=== PATIENT | female | born 2000 | race Caucasian/White ===

== ENCOUNTER 2021-05-11 19:51 | Observation (INO) | payer OTHER, SELFPAY ==
[2021-05-11] VITALS (8 sets, daily range): BP systolic 119–143; BP diastolic 74–84; PULSE 65–86; BMI 25.4
--- NOTE | 2021-05-11 23:29 | LDADM ---
This patient, Shikha Padilla, was admitted to Labor/Delivery/Recovery 104 on 05/11/21 at 19:51. Plans for labor, pain management and were discussed with patient. Patient/family oriented to hospital policies and general routines including ID bracelet, bed and alarms, visiting hours, pain management, procedures, bathroom and other care routines, personal items, smoking policy, room service/diet and guest tray routines, security routines, and visiting hours. Patient/Family are encouraged to report perceived risks to care and to ask questions if they do not understand what they are told or what they should do. See OBIX for further documentation.
--- NOTE | 2021-05-13 20:59 | PM.OBTRLD ---
OB - Triage/Final Diagnosis Visit Information Date of evaluation: 05/11/21 Reason for evaluation: threatened labor Comments/Additional reasons for admission: I have assessed the risk for this patient, Shikha Padilla, and determined that she would benefit from observation care.
== END 2021-05-11 23:53 | disposition home or self-care (01) ==
PROVIDERS: Admitting Provider Obstetrics & Gynecology; PCP Pediatrics; Visit Provider Obstetrics & Gynecology
DX: O47.1 False labor at or after 37 completed weeks of gestation (principal); Z3A.38 38 weeks gestation of pregnancy
CPT/HCPCS: G0378; G0379

== ENCOUNTER 2021-05-26 05:40 | Inpatient (IN) | payer MEDICAID, SELFPAY ==
[2021-05-26] VITALS (100 sets, daily range): BP systolic 83–147; BP diastolic 31–112; PULSE 53–165; RESP 16–18; TEMP 36.2–36.9; O2SAT 97–100; BMI 24.9
--- OUTSIDE RECORDS SUMMARY | 2021-05-26 06:17 | XMS_ITS | Encounter Summary ---
:2000 Author Care Team Providers Name Role Phone Lisa Huang MD Primary Care Provider [phone] Reason for Visit OB visit Assessment and Plan Assessment Note Patient is ___weeks . Discu ssed plan. 1. Routine care Discussion Note: None recorded.Patient educational handouts: No information available. Plan of Care Reminders Provider Appointments Ob Routine Lionel Bradford 05/27/2021 MD Nasreen 1:00PM Lab None ? ? recorded. Referral None ? ? recorded. Procedures None ? ? recorded. Surgeries None ? ? recorded. Imaging None ? ? recorded. Medications Name Start Date ? ? ? triamcinolone acetonide 0.5 % topical cream ? APPLY A THIN LAYER TO THE AFFECTED AREA(S) BY TOPICAL ROUTE 2 TIMES PER DAY Medications Administered None recorded. Vitals Height Weight BMI Blood Pressure 5 ft 5 in 153 lbs 25.5 kg/m2 120/81 mm[Hg] Results Lab Results None recorded. Allergies Code Code System Name Reaction Severity Onset NKDA ? ? ? Problems Name Status Onset Date Source ?
--- OUTSIDE RECORDS SUMMARY | 2021-05-26 06:17 | XMS_ITS | Encounter Summary ---
:2001 Author Care Team Providers Name Role Phone Lisa Huang MD Primary Care Provider [phone] Reason for Visit OB visit Assessment and [...] PER DAY Medications Administered None recorded. Vitals None recorded. Results Lab Results None recorded. Allergies Code Code System Name Reaction Severity Onset NKDA ? ? ? Problems Name Status Onset Date Source ? Active 11/14/2020 ? Procedures None recorded.
--- OUTSIDE RECORDS SUMMARY | 2021-05-26 06:17 | XMS_ITS | Encounter Summary ---
:2001 Author Care Team Providers Name Role Phone Lisa Huang MD Primary Care Provider [phone] Reason for Visit OB visit Assessment and [...] ft 5 in 153 lbs 25.5 kg/m2 (1) 129/88 mm[H g] (2) 120/78 mm[Hg ] Results Lab Results None recorded. Allergies Code Code System Name Reaction Severity Onset NKDA ? ? ? Problems
--- OUTSIDE RECORDS SUMMARY | 2021-05-26 06:17 | XMS_ITS | Encounter Summary ---
:2001 Author Care Team Providers Name Role Phone Lisa Huang MD Primary Care Provider [phone] Reason for Visit OB visit Assessment and [...] BMI Blood Pressure 5 ft 5 in 152 lbs 25.3 kg/m2 121/77 mm[Hg] Results Lab Results None recorded. Allergies Code Code System Name Reaction Severity Onset NKDA ? ? ? Problems Name Status Onset Date Source ?
--- OUTSIDE RECORDS SUMMARY | 2021-05-26 06:17 | XMS_ITS | Encounter Summary ---
:2001 Author Care Team Providers Name Role Phone Lisa Huang MD Primary Care Provider [phone] Reason for Visit OB visit Assessment and Plan Assessment Note Patient is ___weeks . Discu ssed plan. 1. Pruritic urticarial papules a nd plaques of ? triamcinolone acetonide 0. 5 % topical cream Discussion Note: None recorded.Patient educational handouts: No [...] BMI Blood Pressure 5 ft 5 in 154 lbs 25.6 kg/m2 118/76 mm[Hg] Results Lab Results None recorded. Allergies Code Code System Name Reaction Severity Onset NKDA ? ?
--- OUTSIDE RECORDS SUMMARY | 2021-05-26 06:17 | XMS_ITS ---
:2001 Author Care Team Providers Name Role Phone MICHAEL YOU MD Primary Care Provider [phone] Allergies Code Code System Name Reaction Severity Status Onset NKDA ? Medications Name Status Start Date Stop Date ? ? Active ? Not available triamcinolone acetonide 0.5 % topical Active ? Not available cream Problems Name Status Onset Date Source ? Active 11/14/2020 ? Procedures Date Name Performed by ? 11/14/2020 US, Obstetric, Nuchal Translucency Haresh verdu[address] [place] [address] ([address]) 01/06/2021 US, Obstetric, 2Nd or 3Rd Trimester Janette adame [address] [place] [address] ([address]) 04/10/2021 , Obstetric, Follow-up [place] [address] [place] [address] ([address]) Results Lab Results Date Name Specimen Result Interpretation Description Value Range Status Address ? 04/25/2021 Streptococcus ? Result see results ? Final [facility]: Group B, Report below [address], [place] Unspecified
--- OUTSIDE RECORDS SUMMARY | 2021-05-26 06:18 | XMS_ITS | Encounter Summary ---
:2001 Author Care Team Providers Name Role Phone Lisa Huang MD Primary Care Provider [phone] Reason for Visit OB visit Assessment and [...] BMI Blood Pressure 5 ft 5 in 145 lbs 24.1 kg/m2 116/70 mm[Hg] Results Lab Results None recorded. Allergies Code Code System Name Reaction Severity Onset NKDA ? ? ? Problems Name Status Onset Date Source ?
--- OUTSIDE RECORDS SUMMARY | 2021-05-26 06:18 | XMS_ITS | Encounter Summary ---
:2001 Author Care Team Providers Name Role Phone Lisa Huang MD Primary Care Provider [phone] Reason for Visit OB visit OB [id number] edc 05/20/2021 lmp 08/13/2020 Assessment and Plan Assessment Note Patient is _30__weeks . Dis cussed plan. 1. Routine care Discussion Note: None [...] BMI Blood Pressure 5 ft 5 in 139 lbs 23.1 kg/m2 112/70 mm[Hg] Results Lab Results None recorded. Allergies Code Code System Name Reaction Severity Onset NKDA ? ? ? Problems
--- OUTSIDE RECORDS SUMMARY | 2021-05-26 06:18 | XMS_ITS | Encounter Summary ---
:2001 Author Care Team Providers Name Role Phone Lisa Huang MD Primary Care Provider [phone] Reason for Visit None recorded. Assessment and Plan 1. Uterine size for dates discre pancy ? US, obstetric, follow-up Discussion Note: None recorded.Patient educational handouts: No information available. Plan of Care Reminders Provider Appointments Ob Routine Lionel Bradford 05/27/2021 MD Nasreen 1:00PM Lab None ? ? recorded. Referral None ? ? recorded. Procedures None ? ? recorded. Surgeries None ? ? recorded. Imaging [facility] Obstetric, Follow-up 04/10/2021 Medications Name Start Date ? ? ? [...]
--- OUTSIDE RECORDS SUMMARY | 2021-05-26 06:18 | XMS_ITS | Encounter Summary ---
:2001 Author Care Team Providers Name Role Phone Lisa Huang MD Primary Care Provider [phone] Reason for Visit OB visit Assessment and [...] BMI Blood Pressure 5 ft 5 in 148 lbs 24.6 kg/m2 114/70 mm[Hg] Results Lab Results None recorded. Allergies Code Code System Name Reaction Severity Onset NKDA ? ? ? Problems Name Status Onset Date Source ?
--- OUTSIDE RECORDS SUMMARY | 2021-05-26 06:18 | XMS_ITS | Encounter Summary ---
:2001 Author Care Team Providers Name Role Phone Lisa Huang MD Primary Care Provider [phone] Reason for Visit OB visit [id number] Assessment and Plan Assessment Note Patient is [...] BMI Blood Pressure 5 ft 5 in 137 lbs 22.8 kg/m2 115/72 mm[Hg] Results Lab Results None recorded. Allergies Code Code System Name Reaction Severity Onset NKDA ? ? ? Problems Name Status Onset Da
--- NOTE | 2021-05-26 06:38 | LDADM ---
This patient, Shikha Padilla, was admitted to Labor/Delivery/Recovery 107 on 05/26/21 at 05:40. Plans for labor, pain management and were discussed with patient. Patient/family oriented to hospital policies and general routines including ID bracelet, bed and alarms, visiting hours, pain management, procedures, bathroom and other care routines, personal items, smoking policy, room service/diet and guest tray routines, security routines, and visiting hours. Patient/Family are encouraged to report perceived risks to care and to ask questions if they do not understand what they are told or what they should do. See OBIX for further documentation.
[2021-05-26] MEDS: LACTATED RINGERS 1,000 ML 125 ML IV CONT ×2 (06:42→07:20)
[2021-05-26 06:54] LABS: Basophils Percent Auto 0.3 % (0.2-1.2); Eosinophils Percent Auto 0.3 % (0-4.4); Hematocrit 40.6 % (37.0-47.0); Hemoglobin 13.9 g/dL (12.0-15.0); Immature Granulocyte Percent A 1.4 % (0-0.5); Lymphocytes Absolute Auto 3.09 K/mm3 (0.9-3.2); Lymphocytes Percent Auto 21.2 % (18.3-44.2); Mean Corpuscular HGB Conc 34.2 g/dl (32-36); Mean Corpuscular Hemoglobin 31.4 pg (26-34); Mean Corpuscular Volume 91.9 fl (80-100); Mean Platelet Volume 9.6 fl (7.4-10.4); Monocytes Absolute Auto 0.9 K/mm3 (0.1-0.6); Monocytes Percent Auto 6.1 % (2.6-8.5); Neutrophils Absolute Auto 10.3 K/mm3 (1.3-6.7); Neutrophils Percent Auto 70.7 % (45.5-73.1); Platelet Count Result 254 k/mm3 (150-375); Red Blood Count 4.42 M/mm3 (4.2-5.4); Red Cell Distribution Width 12.2 % (11.5-14.5); White Blood Count 14.6 K/mm3 (4.5-10.0)
[2021-05-26] MEDS: ONDANSETRON INJ 4 MG/2 ML VIAL IV PUSH (07:44)
--- NOTE | 2021-05-26 07:51 | P.HPUP_ITS ---
History and Physical Update Update Date/Time: 05/26/21 07:51 20 y/o female G1 who presents in labor. AROM was p erformed. /+1 Reassuring status. Expectant management. History and Physical has been reviewed, including an updated exam of the patient. There are NO changes in the patient's condition. Risks, benefits, and alternatives have been discussed and questions answered. Patient agrees to proceed with procedure.
[2021-05-26] MEDS: FAMOTIDINE 20 MG/2 ML VIAL IV PUSH (08:42)
[2021-05-26 10:11] LABS: Rapid Plasma Reagin Non-Reactive (NonReactive)
[2021-05-26] MEDS: OXYTOCIN 30 UNITS/NS 500 ML 30 UNITS/500 ML BAG IV CONT (11:16)
--- NOTE | 2021-05-26 12:40 | PM.OBPRVD ---
OB - Delivery Note Procedure Delivery date: 05/26/21 Procedure: Intrapartal events: None Delivery augmentation: rupture of membranes and pitocin Episiotomy description: Right Mediolateral Laceration Description: None Delivery repair: vicryl Specimen: No Quantitative Blood Loss (ml): 300 Anesthesia type: Epidural Disposition: ICU Baby Date of : 05/26/21 Time of : 12:19 Weeks of gestation at delivery: 40 Infant gender: Male Weight (pounds): 6 Weight (ounces): 5 score one minute: 8 score five minutes: 9
[2021-05-26] MEDS: OXYTOCIN 30 UNITS/NS 500 ML 30 UNITS/500 ML BAG 125 UNITS IV CONT (13:04)
[2021-05-26] MEDS: WITCH HAZEL 40 PADS 1 PAD TOPICAL (14:45)
[2021-05-26] MEDS: BENZOCAINE 20% AER SPR (*SP) 56 GM CAN 1 SPRAY TOPICAL (14:45)
--- NOTE | 2021-05-26 15:50 | PC.NURSE ---
Mother called out for assist with feeding, reporting was sleepy for first feeding. is able to freely thrust tongue past gum ridge and flange both lips. Skin is intact on both nipples, no redness and bruising noted. Reviewed infant feeding cues, frequencies, duration of feedings, feeding elimination flow sheet, and signs of adequate intake. Demonstrated stimulation techniques to wake infant for feeding. Assisted with to breast. Reviewed positioning/alignment in cross cradle, holding breast in ?U? hold and guided asymmetrical latch on. Reviewed rational for each. able to latch correctly within a few attempts. nursed eagerly with steady draws and occasional swallowing noted, with long pausing pausing noted. Reviewed signs of a correct latch, effective nursing and suck swallow ratio. Suggested mother stimulate while feeding to increase stimulation for milk supply, for increased intake and to assist with maintaining deep latch. Parents work to stimulate infant, infant responds with bursts of nursing followed with long pausing. would slip to shallow latch causing tenderness. Demonstrated how to adjust latch more deeply while feeding as needed. Mother reports she can feel the difference in latch with no tenderness. Nipple care reviewed of lanolin after feedings, warm compresses as needed. Instructed mother to call out for RN assistance if she is unable to latch for feeding or she has discomfort with nursing. Instructed feeding should be initiated three hours from start of last feeding or if feeding cues are noted before. Mother voiced understanding of information shared.
--- NOTE | 2021-05-26 16:00 | OBPPTRN ---
1515-Patient transferred to post room #290 via wheelchair. Support person present. Oriented to unit, room, information board, rooming in, admission packet and security measures. Patient verbalizes understanding.
[2021-05-26] MEDS: IBUPROFEN 600 MG TABLET PO ×2 (16:21→22:25)
[2021-05-26] MEDS: HYDROcodone/acetaminophen (*CRX) 5-325 MG TABLET 1 TAB PO ×2 (18:51→22:26)
[2021-05-27 03:10] VITALS: BP 116/55; PULSE 80; RESP 16; TEMP 36.4; O2SAT 98
[2021-05-27] MEDS: HYDROcodone/acetaminophen (*CRX) 5-325 MG TABLET 1 TAB PO ×5 (03:14→17:23)
[2021-05-27 04:51] LABS: Hematocrit 25.3 % (37.0-47.0)
--- NOTE | 2021-05-27 07:55 | PM.OBPNVD ---
OB - PN: Subj Subjective Date/time seen: 05/27/21 07:55 Patient comments: no complaints baby status: doing well OB - PN: Obj Data Labs CBC & Chem 7: 05/27/21 04:08 Labs: Laboratory Results - last 24 hr 05/26/21 05/27/21 06:32 04:08 Hgb 9.0 L D Hct 25.3 L RPR Non-reactive OB - PN A/P Plan day: 1 Plan: routine care Time Spent With Patient Time: Total time spent is greater than 50% in coordination of care (as documented) at patient's floor/unit and/or counseling patient: Time with patient: less than 15 minutes Review of Systems Review of Systems: All systems reviewed & are unremarkable except as noted in HPI and below Exam Narrative: Fundus firm and vaginal flow controlled. No lower ext redness, warmth, or edema. Negative homans. Const: General: comfortable Chest: Breast/axilla inspection: normal inspection of the breasts Resp: Effort & Inspection: normal respiratory effort Cardio: Rate: regular rate GI: GI Palp: Yes Soft to palpation Psych: Appearance: grossly normal Affect: normal affect Attitude: cooperative Thought content: Yes Normal thought content present Judgement: Good judgement present (Psych)
[2021-05-27] MEDS: DOCUSATE SODIUM 100 MG CAPSULE PO (08:25)
[2021-05-27] MEDS: IBUPROFEN 600 MG TABLET PO ×3 (08:25→19:35)
[2021-05-27] MEDS: MULTIVIT/MIN/PREN/FOL AC/IRON TABLET 1 TAB PO (08:25)
[2021-05-27] MEDS: POLYSACCHARIDE IRON COMPLEX 150 MG CAPSULE PO ×2 (08:25→17:23)
[2021-05-27 08:40] VITALS: BP 109/60; PULSE 76; RESP 16; TEMP 36.9; O2SAT 100
--- NOTE | 2021-05-27 08:56 | WPDANLDPN2 ---
Anes-Prog Note L&D Date/Time: 05/27/21 08:56 Comfortable throughout: labor and delivery Neuraxial method: epidural Epidural/Spinal procedure site: clean & non-tender Neuro status: Neuro function grossly intact. Cardiovascular status: normal Respiratory status: normal Airway patency: baseline Mental status: baseline Post-Op hydration status: normal Vital Signs: Last Vital Signs Temp 97.6 F 05/27/21 03:10 Pulse 80 05/27/21 03:10 Resp 16 05/27/21 03:10 BP 116/55 L 05/27/21 03:10 Pulse Ox 98 05/27/21 03:10 Pain score (VAS): 2 Post-procedural complaints: none Patient feedback: Patient satisfied with anesthetic care.
--- NOTE | 2021-05-27 12:25 | PC.NURSE ---
Mother called out for assist with feeding, reporting it has been 4 hours since fed. Mother has attempted to wake after circumcision and he will not wake to feed. . Demonstrated stimulation techniques to wake for feeding. Assisted with infant to breast. Reviewed positioning/alignment in cross cradle, holding breast in ?U? hold and guided asymmetrical latch on. Reviewed rational for each. able to latch correctly within a few attempts. Infant nursed sleepily with bursts of steady draws and occasional swallowing noted, and long pausing. Reviewed signs of a correct latch, effective nursing and suck swallow ratio. Suggested mother stimulate while feeding to increase stimulation for milk supply, for increased intake and to assist with maintaining deep latch. Infant need constant stimulation to keep awake and nursing. Infant would slip to shallow latch causing tenderness. Demonstrated how to adjust latch more deeply while feeding as needed. Mother reports she can feel the difference in latch with no tenderness. Nipple care reviewed of lanolin after feedings, warm compresses as needed. Instructed mother to call out for RN assistance if she is unable to latch for feeding or she has discomfort with nursing. Instructed feeding should be initiated three hours from start of last feeding or if feeding cues are noted before. Mother voiced understanding of information shared.
[2021-05-27 12:36] VITALS: BP 113/56; PULSE 76; RESP 18; TEMP 36.7; O2SAT 99
--- NOTE | 2021-05-27 15:00 | PCCCNOTE ---
Care Coordination met with pt. and FORain Keith. Pt.'s D/C plan is to return home with FOB and baby. Pt. states that FOB is supportive and they have everything needed to safely bring baby home. Pt. will breast feed at time of D/C and states she is current with WIC. 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 Pt. has no prior DCFS history. Pt. denies any D/C needs or concerns. She has been provided with a list of resources. Will follow.
[2021-05-27 19:30] VITALS: BP 131/72; PULSE 82; RESP 16; TEMP 37.1
[2021-05-28] MEDS: HYDROcodone/acetaminophen (*CRX) 5-325 MG TABLET 1 TAB PO ×3 (00:40→08:18)
[2021-05-28] MEDS: IBUPROFEN 600 MG TABLET PO ×2 (02:30→08:18)
[2021-05-28 07:35] VITALS: BP 118/62; PULSE 72; RESP 16; TEMP 36.8; O2SAT 97
--- NOTE | 2021-05-28 07:38 | PM.OBPNVD ---
OB - PN: Subj Subjective Date/time seen: 05/28/21 07:38 Patient comments: no complaints, pain well controlled and tolerating diet OB - PN: Obj Data Labs CBC & Chem 7: 05/27/21 04:08 OB - PN A/P Plan day: 2 Plan: routine care and discharge home Time Spent With Patient Time: Total time spent is greater than 50% in coordination of care (as documented) at patient's floor/unit and/or counseling patient: Exam Const: General: comfortable and no acute distress Resp: Effort & Inspection: normal respiratory effort Auscultation: no rales, no rhonchi and no wheezes Cardio: Rate: regular rate Heart sounds: no click, no murmurs and no rubs GI: GI Palp: Yes Soft to palpation and No Tenderness to palpation present (GI) Auscultation: normal bowel sounds Extrem: General: normal to inspection, no pedal edema and no calf tenderness
--- NOTE | 2021-05-28 07:38 | PM.OBDSVD ---
DS: Admitting Diagnosis Discharge Date 05/28/2021 Admitting Diagnosis term DS: Discharge Diagnosis Discharge Diagnosis (1) Term delivered: Code(s): O80 - Encounter for full-term uncomplicated delivery Status: Acute OB - DS: Summary OB Procedures : NST and Ultrasound OB Procedures Intrapartum: Spontaneous Vag Delivery OB Procedures: : None Peripartum Data Delivery Method: Natural Vaginal Episiotomy description: Right Mediolateral Status at Discharge Functional status at discharge: independent ambulation Time Spent with Patient Time attestation: Total time spent providing and/or coordinating discharge services: Discharge Plan Discharge Attending physician on discharge: Shelia Downey Discharging Clinician: Shelia Downey Patient Disposition: Home, Self-Care Activity: pelvic rest Diet: regular Patient Instructions: Antibiotic Form Stand Alone Forms: General Discharge Information Follow-up/Referrals: Shelia Downey MD [Physician] - Date of admission: 05/26/21 05:40 Primary Care Provider: ÁngelLisa Admitting Provider: Shelia Downey Attending physician on admission: Shelia Downey Condition: Stable
[2021-05-28] MEDS: DOCUSATE SODIUM 100 MG CAPSULE PO (08:18)
[2021-05-28] MEDS: POLYSACCHARIDE IRON COMPLEX 150 MG CAPSULE PO (08:18)
[2021-05-28] MEDS: MULTIVIT/MIN/PREN/FOL AC/IRON TABLET 1 TAB PO (08:18)
--- NOTE | 2021-05-28 11:45 | PC.NURSE ---
Patient and father of baby viewed the discharge video Mother & Baby Care, The First Two Weeks . Patient was given the opportunity and encouraged to ask questions. Patient verbalized understanding of information shared and has been given the mother/baby guide for home reference.
== END 2021-05-28 14:20 | disposition home or self-care (01) | DRG 560 ==
LOC: ANHLDR 06:15 → ANHOB2 15:41
PROVIDERS: Admitting Provider Obstetrics & Gynecology; PCP Pediatrics; Visit Provider Obstetrics & Gynecology
DX: O80 Encounter for full-term uncomplicated delivery (principal); Z3A.40 40 weeks gestation of pregnancy; Z37.0 Single live birth
CPT/HCPCS: 36415; 85014; 85018; 85025; 86592; 86850; 86900; 86901; A9270; J2405; J2590; J2795; J7120

== ENCOUNTER 2022-09-08 18:57 | Emergency (ER) | payer BC, SELFPAY ==
--- NOTE | 2022-09-08 19:03 | ED.ABDPAIN ---
HPI - Abdominal Pain General Chief Complaint: Urogenital-Female Stated Complaint: Andominal Pain Source: patient and RN notes reviewed History of Present Illness HPI narrative: 22-year-old female presents to urgent care with complaints of dysuria, bilateral lower back pain, and lower pelvic pain x3 days. Patient states the symptoms do not get worse until today. Denies any vomiting, chest pain, or shortness of breath. Some parts of this dictation were generated by voice recognition software and may contain typographical and/or grammatical inaccuracies. Related Data Allergies Allergy/AdvReac Type Severity Reaction Status Date / Time No Known Allergies Allergy Verified 05/07/21 14:40 Review of Systems Review of Systems: CONSTITUTIONAL: Denies fever, chills, or sweats. EYES: Denies visual changes, redness, or discharge. ENT: Denies otalgia and sore throat CARDIOVASCULAR: Denies chest pain, palpitations, or edema. RESPIRATORY: Denies cough or dyspnea. GASTROINTESTINAL: Lower abdominal pain GENITOURINARY: Dysuria SKIN: Denies rash or itching. MUSCULOSKELETAL: Bilateral lower back pain NEUROLOGIC: Denies headache, numbness, or weakness. [facility] Family History Family History (Updated 05/07/21 @ 14:41 by Joshua Perez RN) Grandparent Diabetes mellitus Hypertension Social History Social History Smoking status: Never smoker Substance use: former Spiritual care concerns: No Comments At the time of my signature, I reviewed and agree with the nursing past medical, surgical, social, and family history. There is no relevant family history pertinent to the patient complaint. Exam Narrative: GENERAL: This is a well-nourished, well-developed patient, in no apparent distress. HEAD: normocephalic, atraumatic. EYES: PERRL. Sclera clear/white. Vision is grossly intact. EARS: External ears normal, auditory canals clear and without drainage, TMs normal without perforation. Hearing grossly intact. NOSE: External nose normal with no obvious nasal discharge, nares without redness, no rhinorrhea. THROAT: Mucous membranes moist, posterior pharynx clear. NECK: Neck supple, non-tender without lymphadenopathy, masses or thyromegaly. CARDIOVASCULAR: Regular rate and rhythm without murmurs, gallops, or rubs. RESPIRATORY: Clear to auscultation. Breath sounds equal bilaterally. No wheezes, rales, or rhonchi. GASTROINTESTINAL: Abdomen soft, non-tender, nondistended. Bowel sounds are active. No hepato-splenomegaly, or palpable masses. No guarding. SKIN: warm, intact with no suspicious lesions or rash, good texture and turgor. NEURO: awake, alert, and oriented to person, place and time. There were no obvious focal neurologic abnormalities. EXTREMITIES: No clubbing, cyanosis, or edema. No joint tenderness, effusion, or edema noted. BACK: Nontender without deformity or crepitance. No flank tenderness. Course Course Level of Care: Express Care Visit Vital Signs Vital signs: Vital Signs Temperature 97.5 F L 09/08/22 19:06 Pulse Rate 102 H 09/08/22 19:06 Respiratory Rate 16 09/08/22 19:06 Blood Pressure 125/87 09/08/22 19:06 Pulse Oximetry 100 09/08/22 19:06 Oxygen Delivery Room Air 09/08/22 19:06 Temperature 97.5 F L 09/08/22 19:06 Pulse Rate 102 H 09/08/22 19:06 Respiratory Rate 16 09/08/22 19:06 Blood Pressure 125/87 09/08/22 19:06 Pulse Oximetry 100 09/08/22 19:06 Oxygen Delivery Room Air 09/08/22 19:06 Reviewed MDM - Abdominal Pain MDM Narrative Medical decision making narrative: Take antibiotics as directed. Take emergency department any new or worsening symptoms. May take the Pyridium to help with symptoms. Pyridium will make her urine orange, so don't be alarmed, this is normal for Pyridium. Differential Diagnosis Differential diagnosis: Likely acute appendicitis and other (UTI, pyelonephritis) Lab Data Attestation: I reviewed the patient's lab results. Labs: Urine Glucose
[2022-09-08 19:06] VITALS: BP 125/87; PULSE 102; RESP 16; TEMP 36.4; O2SAT 100
== END 2022-09-08 19:34 | disposition home or self-care (01) ==
PROVIDERS: Emergency Provider Nurse Practitioner Family; PCP Pediatrics
DX: N39.0 Urinary tract infection, site not specified (principal)
CPT/HCPCS: 81003; 87077; 87086; 87186; 99213; G0463

== ENCOUNTER 2023-06-27 10:50 | Emergency (ER) | payer BC, SELFPAY ==
[2023-06-27 11:10] VITALS: BP 122/72; PULSE 94; RESP 18; TEMP 36.6; O2SAT 98
--- NOTE | 2023-06-27 11:41 | ED.URI ---
HPI - URI/Sore Throat General Chief Complaint: Upper Respiratory Infection Stated Complaint: throat hurts,face feels hot History of Present Illness HPI Narrative: Patient presents with nasal congestion cough no sore throat no fever no body aches. Patient states she is 23 weeks with no -related issues no abdominal pain no pelvic pain no urinary symptoms no vaginal bleeding or discharge. 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 Related Data Allergies Allergy/AdvReac Type Severity Reaction Status Date / Time No Known Allergies Allergy Verified 05/07/21 14:40 Review of Systems Review of Systems: CONSTITUTIONAL: Denies chills, or sweats. Reports fever and generalized body aches EYES: Denies visual changes, redness, or discharge. ENT: Denies otalgia. Reports nasal congestion runny nose and sore throat CARDIOVASCULAR: Denies chest pain, palpitations, or edema. RESPIRATORY: Denies dyspnea. Reports occasional cough GASTROINTESTINAL: Denies abdominal pain, nausea, vomiting, or diarrhea. GENITOURINARY: Denies dysuria or hematuria. SKIN: Denies rash or itching. MUSCULOSKELETAL: Denies back pain, joint pain, or myalgia. Reports generalized body aches NEUROLOGIC: Denies headache, numbness, or weakness. PSYCHIATRIC: Denies anxiety or depression. [facility] Family History Family History (Updated 05/07/21 @ 14:41 by Joshua Perez RN) Grandparent Diabetes mellitus Hypertension Social History Social History Smoking status: Never smoker Substance use: former Spiritual care concerns: No Comments At time of signature, agree with nursing past medical, surgical, social and family history. There is no relevant family history pertinent to the presenting complaint Exam Narrative: The patient is a well-developed, well-nourished in no acute distress. SKIN: Skin is warm and dry without erythema, swelling or exudate. There is good turgor. No tenting. HEAD: Atraumatic. Normocephalic. No temporal or scalp tenderness. EYES: Moist and bright. Sclera and conjunctivae normal. No discharge. PERRLA. Extraocular motions intact. Gross visual acuity intact. EARS: Pinna is normal shape and contour. Clear external auditory canals. TM pearly sterling with good cone of light, no erythema or suppuration. Bilateral cerumen noted no gross hearing deficit. NOSE: pink, moist mucosa with good air movement. Clear rhinorrhea without nasal flaring. Septum midline. Mouth: moist mucous membranes. THROAT; mild erythema noted to posterior oropharynx with moderate postnasal drainage. Without exudate or ulceration.. Uvula midline. Normal movement of soft palate. NECK: Supple and nontender with full range of motion without discomfort. No meningeal signs. LUNGS: Equal and bilateral breath sounds without wheezes, rales or rhonchi. CHEST: The chest wall is without retractions or use of accessory muscles. HEART: Has a regular rate and rhythm without murmur, gallops, click or rub. ABDOMEN: Soft, nontender with positive active bowel sounds. No rebound tenderness. EXTREMITIES: Without cyanosis, clubbing or edema. Equal 2+ distal pulses and 2 second capillary refill noted. NEUROLOGIC: alert, active, . The patient moves all extremities with normal muscle strength. Normal muscle tone is noted. Normal coordination is noted. NO focal neurological findings noted. Course Course Level of Care: Express Care Visit Vital Signs Vital signs: Vital Signs Temperature 36.6 C 06/27/23 11:10 Pulse Rate 94 06/27/23 11:10 Respiratory Rate 18 06/27/23 11:10 Blood Pressure 122/72 06/27/23 11:10 Pulse Oximetry 98 06/27/23 11:10 Oxygen Delivery Room Air 06/27/23 11:10 Temperature 36.6 C 06/27/23 11:10 Pulse Rate 94 06/27/23 11:10 Respiratory Rate 18 06/27/23 11:10 Blood Pressure 122/72 06/27/23 11:10 Pulse Oximetry 98 06/27/23 11:10 Oxygen Delivery Room Air 06/27/23
== END 2023-06-27 11:47 | disposition home or self-care (01) ==
PROVIDERS: Emergency Provider Nurse Practitioner Family; PCP Pediatrics
DX: J06.9 Acute upper respiratory infection, unspecified (principal)
CPT/HCPCS: 99211; G0463

== ENCOUNTER 2023-11-15 11:29 | Emergency (ER) | payer BC, SELFPAY ==
[2023-11-15 11:34] VITALS: BP 133/92; PULSE 127; RESP 20; TEMP 36.6; O2SAT 100
--- NOTE | 2023-11-15 11:41 | ED.FEMALEGU ---
HPI - Female Genitourinary General Chief complaint: Urogenital-Female Stated complaint: Poss UTI Source: patient and RN notes reviewed Mode of arrival: ambulatory Limitations: no limitations History of Present Illness HPI Narrative: 23 y/o female presented for c/o burning with urination, urgency and decreased output. Onset 2 days. Took AZO last night. 2 months post , not . denies hematuria, nausea, vomiting, abdominal pain, flank pain, constipation, diarrhea, fevers or chills. Related Data Home Medications Medication Instructions Recorded Confirmed nifedipine 30 mg tablet,extended mg PO 11/15/23 release 24 hr sertraline 50 mg tablet mg 11/15/23 Allergies Allergy/AdvReac Type Severity Reaction Status Date / Time No Known Allergies Allergy Verified 05/07/21 14:40 Review of Systems Review of Systems: CONSTITUTIONAL: Denies body aches, fever, chills, or sweats. CARDIOVASCULAR: Denies chest pain, palpitations, or edema. RESPIRATORY: Denies cough or dyspnea. GASTROINTESTINAL: Denies abdominal pain, nausea, vomiting, or diarrhea. GENITOURINARY: Reports dysuria, frequency, urgency, denies hematuria, flank pain SKIN: Denies rash, itching, or wounds. MUSCULOSKELETAL: Denies back pain or myalgia. [facility] Family History Family History Grandparent Diabetes mellitus Hypertension Social History Social History Smoking status: Never smoker Substance use: former Spiritual care concerns: No Comments At time of signature, I have reviewed and agree with nursing past medical, surgical, social and family history unless otherwise noted. Please see nursing chart for further information. There is no relevant family history pertinent to the presenting complaint Exam Narrative: GENERAL: Well-appearing ENT: Mucous membranes pink and moist. NECK: Normal AROM. Supple. CHEST: No respiratory distress. Clear to auscultation. HEART: Regular rate and rhythm. ABDOMEN: Soft, nontender, nondistended, normal active bowel sounds. No CVA tenderness SKIN: Warm, dry NEURO: No focal deficits. Alert and oriented x3. Gait steady. PSYCH: Normal affect. Course Course Emergency Course: Patient is aware of diagnosis, understands and agrees to treatment plan. Anticipatory guidance given. Patient agrees to follow-up as directed and is aware of reasons to seek care at the emergency department. Portions of this record may have been created with voice recognition software Level of Care: Express Care Visit Vital Signs Vital signs: Vital Signs Temperature 97.9 F 11/15/23 11:34 Pulse Rate 127 H 11/15/23 11:34 Respiratory Rate 20 11/15/23 11:34 Blood Pressure 133/92 H 11/15/23 11:34 Pulse Oximetry 100 11/15/23 11:34 Oxygen Delivery Room Air 11/15/23 11:34 Temperature 97.9 F 11/15/23 11:34 Pulse Rate 127 H 11/15/23 11:34 Respiratory Rate 20 11/15/23 11:34 Blood Pressure 133/92 H 11/15/23 11:34 Pulse Oximetry 100 11/15/23 11:34 Oxygen Delivery Room Air 11/15/23 11:34 Reviewed MDM - Female Genitourinary MDM Narrative Medical decision making narrative: Discussed physical exam findings and urine dip. Advised supportive measures and signs/symptoms to go to the ER. Pt is appropriate for outpt treatment and f/u. Differential Diagnosis Differential diagnosis: Likely urinary tract infection, bacterial vaginosis, vaginitis and cystitis Lab Data Labs: Urine Glucose Trace Reference Range: Negative Urine Bilirubin 3+ Reference Range: Negative Urine Ketone 2+ Reference Range: Negative Urine Specific [place] 1.030
== END 2023-11-15 12:02 | disposition home or self-care (01) ==
PROVIDERS: Emergency Provider Nurse Practitioner Family
DX: N39.0 Urinary tract infection, site not specified (principal)
CPT/HCPCS: 81003; 99213; G0463

== ENCOUNTER 2024-07-13 08:44 | Emergency (ER) | payer BC, SELFPAY ==
--- NOTE | 2024-07-13 08:50 | ED.FEMALEGU ---
HPI - Female Genitourinary General Chief complaint: Urogenital-Female Stated complaint: Poss UTI Time Seen by Provider: 07/13/24 09:01 Source: patient and RN notes reviewed Mode of arrival: ambulatory Limitations: no limitations History of Present Illness HPI Narrative: 23-year-old female presents with concern for 2 day history of urinary frequency, urgency and burning with urination. She reports she fell asleep this morning when she woke up she felt worse. She reports some chills. She denies fever, body aches, back pain, abdominal pain, nausea, vomiting. MD elicited complaint: UTI Related Data Home Medications ?Medication ?Instructions ?Recorded ?Confirmed ?Last Taken ?Type nifedipine 30 mg tablet,extended mg PO 11/15/23 Unknown History release 24 hr sertraline 50 mg tablet mg 11/15/23 Unknown History Allergies Allergy/AdvReac Type Severity Reaction Status Date / Time No Known Allergies Allergy Verified 05/07/21 14:40 Review of Systems Review of Systems: CONSTITUTIONAL: Denies malaise, chills, sweats, or fever. CARDIOVASCULAR: Denies chest pain, palpitations, or edema. RESPIRATORY: Denies cough or dyspnea. GASTROINTESTINAL: Denies abdominal pain, nausea, vomiting, diarrhea GENITOURINARY: Reports dysuria, frequency, urgency. Denies flank pain or hematuria. SKIN: Denies rash or itching. MUSCULOSKELETAL: Denies back pain or myalgia. All systems reviewed & are unremarkable except as noted in HPI and below PMFSH Family History Family History Grandparent Diabetes mellitus Hypertension Social History Social History Smoking status: Never smoker Substance use: former Spiritual care concerns: No Comments At time of signature, agree with nursing past medical, surgical, social and family history. There is no relevant family history pertinent to the presenting complaint Exam Narrative: GENERAL: Well-appearing, well-nourished, and in no acute distress. HEAD: Normocephalic. EYES: PERRLA, conjunctivae clear. NECK: Supple. No lymphadenopathy CHEST: Clear to auscultation. No respiratory distress. HEART: Regular rate and rhythm. ABDOMEN: Soft, nontender upon palpation, nondistended, normal active bowel sounds, no palpable or pulsatile masses, no guarding. No CVA tenderness SKIN: Warm, dry, no rash. NEURO: Alert and oriented x3. PSYCH: Normal mood and affect Course Course Emergency Course: Patient is aware of diagnosis, understands and agrees to treatment plan. Anticipatory guidance given. Patient agrees to follow-up as directed and is aware of reasons to seek care at the emergency department. Portions of this record may have been created with voice recognition software Level of Care: Express Care Visit Vital Signs Vital signs: Vital Signs Temperature 97.8 F 07/13/24 09:00 Pulse Rate 102 H 07/13/24 09:00 Respiratory Rate 16 07/13/24 09:00 Blood Pressure 119/81 07/13/24 09:00 Pulse Oximetry 100 07/13/24 09:00 Oxygen Delivery Room Air 07/13/24 09:00 Temperature 97.8 F 07/13/24 09:00 Pulse Rate 102 H 07/13/24 09:00 Respiratory Rate 16 07/13/24 09:00 Blood Pressure 119/81 07/13/24 09:00 Pulse Oximetry 100 07/13/24 09:00 Oxygen Delivery Room Air 07/13/24 09:00 Reviewed. MDM - Female Genitourinary MDM Narrative Medical decision making narrative: Exam findings and UA show no acute concerns or changes; patient is non-toxic appearing and is in no distress. Patient is appropriate for outpatient treatment and follow-up. Differential Diagnosis Differential diagnosis: Likely urinary tract infection and cystitis Critical Care Time Critical Care Time Critical Care Time: No Discharge Plan Discharge Clinical Impression: Urinary tract infection Patient Disposition: Home, Self-Care Condition: Stable Instructions: Antibiotic Form, Urinary Tract Infection in Women (ED) Additional Instructions: We will send a urine culture to the lab; if the culture identifies an organism that the prescribed antibiotic will not treat, you will receive a phone call from an urgent care staff member and an appropriate antibiotic will be prescribed. -Your symptoms should begin to improve within a day of starting antibiotics. But you should finish all the antibiotic pills you get. Otherwise your infection might come back. -Also recommend: increase water intake. Tylenol/ibuprofen as needed for pain or fever -Follow-up with your primary care provider for urine recheck or seek ER visit if condition worsens with high fever, nausea, vomiting and severe back pain. Patient Language: Luxembourgish Prescriptions: New sulfamethoxazole-trimethoprim 800-160 mg tablet 1 tablet PO Q12H 7 Days Qty: 14 0RF No Action nifedipine 30 mg tablet extended release 24hr PO sertraline 50 mg tablet Follow-up/Referrals: PHYSICIAN,VISUAL SUPERVISOR [Primary Care Provider] - Time of Disposition: 09:09
[2024-07-13 09:00] VITALS: BP 119/81; PULSE 102; RESP 16; TEMP 36.6; O2SAT 100
[2024-07-13 09:08] LABS: EDUAAPPEAR Cloudy; EDUABILI Negative (Negative); EDUABLOOD Trace (Negative); EDUACOLOR1 Yellow; EDUAGLUCOSE Negative (Negative); EDUAKETONE Negative (Negative); EDUALEUKO 2+ (Negative); EDUANITRATE Negative (Negative); EDUAPROTEIN Negative (Negative); EDUASPGRAVITY 1.025; EDUAUROBILI 0.2
--- OUTSIDE RECORDS SUMMARY | 2024-07-20 14:55 | XMS_ITS | Data Portability ---
Author Organization [facility] Marina Address [address] [place] [address] Assessment No assessment recorded. Plan of Treatment Reminders Order Date Submit Date Provider Last Modified By Organization Details Last Modified Time Details Appointments None recorded. Lab urinalysis, dipstick 2022 023 [facility] In-Office Order, Internal Use Only DO Not Attach Compendium DO Not Attach Compendium, Do Not Delete/merge, 813[address] 10:38:01 test, urine 2022 023 [email or web address] In-Office Order, Internal Use Only DO Not Attach Compendium DO Not Attach Compendium, Do Not Delete/merge, 45234 10:38:01 hemoglobin (Hb) electrophor esis, blood 2022 023 DEANGELO [facility], [address], [address], 16:14:45 HIV 1 + 2, meaningful use set 2022 023 [email or web address] [facility], 102 [facility] [address], [place], [address], 09:11:34 varicella zoster virus IgG Ab, QN, IA, serum 2022 023 [facility]O [facility], [address] [facility] [address], [place], [address], 16:14:51 urinalysis complete, reflex culture 2022 023 [facility]O [facility], [address], [place], [address], 16:14:48 drug screen, urine 2022 023 [facility], [address], [place], [address], 16:14:49 cf (cystic fibrosis) profile 2022 023 [facility], [address] [facility] [address], [place], [address], 16:14:49 Hepatitis C IgG Ab, qual, serum 2022 023 [email or web address] [facility], [address] [facility], [address], [place], [address], 09:11:34 panel 2022 023 [facility], [address] [facility], [address], [place], [address], 16:14:46 cytology report, thin prep, smear or scraping, cervical or vaginal 2022 023 [facility], [address] [facility], [address], [place], [address], 11:16:22 urinalysis, dipstick 2022 023 [email or web address] In-Office Order, Internal Use Only DO Not Attach Compendium DO Not Attach Compendium, Do Not Delete/merge, [id number] 12:21:14 aneuploidy risk and X & Y analysis, chromosome specific circulating cell free (CCF) DNA, maternal serum 2022 023 DEANGELO [facility], [address], [place], [address], 10/21/202 3 16:11:57 Referral maternal & medicine referral - Twin , dichorionic /diamniotic . Cholestasis of . Full transfer of care. [address] [facility], [address], [place], [address], 4 12:45:51 Procedures None recorded. Surgeries None recorded. Imaging None recorded. Medication Orders Zoloft 50 mg tablet 2023 024 [id number], [address] , [place], [place], [id number], 15:41:32 Patient TargetsNo targets recorded. Patient Instructions Encounter Date Encounter Id Patient Instructions Last Modified By Organization Details Last Modified Time 04/22/[id number] 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 Cholestasis of . Full transfer of care. Referring Physician: Sergo Messina, CODING MANAGER, Encounter Date: 04/27/2023 Results Created Date Observation Date Name Description Value Unit Range Abnormal Flag Note LastModifiedBy Organization Detail LastModifiedTime 04/22/20 23 04/25/2023 IGP,C TNGTV ,APT HPV,R FX16/ 18,45 HPV aptima Negati ve negati ve This nucle ic acid ampli ficat ion test detec ts fourt een high- risk HPV types (16,1 8,31, 33,35 ,39,4 5,51, 52,56 ,58,5 9,66, 68) witho ut diffe brenda ation . Not Available [facility] ([facility]) [address] [place], [address], 04/28/2023 11:16:22 04/22/20 23 04/25/2023 IGP,C TNGTV ,APT HPV,R FX16/ 18,45 chlamydia, nuc. acid amp Negati ve negati ve Not Available [facility] ([facility]) [address] [place], [address], 04/28/2023 11:16:22 04/22/2004/25/2023 IGP,C TNGTV ,APT HPV,R FX16/ 18,45 gonococcus, nuc. acid amp Negati ve negati ve Not Available [facility] ([facility]) [address] [place], [address], 04/28/2023 11:16:22 04/22/20 23 04/25/2023 IGP,C TNGTV ,APT HPV,R FX16/ 18,45 trich vag by WU Negati ve negati ve Not Available [facility] ([facility]) [address] [place], [address], 04/28/2023 11:16:22 04/22/20 23 04/28/2023 IGP,C TNGTV ,APT HPV,R FX16/ 18,45 diagnosis: Commen t NEGAT ANNA FOR INTRA EPITH ELIAL LESIO N OR MALMAYTE MORALEZ . FUNGA L ORGAN ISMS MORPH OLOGI RUBEN CONSI STENT WITH ANNELISE DA SPECI ES ARE PRESE NT. THIS SPECI MEN WAS RESCR EENED PART OF OUR QUALI TY CONTR OL PROGR AM. Not Available [facility] ([facility]) [address] [place], [address], 04/28/2023 11:16:22 04/22/20 23 04/28/2023 IGP,C TNGTV ,APT HPV,R FX16/ 18,45 specimen adequacy: Commen t Satis facto ry for evalu ation . Endoc ervic al and/o r squam ous metap lasti c cells (endo cervi divya compo nent) are prese nt. Not Available [facility] ([facility]) [address] [facility], [place], [address], 04/28/2023 11:16:22 04/22/20 23 04/28/2023 IGP,C TNGTV ,APT HPV,R FX16/ 18,45 clinician provided ICD10: Julio park Z34.9 2 Not Available [facility] ([facility]) [address] [place], [address], 04/28/2023 11:16:22 04/22/20 23 04/28/2023 IGP,C TNGTV ,APT HPV,R FX16/ 18,45 performed by: Julio ansari, Cytot echno logis t (ASCP ) Not Available [facility] ([facility]) [address] [place], [address], 04/28/2023 11:16:22 04/22/20 23 04/28/2023 IGP,C TNGTV ,APT HPV,R FX16/ 18,45 QC reviewed by: Julio Topete , Cytot echno logis t (ASCP ) Not Available [facility] ([facility]) [address] [place], [address], 04/28/2023 11:16:22 04/22/20 23 04/28/2023 IGP,C TNGTV ,APT HPV,R FX16/ 18,45 . . Not Available [facility] ([facility]) [address] [place], [address], 04/28/2023 11:16:22 04/22/20 23 04/28/2023 IGP,C TNGTV ,APT HPV,R FX16/ 18,45 note: Julio park The Pap smear is a scree druga test desig beau to aid in the detec tion of corrina ligna nt and malig nant condi tions of the uteri ne cervi x. It is not a diagn ostic proce dure and shoul d not be used as the sole means of detec ting cervi divya cance r. Both false -posi tive and false -nega tive repor ts do occur . Not Available [facility] ([facility]) [address] [place], [address], 04/28/2023 11:16:22 04/22/2004/28/2023 IGP,C TNGTV ,APT HPV,R FX16/ 18,45 test methodology: Commen t This liqui d based ThinP rep(R ) pap test was scree beau with the use of an image guide esau collier. Not Available [facility] ([facility]) [address] [place], [address], 04/28/2023 11:16:22 04/22/2004/28/2023 IGP,C TNGTV ,APT HPV,R FX16/ 18,45 HPV genotype reflex Commen t Crite khadar not met, HPV Genot ype not perfo rmed. Not Available [facility] ([facility]) [address] [place], [address], 04/28/2023 11:16:22 04/22/2004/23/2023 HGB FRACT IONAT ION CASCA DE HGB F 0.0 % 0.0-2. 0 Not Available [facility] ([facility]) [address] [place], [address], 04/30/2023 16:14:45 04/22/2004/23/2023 HGB FRACT IONAT ION CASCA DE HGB A 97.4 % 96.4-9 8.8 Not Available [facility] ([facility]) [address] [place], [address], 04/30/2023 16:14:45 04/22/2004/23/2023 HGB FRACT IONAT ION CASCA DE HGB A2 2.6 % 1.8-3. 2 Not Available [facility] ([facility]) [address] [facility], [place], [address], 04/30/2023 16:14:45 04/22/2004/23/2023 HGB FRACT IONAT ION CASCA DE HGB S 0.0 % 0.0 Not Available [facility] ([facility]) [address] [facility], [place], [address], 04/30/2023 16:14:45 04/22/2004/23/2023 HGB FRACT IONAT ION CASCA DE interpretati on: Commen t Santa l hemog lobin prese nt; no hemog lobin varia nt or beta thala ssemi a ident ified . Note: Alpha thala ssemi a may not be detec narayan by the Hgb Fract ionat ion [place] de panel . If alpha thala ssemi a is suspe cted, [facility] offer s Alpha -Thal assem ia DNA Marifer sis (#[phone]). Not Available [facility] ([facility]) [address] [facility], [place], [address], 04/30/2023 16:14:45 04/22/2004/23/2023 PREGN DUSTIN, INITI AL SCREE N HBsAg screen Negati ve negati ve Not Available [facility] ([facility]) [address] [facility], [place], [address], 04/30/2023 16:14:46 04/22/2004/23/2023 PREGN DUSTIN, INITI AL SCREE N HCV Ab Non Reacti ve nonrea ctive Not Available [facility] ([facility]) [address] [facility], [place], [address], 04/30/2023 16:14:46 04/22/2004/23/2023 PREGN DUSTIN, INITI AL SCREE N RPR Non Reacti ve nonrea ctive Not Available [facility] ([facility]) [address] [facility], [place], [address], 04/30/2023 16:14:46 04/22/2004/23/2023 PREGN DUSTIN, INITI AL SCREE N rubella antibodies, IgG 3.40 index immune >0.99 Non-i mmune <0.90 Equiv ocal 0.90 - 0.99 Immun e >0.99 Not Available [facility] ([facility]) [address] [facility], [place], [address], 04/30/2023 16:14:46 04/22/2004/23/2023 PREGN DUSTIN, INITI AL SCREE N ABO grouping O Not Available [facility] ([facility]) [address] [place], [address], 04/30/2023 16:14:46 04/22/2004/23/2023 PREGN DUSTIN, INITI AL SCREE N Rh factor Positi ve Pleas e note: Prior recor ds for this patie nt's ABO / Rh type are not avail able for addit ional verif icati on. Not Available [facility] ([facility]) [address] [facility], [place], [address], 04/30/2023 16:14:46 04/22/2004/23/2023 PREGN DUSTIN, INITI AL SCREE N antibody screen Negati ve negati ve Not Available [facility] ([facility]) [address] [place], [address], 04/30/2023 16:14:46 04/22/2004/23/2023 PREGN DUSTIN, INITI AL SCREE N HIV Ab/P24 Ag screen Non Reacti ve nonrea ctive HIV Negat anna HIV-1 /HIV- 2 antib odies and HIV-1 p24 antig en were NOT detec narayan. There is no labor atory evide nce of HIV infec tion. Not Available [facility] ([facility]) [address] [facility], [place], [address], 04/30/2023 16:14:46 04/22/2004/23/2023 PREGN DUSTIN, INITI AL SCREE N chlamydia trachomatis, WU Negati ve negati ve Not Available [facility] ([facility]) [address] [facility], [place], [address], 04/30/2023 16:14:46 04/22/2004/23/2023 PREGN DUSTIN, INITI AL SCREE N neisseria gonorrhoeae, WU Negati ve negati ve Not Available [facility] ([facility]) [address] [facility], [place], [address], 04/30/2023 16:14:46 04/22/2004/23/2023 PREGN DUSTIN, INITI AL SCREE N WBC 10.0 x10e3 /uL 3.4-10 .8 Not Available [facility] ([facility]) [address] [facility], [place], [address], 04/30/2023 16:14:46 04/22/2004/23/2023 PREGN DUSTIN, INITI AL SCREE N RBC 4.18 x10e6 /uL 3.77-5 .28 Not Available [facility] ([facility]) [address] [place], [address], 04/30/2023 16:14:46 04/22/2004/23/2023 PREGN DUSTIN, INITI AL SCREE N hemoglobin 13.2 g/dL 11.1-1 5.9 Not Available [facility] ([facility]) [address] [place], [address], 04/30/2023 16:14:46 04/22/2004/23/2023 PREGN DUSTIN, INITI AL SCREE N hematocrit 39.3 % 34.0-4 6.6 Not Available [facility] ([facility]) [address] [facility], [place], [address], 04/30/2023 16:14:46 04/22/2004/23/2023 PREGN DUSTIN, INITI AL SCREE N MCV 94 fL 79-97 Not Available [facility] ([facility]) [address] [facility], [place], [address], 04/30/2023 16:14:46 04/22/2004/23/2023 PREGN DUSTIN, INITI AL SCREE N MCH 31.6 pg 26.6-3 3.0 Not Available [facility] ([facility]) [address] [facility], [place], [address], 04/30/2023 16:14:46 04/22/2004/23/2023 PREGN DUSTIN, INITI AL SCREE N MCHC 33.6 g/dL 31.5-3 5.7 Not Available [facility] ([facility]) [address] [facility], [place], [address], 04/30/2023 16:14:46 04/22/2004/23/2023 PREGN DUSTIN, INITI AL SCREE N RDW 11.8 % 11.7-1 5.4 Not Available [facility] ([facility]) [address] [facility], [place], [address], 04/30/2023 16:14:46 04/22/2004/23/2023 PREGN DUSTIN, INITI AL SCREE N platelets 271 x10e3 /uL 150-45 0 Not Available [facility] ([facility]) [address] [facility], [place], [address], 04/30/2023 16:14:46 04/22/2004/23/2023 PREGN DUSTIN, INITI AL SCREE N neutrophils 82 % notest ab. Not Available [facility] ([facility]) [address] [facility], [place], [address], 04/30/2023 16:14:46 04/22/2004/23/2023 PREGN DUSTIN, INITI AL SCREE N lymphs 14 % notest ab. Not Available [facility] ([facility]) [address] [place], [address], 04/30/2023 16:14:46 04/22/20 23 04/23/2023 PREGN DUSTIN, INITI AL SCREE N monocytes 4 % notest ab. Not Available [facility] ([facility]) [address] [facility], [place], [address], 04/30/2023 16:14:46 04/22/2004/23/2023 PREGN DUSTIN, INITI AL SCREE N eos 0 % notest ab. Not Available [facility] ([facility]) [address] [facility], [place], [address], 04/30/2023 16:14:46 04/22/2004/23/2023 PREGN DUSTIN, INITI AL SCREE N basos 0 % notest ab. Not Available [facility] ([facility]) [address] [place], [address], 04/30/2023 16:14:46 04/22/2004/23/2023 PREGN DUSTIN, INITI AL SCREE N neutrophils (absolute) 8.1 x10e3 /uL 1.4-7. 0 above high normal Not Available [facility] ([facility]) [address] [place], [address], 04/30/2023 16:14:46 04/22/2004/23/2023 PREGN DUSTIN, INITI AL SCREE N lymphs (absolute) 1.4 x10e3 /uL 0.7-3. 1 Not Available [facility] ([facility]) [address] [place], [address], 04/30/2023 16:14:46 04/22/2004/23/2023 PREGN DUSTIN, INITI AL SCREE N monocytes(ab solute) 0.4 x10e3 /uL 0.1-0. 9 Not Available [facility] ([facility]) [address] [place], [address], 04/30/2023 16:14:46 04/22/2004/23/2023 PREGN DUSTIN, INITI AL SCREE N eos (absolute) 0.0 x10e3 /uL 0.0-0. 4 Not Available [facility] ([facility]) [address] [place], [address], 04/30/2023 16:14:46 04/22/2004/23/2023 PREGN DUSTIN, INITI AL SCREE N baso (absolute) 0.0 x10e3 /uL 0.0-0. 2 Not Available [facility] ([facility]) [address] [place], [address], 04/30/2023 16:14:46 04/22/2004/23/2023 PREGN DUSTIN, INITI AL SCREE N immature granulocytes 0 % notest ab. Not Available [facility] ([facility]) [address] [place], [address], 04/30/2023 16:14:46 04/22/20 23 04/23/2023 PREGN DUSTIN, INITI AL SCREE N immature grans (abs) 0.0 x10e3 /uL 0.0-0. 1 Not Available [facility] ([facility]) [address] [place], [address], 04/30/2023 16:14:46 04/22/2004/23/2023 PREGN DUSTIN, INITI AL SCREE N specific gravity 1.023 1.005- 1.030 Not Available [facility] ([facility]) [address] [place], [address], 04/30/2023 16:14:46 04/22/20 23 04/23/2023 PREGN DUSTIN, INITI AL SCREE N pH 7.0 5.0-7. 5 Not Available [facility] ([facility]) [address] [place], [address], 04/30/2023 16:14:46 04/22/2004/23/2023 PREGN DUSTIN, INITI AL SCREE N urine-color Yellow yellow Not Available [facility] ([facility]) [address] [facility], [place], [address], 04/30/2023 16:14:46 04/22/2004/23/2023 PREGN DUSTIN, INITI AL SCREE N appearance Turbid clear abnormal Not Available [facility] ([facility]) [address] [place], [address], 04/30/2023 16:14:46 04/22/2004/23/2023 PREGN DUSTIN, INITI AL SCREE N WBC esterase 2+ negati ve abnormal Not Available [facility] ([facility]) [address] [place], [address], 04/30/2023 16:14:46 04/22/2004/23/2023 PREGN DUSTIN, INITI AL SCREE N protein Negati ve negati ve/tra ce Not Available [facility] ([facility]) [address] [place], [address], 04/30/2023 16:14:46 04/22/2004/23/2023 PREGN DUSTIN, INITI AL SCREE N glucose Negati ve negati ve Not Available [facility] ([facility]) [address] [place], [address], 04/30/2023 16:14:46 04/22/2004/23/2023 PREGN DUSTIN, INITI AL SCREE N ketones Negati ve negati ve Not Available [facility] ([facility]) [address] [place], [address], 04/30/2023 16:14:46 04/22/2004/23/2023 PREGN DUSTIN, INITI AL SCREE N occult blood Negati ve negati ve Not Available [facility] ([facility]) [address] [facility], [place], [address], 04/30/2023 16:14:46 04/22/2004/23/2023 PREGN DUSTIN, INITI AL SCREE N bilirubin Negati ve negati ve Not Available [facility] ([facility]) [address] [facility], [place], [address], 04/30/2023 16:14:46 04/22/2004/23/2023 PREGN DUSTIN, INITI AL SCREE N urobilinogen ,semi-qn 0.2 mg/dL 0.2-1. 0 Not Available [facility] ([facility]) [address] [place], [address], 04/30/2023 16:14:46 04/22/2004/23/2023 PREGN DUSTIN, INITI AL SCREE N nitrite, urine Negati ve negati ve Not Available [facility] ([facility]) [address] [facility], [place], [address], 04/30/2023 16:14:46 04/22/2004/23/2023 PREGN DUSTIN, INITI AL SCREE N microscopic examination See below: Micro scopi c was indic ated and was perfo rmed. Not Available [facility] ([facility]) [address] [facility], [place], [address], 04/30/2023 16:14:46 04/22/2004/26/2023 PREGN DUSTIN, INITI AL SCREE N urine culture,pren atal, w/gbs Final report abnormal Not Available [facility] ([facility]) [address] [place], [address], 04/30/2023 16:14:46 04/22/2004/23/2023 UA/M W/RFL X CULTU RE, ROUTI NE urinalysis reflex Commen t This speci men has refle xed to a Urine Cultu re. Not Available [facility] ([facility]) [address] [facility], [place], [address], 04/30/2023 16:14:48 04/22/20 23 04/22/2023 CYSTI C FIBRO SIS PROFI LE comment: Commen t The assay provi gustavo infor matio n inten ded to be used for karolyn er scree durga in adult s of repro ducti ve age, as an aid in newbo rn scree durga, and as a confi rmato ry test for anoth er medic ally estab lishe d diagn osis in new rns and child alicia. The test is not indic ated for use in diagn ostic testi ng, pre-i mplan tatio n scree durga, or for any stand -dany e diagn ostic purpo ses witho ut confi rmati on by anoth er medic ally estab lishe d diagn ostic produ ct or proce dure. Not Available [facility] ([facility]) [address] [facility], [place], [address], 04/30/2023 16:14:49 04/22/20 23 04/30/2023 CYSTI C FIBRO SIS PROFI LE CF, screen DESHAWN R abnormal RESUL TS: POSIT ANNA for one copy of the delta F508 mutat ion INTER PRETA TION: Marifer sis of the sampl e provi ded revea led one CF mutat ion; there fore, this indiv idual is at least a CF karolyn er. This resul t shoul d be inter prete d in the alphonse xt of the clini divya indic ation . COMME NTS: Dusty ic couns moises is recom abraham d to discu ss the poten tial clini divya and/o r repro ducti ve impli catio ns of this resul t, as well as recom menda tions for testi ng other famil y membe rs and, when appli cable , this indiv idual 's partn er. The detec tion rate varie s with [place], and the prese nce of a secon d, undet ected mutat ion in the CF gene canno t be ruled out. Mutat ion Detec tion Detec tion rates are based on mutat ion Rates among Ethni c frequ encie s in patie nts affec narayan with Group s cysti c fibro sis. Among indiv idual s with an atypi divya or mild prese ntati on (e.g. conge nital absen ce of the vas defer ens, pancr eatit is) detec tion rates may vary from those provi ded here: Detec tion Ethni [facility] Rate Ashke nazi 97% Jewis h Cauca edna 90% (non- Hispa lucy) Afric an-Am virgie n 69% Hispa lucy 73% 55% This inter preta tion is based on the clini divya and famil y relat ionsh ip infor matio n provi ded and the curre nt under stand ing of the molec ular dusty ics of this condi tion. MUTAT IONS MARIFER ZED: G85E V520F W1282 X 2183A A to G R117H G542X N1303 K 2184d Jaron R334W S549N 394de lTT 2789+ 5G to A R347H S549R 621+1 G to T 3120+ 1G to A R347P G551D 711+1 G to T 3659d elC A455E R553X 1078d elT 3849+ 10kbC to T Delta I507 R560T 1717- 1G to A 3876d Jaron Delta F508 R1162 X 1898+ 1G to A 3905i nsT METHO DS/LI MITAT IONS: DNA is isola narayan from the sampl e and teste d for the 32 CF mutat ions on the [employer] or[employer] (Lorenza nex). Regio ns of the CFTR gene are ampli fied enzym atica lly and subje cted to a solut ion-p hase multi plex allel e-spe cific prime r exten kayli with subse quent hybri dizat ion to a bead array and fluor escen ce detec tion. Polym orphi sms F508C , I506V and I507V are inclu ded in this panel to rule out false posit anna delta F508 homoz ygote s. Refle x testi ng of 5T is inclu ded in the panel for R117H inter preta tion. False posit anna or negat anna resul ts may occur for reaso ns that inclu de dusty ic varia nts, blood trans fusio ns, bone marro w trans plant ation , cesar eous repre senta tion of famil y relat ionsh ips or conta minat ion of a sampl e with mater nal cells . REFER ENCES : 1. Updat es on Karolyn er Scree durga for Cysti c Fibro sis. (2011 ) Am J Ob Gynec ol 117(4 ):102 8-103 1 2. Mohini clemente et al. (2004 ) Dusty Med 6:387 -91 3. Dee stone, et al. (2002 ) Dusty Med 4:379 -391 4. Preco ncept ion and prena deena akrolyn er scree durga for cysti c fibro sis: (2000 )ACOG .[facility] publi catio n Resul ts Relea sed By: Dc mckay, Ph.D. , [facility] [address] [facility] , [place] [address] Repor t Relea sed By: Micki Zapien , MS, [facility], Dusty ic Couns elor Not Available [facility] ([facility]) [address] [place], [address], 04/30/2023 16:14:49 04/22/2004/30/2023 CYSTI C FIBRO SIS PROFI LE pdf . Not Available [facility] ([facility]) [address] [place], [address], 04/30/2023 16:14:49 04/22/2004/23/2023 [id number] 9 10 DRUG- BUND amphetamines , urine Negati ve NG/mL cutoff =1000 Amphe tamin e test inclu gustavo Amphe tamin e and Metha mphet amine . Not Available [facility] ([facility]) [address] [facility], [place], [address], 04/30/2023 16:14:49 04/22/2004/23/2023 [id number] 9 10 DRUG- BUND barbiturates Negati ve NG/mL cutoff =200 Not Available [facility] ([facility]) [address] [facility], [place], [address], 04/30/2023 16:14:49 04/22/2004/23/2023 [id number] 9 10 DRUG- BUND benzodiazepi frances Negati ve NG/mL cutoff =200 Not Available [facility] ([facility]) [address] [place], [address], 04/30/2023 16:14:49 04/22/2004/23/2023 [id number] 9 10 DRUG- BUND cannabinoid Negati ve NG/mL cutoff =50 Not Available [facility] ([facility]) [address] [place], [address], 04/30/2023 16:14:49 04/22/2004/23/2023 [id number] 9 10 DRUG- BUND cocaine (metab.) Negati ve NG/mL cutoff =300 Not Available [facility] ([facility]) [address] [place], [address], 04/30/2023 16:14:49 04/22/2004/23/2023 [id number] 9 10 DRUG- BUND methaqualone Negati ve NG/mL cutoff =300 Not Available [facility] ([facility]) [address] [place], [address], 04/30/2023 16:14:49 04/22/2004/23/2023 [id number] 9 10 DRUG- BUND opiates Negati ve NG/mL cutoff =2000 Opiat e test inclu gustavo Codei ne and Morph ine only. Not Available [facility] ([facility]) [address] [place], [address], 04/30/2023 16:14:49 04/22/2004/23/2023 [id number] 9 10 DRUG- BUND phencyclidin e Negati ve NG/mL cutoff =25 Not Available [facility] ([facility]) [address] [place] [address], [place], [address], 04/30/2023 16:14:49 04/22/2004/23/2023 [id number] 9 10 DRUG- BUND methadone screen, urine Negati ve NG/mL cutoff =300 Not Available [facility] ([facility]) [address] [place], [address], 04/30/2023 16:14:49 04/22/2004/23/2023 [id number] 9 10 DRUG- BUND propoxyphene , urine Negati ve NG/mL cutoff =300 Not Available [facility] ([facility]) [address] [place] [address], [address], 04/30/2023 16:14:49 04/22/2004/23/2023 VARIC JOYCE- ZOSTE R V AB, IGG varicella zoster IgG 581 index immune >165 Negat anna <135 Equiv ocal 135 - 165 Posit anna >165 A posit anna resul t gener ally indic ates expos ure to the patho gen or admin istra tion of speci fic immun oglob ulins , but it is not indic ation of activ e infec tion or stage of disea se. Not Available [facility] ([facility]) [address] [place] [address], [place], [address], 04/30/2023 16:14:51 04/22/2004/26/2023 RESUL T result 1 Commen t abnormal Beta hemol ytic Strep tococ cus, group B 50,00 0-100 ,000 colon y formi ng units per mL Penic illin and ampic illin are drugs of choic e for treat ment of beta- hemol ytic strep tococ divya infec tions . Susce ptibi lity testi ng of penic illin s and other beta- lacta m agent s, such as cefaz kiley, appro bobby by the FDA for treat ment of beta- hemol ytic strep tococ divya infec tions need not be perfo rmed routi cosmo becau se nonsu scept ible isola nanci are extre juan rare. Other susce ptibi litie s provi ded as gabe nce in treat ment of urina ry tract infec tions only. Clind amyci n susce ptibi lity provi ded as gabe nce for intra partu m proph ylaxi s only (CDC 2010) . Testi ng for induc ible clind amyci n resis tance was perfo rmed using eryth romyc in and clind amyci n in the D-zon e test. Not Available [facility] ([facility]) [address] [facility], [place], [address], 04/30/2023 16:14:51 04/22/20 23 04/26/2023 RESUL T result 2 Commen t Mixed uroge nital corie 50,00 0-100 ,000 colon y formi ng units per mL Not Available [facility] ([facility]) [address] [place], [address], 04/30/2023 16:14:51 04/22/20 23 04/26/2023 RESUL T antimicrobia l susceptibili ty Commen t S = Susce ptibl e; I = Inter media te; R = Resis tant P = Posit anna; N = Negat anna MICS are expre ssed in micro grams per mL Antib iotic RSLT# 1 RSLT# 2 RSLT# 3 RSLT# 4 Cefep yuly S Cefot axime S Ceftr iaxon e S Clind amyci n R Not Available [facility] ([facility]) [address] [place], [address], 04/30/2023 16:14:51 04/22/20 23 04/27/2023 URINE CULTU RE, ROUTI NE urine culture, routine Final report abnormal Not Available [facility] ([facility]) [address] [place], [address], 04/30/2023 16:14:50 04/22/2004/27/2023 URINE CULTU RE, NAUN NE result 1 Commen t abnormal Beta hemol ytic Strep tococ cus, group B Great er than 100,0 00 colon y formi ng units per mL Penic illin and ampic illin are drugs of choic e for treat ment of beta- hemol ytic strep tococ divya infec tions . Susce ptibi lity testi ng of penic illin s and other beta- lacta m agent s appro bobby by the FDA for treat ment of beta- hemol ytic strep tococ divya infec tions need not be perfo rmed naun cosmo becau se nonsu scept ible isola nanci are extre juan rare in any beta- hemol ytic strep tococ cus and have not been repor narayan for Strep tococ cus pyoge frances (grou p A). (CLSI ) Not Available [facility] ([facility]) [address] [facility], [place], [address], 04/30/2023 16:14:50 04/22/2004/23/2023 MICRO SCOPI C EXAMI NATIO N WBC 0-5 /hpf 0-5 Not Available [facility] ([facility]) [address] [facility], [place], [address], 04/30/2023 16:14:47 04/22/2004/23/2023 MICRO SCOPI C EXAMI NATIO N RBC 0-2 /hpf 0-2 Not Available [facility] ([facility]) [address] [place], [address], 04/30/2023 16:14:47 04/22/2004/23/2023 MICRO SCOPI C EXAMI NATIO N epithelial cells (non renal) >10 /hpf 0-10 abnormal Not Available [facility] ([facility]) [address] [facility], [place], [address], 04/30/2023 16:14:47 04/22/2004/23/2023 MICRO SCOPI C EXAMI NATIO N casts None seen /lpf nonese en Not Available [facility] ([facility]) [address] [facility], [place], [address], 04/30/2023 16:14:47 04/22/2004/23/2023 MICRO SCOPI C EXAMI NATIO N crystals Presen t n/a abnormal Not Available [facility] ([facility]) [address] [facility], [place], [address], 04/30/2023 16:14:47 04/22/2004/23/2023 MICRO SCOPI C EXAMI NATIO N crystal type Amorph ous Sedime nt Not Available [facility] ([facility]) [address] [facility], [place], [address], 04/30/2023 16:14:47 04/22/2004/23/2023 MICRO SCOPI C EXAMI NATIO N bacteria Many nonese en/few abnormal Not Available [facility] ([facility]) [address] [facility], [place], [address], 04/30/2023 16:14:47 04/22/2004/23/2023 INTER PRETA TION: interpretati on: Commen t Not infec narayan with HCV unles s early or acute infec tion is suspe cted (whic h may be delay ed in an immun ocomp romis ed indiv idual ), or other evide nce exist s to indic ate HCV infec tion. Not Available [facility] ([facility]) [address] [facility], [place], [address], 04/30/2023 16:14:46 04/22/2004/22/2023 pregn dustin test, urine HCG positi ve Not Available In-Office Order Internal Use Only DO Not Attach Compendium DO Not Attach Compendium, Do Not Delete/merge, [id number] 04/22/2023 10:11:57 04/22/2004/22/2023 urina lysis , dipst ick Leukocytes Small Not Available In-Offi ce Order Internal Use Only DO Not Attach Compendium DO Not Attach Compendium, Do Not Delete/merge, [id number] 04/22/2023 10:11:39 04/22/2004/22/2023 urina lysis , dipst ick Nitrite negati ve Not Available In-Office Order Internal Use Only DO Not Attach Compendium DO Not Attach Compendium, Do Not Delete/merge, [id number] 04/22/2023 10:11:39 04/22/2004/22/2023 urina lysis , dipst ick Urobilinogen .2 Not Available In-Of fice Order Internal Use Only DO Not Attach Compendium DO Not Attach Compendium, Do Not Delete/merge, [id number] 04/22/2023 10:11:39 04/22/2004/22/2023 urina lysis , dipst ick Protein Negati ve Not Available In-Office Order Internal Use Only DO Not Attach Compendium DO Not Attach Compendium, Do Not Delete/merge, [id number] 04/22/2023 10:11:39 04/22/2004/22/2023 urina lysis , dipst ick pH 8.0 Not Available In-Office Order Internal Use Only DO Not Attach Compendium DO Not Attach Compendium, Do Not Delete/merge, [id number] 04/22/2023 10:11:39 04/22/2004/22/2023 urina lysis , dipst ick Blood Non-He molyze d: Trace Not Available In-Office Order Internal Use Only DO Not Attach Compendium DO Not Attach Compendium, Do Not Delete/merge, [id number] 04/22/2023 10:11:39 04/22/2004/22/2023 urina lysis , dipst ick Specific Bernice 1.025 Not Available In-Off ice Order Internal Use Only DO Not Attach Compendium DO Not Attach Compendium, Do Not Delete/merge, [id number] 04/22/2023 10:11:39 04/22/2004/22/2023 urina lysis , dipst ick Ketone Negati ve Not Available In-Office Order Internal Use Only DO Not Attach Compendium DO Not Attach Compendium, Do Not Delete/merge, [id number] 04/22/2023 10:11:39 04/22/2004/22/2023 urina lysis , dipst ick Bilirubin Negati ve Not Available In-Office Order Internal Use Only DO Not Attach Compendium DO Not Attach Compendium, Do Not Delete/merge, [id number] 04/22/2023 10:11:39 04/22/2004/22/2023 urina lysis , dipst ick Glucose Negati ve Not Available In-Office Order Internal Use Only DO Not Attach Compendium DO Not Attach Compendium, Do Not Delete/merge, [id number] 04/22/2023 10:11:39 04/27/2005/01/2023 MATER NIT21 PLUS CORE gestation Twins Not Available [facility] ([facility]) [address] [place], [address], 05/01/2023 16:11:57 04/27/2005/01/2023 MATER NIT21 PLUS CORE fraction 11% Not Available [facility] ([facility]) [address] [place], [address], 05/01/2023 16:11:57 04/27/2005/01/2023 MATER NIT21 PLUS CORE gestational age > or = 9W: Yes Not Available [facility] ([facility]) [address] [place], [address], 05/01/2023 16:11:57 04/27/2005/01/2023 MATER NIT21 PLUS CORE test result Negati ve Not Available [facility] ([facility]) [address] [place], [address], 05/01/2023 16:11:57 04/27/2005/01/2023 MATER NIT21 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 Clini divya corre latio n is ghadaivon garcia. This is a repor narayan twin gesta tion with Y chrom osome mater ial detec narayan. Based on the amoun t of Y mater ial, the proba bilit y of male/ femal e twins is 95.6% and male/ male twins is 4.4% (Torsten vincento et al., PLOS ONE 2020) . Resul casey shoryan d be inter prete d in the alphonse xt of chori onici ty and other clini divya infor matio n. Not Available [facility] ([facility]) [address] [place], [address], 05/01/2023 16:11:57 04/27/2005/01/2023 MATER NIT21 PLUS CORE approved by Julio rawls MD, PhD, [facility], [place] Labor atori es Not Available [facility] ([facility]) [address] [place], [address], 05/01/2023 16:11:57 04/27/2005/01/2023 MATER NIT21 PLUS CORE trisomy 21 (down syndrome) Negati ve Not Available [facility] ([facility]) [address] [place], [address], 05/01/2023 16:11:57 04/27/2005/01/2023 MATER NIT21 PLUS CORE trisomy 18 (benton syndrome) Negati ve Not Available [facility] ([facility]) [address] [place], [address], 05/01/2023 16:11:57 04/27/2005/01/2023 MATER NIT21 PLUS CORE trisomy 13 (patau syndrome) Negati ve Not Available [facility] ([facility]) [address] [place], [address], 05/01/2023 16:11:57 04/27/2005/01/2023 MATER NIT21 PLUS CORE sex Julio park Consi stent with Male Not Available [facility] ([facility]) [address] [facility], [place], [address], 05/01/2023 16:11:57 04/27/2005/01/2023 MATER NIT21 PLUS CORE negative predictive value Note The Negat nana Predi ctive Value (NPV) for triso my 21, 18, and 13 is great er than 99%. The NPV for SCA and ESS canno t be calcu lated as SCA and ESS are only repor narayan when an abnor malit y is detec narayan. Not Available [facility] ([facility]) [address] [facility], [place], [address], 05/01/2023 16:11:57 04/27/2005/01/2023 MATER NIT21 PLUS CORE positive predictive value N/A Not Available [facility] ([facility]) [address] [facility], [place], [address], 05/01/2023 16:11:57 04/27/2005/01/2023 MATER NIT21 PLUS CORE about the test Commen t The Mater niT(R ) 21 PLUS labor atory -deve loped test (LDT) marifer zes circu latin g cell- free DNA from a mater nal blood sampl e. This test is used for scree durga purpo ses and not diagn ostic . Clini divya corre latio n is recom abraham d. Valid ation data on twin pregn ancie s is limit ed and the abili ty of this test to detec t aneup loidy in highe r multi ple gesta tions has not yet been valid ated. Not Available [facility] ([facility]) [address] [facility], [place], [address], 05/01/2023 16:11:57 04/27/2005/01/2023 MATER NIT21 PLUS CORE test method Commen t See Notes Circu latin g cell- free DNA was purif ied from the plasm a compo nent of mater nal blood . The extra cted DNA was then conve rted into a genom ic DNA loretta ry for aneup loidy marifer sis of chrom osome s 21, 18, and 13 via next gener ation seque ncing .[1] Optio nal findi ngs based on the test order inclu de sex chrom osome aneup loidy (SCA) [2], and enhan juan david seque ncing serie s (ESS) [3], which will only be repor narayan on as an addit ional findi ng when an abnor malit y is detec narayan. SCA testi ng inclu gustavo infor matio n on X and Y repre senta tion, while ESS testi ng inclu gustavo delet ions in selec narayan regio ns (22q, 15q, 11q, 8q, 5p, 4p, 1p) and triso my of chrom osome s 16 and 22. Not Available [facility] ([facility]) [address] [facility], [place], [address], 05/01/2023 16:11:57 04/27/2005/01/2023 MATER NIT21 PLUS CORE performance Commen t The perfo rmanc e tadeo cteri stics of the Mater niT(R ) 21 PLUS labor atory -deve loped test (LDT) have been deter mined in a clini divya valid ation study with pregn ant women at incre ased risk for chrom osoma l aneup loidy .[1-4 ] Not Available [facility] ([facility]) [address] [facility], [place], [address], 05/01/2023 16:11:57 04/27/2005/01/2023 MATER NIT21 PLUS CORE performance characterist ics Note ----- ----- ----- ----- ----- ----- ----- ----- ----- ----- ----- ---- ! Sex ! Accur acy: 99.4% ! !---- ----- ----- ----- ----- ----- ----- ----- ----- ----- ----- ---! ! Regio n (barryo sarah d syndr ome) ! Est. Sens# ! Est. Spec ! !---- ----- ----- ----- ----- ----- ----- ----- ----- ----- ----- ---! ! Clydeo my 21 (Down Syndr ome) ! 99.1% ! 99.9% ! !---- ----- ----- ----- ----- ----- ----- ----- ----- ----- ----- ---! ! Clydeo my 18 (Edwa rds Syndr ome) ! >99.9 % ! 99.6% ! !---- ----- ----- ----- ----- ----- ----- ----- ----- ----- ----- ---! ! Clydeo my 13 (Pata u Syndr ome) ! 91.7% ! 99.7% ! !---- ----- ----- ----- ----- ----- ----- ----- ----- ----- ----- ---! ! Sex Chrom osome Aneup toñito es## ! 96.2% ! 99.7% ! !---- ----- ----- ----- ----- ----- ----- ----- ----- ----- ----- ---! * Dallin busch in ISCA datab ase nstd3 7 [[email or web address] ] # Estim ated Sensi tivit y. Sensi tivit y estim ated acros s the obser bobby size distr ibuti on of each syndr ome [per ISCA datab ase nstd3 7] and acros s the range of fract ions obser bobby in routi ne clini divya NIPT. Actua l sensi tivit y can also be influ enced by other facto rs such as the size of the event , total seque nce count s, ampli ficat ion bias, or seque nce bias. ## Singl eton gesta tion only. Not Available [facility] ([facility]) [address] [facility], [place], [address], 05/01/2023 16:11:57 04/27/2005/01/2023 MATER NIT21 PLUS CORE limitations of the test Commen t While the resul ts of these tests are highl y relia ble, disco rdant resul ts, inclu ding inacc urate sex predi ction , may occur due to place ntal, mater nal, or mosai cism or neopl asm; vanis attila twin; prior mater nal organ trans plant ; or other cause s. These tests are scree durga tests and not diagn ostic ; they do not repla ce the accur acy and preci kayli of prena deena diagn osis with CVS or amnio cente sis. A patie nt with a posit anna test resul t shoul d be refer red for dusty ic couns eling and offer ed invas anna prena deena diagn osis for confi rmati on of test resul ts.[5 ] The resul ts of this testi ng, inclu ding the benef its and limit ation s, shoul d be discu ssed with a quali fied healt hcare provi donna. Pregn dustin manag ement decis ions, inclu ding termi natio n of the pregn dustin, shoul d not be based on the resul ts of these tests alone . The healt hcaava provi donna is respo nsibl e for the use of this infor matio n in the manag ement of their patie nt. Sex chrom osoma l aneup loidi es are not repor table for known multi ple gesta tions . A negat anna resul t does not ensur e an unaff ected pregn dustin nor does it exclu de the possi bilit y of other chrom osoma l abnor malit ies or defec ts which are not a part of these tests . An uninf ormat anna resul t may be repor narayan, the cause s of which may inclu de, but are not limit ed to, insuf ficie nt seque ncing cover age, noise or artif acts in the regio n, ampli ficat ion or seque ncing bias, or insuf ficie nt fract ion. These tests are not inten ded to ident danelle pregn ancie s at risk for neura l tube defec ts or ventr al wall defec ts. Testi ng for whole chrom osome abnor malit ies (incl uding sex chrom osome s) and for subch romos omal abnor malit ies could lead to the poten tial disco very of both and mater nal genom ic abnor malit ies that could have major , minor , or no, clini divya signi fican ce. Evalu ating the signi fican ce of a posit anna or a non-r eport able resul t may invol ve both invas anna testi ng and addit ional studi es on the mothe r. Such inves tigat ions may lead to a diagn osis of mater nal chrom osoma l or subch romos omal abnor malit ies, which on occas ion may be assoc iated with benig n or malig nant mater nal neopl asms. These tests may not accur ately ident danelle tripl oidy, osmel juan david rearr angem ents, or the preci se locat ion of subch romos omal dupli catio ns or delet ions; these may be detec narayan by prena deena diagn osis with CVS or amnio cente sis. The abili ty to repor t resul ts may be impac narayan by mater nal BMI, mater nal weigh t, mater nal syste natalie lupus eryth emato cheryl (SLE) and/o r by certa in pharm aceut ical agent s such as low molec ular weigh t hepar in (for examp le: Loven ox(R) , Xapar in(R) , Clexa ne(R) and Fragm in(R) ). Not Available [facility] ([facility]) [address] [facility], [place], [address], 05/01/2023 16:11:57 04/27/2005/01/2023 MATER NIT21 PLUS CORE note Commen t See Notes [employer]. is a subsi diary of Labor atory Corpo ratio n of [employer] elis Maldonadoi ngs, using the brand [employer]. This test was devel oped and its perfo rmanc e tadeo cteri stics deter mined by [employer]. It has not been clear ed or appro bobby by the Food and Drug Admin istra tion. This labor atory is certi fied under the Clini divya Labor atory Impro vemen t Amend ments (CLIA ) as quali fied to perfo rm high compl exity clini divya labor atory testi ng and accre dited by the Joshua del valle of [employer] can Patho logis ts (CAP) . Not Available [facility] ([facility]) [address] [facility], [place], [address], 05/01/2023 16:11:57 04/27/2005/01/2023 MATER NIT21 PLUS CORE references Commen t 1. Matt DEL VALLE, et al. Dusty Med. 2012; 14(3) :296- 305. 2. Arthur BENTÍEZ, et al. Prena t Diag. 2013; 33(6) :591- 597. 3. Juan C, et al. Clin Chem. 2015 Oct;6 1(4): 608-6 16. 4. Matt DEL VALLE, et al. Dusty Med. 2011; 13(11 ):913 -920. 5. ACOG/ SMFM Pract ice Bulle tin No. 226, Apr 2020. Not Available [facility] ([facility]) [address] [facility], [place], [address], 05/01/2023 16:11:57 04/27/2005/01/2023 MATER NIT21 PLUS CORE pdf . Not Available [facility] ([facility]) [address] [facility], [place], [address], 05/01/2023 16:11:57 04/27/2004/27/2023 urina lysis , dipst ick Leukocytes Trace Not Available In-Offi ce Order Internal Use Only DO Not Attach Compendium DO Not Attach Compendium, Do Not Delete/merge, [id number] 04/27/2023 09:56:41 04/27/2004/27/2023 urina lysis , dipst ick Nitrite negati ve Not Available In-Office Order Internal Use Only DO Not Attach Compendium DO Not Attach Compendium, Do Not Delete/merge, [id number] 04/27/2023 09:56:41 04/27/2004/27/2023 urina lysis , dipst ick Urobilinogen .2 Not Available In-Of fice Order Internal Use Only DO Not Attach Compendium DO Not Attach Compendium, Do Not Delete/merge, [id number] 04/27/2023 09:56:41 04/27/2004/27/2023 urina lysis , dipst ick Protein Negati ve Not Available In-Office Order Internal Use Only DO Not Attach Compendium DO Not Attach Compendium, Do Not Delete/merge, [id number] 04/27/2023 09:56:41 04/27/2004/27/2023 urina lysis , dipst ick pH 7.0 Not Available In-Office Order Internal Use Only DO Not Attach Compendium DO Not Attach Compendium, Do Not Delete/merge, [id number] 04/27/2023 09:56:41 04/27/2004/27/2023 urina lysis , dipst ick Blood Negati ve Not Available In-Office Order Internal Use Only DO Not Attach Compendium DO Not Attach Compendium, Do Not Delete/merge, [id number] 04/27/2023 09:56:41 04/27/2004/27/2023 urina lysis , dipst ick Specific Bernice 1.020 Not Available In-Off ice Order Internal Use Only DO Not Attach Compendium DO Not Attach Compendium, Do Not Delete/merge, [id number] 04/27/2023 09:56:41 04/27/20 23 04/27/2023 urina lysis , dipst ick Ketone Negati ve Not Available In-Office Order Internal Use Only DO Not Attach Compendium DO Not Attach Compendium, Do Not Delete/merge, [id number] 04/27/2023 09:56:41 04/27/20 23 04/27/2023 urina lysis , dipst ick Bilirubin Negati ve Not Available In-Office Order Internal Use Only DO Not Attach Compendium DO Not Attach Compendium, Do Not Delete/merge, [id number] 04/27/2023 09:56:41 04/27/20 23 04/27/2023 urina lysis , dipst ick Glucose Negati ve Not Available In-Office Order Internal Use Only DO Not Attach Compendium DO Not Attach Compendium, Do Not Delete/merge, [id number] 04/27/2023 09:56:41 04/27/2004/27/2023 urina lysis , dipst ick Appearance Clear Not Available In-Offi ce Order Internal Use Only DO Not Attach Compendium DO Not Attach Compendium, Do Not Delete/merge, [id number] 04/27/2023 09:56:41 04/27/2004/27/2023 urina lysis , dipst ick Color Yellow Not Available In-Office Order Internal Use Only DO Not Attach Compendium DO Not Attach Compendium, Do Not Delete/merge, [id number] 04/27/2023 09:56:41 11/22/19 24 11/22/2023 edinb urgh postn atal depre ssion scale * Score 13 Not Available In-Office Order Internal Use Only DO Not Attach Compendium DO Not Attach Compendium, Do Not Delete/merge, [id number] 11/22/2023 15:25:59 04/23/20 23 03/23/2023 US, obste tric, 1st trime ster No observ ation record ed. [email or web address] Not Available 2022 17:37:11 05/10/20 23 05/10/2023 US, obste tric, bioph ysica l profi le + non-s tress test No observ ation record ed. [email or web address] [address] [facility] [address], [place], [address], 05/11/2023 08:52:54 05/10/20 23 05/10/2023 US, obste tric, bioph ysica l profi le + non-s tress test No observ ation record ed. [facility] [address] [facility] [address], [place], [address], 05/11/2023 08:52:41 05/24/20 23 05/24/2023 US, obste tric, mater nal evalu ation + anato my No observ ation record ed. [facility] [address] [facility] [address], [place], [address], 07/08/2023 10:09:39 07/19/19 24 07/19/2023 US, obste tric, mater nal evalu ation + anato my No observ ation record ed. [facility] [address] [facility], [place], [address], 07/21/2023 10:45:12 07/19/19 24 07/19/2023 US, obste tric, bioph ysica l profi le + non-s tress test No observ ation record ed. [facility] [address] [place] [address], [place], [address], 07/21/2023 09:47:12 08/09/19 24 08/09/2023 US, obste tric, mater nal evalu ation + anato my No observ ation record ed. [facility] [address] [facility] [address], [place], [address], 08/10/2023 10:52:19 Result Notes None recorded. Problems No Known Problems Procedures Surgical History Date Name Laterality Status Provider Name and Address Organization Details Recorded Time 04/22/2023 Date of Last Pap Smear completed Ewelina Aaron [place] - [facility] 08/09/2023 08:23:09 Imaging Results Imaging Date Name Status LastModified by Organiz [facility] Details LastModified Time 03/23/2023 US, obstetric, 1st trimester completed [email or web address] Information not available 04/27/2023 17:37:11 05/10/2023 US, obstetric, biophysical profile + non-stress test completed [facility] [address], [place], [address], 05/11/2023 08:52:54 05/10/2023 US, obstetric, biophysical profile + non-stress test completed [facility] [address], [place], [address], 05/11/2023 08:52:41 05/24/2023 US, obstetric, maternal evaluation + anatomy completed [facility] [address], [place], [address], 07/08/2023 10:09:39 07/19/2023 US, obstetric, maternal evaluation + anatomy completed [facility] [address] [facility], [place], [address], 07/21/2023 10:45:12 07/19/2023 US, obstetric, biophysical profile + non-stress test completed [facility] [address], [place], [address], 07/21/2023 09:47:12 08/09/2023 US, obstetric, maternal evaluation + anatomy completed [facility] [address], [place], [address], 08/10/2023 10:52:19 Procedure Notes None recorded. Medical Equipment None Reported. Allergies No known drug allergies Medications Name Sig Start Date Stop Date Status Note LastModified by Organization Details LastModified Time nifedipine ER 30 mg tablet,exte nded release 24 hr TAKE 1 TABLET BY MOUTH DAILY 11/07 completed Not Available Not Available Not Available fluconazole 150 mg tablet TAKE 1 TABLET BY MOUTH EVERY 3 DAYS FOR VAGINAL YEAST INFECTION 11/07 completed Not Available Not Available Not Available phenazopyri dine 200 mg tablet TAKE ONE TABLET BY MOUTH THREE TIMES DAILY NEEDED FOR PAIN 04/22 completed Not Available Not Available Not Available acetaminoph en 500 mg tablet TAKE TWO CAPLETS BY MOUTH EVERY 6 HOURS NEEDED FOR FEVER OR PAIN 11/07 completed Not Available Not Available Not Available amoxicillin 500 mg tablet TAKE 1 TABLET BY MOUTH EVERY 12 HOURS FOR 5 DAYS 08/10 completed Not Available Not Available Not Available docusate sodium 100 mg capsule TAKE ONE CAPSULE BY MOUTH ONCE DAILY 11/07 completed Not Available Not Available Not Available ibuprofen 600 mg tablet TAKE 1 TABLET BY MOUTH EVERY 6 HOURS NEEDED FOR PAIN 11/07 completed Not Available Not Available Not Available polyethylen e glycol 3350 17 gram/dose oral powder MIX 17 GM WITH A LIQUID AND DRINK ONCE DAILY 11/07 completed Not Available Not Available Not Available norethindro ne (contracept anna) 0.35 mg tablet TAKE 1 TABLET BY MOUTH DAILY active Not Available Not Available No t Available sertraline 50 mg tablet TAKE 1 TABLET BY MOUTH EVERY DAY active Not Available Not Available No t Available nitrofurant oin monohydrate /macrocryst als 100 mg capsule TAKE ONE CAPSULE BY MOUTH EVERY 12 HOURS X 5 DAYS 11/21 completed Not Available Not Available Not Available multivitami n active Not Available Not Available Not Available FeroSul 325 mg (65 mg iron) tablet TAKE ONE TABLET BY MOUTH ONCE DAILY 11/07 completed Not Available Not Available Not Available Gummies 11/07 completed Not Available Not Available Not Available Vitals Date Recorded Body height Body mass index (BMI) Heart rate Systolic blood pressure Diastolic blood pressure Systolic blood pressure Diastolic blood pressure Provider Name and Address Organization Details Last Updated DateTime 3 165.1 cm 18.8 kg/m2 93 /min 142 mm[Hg] 95 mm[Hg] 139 mm[Hg] 93 mm[Hg] Ewelina clemente MA [facility] 3 11:50:47 Date Recorded Body weight Provider Name an d Address Organization Details Last Updated DateTime 04/22/2023 63781.036704 g Bony Ferreira MD Attn: [address] [place], [address], [facility] 04/22/2023 11:42:48 Date Recorded Body height Body mass index (BMI) Respiratory rate Heart rate Systolic blood pressure Diastolic blood pressure Provider Name and Address Organization Details Last Updated DateTime 3 165.1 cm 19.2 kg/m2 18 /min 93 /min 118 mm[Hg] 74 mm[Hg] Dejah Theodore [facility] 3 09:55:17 Date Recorded Body weight Provider Name an d Address Organization Details Last Updated DateTime 04/27/2023 86349.592260 g Bony Ferreira MD Attn: [address] [place], [address], [facility] 04/27/2023 10:18:51 Date Recorded Body height Heart rate Systolic blood pressure Diastolic blood pressure Provider Name and Address Organization Details Last Updated DateTime 08/10/2023 165.1 cm 80 /min 126 mm[Hg] 69 mm[Hg] Ewelina Aaron MA [facility] 08/10/2023 10:43:14 Date Recorded Body height Body mass index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
--- OUTSIDE RECORDS SUMMARY | 2024-07-20 14:56 | XMS_ITS | Referral Summary ---
Author Organization [facility] [place] [facility] Address [address] [place] [address] Care Team Providers Care Contract Specialist Name Role Phone Unavailable Primary Care Provider Unavailabl e Source Comments [facility] [place] [facility],non-owned Affiliates and Associated Physician Practices is amultiple site organization consisting of ambulatory clinics and hospital sitesin [place], [place], [place] and [place]. This disclosure is being madepursuant to the Care Everywhere program and may not contain all information available regarding this patient. Last updated 18.[facility] [place] [facility] Allergies No known active allergies Medications * Be aware that medications may not be up to date on this document. Alwaysverify current medications with the patient. 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 2 tablet 09/13/2023 Active norethindrone (Ortho Micronor) 0.35 MG tablet Take 1 (one) tablet by mouth once daily 60 tablet 1 09/27/2023 Active docusate sodium (Colace) 100 MG capsule Take 1 (one) capsule by mouth once daily 30 capsule 09/27/2023 Active Additional Information Patient not taking.Reported on 09/30/2023 ferrous sulfate 325 (65 FE) MG tablet Take 1 (one) tablet by mouth once daily 100 tablet 09/27/2023 Active ibuprofen (Motrin) 600 MG tablet Take 1 (one) tablet by mouth every 6 hours as needed for Pain 30 tablet 09/27/2023 Active Additional Information Patient not taking.Reported on 09/30/2023 polyethylene glycol 3350 (Miralax) 17 GM/SCOOP powder Take 17 (seventeen) g by mouth once daily 238 g 09/27/2023 Active Additional Information Patient not taking.Reported on 09/30/2023 acetaminophen (Tylenol) 500 MG capsule Take 2 (two) capsules by mouth every 6 hours as needed for Fever or Pain 60 capsule 09/27/2023 Active NIFEdipine CR osmotic 24hr (Procardia-XL) 30 MG tablet Take 1 (one) tablet by mouth once daily 90 tablet 1 09/28/2023 Active Active Problems Patient Care Coordination No te Formatting of this note migh t be different from the original. [employer] form completed. Diapers given. 07/19/2023; 09/06/23 Problem Noted Date Diagnosed Date Dichorionic diamniotic twin in third t rimester 09/25/2023 Gestational hypertension 09/21/2023 growth restriction antepartum 09/21/2023 Two vessel umbilical cord, antepartum 08/09/2023 Overview (08/09/2023): Twin B Cystic fibrosis carrier, antepartum 08/09/2023 GBS bacteriuria 08/09/2023 Dichorionic diamniotic twin 05/12/2023 Immunizations Name Administration Dates Next Due MMR 09/26/2023() RSV ABRYSVO PREG OR 60y+ 0.5mL 08/23/2023 TDAP (7yrs+) 09/26/2023(Deferred: Patient Ref used) Social History Tobacco Use Types Packs/Day Years Used Date Smoking Tobacco: Former Cigarettes Passive Smoke Exposure: Past Smokeless Tobacco: Never Tobacco Cessation:Counseling Given: Yes Alcohol Use Standard Drinks/Week Comments Not Currently 0 (1 standard drink = 0.6 oz pur e alcohol) AUDIT-C Answer Date Recorded Q1: How often do you have a drink containing alc ohol? 2-4 times a month 09/25/2023 Q2: How many drinks containi ng alcohol do you have on a typical day when you are drinking? 1 or 2 09/25/2023 Q3: How often do you have si x or more drinks on one occasion? Never 09/25/2023 Overall Financial Resource Strain (CARDIA) Answe r Date Recorded How hard is it for you to pa y for the very basics like food, housing, medical care, and heating? Not hard at all 09/25/2023 [facility] - Occupational Stress Questionnaire Answer Date Recorded Do you feel stress - tense, restless, nervous, or anxious, or unable to sleep at night because your mind is troubled all the time - these days? Not at all 09/25/2023 Hunger Vital Sign Answer Date Recorded Within the past 12 months, y ou worried that your food would run out before you got the money to buy more. Never true 09/25/19 24 Within the past 12 months, t he food you bought just didn't last and you didn't have money to get more. Never true 09/25/2023 PRAPARE - Transportation Answer Date Re corded In the past 12 months, has l ack of transportation kept you from medical appointments or from getting medications? No 09/09 In the past 12 months, has l ack of transportation kept you from meetings, work, or from getting things needed for daily living? No 09/25/2023 Housing Stability Vital Sign Answer Jarad e Recorded In the last 12 months, was t here a time when you were not able to pay the mortgage or rent on time? No 09/25/2023 In the last 12 months, how many places have you lived? 2 09/25/2023 In the last 12 months, was t here a time when you did not have a steady place to sleep or slept in a residential (including now)? No 09/25/2023 [place] Depression Scale Answer Date Recorded [place] Depression Scale Total 5 09/27/2023 The thought of harming myself has occurred to me . Never 09/27/2023 Sex and Gender Information Value Date Recorded Sex Assigned at Not on file Gender Identity Not on file Sexual Orientation Not on file Last Filed Vital Signs Vital Sign Reading Time Taken Comments Blood Pressure 131/92 09/30/2023 1:10 PM CDT Pulse 70 09/28/2023 7:40 AM CDT Temperature 36.8 ??C (98.2 ??F) 09/28/2023 7:40 AM CD T Respiratory Rate 16 09/28/2023 7:40 AM CDT Oxygen Saturation 98% 09/28/2023 7:40 AM CDT Inhaled Oxygen Concentration - - Weight 68.9 kg (152 lb) 09/25/2023 8:55 AM CDT Height 165.1 cm (5' 5 ) 09/25/2023 8:55 AM CDT Body Mass Index 25.29 09/25/2023 8:55 AM CDT Functional Status Functional Status Response Date of Assess ment Is person deaf or have serious hearing difficult y? No 09/25/2023 Is person blind or have serious difficulty seein g? No 09/25/2023 Does person have serious dif ficulty walking/climbing stairs? No 09/25/2023 Does person have difficulty dressing/bathing? No 09/25/2023 Does person have difficulty doing errands alone? No 09/25/2023 Cognitive Status Response Date of Assessm ent Does person have difficulty concentrating/remembering/making decisions? No 09/25/2023 Plan of Treatment Not on file Procedures Procedure Name Priority Date/Time Associated Diagnosis Comments CHLAMYDIA + GC AMPLIFIED PROBE Routine 08/09/2023 10:45 AM [facility] Abnormal urogenital discharge HIV-1 HIV-2 ANTIBODY + HIV P24 AG PANEL Routine 07/19/2023 9:36 AM [facility] Dichorionic diamniotic twin , antepartum (HCC) from Last 3 Months or Most Recently Relevant to Health Maintenance Results * CHLAMYDIA + GC AMPLIFIED PROBE (08/09/2023 10:45 AM [facility]) Chlamydia Amplified Probe Negative Negative 08/09/2023 8:45 PM [facility] GC Amplified Probe Negative Negative 08/09/2023 8:45 PM [facility] Microbiology URINE / Unknown Collection / Unknown 08/09/2023 10:45 AM [facility] 08/09/2023 11:07 AM [facility] Narrative [facility] - 08/09/2023 8:45 PM [facility] [employer] Results based on detection/no detection of ribosomal RNA by amplified method. Ethan Velazco DO LAB - MICROBIOLOGY O RDERAMONTY [facility] [address] [place] [address], [facility] [phone] * HIV-1 HIV-2 ANTIBODY + HIV P24 AG PANEL (07/19/2023 9:36 AM [facility]) HIV1/2 Ab + P24 Ag Non Reactive Non Reactive 07/19/2023 10:51 AM [facility] Blood BLOOD SPECIMEN / Unknown Venipuncture / Unknown 07/19/2023 9:36 AM [facility] 07/19/2023 10:02 AM [facility] Narrative [facility] - 07/19/2023 10:51 AM [facility] [employer] No Laboratory evidence of HIV infection. Marissa Vasquez MD LAB - CHEMISTRY RASHIDA JAVIER Performing Organization Address City/[facility]/ZIP Co de Phone Number [facility] [address] [place] [address] from Last 3 Months or Most Recently Relevant to Health Maintenance Advance Directives * Full Code (Latest Code Status on File) Date Activated Date Inactivated Comments 09/25/2023 8:42 AM 09/28/2023 2:01 PM * Full Code Date Activated Date Inactivated Comments 09/06/2023 11:16 AM 09/07/2023 1:32 PM
--- OUTSIDE RECORDS SUMMARY | 2024-07-20 14:56 | XMS_ITS | Encounter Summary ---
Author Organization [facility] Address [address] [place] [address] Care Team Providers Care General Farmer Name Role Phone Unavailable Primary Care Provider Dayami e Encounter Details Date Type Department Care Team (Latest Contact Info) Description 09/30/2023 Travel Social History Tobacco Use Types Packs/Day Years Used Date Smoking Tobacco: Former Cigarettes Passive Smoke Exposure: Past Smokeless Tobacco: Never Alcohol Use Standard Drinks/Week Comments Not Currently [...] and heating? Not hard at all 09/25/2023 [facility] - Occupational Stress [...] place to sleep or slept in a nursing home (including now)? No 09/25/2023 [place] Depression Scale Answer Date Recorded [place] Depression Scale Total 5 09/27/2023 The thought of harming myself has occurred to me . Never 09/27/2023 Sex and Gender Information Value Date Recorded Sex Assigned at Not on file Gender Identity Not on file Sexual Orientation Not on file documented as of this encounter Functional Status Functional Status Response Date of [...] person have difficulty concentrating/remembering/making decisions? No 09/25/2023 documented as of this encounter Plan of Treatment Not on file documented as of this encounter Visit Diagnoses Not on filedocumented in this encounter
--- OUTSIDE RECORDS SUMMARY | 2024-07-20 14:56 | XMS_ITS | Encounter Summary ---
Author Organization [facility] Address [address] [place] [address] Care Team Providers Care Cyber Security Specialist Name Role Phone Unavailable Primary Care Provider Unavailabl e Reason for Visit * Reason Comments Induction * Auth/Cert (Routine) Specialty Diagnoses / Procedures Referred By Uriel t Referred To Contact Referral ID Status Reason Start Date Expiration Date Visits Re quested Visits Authorized [id number] 1 1 Encounter Details Date Type Department Care Team (Latest Contact Info) Description 09/25/2023 8:26 AM CDT - 09/28/2023 12:56 PM CDT Hospital Encounter [facility] 6W MOTHER/BABY [address] [place] [address] Chantale Felder MD [address] [id number] Obstetrics Discharge Disposition: Home or Self Care Social History Tobacco Use Types Packs/Day Years [...] and heating? Not hard at all 09/25/2023 [facility] - Occupational Stress [...] place to sleep or slept in a fdc (including now)? No 09/25/2023 [place] Depression Scale Answer Date Recorded [place] Depression Scale Total 5 09/27/2023 The thought of harming myself has occurred to me . Never 09/27/2023 Sex and Gender Information Value Date Recorded Sex Assigned at Not on file Gender Identity Not on file Sexual Orientation Not on file documented as of this encounter Last Filed Vital Signs Vital Sign Reading Time Taken Comments Blood Pressure 134/85 09/28/2023 11:00 AM CDT Pulse 70 09/28/2023 7:40 AM CDT Temperature 36.8 ??C (98.2 ??F) 09/28/2023 7:40 AM CD T Respiratory Rate 16 09/28/2023 7:40 AM CDT Oxygen Saturation 98% 09/28/2023 7:40 AM CDT Inhaled Oxygen Concentration - - Weight 68.9 kg (152 lb) 09/25/2023 8:55 AM CDT Height 165.1 cm (5' 5 ) 09/25/2023 8:55 AM CDT Body Mass Index 25.29 09/25/2023 8:55 AM CDT documented in this encounter Functional Status Functional Status Response [...] No 09/25/2023 documented as of this encounter Discharge Summaries * Vinny Patino MD - 09/28/2023 6:53 AM CDT ux consultant Discharge Summary 09/29/2023, 10:18 AM Date of Admission: 09/25/2023 Date of Discharge: 09/28/2023 Admission Diagnosis: 23 year old at 36w6d with 1. DCDA Twins with FGR of twin A and B 2. gHTN 3. 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 As above 2. Status post Induced Vaginal Delivery Service: Maternal Medicine Consults: Social work and NICU HPI: Anita Padilla is a 23 year old at 36w6d whose care was with high risk clinic. Shepresented for a scheduled IOL. was complicated by: Patient Active Problem List: Dichorionic diamniotic twin (HCC) Two vessel umbilical cord, antepartum (HCC) Cystic fibrosis carrier, antepartum (HCC) GBS bacteriuria Gestational hypertension (HCC) growth restriction antepartum (HCC) Dichorionic diamniotic twin in third trimester (HCC) Hospital Course: Patient was admitted for IOL for FGR and gHTN . Induction performed in the usual fashion without complications. Patient had an with course as noted below. Delivery: For full details of delivery, please refer to operative note or delivery summary. Delivery Type: Spontaneous Vaginal Delivery Estimated Blood Loss: See delivery summary Anesthesia/Analgesia: See delivery summary Information for the patient's : Baron Julio [[id number]] Date of 09/25/2023 Time of : 5:53 PM Sex: Male Weight: 2415 g (5 lb 5.2 oz) (1 min): 8 (5 min): 9 (10 min): Information for the patient's : Dominic Kim [[id number]] Date of 09/25/2023 Time of : 6:00 PM Sex: Female Weight: 1955 g (4 lb 5 oz) (1 min): 8 (5 min): 9 (10 min): Course: Her course was uncomplicated. Patient is breast feeding. She desires POPs for contraception. Results: Recent Labs Component Name 09/25/23 0904 ABORH O POS Recent Labs Component Name 09/26/23 0333 09/25/23 0904 09/20/23 1204 WBC 16.8* 8.4 10.8* HGB 9.2* 10.5* 11.9 HCT 27.7* 31.7* 37.1 PLTCOUNT 174 213 269 Discharge Vitals: BP 134/85 Pulse 70 Temp 98.2 ??F (36.8 ??C) (Oral) Resp 16 Ht 1.651 m (5' 5 ) Wt 68.9 kg (152 lb) SpO2 98% Disposition: Home on day # 3. Follow-up: Plan to follow-up in 72 hours for a BP check and again in 4-6 weeks for routine care Discharge Instructions: Continue these medications at home: Current Discharge Medication List START taking these medications Instructions Authorizing Provider acetaminophen 500 MG capsule Commonly known as: Tylenol Quantity Dispensed: 60 capsule Take 2 (two) capsules by mouth every 6 hours as needed for Fever or Pain Renay Kumalo docusate sodium 100 MG capsule Commonly known as: Colace Quantity Dispensed: 30 capsule Take 1 (one) capsule by mouth once daily Renay Kumalo ferrous sulfate 325 (65 FE) MG tablet Quantity Dispensed: 100 tablet Take 1 (one) tablet by mouth once daily Renay Kumalo ibuprofen 600 MG tablet Commonly known as: Motrin Quantity Dispensed: 30 tablet Take 1 (one) tablet by mouth every 6 hours as needed for Pain Renay Anoop NIFEdipine CR osmotic 24hr 30 MG tablet Commonly known as: Procardia-XL Quantity Dispensed: 90 tablet Take 1 (one) tablet by mouth once daily Renay Anoop norethindrone 0.35 MG tablet Commonly known as: Ortho Micronor Quantity Dispensed: 60 tablet Take 1 (one) tablet by mouth once daily Renay Anoop polyethylene glycol 3350 17 GM/SCOOP powder Commonly known as: Miralax Quantity Dispensed: 238 g Take 17 (seventeen) g by mouth once daily Renay Anoop CONTINUE taking these medications which have NOT CHANGED Instructions Authorizing Provider CALCIUM 500/D PO Take 1 tablet by mouth once daily fluconazole 150 MG tablet Commonly known as: Diflucan Quantity Dispensed: 2 tablet Take 1 (one) tablet by mouth every 3 days Reasons: 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 When to call your provider and patient information Depression (PPD): This is a type of depression that occurs after childbirth. PPD can occur as early as one week up toone year after giving . Signs could include: -Thinking of hurting yourself or your baby -Feeling out of control, unable to care for self or baby -Feeling depressed or sad most of the day every day -Having trouble sleeping or sleeping too much -Having trouble bonding with your baby Call 911 or go to the nearest emergency room if you feel you might harm yourself or your baby. Callclinic immediately for other signs of depression (sadness, withdrawn, difficulty coping with parenting) Venous Thromboembolism: Development of a blood clot usually in your leg (calf area). Signs can include: -Leg pain, tender to touch, burning or redness, particularly in the calf area -Swelling of one leg more than the other Infection: An infection is an invasion of bacteria or viruses that enter and spread through your body, making you ill. Signs can include: -Temp>/= 100.4 F (>/= 38 C) -Bad smelling blood or discharge from vagina -Increase in redness or discharge from episiotomy or open wound not healing Call clinic immediately for above signs. If symptoms worsen or no response from provider/clinic, call 911 or go to the nearest emergency room. Preeclampsia and High Blood Pressure: Hypertension is when your blood pressure is much higher than it should be. A severe and constant headache that does not respond to over the counter medications could be something more serious. Preeclampsia is a complication of that includes high blood pressures and signs of damage to other organs. Eclampsia is the compulsive phase of preeclampsia, characterized by seizures. Worrisome signs include: -Severe constant headache that does not respond to pain medications -Changes in vision, seeing spots or flashing lights -Pain in the upper right abdominal area -Swelling of face, hands and or legs more than what you would expect -Changes in level of consciousness Call 911 for seizures. Call the clinic immediately for any other signs. If symptoms worsen or no response from clinic, call 911 or go to the nearest emergency room. Obstetric Hemorrhage: Obstetric hemorrhage is when you have an excessive amount of bleeding after you have delivered yourbaby. Signs include: -Bleeding through more than 1 sanitary pad per hour -Passing 1 or more clots the size of an egg or bigger -Character of clots goes from dark red/brown with clots to bright red bleeding Call clinic immediately for signs of hemorrhage. If symptoms worsen, call 911 or go to the nearest emergency room. Cardiac (Heart) Disease: Cardiac disease is when your heart is not working well. Signs can include: -Shortness of breath, or difficulty breathing -Feeling that your heart is racing -Chest pain or pressure You must obtain immediate care by calling 911 or going to the nearest emergency room RIGHT AWAY. No special diet needed Resume your normal home diet as tolerated. Eat well-balanced meals that include foods from all of the food groups. Drink plenty of fluids It is important that you stay well hydrated. You should drink at least eight to ten 8-ounce glassesof water per day. Follow up with provider 72h for blood pressure check and again in 4-6 weeks for routine care Additional Scheduling Instructions: Readmission Risk Score: 6. End of Life Score: 0 Score Follow up Visit 0-18 Discharge Visit 5-10 days 19 or higher Discharge Visit within 5 days Post-Acute Care Facility Post-acute care team to determine timing of discharge visit Order Specific Question Answer Comments Follow Up Instructions for Patient: Other (See Comment) Why you were hospitalized Order Specific Question Answer Comments Your discharge diagnosis is: Vaginal delivery (HCC) [[id number]] Follow up instructions Hypertension, Preeclampsia and Eclampsia - Prior to Discharge, please make a follow up appointment with your OB Provider within 7 to 14 days. When to call your provider and patient information Depression (PPD): This is a type of depression that occurs after childbirth. PPD can occur as early as one week up toone year after giving . Signs could include: -Thinking of hurting yourself or your baby -Feeling out of control, unable to care for self or baby -Feeling depressed or sad most of the day every day -Having trouble sleeping or sleeping too much -Having trouble bonding with your baby Call 911 or go to the nearest emergency room if you feel you might harm yourself or your baby. Callclinic immediately for other signs of depression (sadness, withdrawn, difficulty coping with parenting) Venous Thromboembolism: Development of a blood clot usually in your leg (calf area). Signs can include: -Leg pain, tender to touch, burning or redness, particularly in the calf area -Swelling of one leg more than the other Infection: An infection is an invasion of bacteria or viruses that enter and spread through your body, making you ill. Signs can include: -Temp>/= 100.4 F (>/= 38 C) -Bad smelling blood or discharge from vagina -Increase in redness or discharge from episiotomy or open wound not healing Call clinic immediately for above signs. If symptoms worsen or no response from provider/clinic, call 911 or go to the nearest emergency room. Preeclampsia and High Blood Pressure: Hypertension is when your blood pressure is much higher than it should be. A severe and constant headache that does not respond to over the counter medications could be something more serious. Preeclampsia is a complication of that includes high blood pressures and signs of damage to other organs. Eclampsia is the compulsive phase of preeclampsia, characterized by seizures. Worrisome signs include: -Severe constant headache that does not respond to pain medications -Changes in vision, seeing spots or flashing lights -Pain in the upper right abdominal area -Swelling of face, hands and or legs more than what you would expect -Changes in level of consciousness Call 911 for seizures. Call the clinic immediately for any other signs. If symptoms worsen or no response from clinic, call 911 or go to the nearest emergency room. Obstetric Hemorrhage: Obstetric hemorrhage is when you have an excessive amount of bleeding after you have delivered yourbaby. Signs include: -Bleeding through more than 1 sanitary pad per hour -Passing 1 or more clots the size of an egg or bigger -Character of clots goes from dark red/brown with clots to bright red bleeding Call clinic immediately for signs of hemorrhage. If symptoms worsen, call 911 or go to the nearest emergency room. Cardiac (Heart) Disease: Cardiac disease is when your heart is not working well. Signs can include: -Shortness of breath, or difficulty breathing -Feeling that your heart is racing -Chest pain or pressure You must obtain immediate care by calling 911 or going to the nearest emergency room RIGHT AWAY. No special diet needed Resume your normal home diet as tolerated. Eat well-balanced meals that include foods from all of the food groups. Drink plenty of fluids It is important that you stay well hydrated. You should drink at least eight to ten 8-ounce glassesof water per day. Follow up with provider Additional Scheduling Instructions: Readmission Risk Score: 6. End of Life Score: 0 Score Follow up Visit 0-18 Discharge Visit 5-10 days 19 or higher Discharge Visit within 5 days Post-Acute Care Facility Post-acute care team to determine timing of discharge visit Order Specific Question Answer Comments Follow Up Instructions for Patient: Within 5 Days from Discharge Why you were hospitalized Order Specific Question Answer Comments Your discharge diagnosis is: Vaginal delivery ([facility]) [[id number]] Your discharge diagnosis is: Pre-eclampsia affecting , antepartum ([facility]) [[id number]] Follow up instructions Hypertension, Preeclampsia and Eclampsia - Prior to Discharge, please make a follow up appointment with your OB Provider within 7 to 14 days. When to call your provider and patient information Depression (PPD): This is a type of depression that occurs after childbirth. PPD can occur as early as one week up toone year after giving . Signs could include: -Thinking of hurting yourself or your baby -Feeling out of control, unable to care for self or baby -Feeling depressed or sad most of the day every day -Having trouble sleeping or sleeping too much -Having trouble bonding with your baby Call 911 or go to the nearest emergency room if you feel you might harm yourself or your baby. Callclinic immediately for other signs of depression (sadness, withdrawn, difficulty coping with parenting) Venous Thromboembolism: Development of a blood clot usually in your leg (calf area). Signs can include: -Leg pain, tender to touch, burning or redness, particularly in the calf area -Swelling of one leg more than the other Infection: An infection is an invasion of bacteria or viruses that enter and spread through your body, making you ill. Signs can include: -Temp>/= 100.4 F (>/= 38 C) -Bad smelling blood or discharge from vagina -Increase in redness or discharge from episiotomy or open wound not healing Call clinic immediately for above signs. If symptoms worsen or no response from provider/clinic, call 911 or go to the nearest emergency room. Preeclampsia and High Blood Pressure: Hypertension is when your blood pressure is much higher than it should be. A severe and constant headache that does not respond to over the counter medications could be something more serious. Preeclampsia is a complication of that includes high blood pressures and signs of damage to other organs. Eclampsia is the compulsive phase of preeclampsia, characterized by seizures. Worrisome signs include: -Severe constant headache that does not respond to pain medications -Changes in vision, seeing spots or flashing lights -Pain in the upper right abdominal area -Swelling of face, hands and or legs more than what you would expect -Changes in level of consciousness Call 911 for seizures. Call the clinic immediately for any other signs. If symptoms worsen or no response from clinic, call 911 or go to the nearest emergency room. Obstetric Hemorrhage: Obstetric hemorrhage is when you have an excessive amount of bleeding after you have delivered yourbaby. Signs include: -Bleeding through more than 1 sanitary pad per hour -Passing 1 or more clots the size of an egg or bigger -Character of clots goes from dark red/brown with clots to bright red bleeding Call clinic immediately for signs of hemorrhage. If symptoms worsen, call 911 or go to the nearest emergency room. Cardiac (Heart) Disease: Cardiac disease is when your heart is not working well. Signs can include: -Shortness of breath, or difficulty breathing -Feeling that your heart is racing -Chest pain or pressure You must obtain immediate care by calling 911 or going to the nearest emergency room RIGHT AWAY. No special diet needed Resume your normal home diet as tolerated. Eat well-balanced meals that include foods from all of the food groups. Drink plenty of fluids It is important that you stay well hydrated. You should drink at least eight to ten 8-ounce glassesof water per day. Follow up with provider Additional Scheduling Instructions: Readmission Risk Score: 9. End of Life Score: 0 Score Follow up Visit 0-18 Discharge Visit 5-10 days 19 or higher Discharge Visit within 5 days Post-Acute Care Facility Post-acute care team to determine timing of discharge visit Order Specific Question Answer Comments Follow Up Instructions for Patient: Within 5 Days from Discharge Renay Davalos MD 09/29/2023 10:18 AM documented in this encounter Discharge Instructions * Discharge Instructions* Whitney Marks RN - 09/27/2023 12:47 PM CDT DELIVERED MOTHER DISCHARGE INSTRUCTIONS Refer to the Booklet given during your stay for more information. Please contact your special crimes investigator for the following: Any burning or itching when urinating. . Any significant increase or change in color or odor of vaginal discharge and/or any pus draining from your vagina. Any significant increase in pain, tenderness, or redness in your vagina. Any increased vaginal bleeding that may contain clots. Temperature greater than 101 degrees or as instructed by your care provider. Any pus or blood draining from nipples. Remember to collect all your belongings kept at the bedside, for example: your cell phone and cell phone sawsmith. PLEASE REMEMBER: Always place your on his/her back to sleep. Always use a car safety seat when transporting your child. documented in this encounter Medications at Time of Discharge Medication Sig Dispensed Refills Start Date End Date acetaminophen (Tylenol) 500 MG capsule Take 2 (two) capsules by mouth every 6 hours as needed for Fever or Pain 60 capsule 09/27/2023 Calcium Carb-Cholecalciferol (CALCIUM 500/D PO) Take 1 tablet by mouth once daily docusate sodium (Colace) 100 MG capsule Take 1 (one) capsule by mouth once daily 30 capsule 09/27/2023 ferrous sulfate 325 (65 FE) MG tablet Take 1 (one) tablet by mouth once daily 100 tablet 09/27/2023 fluconazole (Diflucan) 150 MG tabletIndications:Vulvo vaginal Candidiasis Take 1 (one) tablet by mouth every 3 days Reasons: 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 2 tablet 09/13/2023 ibuprofen (Motrin) 600 MG tablet Take 1 (one) tablet by mouth every 6 hours as needed for Pain 30 tablet 09/27/2023 magnesium 500 MG tablet Take 1 (one) tablet by mouth once daily multivitamin daily tablet Take 1 (one) tablet by mouth daily with food NIFEdipine CR osmotic 24hr (Procardia-XL) 30 MG tablet Take 1 (one) tablet by mouth once daily 90 tablet 1 09/28/2023 norethindrone (Ortho Micronor) 0.35 MG tablet Take 1 (one) tablet by mouth once daily 60 tablet 1 09/27/2023 polyethylene glycol 3350 (Miralax) 17 GM/SCOOP powder Take 17 (seventeen) g by mouth once daily 238 g 09/27/2023 Vit-Fe Fumarate-FA ( vitamin) 28-0.8 MG tablet Take 1 (one) tablet by mouth once daily documented as of this encounter Progress Notes * Sofiya Pemberton, Graduate Nurse - 09/28/2023 12:56 PM CDT Pt discharged home. Vitals stable, lochia small, fundus remains firm with no concerns. Discharge education reviewed in addition to save your life handout. Pt denies any questions at this time. Pt educated to attend scheduled visit with OB provider on 09/29. * Jina Vilchis APRN-JOSI - 09/28/2023 10:50 AM CDT [facility] Progress Note Subjective: Anita Padilla is doing well. Resting on the couch with significant other and two infants at bedside. Pain controlled with PO meds. Ambulating without difficulty and denies dizziness. Lochia is normal in amount. Voiding without difficulty. She reports flatus passed, tolerating normal diet. She denies headache, fever, chest pain, shortness of breath, and leg pain. Strongly desires discharge home today. Objective: Patient Vitals for the past 24 hrs: Temp Pulse Resp BP SpO2 09/28/23 0740 98.2 ??F (36.8 ??C) 70 16 107/69 98 % 09/28/23 0445 98 ??F (36.7 ??C) 62 16 119/63 99 % 09/28/23 0009 98.5 ??F (36.9 ??C) 89 18 136/66 99 % 09/27/23 2015 98.7 ??F (37.1 ??C) 85 18 140/71 100 % 09/27/23 1525 98.6 ??F (37 ??C) 55 16 137/91 100 % 09/27/23 1357 -- -- -- 139/84 -- 09/27/23 1205 -- -- -- 152/84 -- 09/27/23 1130 98.7 ??F (37.1 ??C) 64 16 147/99 100 % Temp (36hrs) Max:98.7 ??F (37.1 ??C) Intake/Output Summary (Last 24 hours) at 09/28/2023 0915 Last data filed at 09/28/2023 0740 Gross per 24 hour Intake -- Output 2800 ml Net -2800 ml Patient Active Problem List: Dichorionic diamniotic twin ([facility]) Two vessel umbilical cord, antepartum ([facility]) Cystic fibrosis carrier, antepartum ([facility]) GBS bacteriuria Gestational hypertension ([facility]) growth restriction antepartum ([facility]) Dichorionic diamniotic twin in third trimester ([facility]) PE: General: alert, cooperative, in no acute distress Lungs: nonlabored respirations, clear to auscultation Heart: regular rate and rhythm Abdomen: soft; appropriately tender; fundus firm below umbilicus Lower Extremities: no calf tenderness, trace bilateral LE edema Lab Review: Recent Labs Component Name 09/26/23 0333 09/25/23 0904 09/20/23 1204 WBC 16.8* 8.4 10.8* HGB 9.2* 10.5* 11.9 HCT 27.7* 31.7* 37.1 PLTCOUNT 174 213 269 Recent Labs Component Name 09/25/23 0904 ABORH O POS Assessment/Plan: 23 year old year old s/p spontaneous vaginal delivery, PPD# 3 1. complicated by: 1. DCDA twin gestation with growth restriction of both babies 1. S/p rectal cytotec, TXA and Home immediately after delivery 2. CF and SMA carrier 3. PreEclampsia with severe features 1. Asymptomatic 2. S/p Mg 3. 24 hour BP range: 107-152/63-99, 11/19 mild range 1. 2 mild range BP noted since nifedipine was initiated 4. Continue Nifedipine 30mg daily (first dose 09/26 at 1400) 5. pre-eclampsia precautions reviewed 2. AFVSS 3. Pain is controlled with current medications. 4. : Urinary output is spontaneous, voiding without difficulty 5. GI: tolerating normal diet, positive flatus 6. MOF/MOC: breast and formula feeding/to be discussed at 6 week PP visit 7. Hematologic: acute blood loss anemia 1. Asymptomatic 2. Discharge home with PO iron 8. Blood type: O+ 9. boy and girl, at bedside 10. DVT/PE prophylaxis: 1. Risk factors: state, Body mass index is 25.29 kg/m??. 2. No worrisome physical exam findings, VSS 3. Encourage ambulation Dispo: continue routine post- care, discharge home today, day 3. To follow up in 3days for BP check and 6 weeks for routine care. DALLIN Hamlin 09/28/23 9:15 AM * Sofiya Pemberton, Graduate Nurse - 09/28/2023 8:43 AM CDT Problem: Goal: Status is maintained within the expected range. Outcome: Progressing Problem: Emotional Well-Being Goal: Patient participates in decision-making and choices for care. Outcome: Progressing Goal: Parent- bonding occurs Outcome: Progressing * Renay Davalos MD - 09/28/2023 6:24 AM CDT PGY1 OB Post- Note 09/28/2023, 6:25 AM Subjective: Anita Padilla had an uneventful night. Pain is controlled. Lochia is light. She reports toleratinga normal diet without nausea or vomiting. She denies headache, fever, chest pain, shortness of breath, and leg pain. She has ambulated and denies lightheadedness. She is voiding spontaneously. Objective: Temp (36hrs) Max:98.7 ??F (37.1 ??C) Patient Vitals for the past 24 hrs: Temp Pulse Resp BP 09/28/23 0445 98 ??F (36.7 ??C) 62 16 119/63 09/28/23 0009 98.5 ??F (36.9 ??C) 89 18 136/66 09/27/232014 98.7 ??F (37.1 ??C) 85 18 140/71 09/27/23 1525 98.6 ??F (37 ??C) 55 16 137/91 09/27/23 1357 -- -- -- 139/84 09/27/23 1205 -- -- -- 152/84 09/27/23 1130 98.7 ??F (37.1 ??C) 64 16 147/99 09/27/23 0735 98.7 ??F (37.1 ??C) 80 16 130/73 Intake/Output Summary (Last 24 hours) at 09/28/2023 0625 Last data filed at 09/28/2023 0009 Gross per 24 hour Intake -- Output 2300 ml Net -2300 ml PE: General: alert, cooperative in no acute distress Lungs: nonlabored respirations Abdomen: soft, non tender; fundus firm below umbilicus Extremities: no calf tenderness Lab Review: Recent Labs Component Name 09/26/23 0333 09/25/23 0904 09/20/23 1204 WBC 16.8* 8.4 10.8* HGB 9.2* 10.5* 11.9 HCT 27.7* 31.7* 37.1 PLTCOUNT 174 213 269 Recent Labs Component Name 09/25/23 0904 ABORH O POS Assessment/Plan: 23 year old year old S/p spontaneous vaginal delivery, PPD #3 1. complicated by: 1. DCDA Twins w/FGR for Twin A and B 2. CF and SMA carrier 1. FOB tested negative 3. PreE with SF 1. S/p Mag 2. BP Range over the past 24h: 119-152/63-99 (4 mild range pressures/8) 3. Started on Nifedipine 30mg daily afternoon (one mild range since initiating antihypertensive medication) 4. Patient currently asymptomatic 5. Continue current regimen with possible discharge this afternoon pending BP review 2. AFVSS 3. : Urinary output is adequate 4. GI: tolerating normal diet 5. Br/Michael/Contraception: The patient is breast feeding and desires POPs for contraception 6. Hematologic: pre-delivery Hgb 10.5 > post-delivery Hgb 9.2 7. O+/I/-/-, HIV NR 8. DVT/PE prophylaxis: 1. Risk factors: state, Body mass index is 25.29 kg/m??. 2. No worrisome physical exam findings, VSS 3. SCDs in bed, encourage ambulation 9. The patient had a male and female infant Dispo: continue routine post- care, d/c pp day 2 after seen by attending. Plan to follow-up in 72 hours for a BP check and again in 4-6 weeks for routine care. The patient had a male , and does desire circumcision. She was consented for circumcision 09/25. Renay Davalos MD 09/27/2023 6:25 AM * Yovana Banegas RN - 09/28/2023 5:03 AM CDT Shift Summary: VSS and assessments WNL. Fundus firm, lochia small, up ad genie, reports adequate paincontrol, infants discharged but rooming in with mother, call light in reach. Problem: Goal: Status is maintained within the expected range. Outcome: Progressing Problem: Emotional Well-Being Goal: Patient participates in decision-making and choices for care. Outcome: Progressing Goal: Parent- bonding occurs Outcome: Progressing * Whitney Marks RN - 09/27/2023 5:10 PM CDT VSS. Pain controlled with Motrin and tylenol. Up Ad Genie. Voiding without difficulty. Caring for twins in the room. BP meds started this evening. * Jarrett Beasley - 09/27/2023 3:33 PM CDT Radio Repair Teacher met with Patient and spouse in room for initial visit. Babies were present and appeared mata sleeping peacefully in bassinets during visit. Patient expressed feeling tired but denied other concerns at this time. This Radio Repair Teacher offered support through listening presence by engaging in conversation and understanding. 09/27/23 1500 Visit Type Assessment Date 09/27/23 Radio Repair Teacher Visiting Patient [facility] Past[facility] Reason for Visit Initial Visit Pastoral Care Visit Type(s) Initial Visit Encounter Type Patient Spiritual History Community Family and Friends Support Spiritual Assessment Spiritual Assessment Content;Other(Comment) (Pt expressed feeling tired) Interventions Pastoral Care Conversation;Reflective Listening;Support Support Coping;Other (comment) (new baby support) Plan/Outcome Plan Will Remain Available if Requested Chaplain Chan Ascom [phone] Outside: [phone] For more urgent needs, please page at the appropriate pager number below. [place] [facility] pager - Call [phone] (Mon-Fri: 7AM - 9PM and Sat/Sun 7AM - 3PM). Pastoral Care connection worker pager - Call [phone] (outside of the times listed above) and enter a 10 digit call back number. Please allow the connection worker water quality specialist 30 minutes to arrive to the hospital. * Yahaira Flores RN - 09/27/2023 9:45 AM CDT Childbirth education: Discussion Post physical changes, emotional changes, post care,and when to call the OB provider for worsening symptoms. Verbalize understanding. Handouts given with discussion Save your Life and MOMS line. Verbalize understanding. Anita reports that the infants are breast and formula feeding. Discussion infant care (bathing, cord care, breast and formula feedings, signs of adequate breast/formula feeding, and signs and symptoms when to call the pattern changer). To discuss circumcision care for baby boy with nurse. Verbalize understanding. Handouts given with discussion ( screening, safe sleep, and formula preparation). Verbalize understanding. Denies questions and or concerns. * Whitney Marks RN - 09/27/2023 9:41 AM CDT Problem: Goal: Status is maintained within the expected range. Outcome: Progressing Problem: Emotional Well-Being Goal: Patient participates in decision-making and choices for care. Outcome: Progressing Goal: Parent- bonding occurs Outcome: Progressing * Vinny Patino MD - 09/27/2023 6:13 AM CDT PGY1 OB Post- Note 09/27/2023, 6:13 AM Subjective: Anita Padilla had an uneventful night. Pain is controlled. Lochia is light. She reports toleratinga normal diet without nausea or vomiting. She denies headache, fever, chest pain, shortness of breath, and leg pain. She has ambulated and denies lightheadedness. She is voiding spontaneously. Objective: Temp (36hrs) Max:99.8 ??F (37.7 ??C) Patient Vitals for the past 24 hrs: Temp Pulse Resp BP 09/27/23 1205 -- -- -- 152/84 09/27/23 1130 98.7 ??F (37.1 ??C) 64 16 147/99 09/27/23 0735 98.7 ??F (37.1 ??C) 80 16 130/73 09/27/23 0330 98.5 ??F (36.9 ??C) 52 14 105/62 09/26/23 2245 97.5 ??F (36.4 ??C) 58 16 130/84 09/26/232019 98.5 ??F (36.9 ??C) 62 17 122/79 09/26/23 1730 98.4 ??F (36.9 ??C) 59 16 131/86 09/26/23 1530 97.3 ??F (36.3 ??C) 59 16 129/75 09/26/23 1330 -- -- -- 104/54 Intake/Output Summary (Last 24 hours) at 09/27/2023 0613 Last data filed at 09/27/2023 0336 Gross per 24 hour Intake 3500 ml Output 6900 ml Net -3400 ml PE: General: alert, cooperative in no acute distress Lungs: nonlabored respirations Abdomen: soft, non tender; fundus firm below umbilicus Extremities: no calf tenderness Lab Review: Recent Labs Component Name 09/26/23 0333 09/25/23 0904 09/20/23 1204 WBC 16.8* 8.4 10.8* HGB 9.2* 10.5* 11.9 HCT 27.7* 31.7* 37.1 PLTCOUNT 174 213 269 Recent Labs Component Name 09/25/23 0904 ABORH O POS Assessment/Plan: 23 year old year old S/p spontaneous vaginal delivery, PPD #2 1. complicated by: 1. DCDA Twins w/FGR for Twin A and B 2. CF and SMA carrier 1. FOB tested negative 3. PreE with SF 1. S/p Mag 2. Not currently on long acting medication 3. BP Range over the past 24h: 104-131/54-86 4. Patient currently asymptomatic 2. AFVSS 3. : Urinary output is adequate 4. GI: tolerating normal diet 5. Br/Michael/Contraception: The patient is breast feeding and desires POPs for contraception 6. Hematologic: pre-delivery Hgb 10.5 > post-delivery Hgb 9.2 7. O+/I/-/-, HIV NR 8. DVT/PE prophylaxis: 1. Risk factors: state, Body mass index is 25.29 kg/m??. 2. No worrisome physical exam findings, VSS 3. SCDs in bed, encourage ambulation 9. The patient had a male and female infant Dispo: continue routine post- care, d/c pp day 2 after seen by attending. Plan to follow-up in 72 hours for a BP check and again in 4-6 weeks for routine care. The patient had a male infant, and does desire circumcision. She was consented for infant circumcision risks including, but not limited to, bleeding, infection, trauma to other tissue, and need for further procedures. The patient expressed understanding, denied questions, and wishes to proceed withthe procedure for her son. Renay Davalos MD 09/27/2023 6:13 AM I saw and examined Ms. Padilla. I reviewed the resident's note and edited it as needed. I agree with the documentation above. Anticipate discharge this afternoon if Bps remain <160/110. Vinny Patino MD * Sofiya Mendoza, Graduate Nurse - 09/27/2023 5:24 AM CDT Shift Summary: Vitals and assessment WDL. PT has voided without difficulty on this shift. Pain controlled (see MAR). Continues to bottle feed infants well. Infants continue to room in and diallo with mother. Problem: Goal: Status is maintained within the expected range. Outcome: Progressing Problem: Emotional Well-Being Goal: Patient participates in decision-making and choices for care. Outcome: Progressing Goal: Parent- bonding occurs Outcome: Progressing * Sophia Reynoso RN - 09/26/2023 6:56 PM CDT Shift Summary: Pt vitals WNL, assessments as charted. Fundus firm lochia small. Pt reports adequatepain management, see MAR. Pt tolerating ambulation. Pt voiding without reported difficulty. Pt keeps babies in room and bonding well. * Juan Jean MD - 09/26/2023 7:45 AM CDT PGY1 OB Post- Note 09/26/2023, 7:45 AM Subjective: Anita Padilla is doing well. Pain is controlled. Lochia is light. She reports flatus passed, tolerating normal diet. She denies headache, fever, chest pain, shortness of breath, and leg pain. She has ambulated and denies dizziness. She is voiding spontaneously. Objective: Patient Vitals for the past 24 hrs: Temp Pulse Resp BP SpO2 09/26/23 0730 97.8 ??F (36.6 ??C) 58 16 126/82 100 % 09/26/23 0631 97.9 ??F (36.6 ??C) 65 18 130/75 100 % 09/26/23 0530 97.7 ??F (36.5 ??C) 71 16 113/57 100 % 09/26/23 0429 98.6 ??F (37 ??C) 67 16 115/59 99 % 09/26/23 0333 97.7 ??F (36.5 ??C) 66 18 120/74 100 % 09/26/23 0158 97.9 ??F (36.6 ??C) 66 16 102/59 100 % 09/26/23 0045 97.8 ??F (36.6 ??C) 67 16 113/70 100 % 09/25/23 2359 98.7 ??F (37.1 ??C) 69 16 123/69 99 % 09/25/23 2250 98.2 ??F (36.8 ??C) -- 18 134/89 99 % 09/25/234 98 ??F (36.7 ??C) -- 18 130/93 -- 09/25/232207 -- -- 18 122/77 -- 09/25/232154 -- -- 18 121/74 -- 09/25/232136 -- -- 18 110/66 -- 09/25/232135 -- -- 18 110/66 -- 09/25/232119 -- -- 18 122/75 98 % 09/25/232114 -- -- -- -- 98 % 09/25/232109 -- -- -- -- 97 % 09/25/232104 -- -- 18 130/88 97 % 09/25/232099 -- -- -- -- 99 % 09/25/232054 -- -- -- -- 100 % 09/25/232050 -- -- 18 131/80 99 % 09/25/232049 -- -- -- -- 99 % 09/25/232044 -- -- -- -- 99 % 09/25/232039 -- -- -- -- 97 % 09/25/232035 -- -- 18 137/83 -- 09/25/232034 -- -- 18 137/83 99 % 09/25/232029 -- -- -- -- 99 % 09/25/232024 -- -- 18 140/82 98 % 09/25/232020 98.7 ??F (37.1 ??C) -- 18 131/81 98 % 09/25/232019 -- -- -- -- 99 % 09/25/232014 98.3 ??F (36.8 ??C) -- 18 129/82 98 % 09/25/232009 -- -- 18 137/92 97 % 09/25/232004 -- -- -- 139/99 97 % 09/25/231999 99.8 ??F (37.7 ??C) -- 20 (!) 134/107 98 % 09/25/231932 -- -- 20 (!) 178/102 -- 09/25/231903 -- -- 20 175/94 -- 09/25/231854 -- -- -- -- 96 % 09/25/231849 -- -- -- -- 96 % 09/25/231848 97.6 ??F (36.4 ??C) 85 20 (!) 191/98 97 % 09/25/23 1720 -- -- -- 140/99 -- 09/25/23 1624 -- -- -- 157/96 -- 09/25/23 1615 98.3 ??F (36.8 ??C) -- -- -- -- 09/25/23 1552 -- -- -- 145/99 -- 09/25/23 1521 -- -- -- 137/94 -- 09/25/23 1420 -- -- -- 127/75 -- 09/25/23 1350 98.1 ??F (36.7 ??C) -- 16 146/92 -- 09/25/23 1321 -- -- -- 139/92 -- 09/25/23 1250 -- -- -- 129/75 -- 09/25/23 1216 -- -- -- 137/92 -- 09/25/23 1215 -- -- -- -- 99 % 09/25/23 1210 -- -- -- -- 100 % 09/25/23 1207 -- -- -- 146/95 -- 09/25/23 1205 -- -- -- -- 100 % 09/25/23 1200 -- -- -- -- 99 % 09/25/23 1157 -- -- -- 145/98 -- 09/25/23 1155 -- -- -- -- 100 % 09/25/23 1150 -- -- -- -- 100 % 09/25/23 1147 -- -- -- 138/92 -- 09/25/23 1145 -- -- -- -- 100 % 09/25/23 1140 -- -- -- -- 99 % 09/25/23 1136 -- -- -- 145/99 -- 09/25/23 1135 -- -- -- -- 100 % 09/25/23 1120 -- -- -- -- 100 % 09/25/23 1118 -- -- -- 138/91 -- 09/25/23 0856 -- -- -- -- 98 % 09/25/23 0855 98.2 ??F (36.8 ??C) 77 18 140/96 98 % Temp (36hrs) Max:99.8 ??F (37.7 ??C) Intake/Output Summary (Last 24 hours) at 09/26/2023 0745 Last data filed at 09/26/2023 0730 Gross per 24 hour Intake 2811.37 ml Output 7130 ml Net -4318.63 ml PE: General: alert, cooperative in no acute distress Lungs: nonlabored respirations Abdomen: soft, non tender; fundus firm below umbilicus Lower Extremities: no edema, no calf tenderness Lab Review: Recent Labs Component Name 09/26/23 0333 09/25/23 0904 09/20/23 1204 WBC 16.8* 8.4 10.8* HGB 9.2* 10.5* 11.9 HCT 27.7* 31.7* 37.1 PLTCOUNT 174 213 269 Recent Labs Component Name 09/25/23 0904 ABORH O POS Assessment/Plan: 23 year old year old S/p spontaneous vaginal delivery, PPD # 1 1. complicated by: 1. DCDA Twins w/ FGR Twin A and B 1. Blood loss 805, s/p HOME 2. PreE w/ SF 1. BP Range since delivery: 102-191/59-98. 1. Treated acutely w/ Labetalol 20 2. Not on long acting antihypertensive 2. Asymptomatic 3. CF + SMA carrier 2. AFVSS 3. : Urinary output is spontaneous 4. GI: tolerating normal diet, positive flatus. 5. MOF/MOC: breast/declines 6. Hematologic: Pre Hgb 10.5 > Post Hgb 9.2 7. O+/I/-/-, HIV NR 8. DVT/PE prophylaxis: 1. Risk factors: state, Body mass index is 25.29 kg/m??., 2. No worrisome physical exam findings, VSS 3. SCDs in bed until ambulating, encourage ambulation Dispo: continue routine post- care, d/c PPD1-2 after seen by attending, follow up in 72hr PP for a BP check and in 4-6wks The patient had a female and male , and does desire circumcision. Consent needs to be signed. Juan Jean MD 09/26/2023 7:45 AM Associated attestation - Chantale Felder MD - 09/26/2023 12:50 PM CDT MFM Attending Progress Note Patient seen and examined. I have reviewed the residents note and agree with the findings, except when noted. 09/26/2023 12:48 PM Anita Padilla Subjective: Patient is feeling well, pain adequately controlled and ambulating. Denies headaches, blurred vision or RUQ pain. Objective: Temp (36hrs) Max:99.8 ??F (37.7 ??C) Vitals: 09/26/23 0631 09/26/23 0730 09/26/23 0930 09/26/23 1130 BP: 130/75 126/82 124/81 123/77 Pulse: 65 58 61 63 Resp: 18 16 16 16 Temp: 97.9 ??F (36.6 ??C) 97.8 ??F (36.6 ??C) 97.3 ??F (36.3 ??C) 97.6 ??F (36.4 ??C) SpO2: 100% 100% 100% 100% Weight: Height: Intake/Output Summary (Last 24 hours) at 09/26/2023 1248 Last data filed at 09/26/2023 1130 Gross per 24 hour Intake 3635.13 ml Output 9730 ml Net -6094.87 ml Recent Labs Component Name 09/26/23 0333 09/25/23 0904 09/20/23 1204 WBC 16.8* 8.4 10.8* HGB 9.2* 10.5* 11.9 HCT 27.7* 31.7* 37.1 PLTCOUNT 174 213 269 Exam: General: alert, no distress Abdomen: Soft, ATTP Assessment/Plan: day 1 s/p VD The patient feels well. Continue magnesium sulfate infusion and vitals monitoring Twins are at bedside, doing well Continue routine care. Chantale Pena MD * Sophia Reynoso, RN - 09/26/2023 7:37 AM CDT Problem: Goal: Status is maintained within the expected range. Outcome: Progressing Problem: Emotional Well-Being Goal: Patient participates in decision-making and choices for care. Outcome: Progressing Goal: Parent- bonding occurs Outcome: Progressing * Yury Teixeira RN - 09/26/2023 5:36 AM CDT Pt vitals WNL, assessments as charted. Fundus firm lochia small. Pt reports adequate pain management, see SEP. Pt tolerating ambulation. Pt voiding without reported difficulty. Pt keeps babies in room and bonding well. Tolerating Magnesium treatment well. * Yury Teixeira RN - 09/26/2023 12:37 AM CDT Problem: Goal: Status is maintained within the expected range. Outcome: Progressing Problem: Emotional Well-Being Goal: Patient participates in decision-making and choices for care. Outcome: Progressing Goal: Parent- bonding occurs Outcome: Progressing * Yury Teixeira RN - 09/26/2023 12:00 AM CDT Mom came to the floor supplementing with formula. I educated mom on pumping to establish a milk supply if she wanted to continue trying to breastfeed. She did not want to latch babies or pump despitethe education given. * Loc Catherine MD - 09/25/2023 9:18 PM CDT PGY-3 Progress Note 2099 Went to see patient to assess HOME. Device still on suction with ~20cc of blood in suction tubing. No bleeding noted around device. Device taken off suction and fluid removed from vaginal balloon. 2129 Went in to see and reassess patient. No bleeding noted coming from vagina. Ultrasound completed which demonstrated thin endometrial stripe and HOME device. Device removed with no bleeding noted. Patient tolerated well. Loc Catherine MD 09/25/2023 9:47 PM * Aisha Stanford RN - 09/25/2023 7:58 PM CDT Images from the original note were not included. Patient Name: Anita Padilla Patient Age: [age] year old Today's Date: 09/25/2023 DELIVERY SUMMARY Estimated Date of Delivery: 10/17/23 Delivery Summary Patient Information Patient Name Anita Padilla ([id number]) Legal Sex Female OB History 2 Para 2 Term 1 1 AB Living 3 SAB IAB Ectopic Multiple 1 Live Births 3 1 Outcome: Term Date: 05/26/21 GA: 41w0d Delivery: Vag-Spont Living: DAVID Weight: 2835 g (6 lb 4 oz) 2A Outcome: Date: 09/25/23 GA: 36w6d Sex: M Delivery: Vag-Spont Living: DAVID Name: Baby Boy 1 Anita Padilla Labor/2nd: / 0h 43m Weight: 2415 g (5 lb 5.2 oz) Anes: Epidural PTL: N A1: 8 A5: 9 Location: [facility] Delivering Clinician: Tara Rivero MD 2B Outcome: Date: 09/25/23 GA: 36w6d Sex: F Delivery: Vag-Spont Living: DAVID Name: Baby Girl2 Anita Padilla Labor/2nd: / 0h 50m Weight: 1955 g (4 lb 5 oz) Anes: Epidural PTL: N A1: 8 A5: 9 Location: [facility] Delivering Clinician: Tara Rivero MD Transcribed Labs Row Name 09/25/23 0928 RH (Manually Reproduced) Positive Blood Type (Manually Reproduced) O Antibody Screen (Manually Reproduced) Negative Syphilis Serology (Manually Reproduced) Negative HIV (Manually Reproduced) Negative Date of HIV Lab 04/22/24 3rd Trimester HIV (Manually Reproduced) Negative 3rd Trimester Date of HIV Lab 07/19/23 Hepatitis B Surface Antigen (Manually Reproduced) Negative Hepatitis C (Manually Reproduced) Negative Rubella Status ( Manually Reproduced) Immune Beta Strep Culture (Manually Reproduced) Positive Labor Length 2nd stage: 0h 50m 3rd stage: 0h 04m Blood Loss Flowsheet Row Admission (Current) from 09/25/2023 in [facility] 5 LDR Estimated Blood Loss -- Quantitated Blood Loss 800 ml POCT Venous Cord Blood Gas Results pH pCO2 pO2 HCO3 Total CO2 09/25/23 1802 7.33 38.5 34 20.4 22 POCT Arterial Cord Blood Gases pH pCO2 pO2 HCO3 BE Total CO2 09/25/23 1758 7.27 47.9 34 21.9 -5 23 George Padilla [[id number]] Patient Information Patient Name George Padilla ([id number]) Gender Identity Male 09/25/2023 Anesthesia Method: Epidural Labor Events labor?: No steroids: None GBS Status: positive Antibiotic: penicillin Number of Antibiotic Doses: 2 Rupture Date: 09/25/23 Time: 1610 Rupture type: Artificial, Patient Denies Leaking Fluid color: Clear Fluid odor: Normal Odor Induction: Oxytocin, AROM Indications for induction: Multiple Gestation Other indications for induction: growth restrictions Labor complications: None Delivery Details Forceps attempted?: No Vacuum extractor attempted?: No Shoulder dystocia present?: No Presentation: Vertex:MELCHOR Delivery (Maternal) Perineal lacerations: 2nd Labial laceration: bilateral Repaired?: No Repair suture: 3.0, Vicryl Placenta Date/time: 09/25/20231803 Disposition: Pathology Removal: Spontaneous Appearance: Adherent Other Delivery Procedures/Provider Comments Procedures: None Comments: R1 Physician Delivery Note 23 year old at 36w6d, Estimated Date of Delivery: 10/17/23 Complication: DCDA Twin Gestation, FGR of A and B Labor: spontaneous Anesthesia: epidural Episiotomy/Laceration/Repair: 2nd degree laceration repaired in the usual fashion with a 3-0 vicrylin the usual fashion. Bilateral labial tears hemostatic and not repaired. Delivery: spontaneous Position: PRIMITIVO & MELCHOR Information for the patient's : George Padilla [[id number]] Date of 09/25/2023 Time of : 5:53 PM Sex: Male Weight: 2415 g (5 lb 5.2 oz) (1 min): 8 (5 min): 9 (10 min): Cord Blood Gas, Arterial: pH 7.27, Base excess -5 Cord Blood Gas, Venous: pH 7.33, Base excess -5 Information for the patient's : Randy, Baby Girl Radha Trivedi [[id number]] Date of 09/25/2023 Time of : 6:00 PM Sex: Female Weight: 1955 g (4 lb 5 oz) (1 min): 8 (5 min): 9 (10 min): Cord Blood Gas, Arterial: pH 7.29, Base excess -4 Cord Blood Gas, Venous: pH 7.28, Base excess -4 Placenta: spontaneous Measured blood loss: 800 mL Complications: atony and hemmorhage Comments: Patient began pushing in the OR. Baby A MELCHOR. Anterior and posterior shoulders atraumatically delivered with gentle traction followed by the trunk and LE. Baby placed on mother's chest for skin to skin contact. Cord doubly clamped and cut. Segment of the cord collected for gases. Cord blood collected. Attention then paid to baby B. Delivery - Physician I was present at delivery (physician name): Theron Rivero Wallace, Mishkov Counts Initial count personnel: Eric ELKINS Initial count verified by: Shelia STANFODR RN [employer] Lap Pads Sponges Initial counts 0 15 6 0 Added to counts 1 0 0 0 Final counts 1 15 6 0 Final count personnel: LETTY HAMPTON Final count verified by: Shelia STANFORD RN Vaginal packing left in?: Neg Accurate final count?: Yes Delivery () Delivery Date: 09/25/23 Delivery Time: 5:53 PM Delivery type: Vaginal, Spontaneous Apgars Living status: Living Component Scores: 1 min.: 5 min.: 10 min.: 15 min.: 20 min.: Skin color: 1 1 Heart rate: 2 2 Reflex irritability: 2 2 Muscle tone: 2 2 Respiratory effort: 1 2 Total: 8 9 Apgars assigned by: ANTONIO ROSS MD Delivery Pierce Stabilization Equipment Checked by: NICU team Vigorous at ? (Heart rate greater than 100, normal respirations and normal muscle tone): Yes Suction Method: None Requires more than warming, stimulation, and suction?: No Intubation Performed?: No Chest Compressions: No Thermoregulation Support: Overhead Warmer, Cap Description of baby: Vigorous at with routine resuscitation. Cord Complications: Nuchal Nuchal intervention: reduced Nuchal cord description: loose nuchal cord Number of loops: 1 Vessels: 3 Vessels Delayed cord clamping?: Yes Time delayed: 60 seconds or greater Cord blood disposition: Lab Gases sent?: Yes, Venous, Arterial Pierce Measurements Weight: 2415 g Pounds and Ounces: 5 lb 5.2 oz Length: 19.09 Head circumference: 12.6 Chest circumference: Infant Disposition: Nursery Feeding and Elimination Mother's Feeding Choice During Stay ( Core Measure PC05): Breast Milk Voided in Delivery Room?: No Stooled in Delivery Room?: No George Padilla 2 [[id number]] Patient Information Patient Name George Padilla 2 ([id number]) Gender Identity Female 09/25/2023 Anesthesia Method: Epidural Labor Events labor?: No steroids: None GBS Status: positive Antibiotic: penicillin Number of Antibiotic Doses: 2 Rupture Date: 09/25/23 Time: 1610 Rupture type: Artificial, Patient Denies Leaking Fluid color: Clear Fluid odor: Normal Odor Induction: Oxytocin, AROM Indications for induction: Multiple Gestation Other indications for induction: growth restriction Labor complications: None Pierce Delivery Details Forceps attempted?: No Vacuum extractor attempted?: No Shoulder dystocia present?: No Presentation: Vertex:PRIMITIVO Delivery (Maternal) Perineal lacerations: 2nd Labial laceration: bilateral Repaired?: No Repair suture: 3.0, Vicryl Placenta Date/time: 09/25/2023 1804 Disposition: Pathology Other Delivery Procedures/Provider Comments Procedures: None Comments: Comments: heart rate of Baby B doppled in the 150s, presentation vertex. [place] used for rupture of membranes. Baby B PRIMITIVO. Anterior and posterior shoulders atraumatically delivered with gentle tractionfollowed by the trunk and LE. Baby placed on mother's chest for skin to skin contact. Cord doubly clamped and cut. Segment of the cord collected for gases. Cord blood collected. Both placentas delivered by controlled cord traction intact with a 3 VC. Normal uterine tone initially with oxytocin infusion and bimanual massage. Rectum and vagina clear of sponges. Repair completed as noted above. Patient continued to have a slow trickle with tone that improved with bimanuals. Rectal cytotec given. Patient continued to trickle with slow bleeding. Cervix examined with no laceration. TXA administered and Home called for into the room. Patient transferred to labor room and Home placed to suction. MBL 800 in the operating room. Theron Castillo, and Letty also present for delivery. Benita Putnam MD 09/25/2023 6:53 PM Delivery - Physician I was present at delivery (physician name): Theron Rivero Wallace, Mishkov Counts Initial count personnel: Eric ELKINS Initial count verified by: Shelia STANFORD RN [employer] Lap Pads Sponges Initial counts 0 15 6 0 Added to counts 1 0 0 0 Final counts 1 15 6 0 Final count personnel: LETTY HAMPTON Final count verified by: Shelia STANFORD RN Vaginal packing left in?: Neg Accurate final count?: Yes Delivery (Pierce) Delivery Date: 09/25/23 Delivery Time: 6:00 PM Delivery type: Vaginal, Spontaneous Apgars Living status: Living Component Scores: 1 min.: 5 min.: 10 min.: 15 min.: 20 min.: Skin color: 1 1 Heart rate: 2 2 Reflex irritability: 2 2 Muscle tone: 2 2 Respiratory effort: 1 2 Total: 8 9 Apgars assigned by: RSTANLEYNNP Delivery Pierce Stabilization Equipment Checked by: NICU team Vigorous at ? (Heart rate greater than 100, normal respirations and normal muscle tone): Yes Suction Method: Bulb Secretions (Amount in Comment): Clear, Mucous Requires more than warming, stimulation, and suction?: No Intubation Performed?: No Chest Compressions: No Thermoregulation Support: Cap, Overhead Warmer Description of baby: Vigorous at . Pulse oximeter placed due to circumoral cyanosis, pulse oximeter reading in mid 70s at ~4.5 MOL, continued stimulation and pulse oximeter reading in high 80s at 5 MOL. Removed pulse oximeter. remains vigorous with good tone. Cord Vessels: 2 Vessels Delayed cord clamping?: Yes Time delayed: 60 seconds or greater Cord blood disposition: Lab Gases sent?: Yes, Venous, Arterial Pierce Measurements Weight: 1955 g Pounds and Ounces: 4 lb 5 oz Length: 17.72 Head circumference: 12.21 Chest circumference: Infant Disposition: Pierce Feeding and Elimination Mother's Feeding Choice During Stay ( Core Measure PC05): Breast Milk Voided in Delivery Room?: No Stooled in Delivery Room?: No . Associated attestation - Tara Rivero MD - 09/26/2023 6:53 AM CDT [facility] TDP DISPLAYS ANALYST Attending: I was present for the duration of the entire procedure: twin spontaneous vaginal delivery. Complications: none. Please see attached resident documentation. Tara Rivero MD 09/26/2023 6:53 AM * Loc Catherine MD - 09/25/2023 4:14 PM CDT PGY3 Labor Progress Note Subjective: Assessment of labor Objective: Vitals: 09/25/23 1350 09/25/23 1420 09/25/23 1521 09/25/23 1552 BP: 146/92 127/75 137/94 145/99 Pulse: Resp: 16 Temp: 98.1 ??F (36.7 ??C) SpO2: Weight: Height: EFM A: 115bpm, moderate, reactive, no decelerations EFM B: 125bpm, moderate, reactive, no decelerations Ganister: q2-5 minutes Cervical Exam Dilation (cm): 9 Effacement: 90 Station: 0 Assessment: 23 year old @ 36w6d IOL for DCDA twins with FGR of both twins, single umbilical artery twin B - Cervix: as above - GBS positive, penicillin during labor - epidural in place - on pitocin at 6 - Twin A: [3/4] EFW 2074 gm??(6%), AC 1%, dopplers wnl [09/20] UA/MCA dopplers wnl, BPP 04/20 - Twin B: [3/4] EFW 2010g (4%), AC 5%,??UA??doppler increased [09/20] UA/MCA dopplers wnl, BPP 10/10 - on admission both fetus vertex - patient consented for all modes of delivery on admission - AROM @ 1600 - continue to titrate pitocin, expect vaginal delivery gHTN - mild range since admission - asymptomatic - CBC, CMP on admission unremarkable Loc Catherine MD 09/25/2023 4:14 PM * Loc Catherine MD - 09/25/2023 2:15 PM CDT PGY3 Labor Progress Note Subjective: Assessment of labor Objective: Vitals: 09/25/23 1216 09/25/23 1250 09/25/23 1321 09/25/23 1350 BP: 137/92 129/75 139/92 146/92 Pulse: Resp: 16 Temp: 98.1 ??F (36.7 ??C) SpO2: Weight: Height: EFM A: 115bpm, moderate, reactive, no decelerations EFM B: 125bpm, moderate, reactive, no decelerations Ganister: q1-4 minutes Cervical Exam Dilation (cm): 8 Effacement: 90 Station: 0 Assessment: 23 year old @ 36w6d IOL for DCDA twins with FGR of both twins, single umbilical artery twin B - Cervix: as above - GBS positive, penicillin during labor - epidural in place - on pitocin at 6 - Twin A: [3/4] EFW 2074 gm??(6%), AC 1%, dopplers wnl [09/20] UA/MCA dopplers wnl, BPP 10/10 - Twin B: [3/4] EFW 2010g (4%), AC 5%,??UA??doppler increased [09/20] UA/MCA dopplers wnl, BPP 10/10 - on admission both fetus vertex - patient consented for all modes of delivery on admission - plan to AROM with next check, expect vaginal delivery gHTN - mild range since admission - asymptomatic - CBC, CMP on admission unremarkable Loc Catherine MD 09/25/2023 2:15 PM * Loc Catherine MD - 09/25/2023 12:57 PM CDT PGY3 Labor Progress Note Subjective: Assessment of labor Objective: Vitals: 09/25/23 1207 09/25/23 1210 09/25/23 1215 09/25/23 1216 BP: 146/95 137/92 Pulse: Resp: Temp: SpO2: 100% 99% Weight: Height: EFM A: 115bpm, moderate, reactive, no decelerations EFM B: 120bpm, moderate, reactive, no decelerations Ganister: q1-4 minutes Cervical Exam Dilation (cm): 5.5 Effacement: 90 Station: -1 Assessment: 23 year old @ 36w6d IOL for DCDA twins with FGR of both twins, single umbilical artery twin B - Cervix: as above - GBS positive, penicillin during labor - epidural in place - on pitocin at 6 - Twin A: [3/4] EFW 2074 gm??(6%), AC 1%, dopplers wnl [09/20] UA/MCA dopplers wnl, BPP 10/10 - Twin B: [3/4] EFW 2010g (4%), AC 5%,??UA??doppler increased [09/20] UA/MCA dopplers wnl, BPP 10/10 - on admission both fetus vertex - patient consented for all modes of delivery on admission - plan to AROM following 2 doses of penicillin gHTN - mild range since admission - asymptomatic - CBC, CMP on admission unremarkable Loc Catherine MD 09/25/2023 12:58 PM documented in this encounter H&P Notes * Tracy Moreno MD - 09/25/2023 8:37 AM CDT PGY3 Obstetric H&P Note 09/25/2023, 9:15 AM CC: IOL HPI: 23 year old at 36w6d gestation Dating: LMP c/w 17 week ultrasound Estimated Date of Delivery: 10/17/23 care: is with high risk [facility] Patient's is complicated by: Patient Active Problem List Diagnosis Date Noted ??? Dichorionic diamniotic twin in third trimester ([facility]) 09/25/2023 Priority: Not Prioritized ??? Gestational hypertension ([facility]) 09/21/2023 Priority: Not Prioritized ??? growth restriction antepartum ([facility]) 09/21/2023 Priority: Not Prioritized ??? Cystic fibrosis carrier, antepartum ([facility]) 08/09/2023 Priority: Not Prioritized ??? GBS bacteriuria 08/09/2023 Priority: Not Prioritized ??? Dichorionic diamniotic twin ([facility]) 05/12/2023 Priority: Not Prioritized ??? Two vessel umbilical cord, antepartum ([facility]) 08/09/2023 Twin B Patient presents for IOL. She has no complaints. negative Ctx. negative LOF. negative VB. positive FM. 10-Point Review of Systems was performed: Positive for: see HPI NEGATIVE for headache, fever, vision changes, chest pain, shortness of breath, nausea, vomiting, diarrhea, constipation, dysuria, pruritic or malodorous vaginal discharge, abnormal vaginal bleeding, rashes, joint pain, calf pain, myalgias Medical History: Past Medical History: Diagnosis Date ??? depression She denies history of diabetes, asthma, bleeding disorders and clotting disorders. +gHTN Psych History: Depression: denies Anxiety: denies Bipolar disorder: denies Schizophrenia: denies Surgeries: No past surgical history on file. Allergies: No Known Allergies Current Medications: Prior to Admission medications Medication Sig Start Date End Date Taking? 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 No history of infants born with defects No history of family members with bleeding disorders or history of blood clots. No history of breast, ovarian, or uterine cancer Obstetrical History: OB History Para Term AB Living 2 1 1 1 SAB IAB Ectopic Multiple Live Births 1 # Outcome Date GA Lbr Damir/2nd Weight Sex Delivery Anes PTL Lv 2 Current 1 Term 05/26/21 41w0d 2835 g (6 lb 4 oz) Vag-Spont DAVID Gynecologic History: History of abnormal pap smear: denies History of procedure on cervix: denies STI History: Denies gonorrhea, chlamydia, trichomonas, herpes, HIV, syphilis Social History: Social History Smoking status: Former Packs/day: 0.00 Years: 0.00 Types: Cigarettes Smokeless tobacco: Never Alcohol use: Not Current* Drug use: Not Current* Sexual activity: Not on file Objective: BP 140/96 Pulse 77 Temp 98.2 ??F (36.8 ??C) (Oral) Resp 18 SpO2 98% Patient Vitals for the past 24 hrs: Temp Pulse Resp BP SpO2 09/25/23 0855 98.2 ??F (36.8 ??C) 77 18 140/96 98 % Electronic Monitoring A NST: baseline 125 bpm, moderate variability, reactive, no decelerations B NST: baseline 120 bpm, moderate variability, reactive, no decelerations Ganister: irregular contractions Physical Exam General: no acute distress, alert and oriented Lungs: breathing comfortably on room air Abdomen: gravid, soft, non-tender Neuro: cranial nerves and motor function grossly intact Lower extremities: non-tender calves with no edema bilaterally Psych: appropriate affect Skin: warm, dry Cervical Exam Dilation (cm): 4 Effacement: 50 Station: -2 Pelvimetry: Diagonal conjugate reached: No Ischial Spines prominent: No Suprapubic arch, narrow: No Pelvic sidewalls divergent: Yes Gynecoid pelvis: Yes Bedside ultrasound: Presentation: vtx, vtx Current Lab Review: No results found for this visit on 09/25/23. labs Blood type: O+ Rubella: immune Hep B surface antigen:non-reactive Syphilis serology: non-reactive HIV:Negative HCV: NR GCT: 122 GBSuria Assessment/Plan: 23 year old at 36w6d gestation, with Induction of labor for DCDA twins with FGR of twin A and B/gHTN 1. Cervix 4/50/-2 2. Membranes intact 3. GBSuria: PCN ordered 4. Admit to L&D 5. Patient desires Epidural 6. Bishops's Score 6 I have discussed with the patient the possibility of a prolonged induction and the use of several induction agents. We discussed that typically latent labor and cervical ripening is generally the longest portion of labor. We reviewed the various medications used for induction and that artificial rupture of membranes may be used to augment the labor process. I discussed with the patient that at this time the tracing remains reassuring though there are various types of decelerations in the heart rate which can happen during labor. We reviewed that at various times we may ask her to change her position in bed, wear oxygen, or other maneuvers to help improve the heart rate and we will keep her informed of any concerning developments. Discussed with the patient that though there is low suspicion for need for section at this time, we are always prepared for emergencies which may occur. Our goal is for the safest delivery formother and baby. Should it appear that a section is the safest route at any point in her labor process, we will review this with her at that time. DCDA twins FGR twin A and B Single umbilical artery of twin B - Twin A: [3] EFW 2074 gm (6%), AC 1%, dopplers wnl [09/20] UA/MCA dopplers wnl, BPP 10/10; cephalic - Twin B: [3/] EFW 2010g (4%), AC 5%,??UA doppler increased [09/20] UA/MCA dopplers wnl, BPP 10/10; breech - discordance 3% - NICU consulted per pt request We discussed vaginal delivery of twins, including possible non-vertex presentation of second twin, and that a non-vertex second twin can often be delivered by breech extraction. I described in basic terms what this would entail . We discussed the risk of head entrapment, injury/permanent disab ility/. We discussed that in the case of head entrapment this may be managed either with forceps delivery of head and/or cervical incisions with associated future childbearing implications. We also discussed possible delivery for nonreassuring status or malpresentation which cannot be converted to cephalic or breech for safe vaginal delivery. Risks of a section include, but are not limited to infection, bleeding and/or hemorrhage requiring transfusion (and itsinherent risks of acquiring HIV, hepatitis B/C or other infections) or possible hysterectomy, damage to bowel, damage to bladder, damage to baby, blood clot, or were discussed. She desires to proceed with vaginal delivery if able and delivery if indicated. She was consented for all modes of delivery in twins and wishes to proceed with a vaginal delivery of her twins. All questions were answered gHTN - asymptomatic - mild range on admission - not on medications Plan: f/u cmp on admission CF and SMA carrier - Genetic counseling not completed this given late gestational age. Plan for post- assessment of the twins. - FOB status was negative Disposition: L&D for IOL, will start with pitocin Discussed with Dr. Epifanio Moreno MD 09/25/2023 9:15 AM Associated attestation - Chantale Felder MD - 09/26/2023 2:56 PM CDT MFM Attestation Note I have seen, evaluated and examined the patient during rounds this morning. Patient was admitted yesterday for IOL for DCDA with FGR in both twins. She is now PPD#1. Exam: Patient Vitals for the past 6 hrs: Temp Pulse Resp BP BP Method 09/26/23 1330 -- -- -- 104/54 Automatic 09/26/23 1130 97.6 ??F (36.4 ??C) 63 16 123/77 -- 09/26/23 0930 97.3 ??F (36.3 ??C) 61 16 124/81 Automatic Abd - soft, NT Ext - NT, no edema Plan: -Continue care documented in this encounter Consult Notes * Kathy Sy MSW - 09/27/2023 12:43 PM CDTAssociated Order(s): IP CONSULT TO PUFF IRON OPERATOR TDP DISPLAYS ANALYST CASE MANAGEMENT PSYCHOSOCIAL ASSESSMENT Reason for Referral: Hx PPD. SW met with MOB and FOB bedside. MOB confirms having experienced symptoms consistent with PPD afterlast delivery. Pt unable to describe symptoms specifically, but stated that she pushed through. SW reviewed spectrum of possible symptomology associated with PPD, as well as resources available should symptoms present themselves. Patient diagnosis and relevant medical history: DX: The primary encounter diagnosis was Dichorionic diamniotic twin in third trimester (HCC). Diagnoses of growth restriction antepartum (HCC) and Two vessel umbilical cord, antepartum (HCC) were also pertinent to this visit. Father of baby: Quentin Kim; 10/01/1996 Address/Phone: [address] [place], [place] [id number] name: Baron Rodriguezn Julio; Dominic Kim Language Barriers: None noted Cultural Barriers: None noted Ethnicity: White/ Lang: ARABIC Patient's Address: [address] [place] [address] Pt's phone number: [phone] (home) Family Support (name and phone) Extended Emergency Contact Information Primary Emergency Contact: Julio,Quentin Mobile Relation: Significant other Toll Lineman needed? 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 Psychiatric History: Hx PPD. Pt has not been formally diagnosed, but experienced symptomology afterlast delivery. Pt reported no current symptoms of anxiety or depression. Pt reported no hx of medications or psych treatment. SW discussed PPD, the Moms Peer Support Line, Woman and 's ResourceGuide, a list of Mom's virtual support groups, counseling resources, and who to contact if needs arise. 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 SSI-n Insurance: Payer/Plan Subscriber Name Rel Member # Group # [employer] [place] [place]* ANITA APDILLA E Self [id number] [address] Community Resources Utilized: None noted Designated Cans Vacuum Tester: Dr. Gray: [place] Referrals: Nurses for Newborns-n Child protection referral-n DFS/DCFS-Name of worker: -- Phone number: -- Other--- Does the family have the following basic discharge needs? Utilities-y Telephone-y Car seat-y Crib-Bassinet; Parent educated on safe sleep practices and the dangers of sleeping in an unsafe sleep environment. Baby clothing-y Sea Air Land Officer/School: No concerns Transportation: Pt has adequate transportation. Family planning: The pt and her TDP DISPLAYS ANALYST have discussed family planning. Recommended discharge plan for : Infants to be discharged to MOB when medically appropriate. KATHY Og Ascom: [phone] * Antonio Ross MD - 09/25/2023 10:57 AM CDT Maternal Consult Note Anita [place] [id number] Today's Date: 09/25/2023 Estimated Gestational Age: 36w6d Estimated Weight: Twin A: EFW 4, Twin B: EFW 2009g, 3% discordance BRENDA: Ultrasound confirmed, Estimated Date of Delivery: 10/17/23 Infant's Name: Twin A: Twin B: Dominic Date Requested: 09/25/23 Reason for requesting consultation: Late prematurity, parental request HPI: Mother is a 23 year old woman who received care to date at [facility]. labs are: Blood Type O+, Rubella Immune, RPR negative, HIV negative, Hepatitis Bnegative, and GBS positive. was complicated by dichorionic diamniotic twin , gestational hypertension, growth restriction, CF carrier, and GBS bacteriuria. Mother presented for induction of labor. Maternal History: OB History 2 Para 1 Term 1 AB Living 1 SAB IAB Ectopic Multiple Live Births 1 Current Medications: Followed by 0.9% NaCl injection 3 mL, Intracatheter, q8h penicillin G pot in dextrose IVPB 3 Million Units 50 mL, Intravenous, q4h [COMPLETED] penicillin G potassium 5 Million Units in 0.9% NaCl IV 100 mL IVPB, Intravenous, Once lactated ringers infusion, Intravenous, Continuous oxytocin (Pitocin) 30 units in 500 mL 0.9% sodium chloride infusion, Intravenous, Continuous oxytocin (Pitocin) 30 units in 500 mL 0.9% sodium chloride infusion, Intravenous, CONTINUOUS PRN No current facility-administered medications on file prior to encounter. Current Outpatient Medications on File Prior to Encounter Medication Sig Dispense Refill ??? Calcium Carb-Cholecalciferol (CALCIUM 500/D PO) Take 1 tablet by mouth once daily ??? magnesium 500 MG tablet Take 1 (one) tablet by mouth once daily ??? multivitamin daily tablet Take 1 (one) tablet by mouth daily with food ??? Vit-Fe Fumarate-FA ( vitamin) 28-0.8 MG tablet Take 1 (one) tablet by mouth once daily Social History: Father of baby is involved. Discussed with him and mother at bedside. Family History: family history is not on file. Briefly discussed adverse outcome risks with 36w6d prematurity with mother at bedside including: LOSS CONTROL CONSULTANT/development: - Discussed effects on feeding ability, poor regulation of temperature and respiratory centers. Respiratory: - Discussed possibility of needing respiratory support both in the delivery room and after admission including bubble CPAP and/or intubation with mechanical ventilation Delayed feeding: - Discussed poor feeding/swallowing coordination and delayed GI feeding as well as possibleneed for gavage feeding by NGT. Hyperbilirubinemia: - Discussed risk of jaundice requiring phototherapy given combined risk factors of prematurity, delayed enteric feeds, and possibility of infection or any condition which may result in hemolysis. Immediate and prolonged hospital stay: - Discussed possible need for ICU care including possible need for IV lines and intubation/ventilator support. - Discussed expected length of stay and general discharge criteria from NICU including adequate PO nutritional intake, stability on room air, and adequate temperature control Miscellaneous: - Discussed reasons for NICU attendance at delivery and role of NICU nurses, nurse practitioners, and physicians. - Discussed overall care in NICU in broad terms. Discussed physical and emotional stress expected in the post- period and with having a admitted to the NICU, and reiterated the importance of self-care and support from care team as well as personal support group. Impression and plan: Anita is a 23 year old mother at 36w6d EGA gestation with Astrid twins who presented for IOL. Parents requested NICU consult to discuss possible NICU stay. Discussed broad risks of late prematurity. Additional risk factors include IUGR and GBS positive. OB plan includes induction of labor andPCN for GBS. 1. Introduced above risks and general infant care. Mother and father understood and questions were answered. 2. Mother aware to contact our team with further questions. 3. Plan to provide neonatology support in case of delivery. 4. Discuss with attending for further recommendations. Thank you for the consult, please feel free to contact us for questions. Antonio Ross MD Associated attestation - Maximiliano Betancur MD - 09/28/2023 1:16 PM CDT Patient seen and examined with Resident. Please see note for further details. I was present for thekey portions of any procedures performed and always available. I confirm history, exam, assessment and plan with the following exceptions/additions: I have personally face to face discuss care plan with Ms. Trivedi and agree with care plan and assessment as directed by me. documented in this encounter Nursing Notes * Therese Hanson RN - 09/28/2023 9:24 AM CDT Anita has been bottle feeding her babies and states that she has not been latching because her milk is not in yet. She has a Symphony pump at her bedside had states that she used it last night but did not express milk. Reinforced that frequent breast stimulation is important for initiation of milk production, and encouraged her to either pump or latch babies with every feeding to give her body the necessary stimulation to build her milk supply. Discharge paperwork given and discussed yesterday, Anita states she has phone number to call with needs PRN. Therese Valera RN, BSN, IBCLC * Micki Soto RN - 09/27/2023 9:25 PM CDT Checked in with Anita to offer support. She continues to both breast and bottle feed and denied any needs at this time. LC pointed out phone number on white board and encouraged she please call as needed. * Therese Hanson RN - 09/27/2023 9:00 AM CDT Anita has been and bottle feeding her babies. She states that she usually latches one baby with each feeding, before supplementing with formula. She plans to breastfeed more after shegoes home and after her milk comes in. Discussed importance of frequent nipple stimulation and milkremoval to stimulate a full milk supply, and frequent latching so infants learn how to breastfeed. She denies difficulty or pain with latching, and states that both babies have a vigorous suck at thebreast. Encouraged her to call me today for a latch assessment, phone number written on the board. Diaper diary and [id number] handouts provided. Baby #1 (boy) discharge weight is 5# 2oz, which is 3.5% weight loss. Baby #2 (girl) discharge weight is 4# 2oz, which is 3.8% weight loss. Discussed normal weight loss/gain patterns for the first two weeks of the baby's life. Reviewed expected daily amounts of voids and stools based on the baby's day of life, and also the expected changes in the color and consistency of the stools. Encouraged her to call if the baby is not having a minimum of six wet diapers and four stools by day of life five. Provided her with office phone number, and encouraged her to call with any questions or concerns. Therese Valera RN, BSN, IBCLC * Mare Mata RN - 09/26/2023 9:45 AM CDT Consult: Anita is a and she is breast and formula feeding her late- twins. States she breast fed her first baby x 4 months. She reports both babies have latched since , but feels she does not have enough milk for them at this time and is supplementing both with neosure formula by bottle. FOB currently bottle feeding girl 2 and mother attempting to bottle feed boy 1. Infant crying and appears uninterested in feeding. Observed her attempt to latch in cradle hold at the R breast, but no root reflex observed. LC changed infants diaper and placed him [id number] at the R breast. Reviewed proper positioning and latch techniques. Suggested a cross-cradle hold. demonstrated a wide gape and areolar grasp. Short, coordinated bursts of suckling with seldom swallowing observed. Mother attempted to release the breast and switch to cradle hold, but unable to sustain the latch. Encouraged breast support and keeping held close throughout the feeding. Demonstrated waking techniques and encouraged breast compressions. Reviewed breastfeedingeducation including subtle feeding cues, typical feeding patterns, how to wake a sleepy baby, information on multiples and late- infants, responsive feeding at least 8 times/24 hours, volume/composition of colostrum, how milk production works, and signs of a good feeding. Informed of the risks of artificial nipples and unnecessary formula supplementation to . Recommended putting them to breast frequently to develop skills and establish a milk supply. Reviewed how to pace bottle feed with a slow-flow nipple and appropriate volumes of suppl ementation. Symphony pump assembled at the bedside. Instructed on its use/settings and discussed frequency of pumping. Anita states she has an electric breast pump for home use. Informed of services and encouraged she call for assistance prn. Mare Bass MSN, RNC-MNN, IBCLC documented in this encounter Plan of Treatment Not on file documented as of this encounter Procedures Procedure Name Priority Date/Time Associated Diagnosis Comments CBC W AUTO DIFFERENTIAL AM Draw 09/26/2023 3:33 AM CDT PATHOLOGY TISSUE EXAM (STL) Routine 09/25/2023 9:05 PM CDT Dichorionic diamniotic twin in third trimester (HCC) growth restriction antepartum (HCC) Two vessel umbilical cord, antepartum (HCC) BLOOD GASES CORD ART (ISTAT) Routine 09/25/2023 6:11 PM CDT BLOOD GASES CORD ADELA (ISTAT) Routine 09/25/2023 6:07 PM CDT BLOOD GASES CORD ADELA (ISTAT) Routine 09/25/2023 6:02 PM CDT BLOOD GASES CORD ART (ISTAT) Routine 09/25/2023 5:58 PM CDT SYPHILIS ANTIBODY CASCADING REFLEX STAT 09/25/2023 9:04 AM CDT TYPE + SCREEN PANEL STAT 09/25/2023 9 :04 AM CDT CBC W AUTO DIFFERENTIAL STAT 09/25/2023 9:04 AM CDT COMPREHENSIVE METABOLIC PANEL STAT 09/25/2023 9:04 AM CDT documented in this encounter Results * (ABNORMAL) CBC W AUTO DIFFERENTIAL (09/26/2023 3:33 AM CDT) WBC 16.8(H) 4.0 - 10.7 x10E9/L 09/26/2023 3:50 AM CDT [facility] RBC Count 3.26(L) 3.90 - 5.20 x10E12/L 09/26/2023 3:50 AM CDT [facility] Hemoglobin 9.2(L) 11.9 - 15.8 g/dL 09/26/2023 3:50 AM CDT [facility] Hematocrit 27.7(L) 34.8 - 46.1 % 09/26/2023 3:50 AM CDT [facility] MCV 85.0 80.0 - 98.0 fL 09/26/2023 3:50 AM CDT [facility] MCH 28.2 26.7 - 33.6 pg 09/26/2023 3:50 AM CDT [facility] MCHC 33.2 31.7 - 36.3 g/dL 09/26/2023 3:50 AM CDT [facility] RDW-CV 13.1 11.3 - 14.8 % 09/26/2023 3:50 AM CDT [facility] Platelet Count 174 150 - 420 x10E9/L 09/26/2023 3:50 AM CDT [facility] MPV 10.1 7.8 - 11.4 fL 09/26/2023 3:50 AM CDT [facility] Neutrophil % 79.1(H) 41.0 - 74.0 % 09/26/2023 3:50 AM CDT [facility] Lymphocyte % 13.8(L) 17.0 - 47.0 % 09/26/2023 3:50 AM CDT [facility] Monocyte % 6.1 3.0 - 11.0 % 09/26/2023 3:50 AM CDT [facility] Eosinophil % 0.2 0.0 - 7.0 % 09/26/2023 3:50 AM CDT [facility] Basophil % 0.2 0.0 - 1.6 % 09/26/2023 3:50 AM CDT [facility] Immature Granulocytes % 0.6 0.0 - 1.0 % 09/26/2023 3:50 AM CDT [facility] Neutrophil Absolute 13.26(H) 1.60 - 7.50 x10E9/L 09/26/2023 3:50 AM CDT [facility] Lymphocyte Absolute 2.32 1.00 - 4.40 x10E9/L 09/26/2023 3:50 AM CDT [facility] Monocyte Absolute 1.03(H) 0.15 - 1.00 x10E9/L 09/26/2023 3:50 AM CDT [facility] Eosinophil Absolute 0.03 0.00 - 0.60 x10E9/L 09/26/2023 3:50 AM CDT [facility] Basophil Absolute 0.04 0.00 - 0.13 x10E9/L 09/26/2023 3:50 AM CDT [facility] Blood BLOOD SPECIMEN / Unknown Lab Venipuncture / Unknown 09/26/2023 3:33 AM CDT 09/26/2023 3:42 AM CDT Chantale Pena MD LAB - HEMATOLO GY ORDERABLES [facility] [address], [place] [id number] * PATHOLOGY TISSUE EXAM (STL) (09/25/2023 9:05 PM CDT) Case Report Surgical Pathology Report ? Case: [id number] ? Authorizing Provider: ??Tara Rivero MD ?Collected: ? 09/25/2023 09:05 PM ? Ordering Location: ? [facility] ? Received: ?09/27/2023 07:46 AM ? Pathologist: ? Beka Kenyon, ? MD ? Specimen: ?Placenta 3rd Trimester ? 09/28/2023 2:46 PM CDT [facility] Final Diagnosis Placenta, delivery: - Diamniotic dichorionic twin placenta (557 grams total) - membranes with no histopathologic abnormality - Two umbilical cords with no inflammation - Cord 1 with three vessels - Cord 2 with two vessels - Mature-appearing chorionic villi 09/28/2023 2:46 PM [facility] Clinical History 23-year-old G2 with twin at 36w6d. 09/28/2023 2:46 PM CDT [facility] Gross Description The requisition and specimen are identified with the patient's name (Anita Padilla). Received fresh and placed in formalin, specimen A, placenta is a fused diamniotic dichorionic twin placenta with attached membranes and umbilical cords. The membranes are vaughn, thin, and translucent inserting marginally on the disc. A vaughn-white slightly thickened dividing membrane is present between the two cords. One plastic clamp is present attached to one of the cords, arbitrarily designating it as umbilical cord #1. The other cord has two attached plastic clamps (placenta #2). The umbilical cords are vaughn-vaughn and insert eccentrically on the fused disc. Cord #1 is 6 cm from the margin and cord #2 is 4.5 cm from the nearest margin. Cord #1 is 24 cm long x 1.2 cm diameter with 3 vessels, and cord #2 is 25 cm long x 0.9 cm diameter with 2 vessels. Both cords display normal spiraling. The surface is blue-vaughn and well vascularized with a prominent chorionic ridge. No obvious vascular anastomoses are identified. The maternal surface is red-brown with loosely adherent coagula and appears complete. The trimmed placental disc is 557 grams and 26 x 16.5 x 3.4 cm. After separation, placenta #1 is 288 grams and placenta #2 is 269 grams. Sectioning shows red-brown and spongy parenchyma with no lesions. [employer] sections are submitted as follows: A1 - placenta #1 membranes and umbilical cord segment, A2 - central placenta #1, A3 - peripheral placenta #1, A4 - dividing membrane roll, A5 - shared placenta parenchyma, A6 - placenta #2 membranes and umbilical cord segment, A7 - central placenta #2, A8 - peripheral placenta #2. KM 09/28/2023 2:46 PM [facility] Microscopic Description Microscopic examination substantiates the diagnosis above. 09/28/2023 2:46 PM T [facility] Pathologist Location at [facility] 09/28/2023 2:46 PM CDT [facility] Disclaimer All histochemical and/or immunohistochemical results are interpreted with controls that demonstrate appropriate staining reactions before reporting results. Note on use of immunocytochemistry reagents: This test was developed and its performance characteristic determined by [facility], Department of Laboratory Medicine. It has not been cleared or approved by the U.S. Food and Drug Administration (FDA). The FDA has determined that such clearance or approval is not necessary. The test is used for clinical purpose. It should not be regarded as investigational or for research. This laboratory is certified to perform high complexity testing. The performance characteristics of the IHC/SILVER assays have been validated on formalin-fixed paraffin embedded tissues only. The assays have not been validated on decalcified tissues. Results should be interpreted with caution. 09/28/2023 2:46 PM CDT [facility] Embedded Images 09/28/2023 2:46 PM CDT [facility] Pathology/Cytolo gy ENTIRE PLACENTA / Unknown Collection / Unknown 09/25/2023 9:05 PM CDT 09/27/2023 7:46 AM CDT Tara Rivero MD LAB - PATHOLOGY/CYTO LOGY ORDERABLES Performing Organization Address City/State/[facility] Co de Phone Number [facility] [address] [place] [address] * (ABNORMAL) BLOOD GASES CORD ART (ISTAT) (09/25/2023 6:11 PM CDT) pH Cord Arterial POCT 7.28 7.20 - 7.34 pH 09/26/2023 7:15 AM CDT [facility] pCO2 Cord Arterial POCT 49.6 45 - 55 mm hg 09/26/2023 7:15 AM CDT [facility] pO2 Cord Arterial POCT <15 12 - 25 mm hg 09/26/2023 7:15 AM CDT [facility] HCO3 Cord Arterial POCT 23.4 22 - 24 mmol/L 09/26/2023 7:15 AM CDT [facility] BE Cord Arterial POCT -4(L) -2.9 - 8.3 mmol/L 09/26/2023 7:15 AM CDT [facility] TCO2 Cord Arterial POCT 25 mmol/L 09/26/2023 7:15 AM CDT [facility] O2 Saturation Cord Art % Calc POCT 13 % 09/26/2023 7:15 AM CDT [facility] Site CORD ART 09/26/2023 7:15 AM CDT [facility] Sample iSTAT CORD ART 09/26/2023 7:15 AM CDT [facility] Blood CORD BLOOD SPECIMEN / Unknown 09/25/2023 6:11 PM CDT 09/26/2023 7:13 AM CDT Narrative [facility] - 09/26/2023 7:15 AM CDT Baby Girl 2 Chantale Pena MD LAB - POINT OF CARE ORDERABLES [facility] [address] [place] [address] * (ABNORMAL) BLOOD GASES CORD ADELA (ISTAT) (09/25/2023 6:07 PM CDT) pH Cord Venous POCT 7.29 7.28 - 7.40 pH 09/26/2023 7:16 AM CDT [facility] pCO2 Cord Venous POCT 48.1(H) 35 - 45 mm hg 09/26/2023 7:16 AM [facility] pO2 Cord Venous POCT 17(L) 22 - 33 mm hg 09/26/2023 7:16 AM [facility] HCO3 Cord Arterial POCT 23.2 22 - 24 mmol/L 09/26/2023 7:16 AM [facility] BE Cord Venous POCT Calc -4 -6.4 - 1.6 mmol/L 09/26/2023 7:16 AM [facility] TCO2 Cord Venous POCT 25 22 - 30 mmol/L 09/26/2023 7:16 AM [facility] O2 Saturation % Cord Venous Calc POCT 19 % 09/26/2023 7:16 AM CDT [facility] Site CORD ADELA 09/26/2023 7:16 AM CDT [facility] Sample iSTAT CORD ADELA 09/26/2023 7:16 AM T [facility] Blood CORD BLOOD SPECIMEN / Unknown 09/25/2023 6:07 PM CDT 09/26/2023 7:13 AM CDT Narrative [facility] - 09/26/2023 7:16 AM CDT Baby Girl 2 Chantale Pena MD LAB - POINT OF CARE ORDERABLES [facility] [address] [place] [id number] * (ABNORMAL) BLOOD GASES CORD ADELA (ISTAT) (09/25/2023 6:02 PM CDT) pH Cord Venous POCT 7.33 7.28 - 7.40 pH 09/25/2023 6:17 PM CDT [facility] pCO2 Cord Venous POCT 38.5 35 - 45 mm hg 09/25/2023 6:17 PM CDT [facility] pO2 Cord Venous POCT 34(H) 22 - 33 mm hg 09/25/2023 6:17 PM CDT [facility] HCO3 Cord Arterial POCT 20.4(L) 22 - 24 mmol/L 09/25/2023 6:17 PM CDT [facility] BE Cord Venous POCT Calc -5 -6.4 - 1.6 mmol/L 09/25/2023 6:17 PM CDT [facility] TCO2 Cord Venous POCT 22 22 - 30 mmol/L 09/25/2023 6:17 PM CDT [facility] O2 Saturation % Cord Venous Calc POCT 61 % 09/25/2023 6:17 PM CDT [facility] Site CORD ADELA 09/25/2023 6:17 PM CDT [facility] Sample iSTAT CORD ADELA 09/25/2023 6:17 PM CDT [facility] Blood CORD BLOOD SPECIMEN / Unknown 09/25/2023 6:02 PM CDT 09/25/2023 6:17 PM CDT Chantale Pena MD LAB - POINT OF CARE ORDERABLES [facility] [address] [place] [id number] * (ABNORMAL) BLOOD GASES CORD ART (ISTAT) (09/25/2023 5:58 PM CDT) pH Cord Arterial POCT 7.27 7.20 - 7.34 pH 09/25/2023 6:17 PM CDT [facility] pCO2 Cord Arterial POCT 47.9 45 - 55 mm hg 09/25/2023 6:17 PM CDT [facility] pO2 Cord Arterial POCT 34(H) 12 - 25 mm hg 09/25/2023 6:17 PM CDT [facility] HCO3 Cord Arterial POCT 21.9(L) 22 - 24 mmol/L 09/25/2023 6:17 PM CDT [facility] BE Cord Arterial POCT -5(L) -2.9 - 8.3 mmol/L 09/25/2023 6:17 PM CDT [facility] TCO2 Cord Arterial POCT 23 mmol/L 09/25/2023 6:17 PM CDT [facility] O2 Saturation Cord Art % Calc POCT 56 % 09/25/2023 6:17 PM CDT [facility] Site CORD ART 09/25/2023 6:17 PM CDT [facility] Sample iSTAT CORD ART 09/25/2023 6:17 PM CDT [facility] Blood CORD BLOOD SPECIMEN / Unknown 09/25/2023 5:58 PM CDT 09/25/2023 6:17 PM CDT Chantale Pena MD LAB - POINT OF CARE ORDERABLES Performing Organization Address City/State/[facility] Co de Phone Number [facility] [address] [place] [address] * (ABNORMAL) COMPREHENSIVE METABOLIC PANEL (09/25/2023 9:04 AM CDT) Glucose 72 70 - 105 mg/dL 09/25/2023 9:45 AM CDT [facility] Sodium 140 136 - 145 mmol/L 09/25/2023 9:45 AM CDT [facility] Potassium 4.0 3.5 - 5.1 mmol/L 09/25/2023 9:45 AM CDT [facility] Chloride 110(H) 98 - 107 mmol/L 09/25/2023 9:45 AM CDT [facility] CO2 22 22 - 29 mmol/L 09/25/2023 9:45 AM CDT [facility] Calcium 8.3(L) 8.4 - 10.4 mg/dL 09/25/2023 9:45 AM CDT [facility] Anion Gap 8 6 - 16 mmol/L 09/25/2023 9:45 AM CDT [facility] BUN 8 5.3 - 18.7 mg/dL 09/25/2023 9:45 AM CDT [facility] Creatinine 0.72 0.57 - 1.11 mg/dL 09/25/2023 9:45 AM CDT [facility] Alkaline Phosphatase 259(H) 40 - 150 U/L 09/25/2023 9:45 AM CDT [facility] ALT 10 0 - 55 U/L 09/25/2023 9:45 AM CDT [facility] AST 19 5 - 34 U/L 09/25/2023 9:45 AM T [facility] Protein Total 5.3(L) 6.4 - 8.3 gm/dL 09/25/2023 9:45 AM CDT [facility] Albumin 2.4(L) 3.4 - 5.0 gm/dL 09/25/2023 9:45 AM CDT [facility] Bilirubin Total 0.2 0.2 - 1.2 mg/dL 09/25/2023 9:45 AM CDT [facility] eGFR by CKD-EPI >90 >=90 mL/min/1.7 3 m2 09/25/2023 9:45 AM T [facility] Blood BLOOD SPECIMEN / Unknown Venipuncture / Unknown 09/25/2023 9:04 AM CDT 09/25/2023 9:22 AM CDT Chantale Pena MD LAB - CHEMISTR Y ORDERABLES [facility] [address] [place] [address] * SYPHILIS ANTIBODY CASCADING REFLEX (09/25/2023 9:04 AM CDT) Treponema pallidum Antibody Non Reactive Non Reactive 09/25/2023 10:03 AM CDT [facility] Comment: No Laboratory evidence of syphilis infection. ?? Note: ??Circulating antibodies may be low or undetectable in early infection. ??If recent exposure is suspected, re-draw sample in 2-4 weeks and repeat testing. Blood BLOOD SPECIMEN / Unknown Venipuncture / Unknown 09/25/2023 9:04 AM CDT 09/25/2023 9:22 AM CDT Chantale Pena MD LAB - SEROLOGY ORDERABLES [facility] [address] [place] [address] * (ABNORMAL) CBC W AUTO DIFFERENTIAL (09/25/2023 9:04 AM CDT) WBC 8.4 4.0 - 10.7 x10E9/L 09/25/2023 9:30 AM CDT [facility] RBC Count 3.71(L) 3.90 - 5.20 x10E12/L 09/25/2023 9:30 AM CDT [facility] Hemoglobin 10.5(L) 11.9 - 15.8 g/dL 09/25/2023 9:30 AM CDT [facility] Hematocrit 31.7(L) 34.8 - 46.1 % 09/25/2023 9:30 AM [facility] MCV 85.4 80.0 - 98.0 fL 09/25/2023 9:30 AM CDT [facility] MCH 28.3 26.7 - 33.6 pg 09/25/2023 9:30 AM CDT [facility] MCHC 33.1 31.7 - 36.3 g/dL 09/25/2023 9:30 AM CDT [facility] RDW-CV 13.1 11.3 - 14.8 % 09/25/2023 9:30 AM CDT [facility] Platelet Count 213 150 - 420 x10E9/L 09/25/2023 9:30 AM CDT [facility] MPV 10.1 7.8 - 11.4 fL 09/25/2023 9:30 AM CDT [facility] Neutrophil % 60.5 41.0 - 74.0 % 09/25/2023 9:30 AM CDT [facility] Lymphocyte % 31.3 17.0 - 47.0 % 09/25/2023 9:30 AM CDT [facility] Monocyte % 6.6 3.0 - 11.0 % 09/25/2023 9:30 AM CDT [facility] Eosinophil % 0.7 0.0 - 7.0 % 09/25/2023 9:30 AM CDT [facility] Basophil % 0.4 0.0 - 1.6 % 09/25/2023 9:30 AM CDT [facility] Immature Granulocytes % 0.5 0.0 - 1.0 % 09/25/2023 9:30 AM CDT [facility] Neutrophil Absolute 5.07 1.60 - 7.50 x10E9/L 09/25/2023 9:30 AM CDT [facility] Lymphocyte Absolute 2.62 1.00 - 4.40 x10E9/L 09/25/2023 9:30 AM CDT [facility] Monocyte Absolute 0.55 0.15 - 1.00 x10E9/L 09/25/2023 9:30 AM CDT [facility] Eosinophil Absolute 0.06 0.00 - 0.60 x10E9/L 09/25/2023 9:30 AM CDT [facility] Basophil Absolute 0.03 0.00 - 0.13 x10E9/L 09/25/2023 9:30 AM [facility] Blood BLOOD SPECIMEN / Unknown Venipuncture / Unknown 09/25/2023 9:04 AM CDT 09/25/2023 9:22 AM CDT Chantale Pena MD LAB - HEMATOLO GY ORDERABLES [facility] [address] [place] [address] * TYPE + SCREEN PANEL (09/25/2023 9:04 AM CDT) ABO Rh O POS 09/25/2023 10:00 AM T [facility] Comment:History checked. Antibody Screen NEG 10:00 AM CDT [facility] Blood Bank BLOOD SPECIMEN / Unknown Venipuncture / Unknown 09/25/2023 9:04 AM CDT 09/25/2023 9:22 AM CDT Chantale Syl Laurita Pena MD LAB - BLOOD BA NK ORDERABLES [facility] [address] [phone] documented in this encounter Visit Diagnoses Diagnosis Dichorionic diamniotic twin in third trimester (HCC)- Primary Twin , antepartum Dichorionic diamniotic twin in third trimester (HCC) Twin , antepartum growth restriction antepartum (HCC) Two vessel umbilical cord, antepartum (HCC) Other umbilical cord complications during labor and delivery, antepartum documented in this encounter Administered Medications Inactive Administered Medications - up to 3 most recent administrations Medication Order MAR Action Action Date Dose Rate Site 0.9% NaCl injection 3 mL 3 mL, Intracatheter, EVERY 8 HOURS, First dose on 09/25/23 at 0915, Until Discontinued, Flush peripheral IV catheter with 3 mL of normal saline every 8 hours. $ Given 09/25/2023 9:45 AM CDT 3 mL 0.9% NaCl injection 3 mL 3 mL, Intracatheter, EVERY 8 HOURS, First dose on 09/25/23 at 2300, Until Discontinued, $ Given 09/27/2023 9:40 PM CDT 3 mL $ Given 09/27/2023 2:04 PM CDT 3 mL $ Given 09/27/2023 6:00 AM CDT 3 mL acetaminophen (Tylenol) tablet 1,000 mg 1,000 mg, Oral, EVERY 6 HOURS (03,,15,21), First dose on 09/26/23 at 0300, Until Discontinued, Patient preference for lesser PRN pain meds may be honored when the patient requests a less strong medication, a lower dose, or a less intrusive route of administration when the lesser drug, dose and route have been ordered for the patient. This patient request must be documented in the MAR. If both oral and IV options are ordered for the same pain severity, give oral first unless patient cannot tolerate oral intake, $ Given 09/28/2023 7:52 AM CDT 1 ,000 mg $ Given 09/28/2023 12:09 AM CDT 1,000 mg $ Given 09/27/2023 6:32 PM CDT 1,000 mg benzocaine-menthol (Dermoplast) spray Topical, PRN, Mild Pain, Starting on 09/25/23 at 2255, Until Wed09/28/23 at 1401, Apply to affected area. . WASTE DISPOSAL INSTRUCTION: Send to Pharmacy for Disposal. ., $ Given 09/27/2023 9:22 AM CDT carboprost (Hemabate) injection 250 mcg 250 mcg, Intramuscular, ONCE, 1 dose, On 09/25/23 at 1900, Injection should be deep within muscle using tuberculin syringe. $ Given 09/25/2023 6:36 PM CDT 250 mcg Right Leg ceFAZolin (Ancef) 2 g in 0.9% NaCl IV 50 mL IVPB 2 g, at 100 mL/hr, Intravenous, ONCE, 1 dose, On 09/25/23 at 2000, Indication for anti-infective therapy: Risk of Infection $ New Bag/Syringe 09/25/2023 8:54 PM CDT 2 g 100 mL/hr diphenoxylate-atropine (Lomotil) tablet 2 tablet 2 tablet, Oral, 4 TIMES DAILY PRN, Diarrhea, Starting on 09/25/23 at 1850, Until Wed09/28/23 at 1401 $ Given 09/25/2023 7:21 PM CDT 2 tablets docusate sodium (Colace) capsule 100 mg 100 mg, Oral, 2 TIMES DAILY, First dose on 09/25/23 at 2300, Until Discontinued, $ Given 09/28/2023 7:52 AM CDT 100 mg $ Given 09/27/2023 9:40 PM CDT 100 mg $ Given 09/27/2023 9:21 AM CDT 100 mg ibuprofen (Motrin) tablet 600 mg 600 mg, Oral, EVERY 6 HOURS, First dose on 09/25/23 at 1915, Until Discontinued, Maximum allowable amount = 3200 mg / 24 hours. Patient preference for lesser PRN pain meds may be honored when the patient requests a less strong medication, a lower dose, or a less intrusive route of administration when the lesser drug, dose and route have been ordered for the patient. This patient request must be documented in the MAR. If both oral and IV options are ordered for the same pain severity, give oral first unless patient cannot tolerate oral intake, $ Given 09/27/2023 9:40 PM CDT 600 mg $ Given 09/27/2023 3:25 PM CDT 600 mg $ Given 09/27/2023 9:21 AM CDT 600 mg labetalol (Normodyne; Trandate) injection 20 mg 20 mg, Intravenous, ONCE PRN, Hypertension, see admin instructions, Starting on 09/25/23 at 1905, Until 09/25/23 at 2304, Initial Dose If systolic BP greater than or equal to 160 mmHg or diastolic BP greater than or equal to 110 mmHg for 15 minutes or more, administer labetalol 20 mg IV over 2 minutes. Repeat BP in 10 minutes. If BP remains elevated, see order for second labetalol dose. $ Given 09/25/2023 7:16 PM CDT 20 mg labetalol (Normodyne; Trandate) injection 40 mg 40 mg, Intravenous, ONCE PRN, Hypertension, see admin instructions, Starting on 09/25/23 at 1905, Until 09/25/23 at 2304, Second Dose If systolic BP greater than or equal to 160 mmHg or diastolic BP greater than or equal to 110 mmHg for 10 minutes after initial labetalol dose, administer labetalol 40 mg IV over 2 minutes. Repeat BP in 10 minutes. If BP remains elevated, see order for third labetalol dose. $ Given 09/25/2023 7:41 PM CDT 40 mg lactated ringers infusion at 125 mL/hr, Intravenous, CONTINUOUS, Starting on 09/25/23 at 0915, Until 09/25/23 at 2256, Start IV with 18 gauge angiocath. $ New Bag/Syringe 09/25/2023 8:28 PM CDT 75 mL/hr $ New Bag/Syringe 09/25/2023 1:51 PM CDT 125 mL /hr $ Bolus New Bag 09/25/2023 11:15 AM CDT 999 mL/ hr lactated ringers infusion at 75 mL/hr, Intravenous, CONTINUOUS, Starting on 09/26/23 at 0100, Until Wed09/28/23 at 1401 $ New Bag/Syringe 09/26/2023 11:26 AM CDT 75 mL/hr $ New Bag/Syringe 09/26/2023 1:56 AM CDT 75 mL/ hr magnesium sulfate 40 g in 1000 mL infusion 2 g/hr (50 mL/hr), Intravenous, CONTINUOUS, Starting on [facility] 09/25/23 at 1945, Until [place] 09/26/23 at 1823 $ New Bag/Syringe 09/26/2023 1:30 PM CDT 2 g/hr 50 mL/hr $ New Bag/Syringe 09/25/2023 7:58 PM CDT 2 g/hr 50 mL/ hr magnesium sulfate bolus from infusion bag 4 g 4 g, Intravenous, BOLUS FROM BAG ONCE, 1 dose, On 09/25/23 at 1915, Maximum rate 2gm/10 minutes. Monitor BP, Pulse, and Respirations every 5 minutes, and assess for the following side effects: - LOSS CONTROL CONSULTANT Depression: level of alertness - Chest Pain - Palpitations - Flushing - Nausea - Vomiting - Headache - Blurred Vision - Respiratory Depression (respirations less than 12 per minute) - Pulmonary Edema (crackles identified with breath sounds) Bolus From Bag 09/25/2023 8:01 PM CDT 4 g metoclopramide (Reglan) injection 10 mg 10 mg, Intravenous, EVERY 6 HOURS PRN, Nausea/Vomiting, Starting on 09/25/23 at 2255, Until Wed09/28/23 at 1401, Start with ondansetron. If ondansetron ineffective use metoclopramide. If metoclopramide ineffective use prochlorperazine., miSOPROStol (Cytotec) tablet 800 mcg 800 mcg, Oral, ONCE, 1 dose, On 09/25/23 at 1830 $ Given 09/25/2023 6:26 PM CDT 800 mcg NIFEdipine CR osmotic 24hr (Procardia-XL) tablet 30 mg 30 mg, Oral, DAILY, First dose on 09/27/23 at 1400, Until Discontinued, Do not crush, chew, or cut in half. $ Given 09/28/2023 9:01 AM CDT 30 mg $ Given 09/27/2023 2:00 PM CDT 30 mg ondansetron (Zofran) injection 4 mg 4 mg, Intravenous, EVERY 6 HOURS PRN, Nausea/Vomiting, Starting on 09/25/23 at 0841, Until 09/25/23 at 2256, Administer IV if patient is NPO, actively vomiting, or unable to swallow. $ Given 09/25/2023 6:58 PM CDT 4 mg ondansetron (Zofran) injection 4 mg 4 mg, Intravenous, EVERY 6 HOURS PRN, Nausea/Vomiting, Starting on 09/25/23 at 2255, Until 09/28/23 at 1401, Start with ondansetron. If ondansetron ineffective use metoclopramide. If metoclopramide ineffective use prochlorperazine., oxytocin (Pitocin) 30 units in 500 mL 0.9% sodium chloride infusion 125-1,000 joao-units/min (125-1,000 mL/hr), Intravenous, CONTINUOUS PRN, , Starting on 09/25/23 at 0840, Until 09/25/23 at 2256, Infuse first bag POST-DELIVERY at 1,000 joao-units/min, then decrease rate to 125 joao-units/min until discontinued. ADMINISTER AFTER THE ANTERIOR SHOULDER OR WITH DELIVERY OF THE PLACENTA. $ New Bag/Syringe 09/25/2023 6:30 PM CDT 999 joao-units/min 999 mL/hr *Current Bag - New Order 09/25/2023 6:00 PM CDT 999 joao- units/min 999 mL/hr oxytocin (Pitocin) 30 units in 500 mL 0.9% sodium chloride infusion 0-20 joao-units/min (0-20 mL/hr), Intravenous, CONTINUOUS, Starting on 09/25/23 at 1000, Until 09/25/23 at 2256, Titration Parameters: Standard Dose, Indication: Induction/Augmentation of labor, Initiate infusion at: 2 joao-units/min, Titrate infusion by: 2 joao-units/min, Titrate no sooner than every: 30 minutes, To maintain: May increase or decrease infusion to maintain contractions 2-3 minutes apart in the presence of reassuring heart tracing, but not to exceed 5 contractions in 10 minutes or exceed max infusion rate., Decrease Oxytocin rate: May decrease Oxytocin by half current dose in the presence of uterine tachysystole (greater than 5 contractions in 10 minutes) and notify provider. May decrease oxytocin by half current dose at the time of rupture of membranes once verified with provider, Pause Oxytocin infusion: Pause oxytocin immediately for abnormal or indeterminate status, and notify provider. Rate Change 09/25/2023 5:23 PM CDT 4 joao-units/min 4 mL/hr Rate Change 09/25/2023 5:10 PM CDT 6 joao-units/min 6 mL/ hr Rate Change 09/25/2023 12:55 PM CDT 8 joao-units/min 8 mL /hr penicillin G pot in dextrose IVPB 3 Million Units 50 mL 3 Million Units, at 100 mL/hr, Intravenous, EVERY 4 HOURS, First dose on 09/25/23 at 1300, Until Discontinued, Indication for anti-infective therapy: Suspected infection, Site of anti-infective therapy: Other, Other site of infection (free text): GBS Prophylaxis $ New Bag/Syringe 09/25/2023 1:49 PM CDT 3 Million Units 100 mL/hr penicillin G potassium 5 Million Units in 0.9% NaCl IV 100 mL IVPB 5 Million Units, at 200 mL/hr, Intravenous, ONCE, 1 dose, On 09/25/23 at 0900, Indication for anti-infective therapy: Suspected infection, Site of anti-infective therapy: Other, Other site of infection (free text): GBS Prophylaxis $ New Bag/Syringe 09/25/2023 9:48 AM CDT 5 Million Units 200 mL/hr vitamin with iron tablet 1 tablet 1 tablet, Oral, DAILY, First dose on Wed09/26/23 at 0900, Until Discontinued, $ Given 09/28/2023 7:52 AM CDT 1 tablet $ Given 09/27/2023 9:21 AM CDT 1 tablet $ Given 09/26/2023 9:45 AM CDT 1 tablet prochlorperazine (Compazine) suppository 25 mg 25 mg, Rectal, EVERY 12 HOURS PRN, Nausea/Vomiting, Starting on 09/25/23 at 2255, Until 09/28/23 at 1401, Start with ondansetron. If ondansetron ineffective use metoclopramide. If metoclopramide ineffective use prochlorperazine., tranexamic acid (Cyklokapron) injection 1,000 mg 1,000 mg, Intravenous, ONCE PRN, OB Hemorrhage, 1 dose, Starting on 09/25/23 at 0840, Until 09/25/23 at 1830, Given by Anesthesia if available otherwise nurse may give IV push over 10 minutes. $ Given 09/25/2023 6:30 PM CDT 1,000 mg documented in this encounter Active and Recently Administered Medications Times are shown in CDT. Scheduled Medication Order 09/26/2023 09/27/2023 09/28/2023 0.9% NaCl injection 3 mL 3 mL, Intracatheter, EVERY 8 HOURS, First dose on 09/25/23 at 2300, Until Discontinued, 0532 (Not Administered - Provider: Yury Teixeira RN - Reason: IV Currently Infusing)1331 (Not Administered - Provider: Sophia Reynoso RN - Reason: IV Currently Infusing)2244 ($ Given - Provider: Joey Garcia Nurse) 0600 ($ Given - Provider: Joey Garcia)1404 ($ Given - Provider: Whitney Marks, SIMON)2140 ($ Given - Provider: Yovana Banegas, SIMON) 0714 (Not Administered - Provider: Yovana Banegas RN - Reason: Patient Condition) acetaminophen (Tylenol) tablet 1,000 mg 1,000 mg, Oral, EVERY 6 HOURS (03,09,15,21), First dose on 09/26/23 at 0300, Until Discontinued, Patient preference for lesser PRN pain meds may be honored when the patient requests a less strong medication, a lower dose, or a less intrusive route of administration when the lesser drug, dose and route have been ordered for the patient. This patient request must be documented in the MAR. If both oral and IV options are ordered for the same pain severity, give oral first unless patient cannot tolerate oral intake, 0335 ($ Given - Provider: Yury Teixeira RN)0945 ($ Given - Provider: Sophia Reynoso, RN)1856 (Not Administered - Provider: Sophia Reynoso, RN - Reason: Refused-Patient)2243 ($ Given - Provider: Joey Garcia Nurse) 0600 ($ Given - Provider: Joey Garcia Nurse)1205 ($ Given - Provider: Whitney Marks RN)1832 ($ Given - Provider: Jessica Omalley RN) 0009 ($ Given - Provider: Yovana Banegas RN)0714 (Not Administered - Provider: Yovana Banegas RN - Reason: Patient Condition)0752 ($ Given - Provider: Joey Rangel)1221 (Not Administered - Provider: Joey Rangel - Reason: Refused-Patient) docusate sodium (Colace) capsule 100 mg 100 mg, Oral, 2 TIMES DAILY, First dose on 09/25/23 at 2300, Until Discontinued, 0945 ($ Given - Provider: Sophia Reynoso RN)203 ($ Given - Provider: Joey Garcia) 0921 ($ Given - Provider: Whitney Marks RN)2140 ($ Given - Provider: Yovana Banegas RN) 0752 ($ Given - Provider: Joey Rangel) ibuprofen (Motrin) tablet 600 mg 600 mg, Oral, EVERY 6 HOURS, First dose on 09/25/23 at 1915, Until Discontinued, Maximum allowable amount = 3200 mg / 24 hours. Patient preference for lesser PRN pain meds may be honored when the patient requests a less strong medication, a lower dose, or a less intrusive route of administration when the lesser drug, dose and route have been ordered for the patient. This patient request must be documented in the MAR. If both oral and IV options are ordered for the same pain severity, give oral first unless patient cannot tolerate oral intake, 0632 ($ Given - Provider: Yuyr Teixeira RN)1331 ($ Given - Provider: Sophia Reynoso RN)2033 ($ Given - Provider: Joey Garcia) 0335 ($ Given - Provider: Joey Garcia)0921 ($ Given - Provider: Whitney Marks RN)1525 ($ Given - Provider: Whitney Marks RN)2140 ($ Given - Provider: Yovana Banegas RN) 0445 (Not Administered - Provider: Yovana Banegas RN - Reason: Refused-Patient)1221 (Not Administered - Provider: Sofiya Pemberton, Graduate Nurse - Reason: Refused-Patient) NIFEdipine CR osmotic 24hr (Procardia-XL) tablet 30 mg 30 mg, Oral, DAILY, First dose on 09/27/23 at 1400, Until Discontinued, Do not crush, chew, or cut in half. 1400 ($ Given - Provider: Whitney Marks, RN) 0901 ($ Given - Provider: Sofiya Pemberton, Graduate Nurse) vitamin with iron tablet 1 tablet 1 tablet, Oral, DAILY, First dose on 09/26/23 at 0900, Until Discontinued, 0945 ($ Given - Provider: Sophia Reynoso, SIMON) 0921 ($ Given - Provider: Whitney Marks, SIMON) 0752 ($ Given - Provider: Sofiya Pemberton, Graduate Nurse) Continuous Medication Order 09/26/2023 09/27/2023 09/28/2023 lactated ringers infusion at 75 mL/hr, Intravenous, CONTINUOUS, Starting on Wed09/26/23 at 0100, Until Tu09/28/23 at 1401 0156 ($ New Bag/Syringe - Provider: Yury Teixeira RN)1126 ($ New Bag/Syringe - Provider: Sophia Reynoso, SIMON) magnesium sulfate 40 g in 1000 mL infusion (CANCELED) 2 g/hr (50 mL/hr), Intravenous, CONTINUOUS, Starting on 09/25/23 at 1945, Until 09/26/23 at 1823 1330 ($ New Bag/Syringe - Provider: Sophia Reynoso, RN) PRN Medication Order 09/26/2023 09/27/2023 09/28/2023 0.9% NaCl injection 3 mL 3 mL, Intracatheter, PRN, Other, peripheral line flush, Starting on 09/25/23 at 2255, Until 09/28/23 at 1401, Flush after each use and blood draws., benzocaine-menthol (Dermoplast) spray Topical, PRN, Mild Pain, Starting on 09/25/23 at 2255, Until 09/28/23 at 1401, Apply to affected area. . WASTE DISPOSAL INSTRUCTION: Send to Pharmacy for Disposal. ., 921 ($ Given - Provider: Kaycee Marks RN) calcium carbonate (Tums) chew tablet 2 tablet 2 tablet, Oral, EVERY 4 HOURS PRN, GI Upset, Starting on 09/25/23 at 2255, Until 09/28/23 at 1401, diphenhydrAMINE (Benadryl) capsule 25 mg 25 mg, Oral, EVERY 6 HOURS PRN, Itching, Starting on 09/25/23 at 2255, Until 09/28/23 at 1401, diphenoxylate-atropine (Lomotil) tablet 2 tablet 2 tablet, Oral, 4 TIMES DAILY PRN, Diarrhea, Starting on 09/25/23 at 1850, Until 09/28/23 at 1401 hemorrhoidal (Preparation H) ointment Rectal, 3 TIMES DAILY PRN, Hemorrhoids, Starting on 09/25/23 at 2255, Until 09/28/23 at 1401, lanolin topical Topical, PRN, Sore or cracked nipples., Starting on 09/25/23 at 2255, Until 09/28/23 at 1401, Apply purified Lanolin to sore or cracked nipples, if needed. May keep at bedside., metoclopramide (Reglan) injection 10 mg(Linked Group 1) 10 mg, Intravenous, EVERY 6 HOURS PRN, Nausea/Vomiting, Starting on 09/25/23 at 2255, Until 09/28/23 at 1401, Start with ondansetron. If ondansetron ineffective use metoclopramide. If metoclopramide ineffective use prochlorperazine., ondansetron (Zofran) injection 4 mg(Linked Group 1) 4 mg, Intravenous, EVERY 6 HOURS PRN, Nausea/Vomiting, Starting on 09/25/23 at 2255, Until 09/28/23 at 1401, Start with ondansetron. If ondansetron ineffective use metoclopramide. If metoclopramide ineffective use prochlorperazine., prochlorperazine (Compazine) suppository 25 mg(Linked Group 1) 25 mg, Rectal, EVERY 12 HOURS PRN, Nausea/Vomiting, Starting on 09/25/23 at 2255, Until 09/28/23 at 1401, Start with ondansetron. If ondansetron ineffective use metoclopramide. If metoclopramide ineffective use prochlorperazine., simethicone (Mylicon) chew tablet 160 mg 160 mg, Oral, QID PRN (after meals and at bedtime), Gas Pain, Starting on 09/25/23 at 2255, Until 09/28/23 at 1401, tranexamic acid (Cyklokapron) injection 1,000 mg 1,000 mg, Intravenous, ONCE PRN, OB Hemorrhage, 1 dose, Starting on 09/25/23 at 2255, Until 09/28/23 at 1401, Given by Anesthesia if available otherwise nurse may give IV push over 10 minutes., Linked Groups Order Group 1: ondansetron (Zofran) injection 4 mgJump to med 4 mg, Intravenous, EVERY 6 HOURS PRN, Nausea/Vomiting, Starting on 09/25/23 at 2255, Until 09/28/23 at 1401, Start with ondansetron. If ondansetron ineffective use metoclopramide. If metoclopramide ineffective use prochlorperazine., Or metoclopramide (Reglan) injection 10 mgJump to med 10 mg, Intravenous, EVERY 6 HOURS PRN, Nausea/Vomiting, Starting on 09/25/23 at 2255, Until 09/28/23 at 1401, Start with ondansetron. If ondansetron ineffective use metoclopramide. If metoclopramide ineffective use prochlorperazine., Or prochlorperazine (Compazine) suppository 25 mgJump to med 25 mg, Rectal, EVERY 12 HOURS PRN, Nausea/Vomiting, Starting on 09/25/23 at 2255, Until 09/28/23 at 1401, Start with ondansetron. If ondansetron ineffective use metoclopramide. If metoclopramide ineffective use prochlorperazine., documented in this encounter
--- OUTSIDE RECORDS SUMMARY | 2024-07-20 14:56 | XMS_ITS | Encounter Summary ---
Author Organization [facility] Address [address] [place] [address] Care Team Providers Care Envelope Cutter Name Role Phone Unavailable Primary Care Provider Unavailabl e Reason for Visit * Reason Onset Date Comments Scheduling 09/27/2023 Encounter Details Date Type Department Care Team (Late st Contact Info) Description 09/27/2023 Telephone [facility]ER[facility]/ EVALUATION UNIT [facility] [facility] [place] [address] Manuel Fajardo Scheduling Social History Tobacco Use Types Packs/Day Years [...] and heating? Not hard at all 09/25/2023 [facility] [place] [facility] - Occupational Stress [...] place to sleep or slept in a correction (including now)? No 09/25/2023 [place] Depression Scale Answer Date Recorded [place] Depression Scale Total 5 09/27/2023 The thought [...] No 09/25/2023 documented as of this encounter Miscellaneous Notes * Telephone Encounter - Manuel Fajardo - 09/27/2023 11:16 AM CDT Attempted to contact Patient with details regarding upcoming appt with m.No answer appt details sent via my chart. documented in this encounter Plan of Treatment Not on file documented as of this encounter Visit Diagnoses Not on filedocumented in this encounter
--- OUTSIDE RECORDS SUMMARY | 2024-07-20 14:56 | XMS_ITS | Patient Health Summary ---
Author Organization [facility] Inside [employer] Address [address] [place] [address] Care Team Providers Care Chief Technologist Name Role Phone Unavailable Primary Care Provider Dayami e Note from [facility] [place],non-owned Affiliates and Associated Physician Practices is amultiple site organization consisting of ambulatory clinics and hospital sitesin [place], [place], [place] and [place]. This disclosure is being madepursuant to the Care Everywhere program and may not contain all information available regarding this patient. Last updated 18.[facility] [employer] Allergies No known active allergies Medications * Be aware that medications may not be up to date on this document. Alwaysverify current medications with the patient. 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 * norethindrone (Ortho Micronor) 0.35 MG tablet(Started 09/27/2023) Take 1 (one) tablet by mouth once daily 1 refill by 09/26/2024 * docusate sodium (Colace) 100 MG capsule(Started 09/27/2023) Take 1 (one) capsule by mouth once daily * ferrous sulfate 325 (65 FE) MG tablet(Started 09/27/2023) Take 1 (one) tablet by mouth once daily * ibuprofen (Motrin) 600 MG tablet(Started 09/27/2023) Take 1 (one) tablet by mouth every 6 hours as needed for Pain * polyethylene glycol 3350 (Miralax) 17 GM/SCOOP powder(Started 09/27/2023) Take 17 (seventeen) g by mouth once daily * acetaminophen (Tylenol) 500 MG capsule(Started 09/27/2023) Take 2 (two) capsules by mouth every 6 hours as needed for Fever or Pain * NIFEdipine CR osmotic 24hr (Procardia-XL) 30 MG tablet(Started 09/28/2023) Take 1 (one) tablet by mouth once daily 1 refill by 09/27/2024 Active Problems Problem Noted Date Diagnosed Date Dichorionic diamniotic twin in third t rimester 09/25/2023 Gestational hypertension 09/21/2023 growth restriction antepartum 09/21/2023 Two vessel umbilical cord, antepartum 08/09/2023 Cystic fibrosis carrier, antepartum 08/09/2023 GBS bacteriuria 08/09/2023 Dichorionic diamniotic twin 05/12/2023 Immunizations * RSV ABRYSVO PREG OR 60y+ 0.5mL(Given 08/23/2023) Social History Tobacco Use Types Packs/Day Years [...] and heating? Not hard at all 09/25/2023 [facility] - Occupational [...] in a fdc (including now)? No 09/25/2023 Harper Depression Scale Answer Date Recorded Harper Depression Scale Total 5 09/27/2023 The thought [...] Mass Index 25.29 09/25/2023 8:55 AM CDT Procedures * CBC W AUTO DIFFERENTIAL(Performed 09/26/2023) * PATHOLOGY TISSUE EXAM (STL)(Performed 09/25/2023) Performed for Dichorionic diamniotic twin in third trimester ([facility]ERLY [facility]), growth restriction antepartum ([facility]), Two vessel umbilical cord, antepartum ([facility]) * BLOOD GASES CORD ART (ISTAT)(Performed 09/25/2023) * BLOOD GASES CORD ADELA (ISTAT)(Performed 09/25/2023) * BLOOD GASES CORD ADELA (ISTAT)(Performed 09/25/2023) * BLOOD GASES CORD ART (ISTAT)(Performed 09/25/2023) * TYPE + SCREEN PANEL(Performed 09/25/2023) * COMPREHENSIVE METABOLIC PANEL(Performed 09/25/2023) * SYPHILIS ANTIBODY CASCADING REFLEX(Performed 09/25/2023) * CBC W AUTO DIFFERENTIAL(Performed 09/25/2023) * URINE MICROSCOPIC ONLY REFLEX TO CULTURE(Performed 09/20/2023) Performed for Dichorionic diamniotic twin , antepartum ([facility]) * URINALYSIS REFLEX MICROSCOPIC REFLEX CULTURE(Performed 09/20/2023) Performed for Dichorionic diamniotic twin , antepartum ([facility]) * PROTEIN CREATININE RATIO URINE RANDOM PNL(Performed 09/20/2023) Performed for Dichorionic diamniotic twin , antepartum ([facility]) * CULTURE URINE(Performed 09/20/2023) Performed for Dichorionic diamniotic twin , antepartum ([facility]) * COMPREHENSIVE METABOLIC PANEL(Performed 09/20/2023) Performed for Dichorionic diamniotic twin , antepartum ([facility]) * CBC W AUTO DIFFERENTIAL(Performed 09/20/2023) Performed for Dichorionic diamniotic twin , antepartum ([facility]) * URINALYSIS - POCT (IP) BEAKER INTERFACE(Performed 09/20/2023) * BIOPHYSICAL PROFILE W NST(Performed 09/20/2023) Performed for Selective growth restriction antepartum * WET PREP SMEAR - POINT OF CARE (IP)(Performed 09/13/2023) Performed for Vaginal itching * URINALYSIS - POCT (IP) BEAKER INTERFACE(Performed 09/13/2023) * SONOGRAM - COMPLETE(Performed 09/13/2023) Performed for Selective growth restriction antepartum, Dichorionic diamniotic twin ,antepartum ([facility]) * NON-STRESS TEST(Performed 09/06/2023) * BLOOD TYPE VERIFICATION(Performed 09/06/2023) * TYPE + SCREEN PANEL(Performed 09/06/2023) * URINE MICROSCOPIC ONLY REFLEX TO CULTURE(Performed 09/06/2023) Performed for Dichorionic diamniotic twin , antepartum ([facility]), Selective growth restriction antepartum * PROTEIN CREATININE RATIO URINE RANDOM PNL(Performed 09/06/2023) Performed for Dichorionic diamniotic twin , antepartum ([facility]), Selective growth restriction antepartum * URINALYSIS REFLEX MICROSCOPIC REFLEX CULTURE(Performed 09/06/2023) Performed for Dichorionic diamniotic twin , antepartum ([facility]), Selective growth restriction antepartum * COMPREHENSIVE METABOLIC PANEL(Performed 09/06/2023) Performed for Dichorionic diamniotic twin , antepartum ([facility]), Selective growth restriction antepartum * CBC W AUTO DIFFERENTIAL(Performed 09/06/2023) Performed for Dichorionic diamniotic twin , antepartum ([facility]), Selective growth restriction antepartum * CULTURE URINE(Performed 09/06/2023) Performed for Dichorionic diamniotic twin , antepartum ([facility]), Selective growth restriction antepartum * URINALYSIS - POCT (IP) BEAKER INTERFACE(Performed 09/06/2023) * BIOPHYSICAL PROFILE W NST(Performed 09/06/2023) Performed for Selective growth restriction antepartum * BIOPHYSICAL PROFILE W NST(Performed 08/30/2023) Performed for Selective growth restriction antepartum * URINALYSIS - POCT (IP) BEAKER INTERFACE(Performed 08/23/2023) * SONOGRAM - COMPLETE(Performed 08/23/2023) Performed for Dichorionic diamniotic twin in third trimester ([facility]), Selective growth restriction antepartum * CHLAMYDIA + GC AMPLIFIED PROBE(Performed 08/09/2023) Performed for Abnormal urogenital discharge * TRICHOMONAS VAGINALIS AMPLIFIED PROBE(Performed 08/09/2023) Performed for Abnormal urogenital discharge * URINE MICROSCOPIC ONLY REFLEX TO CULTURE(Performed 08/09/2023) Performed for Abnormal urogenital discharge * URINALYSIS REFLEX MICROSCOPIC REFLEX CULTURE(Performed 08/09/2023) Performed for Abnormal urogenital discharge * CULTURE URINE(Performed 08/09/2023) Performed for Abnormal urogenital discharge * URINALYSIS - POCT (IP) BEAKER INTERFACE(Performed 08/09/2023) * SONOGRAM - COMPLETE(Performed 08/09/2023) Performed for Dichorionic diamniotic twin in second trimester ([facility]) * URINALYSIS - POCT (IP) BEAKER INTERFACE(Performed 07/19/2023) * HIV-1 HIV-2 ANTIBODY + HIV P24 AG PANEL(Performed 07/19/2023) Performed for Dichorionic diamniotic twin , antepartum ([facility]) * SYPHILIS ANTIBODY CASCADING REFLEX(Performed 07/19/2023) Performed for Dichorionic diamniotic twin , antepartum ([facility]) * CBC W/O DIFFERENTIAL(Performed 07/19/2023) Performed for Dichorionic diamniotic twin , antepartum ([facility]) * GLUCOSE CHALLENGE(Performed 07/19/2023) Performed for Dichorionic diamniotic twin , antepartum ([facility]) * SONOGRAM - COMPLETE(Performed 07/19/2023) Performed for Dichorionic diamniotic twin in second trimester ([facility]), Encounter for ultrasound to assess anatomy and growth in twin , antepartum ([facility]) * SONOGRAM - TRANSVAGINAL(Performed 05/24/2023) Performed for Encounter for screening for cervical length ([facility]) * URINALYSIS - POCT (IP) BEAKER INTERFACE(Performed 05/10/2023) * SONOGRAM - COMPLETE(Performed 05/10/2023) Performed for Twin , antepartum, unspecified multiple gestation type ([facility]) Results * (ABNORMAL) CBC W AUTO DIFFERENTIAL (09/26/2023 3:33 AM CDT) Only the most recent of4 resultswithin the time period is included. [facility] WBC 16.8(H) 4.0 - 10.7 x10E9/L 09/26/2023 3:50 AM CDT [facility] RBC Count 3.26(L) 3.90 - 5.20 x10E12/L 09/26/2023 3:50 AM CDT [facility] Hemoglobin 9.2(L) 11.9 - 15.8 g/dL 09/26/2023 3:50 AM CDT [facility] Hematocrit 27.7(L) 34.8 - 46.1 % 09/26/2023 3:50 AM CDT [facility] MCV 85.0 80.0 - 98.0 fL 09/26/2023 3:50 AM CDT [facility] MCH 28.2 26.7 - 33.6 pg 09/26/2023 3:50 AM CDT [facility] MCHC 33.2 31.7 - 36.3 g/dL 09/26/2023 3:50 AM CDT [facility] RDW-CV 13.1 11.3 - 14.8 % 09/26/2023 3:50 AM CDT [facility] Platelet Count 174 150 - 420 x10E9/L 09/26/2023 3:50 AM CDT [facility] MPV 10.1 7.8 - 11.4 fL 09/26/2023 3:50 AM CDT [facility] Neutrophil % 79.1(H) 41.0 - 74.0 % 09/26/2023 3:50 AM CDT [facility] Lymphocyte % 13.8(L) 17.0 - 47.0 % 09/26/2023 3:50 AM CDT [facility] Monocyte % 6.1 3.0 - 11.0 % 09/26/2023 3:50 AM CDT [facility] Eosinophil % 0.2 0.0 - 7.0 % 09/26/2023 3:50 AM CDT [facility] Basophil % 0.2 0.0 - 1.6 % 09/26/2023 3:50 AM CDT [facility] Immature Granulocytes % 0.6 0.0 - 1.0 % 09/26/2023 3:50 AM CDT [facility] Neutrophil Absolute 13.26(H) 1.60 - 7.50 x10E9/L 09/26/2023 3:50 AM CDT [facility] Lymphocyte Absolute 2.32 1.00 - 4.40 x10E9/L 09/26/2023 3:50 AM CDT [facility] Monocyte Absolute 1.03(H) 0.15 - 1.00 x10E9/L 09/26/2023 3:50 AM CDT [facility] Eosinophil Absolute 0.03 0.00 - 0.60 x10E9/L 09/26/2023 3:50 AM CDT [facility] Basophil Absolute 0.04 0.00 - 0.13 x10E9/L 09/26/2023 3:50 AM CDT [facility] Blood BLOOD SPECIMEN / Unknown Lab Venipuncture / Unknown 09/26/2023 3:33 AM CDT 09/26/2023 3:42 AM CDT Chantale Pena MD LAB - HEMATOLO GY ORDERABLES Performing Organization Address [facility]/State/ZIP Co de Phone Number [facility] [address] [place] [address] * PATHOLOGY TISSUE EXAM (STL) (09/25/2023 9:05 PM CDT) Case Report Surgical Pathology Report ? Case: [id number] ? Authorizing Provider: ??Tara Rivero MD ?Collected: ? 09/25/2023 09:05 PM ? Ordering Location: ? [facility] L[facility] ? Received: ?09/27/2023 07:46 AM ? Pathologist: ? Beka Kenyon, ? MD ? Specimen: ?Placenta 3rd Trimester ? 09/28/2023 2:46 PM T [facility] Final Diagnosis Placenta, delivery: - Diamniotic dichorionic twin placenta (557 grams total) - membranes with no histopathologic abnormality - Two umbilical cords with no inflammation - Cord 1 with three vessels - Cord 2 with two vessels - Mature-appearing chorionic villi 09/28/2023 2:46 PM [facility] Clinical History 23-year-old G2 with twin at 36w6d. 09/28/2023 2:46 PM T [facility] Gross Description The requisition and [...] red-brown and spongy parenchyma with no lesions. Annealing Oven Operator sections are submitted as follows: A1 - placenta #1 membranes and umbilical cord segment, A2 - central placenta #1, A3 - peripheral placenta #1, A4 - dividing membrane roll, A5 - shared placenta parenchyma, A6 - placenta #2 membranes and umbilical cord segment, A7 - central placenta #2, A8 - peripheral placenta #2. KM 09/28/2023 2:46 PM CDT [facility] Microscopic Description Microscopic examination substantiates the diagnosis above. 09/28/2023 2:46 PM CDT [facility] Pathologist Location at [facility] 09/28/2023 2:46 PM CDT [facility] Disclaimer All histochemical and/or immunohistochemical results are interpreted with controls that demonstrate appropriate staining reactions before reporting results. Note on use of immunocytochemistry reagents: This test was developed and its performance characteristic determined by [facility], Department of Laboratory Medicine. It has [...] interpreted with caution. 09/28/2023 2:46 PM CDT [facility] Embedded Images 09/28/2023 2:46 PM CDT [facility] Pathology/Cytolo gy ENTIRE PLACENTA / Unknown Collection / Unknown 09/25/2023 9:05 PM CDT 09/27/2023 7:46 AM CDT Tara Rivero MD LAB - PATHOLOGY/CYTO LOGY ORDERABLES [facility] [address] [place] [address] * (ABNORMAL) BLOOD GASES CORD ART (ISTAT) (09/25/2023 6:11 PM CDT) Only the most recent of2 resultswithin the time period is included. pH Cord Arterial POCT 7.28 7.20 - 7.34 pH 09/26/2023 7:15 AM CDT [facility] pCO2 Cord Arterial POCT 49.6 45 - 55 mm hg 09/26/2023 7:15 AM CDT [facility] pO2 Cord Arterial POCT <15 12 - 25 mm hg 09/26/2023 7:15 AM CDT [facility] HCO3 Cord Arterial POCT 23.4 22 - 24 mmol/L 09/26/2023 7:15 AM CDT [facility] BE Cord Arterial POCT -4(L) -2.9 - 8.3 mmol/L 09/26/2023 7:15 AM CDT [facility] TCO2 Cord Arterial POCT 25 mmol/L 09/26/2023 7:15 AM CDT [facility] O2 Saturation Cord Art % Calc POCT 13 % 09/26/2023 7:15 AM CDT [facility] Site CORD ART 09/26/2023 7:15 AM CDT [facility] Sample iSTAT CORD ART 09/26/2023 7:15 AM CDT [facility] Blood CORD BLOOD SPECIMEN / Unknown 09/25/2023 6:11 PM CDT 09/26/2023 7:13 AM CDT Narrative [facility] - 09/26/2023 7:15 AM CDT Baby Girl 2 Chantale Pena MD LAB - POINT OF CARE ORDERABLES Performing Organization Address City/State/[facility] Co de Phone Number [facility] [address] [place] [address] * (ABNORMAL) BLOOD GASES CORD ADELA (ISTAT) (09/25/2023 6:07 PM CDT) Only the most recent of2 resultswithin the time period is included. pH Cord Venous POCT 7.29 7.28 - 7.40 pH 09/26/2023 7:16 AM CDT [facility] pCO2 Cord Venous POCT 48.1(H) 35 - 45 mm hg 09/26/2023 7:16 AM CDT [facility] pO2 Cord Venous POCT 17(L) 22 - 33 mm hg 09/26/2023 7:16 AM CDT [facility] HCO3 Cord Arterial POCT 23.2 22 - 24 mmol/L 09/26/2023 7:16 AM CDT [facility] BE Cord Venous POCT Calc -4 -6.4 - 1.6 mmol/L 09/26/2023 7:16 AM CDT [facility] TCO2 Cord Venous POCT 25 22 - 30 mmol/L 09/26/2023 7:16 AM CDT [facility] O2 Saturation % Cord Venous Calc POCT 19 % 09/26/2023 7:16 AM CDT [facility] Site CORD ADELA 09/26/2023 7:16 AM CDT [facility] Sample iSTAT CORD ADELA 09/26/2023 7:16 AM CDT [facility] Blood CORD BLOOD SPECIMEN / Unknown 09/25/2023 6:07 PM CDT 09/26/2023 7:13 AM CDT Narrative [facility] - 09/26/2023 7:16 AM CDT Baby Girl 2 Chantale Pena MD LAB - POINT OF CARE ORDERABLES Performing Organization Address City/State/[facility] Co de Phone Number [facility] [address] [place] [address] * SYPHILIS ANTIBODY CASCADING REFLEX (09/25/2023 9:04 AM CDT) Only the most recent of2 resultswithin the time period is included. Treponema pallidum Antibody Non Reactive Non Reactive 09/25/2023 10:03 AM CDT [facility] Comment: No Laboratory evidence of syphilis infection. ?? Note: ??Circulating antibodies may be low or undetectable in early infection. ??If recent exposure is suspected, re-draw sample in 2-4 weeks and repeat testing. Blood BLOOD SPECIMEN / Unknown Venipuncture / Unknown 09/25/2023 9:04 AM CDT 09/25/2023 9:22 AM CDT Chantale Pena MD LAB - SEROLOGY ORDERABLES Performing Organization Address [facility] Co de Phone Number [facility] [address] [place] [id number] * TYPE + SCREEN PANEL (09/25/2023 9:04 AM CDT) Only the most recent of2 resultswithin the time period is included. ABO Rh O POS 09/25/2023 10:00 AM CDT [facility] Comment:History checked. Antibody Screen NEG 10:00 AM CDT [facility] Blood Bank BLOOD SPECIMEN / Unknown Venipuncture / Unknown 09/25/2023 9:04 AM CDT 09/25/2023 9:22 AM CDT Chantale Pena MD LAB - BLOOD BA NK ORDERABLES Performing Organization Address [facility] Co de Phone Number [facility] [address] [place] [address] * (ABNORMAL) COMPREHENSIVE METABOLIC PANEL (09/25/2023 9:04 AM CDT) Only the most recent of3 resultswithin the time period is included. Glucose 72 70 - 105 mg/dL 09/25/2023 9:45 AM T [facility] Sodium 140 136 - 145 mmol/L 09/25/2023 9:45 AM T [facility] Potassium 4.0 3.5 - 5.1 mmol/L 09/25/2023 9:45 AM T [facility] Chloride 110(H) 98 - 107 mmol/L 09/25/2023 9:45 AM T [facility] CO2 22 22 - 29 mmol/L 09/25/2023 9:45 AM T [facility] Calcium 8.3(L) 8.4 - 10.4 mg/dL 09/25/2023 9:45 AM [facility] Anion Gap 8 6 - 16 mmol/L 09/25/2023 9:45 AM [facility] BUN 8 5.3 - 18.7 mg/dL 09/25/2023 9:45 AM T [facility] Creatinine 0.72 0.57 - 1.11 mg/dL 09/25/2023 9:45 AM CDT [facility] Alkaline Phosphatase 259(H) 40 - 150 U/L 09/25/2023 9:45 AM CDT [facility] ALT 10 0 - 55 U/L 09/25/2023 9:45 AM CDT [facility] AST 19 5 - 34 U/L 09/25/2023 9:45 AM CDT [facility] Protein Total 5.3(L) 6.4 - 8.3 gm/dL 09/25/2023 9:45 AM CDT [facility] Albumin 2.4(L) 3.4 - 5.0 gm/dL 09/25/2023 9:45 AM CDT [facility] Bilirubin Total 0.2 0.2 - 1.2 mg/dL 09/25/2023 9:45 AM CDT [facility] eGFR by CKD-EPI >90 >=90 mL/min/1.7 3 m2 09/25/2023 9:45 AM T [facility] Blood BLOOD SPECIMEN / Unknown Venipuncture / Unknown 09/25/2023 9:04 AM CDT 09/25/2023 9:22 AM CDT Chantale Pena MD LAB - CHEMISTR Y ORDERABLES Performing Organization Address City/State/[facility] Co de Phone Number [facility] [address] [place], [place] [id number] * (ABNORMAL) URINE MICROSCOPIC ONLY REFLEX TO CULTURE (09/20/2023 12:05 PM CDT) Only the most recent of3 resultswithin the time period is included. Reflex Status Culture to follow 09/20/2023 12:33 PM CDT [facility] RBC UA None Seen 0 - 5 # /hpf 09/20/2023 12:33 PM CDT [facility] WBC UA 21-50(A) 0 - 5 # /hpf 09/20/2023 12:33 PM CDT [facility] Bacteria UA Trace(A) None Seen 09/20/2023 12:33 PM CDT [facility] Squamous Epithelial Cells 6-10(A) 0 - 5 /hpf 09/20/2023 12:33 PM CDT [facility] Mucus UA 1+ /LPF 09/20/2023 12:33 PM CDT [facility] Urine URINE SPECIMEN OBTAINED BY CLEAN CATCH PROCEDURE / Unknown Collection / Unknown 09/20/2023 12:05 PM CDT 09/20/2023 12:18 PM CDT Narrative [facility] - 09/20/2023 12:33 PM CDT Deysi Yanes MD LAB - U RINALYSIS ORDERABLES [facility] [address] [place] [address] * (ABNORMAL) URINALYSIS REFLEX MICROSCOPIC REFLEX CULTURE (09/20/2023 12:05 PM CDT) Only the most recent of3 resultswithin the time period is included. Color UA Yellow Straw, Yellow 09/20/2023 12:31 PM CDT [facility] Clarity UA Slt Cloudy(A) Clear 09/20/2023 12:31 PM CDT [facility] Glucose UA Negative Negative 09/20/2023 12:31 PM CDT [facility] Bilirubin UA Negative Negative 09/20/2023 12:31 PM CDT [facility] Ketone UA Negative Negative 09/20/2023 12:31 PM CDT [facility] Specific [place] UA 1.013 1.005 - 1.030 09/20/2023 12:31 PM CDT [facility] Blood UA Negative Negative 09/20/2023 12:31 PM CDT [facility] pH UA 6.0 5.0 - 8.0 pH 09/20/2023 12:31 PM CDT [facility] Protein UA 1+(A) Negative 09/20/2023 12:31 PM CDT [facility] Urobilinogen UA Negative Negative mg/dL 09/20/2023 12:31 PM CDT [facility] Nitrite UA Negative Negative 09/20/2023 12:31 PM CDT [facility] Leukocyte UA 3+(A) Negative 09/20/2023 12:31 PM CDT [facility] Urine Microscopy Urine microscopy to follow 09/20/2023 12:31 PM CDT [facility] Reflex Status Culture to follow 09/20/2023 12:31 PM CDT [facility] Urine URINE SPECIMEN OBTAINED BY CLEAN CATCH PROCEDURE / Unknown Collection / Unknown 09/20/2023 12:05 PM CDT 09/20/2023 12:18 PM CDT Narrative [facility] - 09/20/2023 12:31 PM CDT Deysi Yanes MD LAB - U RINALYSIS ORDERABLES Performing Organization Address City/[facility]/ZIP Co de Phone Number [facility] [address] [place] [address] * CULTURE URINE (09/20/2023 12:05 PM CDT) Only the most recent of3 resultswithin the time period is included. Culture Urine 10,000-50,000 CFU/mL urogenital corie KAMALA 09/22/2023 2:56 AM CDT [facility] Urine URINE SPECIMEN OBTAINED BY CLEAN CATCH PROCEDURE / Unknown Collection / Unknown 09/20/2023 12:05 PM CDT 09/20/2023 12:18 PM CDT Deysi Yanes MD LAB - M ICROBIOLOGY ORDERABLES Performing Organization Address City/[facility] Co de Phone Number [facility] [address] [place] [address], [facility] [phone] * (ABNORMAL) PROTEIN CREATININE RATIO URINE RANDOM PNL (09/20/2023 12:05 PM CDT) Only the most recent of2 resultswithin the time period is included. Protein Urine 30.8(H) <11.9 mg/dL 09/20/2023 12:50 PM CDT [facility] Creatinine Urine 93.29 mg/dL 09/20/2023 12:50 PM CDT [facility] Protein/Creatin ine Ratio Urine 0.33 09/20/2023 12:50 PM CDT [facility] Urine URINE SPECIMEN OBTAINED BY CLEAN CATCH PROCEDURE / Unknown Collection / Unknown 09/20/2023 12:05 PM CDT 09/20/2023 12:18 PM CDT Deysi Yanes MD LAB - U RINE CHEMISTRY ORDERABLES [facility] [address] [place] [address] * (ABNORMAL) URINALYSIS - POCT (IP) BEAKER INTERFACE (09/20/2023 11:04 AM CDT) Only the most recent of7 resultswithin the time period is included. Color UA POCT Yellow Straw, Yellow, Dark Yellow, Light Yellow 09/20/2023 11:06 AM CDT [facility] Clarity UA POCT Clear Clear 4 11:06 AM CDT [facility] Specific [place] UA POCT 1.015 1.005 - 1.030 09/20/2023 11:06 AM CDT [facility] pH UA POCT 7.0 5.0 - 8.0 pH 09/20/2023 11:06 AM CDT [facility] Protein UA POCT 1+(A) Negative 4 11:06 AM CDT [facility] Blood UA POCT Trace-intac t(A) Negative 09/20/2023 11:06 AM CDT [facility] Leukocyte UA POCT 1+(A) Negative 09/20/2023 11:06 AM CDT [facility] Nitrite UA POCT Negative Negative 4 11:06 AM CDT [facility] Glucose UA POCT Negative Negative 4 11:06 AM CDT [facility] Ketone UA POCT Negative Negative 09/20/2023 11:06 AM CDT [facility] Bilirubin UA POCT Negative Negative 09/20/2023 11:06 AM CDT [facility] Urobilinogen UA POCT 0.2 0.1 - 1.0 EU/dL 09/20/2023 11:06 AM CDT [facility] Urine URINE / Unknown 09/20/2023 1 1:04 AM CDT 09/20/2023 11:06 AM CDT Deysi Yanes MD LAB - P OINT OF CARE ORDERABLES [facility] [address] [place] [address] * BIOPHYSICAL PROFILE W NST (09/20/2023 9:00 AM CDT) Only the most recent of3 resultswithin the time period is included. Anatomical Region Laterality Modality Other 09/20/2023 9:00 AM CDT Narrative 09/20/2023 11:24 AM CDT ?[facility] ? - [place] [facility] ?PHONE: ??FAX: FETUS A Pat. Name: ?ANITA PADILLA Pat. No: ?[id number] Study Date: ?? 09/20/2023 ??9:00am , Age: ? 2000, 23 Pregnancies: ?? 2, Para 1 Height: ? 65 in Weight: ? 119 lb LMP: ?Unknown GA by Base: ?? 36w1d ?? BRENDA: 10/17/2023 GA Selected: ??36w1d (From [facility]) BRENDA: ?10/17/2023 Referring MD: MD Natacha, [facility] Wool Handler: ??Lyndsay Pete RDMS CPT4: ? 92615,53664 x2,67626 x2,61106 x2 BMI: ?19.8 Hist/Ind: ? DA/DC Twins ?SGA both twins (08/23: A 8%, B 6%) ?cfDNA low risk ?Twin B: single umbilical artery ?Incomplete anatomy x2 Heart Rate: 139 bpm Amniotic Fluid Index: 04.4cm (Deepest Pocket) Biophysical Profile: 04/20 Breathin ?? Tone: 2 ?? NST: 2 Movement: ??2 ?? AFV: ??2 EVAL, PLACENTA Presentation: cephalic MaternalSide: cervix:left Umbilical Cord: 3 Vessels Placenta: anterior Heart Rate: 139 bpm Amniotic Fluid Volume: normal DOPPLER Umbilical - Mid Cord S/D ??2.59(1.64 - 3.50) ? PI ?? 1.00 (0.58 - 1.16) ? Middle Cerebral Artery PSV ??41.1cm/s PI ?? 1.77 (1.38 - 2.51) ? Med PSV 53.8cm/s MoM 0.76(<1.5) CLINICAL SUMMARY A DC/DA twin intrauterine is seen. ??The DVP appears normal for twin A, and normal for twin B. ?? IMPRESSION: DC/DA Twins, live, intrauterine preganacy at 36w1d ?? Amniotic fluid volume: Normal for twin A, normal for twin B ?? Biophysical profile: reassuring x 2 (04/20 x 2) Doppler studies: Reassuring for twin A, reassuring for twin B RECOMMEND: Continue twice weekly testing and Doppler studies growth assessments in 1 week Thank you for allowing us the opportunity to care for your patient Franc Kolb MD <Electronic Signature> ??09/20/2023 11:23am FETUS B Pat. Name: ?ANITA PADILLA Pat. No: ?[id number] Study Date: ?? 09/20/2023 ??9:00am , Age: ? 2000, 23 Pregnancies: ?? 2, Para 1 Height: ? 65 in Weight: ? 119 lb LMP: ?Unknown GA by Base: ?? 36w1d ?? BRENDA: 10/17/2023 GA Selected: ??36w1d (From [facility]) BRENDA: ?10/17/2023 Referring MD: MD Natacha, [facility] Wool Handler: ??Lyndsay Pete RDMS CPT4: ? 77508,39517 x2,72678 x2,00770 x2 Hist/Ind: ? DA/DC Twins ?SGA both twins (08/23: A 8%, B 6%) ?cfDNA low risk ?Twin B: single umbilical artery ?Incomplete anatomy x2 Heart Rate: 128 bpm Amniotic Fluid Index: 07.2cm (Deepest Pocket) Biophysical Profile: 04/20 Breathin ?? Tone: 2 ?? NST: 2 Movement: ??2 ?? AFV: ??2 EVAL, PLACENTA Presentation: breech MaternalSide: right Umbilical Cord: 2 Vessels Placenta: anterior:right lateral Heart Rate: 128 bpm Amniotic Fluid Volume: normal DOPPLER Umbilical - Mid Cord S/D ??2.30(1.64 - 3.50) ? PI ?? 0.84 (0.58 - 1.16) ? Middle Cerebral Artery PSV ??56.0cm/s PI ?? 1.50 (1.38 - 2.51) ? Med PSV 53.8cm/s MoM 1.04(<1.5) CLINICAL SUMMARY Franc Kolb MD <Electronic Signature> ??09/20/2023 11:23am Franc Kolb MD [facility] ORDERABLES * (ABNORMAL) WET PREP SMEAR - POINT OF CARE (IP) (09/13/2023 11:07 AM HAND FLATWORK FINISHER) Clue Cells (Wet Smear) Absent Absent [facility] POCT TESTING Yeast (Wet Smear) Present(A) Absent [facility] POCT TESTING Trichomonas Wet Prep POCT Absent Absent [facility] POCT TESTING WBC (Wet Smear) Absent Absent [facility] POCT TESTING pH Wet Smear 0.[address] [facility] [address] TESTING Other VAGINAL SWAB / Unknown 09/13/2023 11:07 AM HAND FLATWORK FINISHER Deysi Bowie APRN-[facility] LAB - POINT OF CARE ORDERABLES Performing Organization Address City/State/[facility] Co de Phone Number [facility] POCT TESTING [address] [phone] * SONOGRAM - COMPLETE (09/13/2023 8:29 AM HAND FLATWORK FINISHER) Only the most recent of5 resultswithin the time period is included. Anatomical Region Laterality Modality Other 09/13/2023 8:29 AM HAND FLATWORK FINISHER Narrative 09/13/2023 11:06 AM HAND FLATWORK FINISHER ? [facility] ?PHONE: ??FAX: FETUS A Pat. Name: ?DIONISIO PADILLABRIANNE Recinos Pat. No: ?[id number] Study Date: ?? 09/13/2023 ??8:29am , Age: ? 2000, 23 Pregnancies: ?? 2, Para 1 Height: ? 65 in Weight: ? 119 lb LMP: ?Unknown GA by Base: ?? 35w1d ?? BRENDA: 10/17/2023 GA by US: ? 33w2d ?? BRENDA: 10/30/2023 GA Selected: ??35w1d (From [facility]) BRENDA: ?10/17/2023 Referring MD: Natacha, , [facility] Wool Handler: ??Lyndsay Pete RDMS CPT4: ? 29263 x2,81062 x2,05229 x2,34101 x2 BMI: ?19.8 Hist/Ind: ? DA/DC Twins ?SGA both twins (08/23: A: 8%, B: 6%) ?cf-DNA Low risk ?Twin B: single umbilical artery ?Incomplete anatomy x2 MEASUREMENTS & AGE ? GROWTH EVALUATION Measurement ??GA ? Range ? Srce %for GA Ratios ----- ---- ------- BPD ??8.2 cm 33w0d (48g8x-21n4u) Hadl BPD 5% FL/BPD 0.79 (0.71 - 0.87) HC ??31.4 cm 35w2d (84m2r-87b3c) Hadl HC ??18% FL/AC ??0.23 (0.20 - 0.24) AC ??28.0 cm 32w0d (89n5j-00k1w) Hadl AC ??1% HC/AC ??1.12 (0.93 - 1.12* FL ?? 6.5 cm 33w4d (39e6p-75b0u) Hadl FL ??9% CI ? 0.77 (0.70 - 0.86) HL ?? 5.8 cm 33w4d (22u6m-15l7y) Tomasz HL ??24% GA for sonogram 33w2d (84s3t-06t8z) ?? Weight Estimate: based on (BPD,HC,AC,FL) Hadlock ?Weight: 2074 gm (1771-2377gm) Had ? : 4lbs, 9oz ? Normal: 2617 gm (1962- 3271gm) Had ? Wt% ? 6% for 35w1d Heart Rate: 134 bpm Amniotic Fluid Index: 04.7cm (Deepest Pocket) Biophysical Profile: 04/20 Breathin ?? Tone: 2 ?? NST: 2 Movement: ??2 ?? AFV: ??2 PROCEDURE, TECHNIQUE Procedure: Rate of growth Technique: transabdominal EVAL, PLACENTA Presentation: cephalic MaternalSide: cervix, left Umbilical Cord: 3 Vessels Placenta: anterior Heart Rate: 134 bpm Amniotic Fluid Volume: normal DOPPLER Umbilical - Mid Cord S/D ??3.33(1.68 - 3.58) ? PI ?? 1.23 (0.60 - 1.18) * ?? Middle Cerebral Artery PSV ??35.0cm/s PI ?? 1.73 (1.46 - 2.63) ? Med PSV 51.3cm/s MoM 0.68(<1.5) Anatomy!Normal!Abnormal!Suboptimal!Prev. Seen!Comments Cranium ?! ?! ?! ?! ? x ?! Mdl (CSP/Thal! ?! ?! ?! ? x ?! Ventricles ?? ! ?! ?! ?! ? x ?! Choroid Plexu! ?! ?! ?! ? x ?! Cerebellum ?? ! ?! ?! ?! ? x ?! Cisterna M. ??! ?! ?! ?! ? x ?! Orbits ? ! ?! ?! ?! ? x ?! Profile ?! ?! ?! ?! ? x ?! Nasal Bone ?? ! ?! ?! ?! ? x ?! Lip ?! ?? x ??! ?! ?! ?! Spine ?! ?! ?! ?! ? x ?! Lungs ?! ?! ?! ?! ? x ?! 4 Chamber Hea! ?! ?! ?! ? x ?! LVOT ? ! ?! ?! ?! ? x ?! RVOT ? ! ?! ?! ?! ? x ?! 3 Vessel View! ?! ?! ?! ? x ?! 3 Vessel Trac! ?! ?! ?! ? x ?! Cross-over ?? ! ?! ?! ?! ? x ?! Ductal Arch ??! ?! ?! ?! ? x ?! Aortic Arch ??! ?! ?! ?! ? x ?! Caval View ?? ! ?! ?! ?! ? x ?! Situs ?! ?! ?! ?! ? x ?! Diaphragm ?! ?! ?! ?! ? x ?! Stomach ?! ?? x ??! ?! ?! ? x ?! Bowel ?! ?! ?! ?! ? x ?! Kidneys ?! ?? x ??! ?! ?! ? x ?! Bladder ?! ?? x ??! ?! ?! ? x ?! 3 Vessel Cord! ?! ?! ?! ? x ?! Cord In! ?? x ??! ?! ?! ? x ?! Upper Extremi! ?! ?! ? x ?! ?!unremarkable ?right, suboptimal ?left Hands ?! ?! ?! ? x ?! ?! Lower Extremi! ?! ?! ?! ? x ?! Feet ? ! ?! ?! ?! ? x ?! External Malissa! ?! ?! ?! ? x ?!Male Placental Cor! ?! ?! ?! ? x ?! CLINICAL SUMMARY A Dichorionic, diamniotic twin intrauterine is seen. ?? Growth is less than expected for both twins, consistent with growth restriction. ??Although percentiles/trajectory did decrease, positive interval growth is observed. The DVP appears within normal limits for both twins. ??UA Doppler studies are mildly increased for twin A (PI only), which may indicate increasing placental resistance, and normal for twin B. ??MCA Doppler studies are normal for both twins. The FHR baseline was 120 bpm for twin A and 125 bpm for twin B during today's reactive NSTs. ??The FHR variability was moderate for both twins, without decelerations. IMPRESSION: Dichorionic, diamniotic, live, intrauterine at ??35w1d growth growth restriction for both twins, with decreasing growth trajectories, although positive interval growth is observed for both Normal DVPs for both twins UA PI is mildly increased for twin A, indicating there may be increasing placental resistance Normal UA Doppler studies for twin B MCA Doppler studies are normal for both twins Reassuring testing for both twins RECOMMEND: Twice weekly NSTs and weekly BPPs with Doppler studies. Repeat growth assessment in 2 weeks. Close maternal surveillance of movement and labor precautions. Thank you for allowing us the opportunity to care for your patient. Deysi Yanes MD <Electronic Signature> ??09/13/2023 11:04am FETUS B Pat. Name: ?TAIANITA GARCIA Pat. No: ?[id number] Study Date: ?? 09/13/2023 ??8:29am , Age: ? 2000, 23 Pregnancies: ?? 2, Para 1 Height: ? 65 in Weight: ? 119 lb LMP: ?Unknown GA by Base: ?? 35w1d ?? BRENDA: 10/17/2023 GA by US: ? 32w2d ?? BRENDA: 11/06/2023 GA Selected: ??35w1d (From [facility]) BRENDA: ?10/17/2023 Referring MD: Natacha, , [facility] Wool Handler: ??Lyndsay Pete RDMS CPT4: ? 92000 x2,69926 x2,85692 x2,87862 x2 Hist/Ind: ? DA/DC Twins ?SGA both twins (08/23: A: 8%, B: 6%) ?cf-DNA Low risk ?Twin B: single umbilical artery ?Incomplete anatomy x2 MEASUREMENTS & AGE ? GROWTH EVALUATION Measurement ??GA ? Range ? Srce %for GA Ratios ----- ---- ------- BPD ??8.1 cm 32w3d (01w5k-23v4q) Hadl BPD 2% FL/BPD 0.77 (0.71 - 0.87) HC ??29.9 cm 33w1d (73r4e-95x9g) Hadl HC ??<01 FL/AC ??0.22 (0.20 - 0.24) AC ??28.8 cm 32w5d (10n7j-53t8m) Hadl AC ??5% HC/AC ??1.04 (0.93 - 1.12) FL ?? 6.2 cm 32w1d (32v8f-51v0e) Hadl FL ??1% CI ? 0.75 (0.70 - 0.86) HL ?? 5.3 cm 31w0d (93y9s-65c0s) Tomasz HL ??<05 GA for sonogram 32w2d (05h9j-80n6z) ?? Weight Estimate: based on (BPD,HC,AC,FL) Hadlock ?Weight: 2010 gm (1717-2304gm) Had ? : 4lbs, 6oz ? Normal: 2617 gm (1962- 3271gm) Had ? Wt% ? 4% for 35w1d Heart Rate: 129 bpm Amniotic Fluid Index: 04.8cm (Deepest Pocket) Biophysical Profile: 10/10 Breathin ?? Tone: 2 ?? NST: 2 Movement: ??2 ?? AFV: ??2 PROCEDURE, TECHNIQUE Procedure: Rate of growth Technique: transabdominal EVAL, PLACENTA Presentation: breech MaternalSide: right Umbilical Cord: 2 Vessels Placenta: anterior:right lateral Heart Rate: 129 bpm Amniotic Fluid Volume: normal DOPPLER Umbilical - Mid Cord S/D ??2.43(1.68 - 3.58) ? PI ?? 0.87 (0.60 - 1.18) ? Middle Cerebral Artery PSV ??50.2cm/s PI ?? 1.76 (1.46 - 2.63) ? Med PSV 51.3cm/s MoM 0.98(<1.5) Anatomy!Normal!Abnormal!Suboptimal!Prev. Seen!Comments Cranium ?! ?! ?! ?! ? x ?! Mdl (CSP/Thal! ?! ?! ?! ? x ?! Ventricles ?? ! ?! ?! ?! ? x ?! Choroid Plexu! ?! ?! ?! ? x ?! Cerebellum ?? ! ?! ?! ?! ? x ?! Cisterna M. ??! ?! ?! ?! ? x ?! Orbits ? ! ?! ?! ?! ? x ?! Profile ?! ?! ?! ?! ? x ?! Nasal Bone ?? ! ?! ?! ?! ? x ?! Lip ?! ?! ?! ?! ? x ?! Spine ?! ?! ?! ?! ? x ?! Lungs ?! ?! ?! ?! ? x ?! 4 Chamber Hea! ?! ?! ?! ? x ?! LVOT ? ! ?! ?! ?! ? x ?! RVOT ? ! ?! ?! ?! ? x ?! 3 Vessel View! ?! ?! ?! ? x ?! 3 Vessel Trac! ?! ?! ?! ? x ?! Cross-over ?? ! ?! ?! ?! ? x ?! Ductal Arch ??! ?! ?! ?! ? x ?! Aortic Arch ??! ?! ?! ? x ?! ?! Caval View ?? ! ?! ?! ?! ? x ?! Situs ?! ?! ?! ?! ? x ?! Diaphragm ?! ?! ?! ?! ? x ?! Stomach ?! ?? x ??! ?! ?! ? x ?! Bowel ?! ?! ?! ?! ? x ?! Kidneys ?! ?! ?! ?! ? x ?! Bladder ?! ?? x ??! ?! ?! ? x ?! 3 Vessel Cord! ?! ?x ?? ! ?! ? x ?!Two vessel cord Cord In! ?! ?! ? x ?! ?! Upper Extremi! ?! ?! ?! ? x ?! Hands ?! ?! ?! ?! ? x ?! Lower Extremi! ?! ?! ?! ? x ?! Feet ? ! ?! ?! ? x ?! ?! External Malissa! ?! ?! ?! ? x ?!Female Placental Cor! ?! ?! ?! ? x ?! CLINICAL SUMMARY Deysi Yanes MD <Electronic Signature> ??09/13/2023 11:04am Franc Kolb MD [facility] ORDERABLES * NON-STRESS TEST (09/06/2023 6:38 PM HAND FLATWORK FINISHER) Anatomical Region Laterality Modality Other Narrative 09/06/2023 6:38 PM HAND FLATWORK FINISHER Isabel Matute MD ? 09/07/2023 ??1:20 PM Name: ??Anita Padilla Date of : ??2000 Today's Date: ??09/06/2023 34w1d ? NST RESULTS (MULTIPLES) Start:1746 Stop:1838 OBJECTIVE FINDINGS Temp: 99.2 ??F (37.3 ??C), Pulse: 92, Resp: 18, BP: 121/78 NST Indication(s): Multiple gestation Uterine Irritability: No Contractions: Irregular Frequency: Q3-8 Perceived Intensity: Mild (pt only felt 2 contractions as tight) COMMENTS/INTERVENTIONS OBJECTIVE FINDINGS ? Movement A: Present ? Monitoring Mode A: External ? Baseline FHR: 125 BPM ? Variability A: Moderate Accelerations-A: Yes Decelerations-A: None Movement B: Present ? Monitoring Mode B: External ? Baseline FHR B: 130 BPM ? Variability B: Moderate Accelerations-B: Yes Decelerations-B: None ? Malina Lopes RN Non-Stress Test [facility] Patient Name: Anita Padilla LMP: Patient's last menstrual period was 01/10/2023. Gestational Age: 34w2d as of 09/07/2023 Estimated Date of Delivery: 10/17/23 Indications: Hypertension in NST date: 09/06/2023 NST duration: >20 mins Interpretation: Baseline: ?? FHTs A: 125 beats/minute moderate variability FHTs B: 130 beats/minute moderate variability Reactive Contractions: ??q5-8min ctx Decelerations: ??none Impression and Plan: FWB reassuring, continue monitoring as scheduled. Isabel Matute MD 09/07/2023 1:14 PM Ara Bailey MD [facility] ORDERABLES * BLOOD TYPE VERIFICATION (09/06/2023 11:40 AM HAND FLATWORK FINISHER) ABO Rh O POS 09/06/2023 12:07 PM HAND FLATWORK FINISHER [facility] Blood Bank BLOOD SPECIMEN / Unknown Lab Venipuncture / Unknown 09/06/2023 11:40 AM HAND FLATWORK FINISHER 09/06/2023 11:40 AM HAND FLATWORK FINISHER Elicia Hernandez MD LAB - BLOOD BANK OR DERABLES [facility] [address] [phone] * TRICHOMONAS VAGINALIS AMPLIFIED PROBE (08/09/2023 10:45 AM HAND FLATWORK FINISHER) Trichomonas vaginalis Amplified Probe Negative Negative 08/09/2023 6:53 PM HAND FLATWORK FINISHER [facility] Microbiology URINE / Unknown Collection / Unknown 08/09/2023 10:45 AM HAND FLATWORK FINISHER 08/09/2023 11:07 AM HAND FLATWORK FINISHER Narrative [facility] - 08/09/2023 6:53 PM HAND FLATWORK FINISHER This test was developed and its performance characteristics determined by the [facility], [facility]. Urine specimens tested by the [facility] have not been cleared or approved by the U.S. Food and Drug Administration (FDA). The laboratory is regulated under the Clinical Laboratory Improvement Amendments (CLIA) as qualified to perform high-complexity testing. This test is used for clinical purposes. It should not be regarded as investigational or for research. Results based on detection/no detection of ribosomal RNA by amplified method. Ethan Mora MORIN LAB - MICROBIOLOGY O RDSEAN Performing Organization Address City/[facility]/ZIP Co de Phone Number [facility] [address] [place] [address], [facility] [phone] * CHLAMYDIA + GC AMPLIFIED PROBE (08/09/2023 10:45 AM HAND FLATWORK FINISHER) Pathologist [facility] Chlamydia Amplified Probe Negative Negative 08/09/2023 8:45 PM HAND FLATWORK FINISHER [facility] GC Amplified Probe Negative Negative 08/09/2023 8:45 PM HAND FLATWORK FINISHER [facility] Microbiology URINE / Unknown Collection / Unknown 08/09/2023 10:45 AM HAND FLATWORK FINISHER 08/09/2023 11:07 AM HAND FLATWORK FINISHER Narrative [facility] - 08/09/2023 8:45 PM HAND FLATWORK FINISHER Results based on detection/no detection of ribosomal RNA by amplified method. Ethan Moreaulaura LAB - MICROBIOLOGY O RDSEAN Performing Organization Address [facility] Co de Phone Number [facility] [address] [place] [address], [facility] [phone] * HIV-1 HIV-2 ANTIBODY + HIV P24 AG PANEL (07/19/2023 9:36 AM HAND FLATWORK FINISHER) Pathologist [facility] HIV1/2 Ab + P24 Ag Non Reactive Non Reactive 07/19/2023 10:51 AM HAND FLATWORK FINISHER [facility] Blood BLOOD SPECIMEN / Unknown Venipuncture / Unknown 07/19/2023 9:36 AM HAND FLATWORK FINISHER 07/19/2023 10:02 AM HAND FLATWORK FINISHER Narrative [facility] - 07/19/2023 10:51 AM HAND FLATWORK FINISHER No Laboratory evidence of HIV infection. Marissa Vasquez MD LAB - CHEMISTRY RASHIDA JAVIER Performing Organization Address City/[facility]/ZIP Co de Phone Number [facility] [address] [place] [address] * (ABNORMAL) CBC W/O DIFFERENTIAL (07/19/2023 9:36 AM [facility]) WBC 10.8(H) 4.0 - 10.7 x10E9/L 07/19/2023 10:12 AM [facility] RBC Count 3.95 3.90 - 5.20 x10E12/L 07/19/2023 10:12 AM [facility] Hemoglobin 12.1 11.9 - 15.8 g/dL 07/19/2023 10:12 AM [facility] Hematocrit 37.0 34.8 - 46.1 % 07/19/2023 10:12 AM [facility] MCV 93.7 80.0 - 98.0 fL 07/19/2023 10:12 AM [facility] MCH 30.6 26.7 - 33.6 pg 07/19/2023 10:12 AM [facility] MCHC 32.7 31.7 - 36.3 g/dL 07/19/2023 10:12 AM [facility] RDW-CV 11.9 11.3 - 14.8 % 07/19/2023 10:12 AM [facility] Platelet Count 215 150 - 420 x10E9/L 07/19/2023 10:12 AM [facility] MPV 9.5 7.8 - 11.4 fL 07/19/2023 10:12 AM [facility] Blood BLOOD SPECIMEN / Unknown Venipuncture / Unknown 07/19/2023 9:36 AM HAND FLATWORK FINISHER 07/19/2023 10:02 AM [facility] Marissa Vasquez MD LAB - HEMATOLOGY ORD ERABLES [facility] [address] [place] [address] * GLUCOSE CHALLENGE (07/19/2023 9:36 AM [facility]) Pathologist [facility] Glucose Challenge 122 64 - 140 mg/dL 07/19/2023 10:27 AM [facility] Glucose Challenge Time 07/19/2023 10:27 AM [facility] Blood BLOOD SPECIMEN / Unknown Venipuncture / Unknown 07/19/2023 9:36 AM HAND FLATWORK FINISHER 07/19/2023 10:02 AM HAND FLATWORK FINISHER Marissa Vasquez MD LAB - CHEMISTRY RASHIDA JAVIER [facility] Organization Address City/State/ZIP Co de Phone Number [facility] [address] [place], [place] [id number] * SONOGRAM - TRANSVAGINAL (05/24/2023 8:12 AM HAND FLATWORK FINISHER) Anatomical Region Laterality Modality Other 05/24/2023 8:12 AM HAND FLATWORK FINISHER Narrative 05/24/2023 8:52 AM HAND FLATWORK FINISHER ? [facility] ?PHONE: ??FAX: FETUS A Pat. Name: ?ANITA PADILLA Pat. No: ?[id number] Study Date: ?? 05/24/2023 ??8:12am , Age: ? 2000, 22 Pregnancies: ?? 2, Para 1001 Height: ? 65 in Weight: ? 115 lb LMP: ?Unknown GA by Base: ?? 19w1d ?? BRENDA: 10/17/2023 GA Selected: ??19w1d (From [facility]) BRENDA: ?10/17/2023 Referring MD: Sergo Messina MD Wool Handler: ??Amrita Sanderson RDMS CPT4: ? 87428,28376 BMI: ?19.13 Hist/Ind: ? DA/DC twins ?Low-risk cf-DNA ?Single umbilical artery (SUA) twin B Cervix: ??Length: 3.7 cm ??Approach: transvaginal ??Funneling: not present Heart Rate: 155 bpm Amniotic Fluid Index: 03.8cm (Deepest Pocket) PROCEDURE, TECHNIQUE Technique: transabdominal, transvaginal EVAL, PLACENTA Presentation: cephalic MaternalSide: left Umbilical Cord: 3 Vessels Placenta: anterior Heart Rate: 155 bpm Gender: male Amniotic Fluid Volume: normal CLINICAL SUMMARY IMPRESSION: Dichorionic, diamniotic twins, live, intrauterine at 19w1d ?? Amniotic fluid volume: Normal for twin A, normal for twin B Normal-range transvaginal cervical length. RECOMMEND: Ultrasound in in 2 weeks for detailed anatomic surveys and cervical length. ?? Thank you for allowing us the opportunity to care for your patient Jose A Cunningham MD <Electronic Signature> ??05/24/2023 08:52am FETUS B Pat. Name: ?ANITA PADILLA. No: ?[id number] Study Date: ?? 05/24/2023 ??8:12am , Age: ? 2000, 22 Pregnancies: ?? 2, Para 1001 Height: ? 65 in Weight: ? 115 lb LMP: ?Unknown GA by Base: ?? 19w1d ?? BRENDA: 10/17/2023 GA Selected: ??19w1d (From [facility]) BRENDA: ?10/17/2023 Referring MD: Sergo Messina MD Wool Handler: ??Amrita Sanderson RDMS CPT4: ? 73057,96949 Hist/Ind: ? DA/DC twins ?Low-risk cf-DNA ?Single umbilical artery (SUA) twin B Cervix: ??Length: 3.7 cm ??Approach: transvaginal ??Funneling: not present Heart Rate: 142 bpm Amniotic Fluid Index: 05.4cm (Deepest Pocket) PROCEDURE, TECHNIQUE Technique: transabdominal, transvaginal EVAL, PLACENTA Presentation: breech MaternalSide: right Umbilical Cord: 2 Vessels Placenta: anterior Heart Rate: 142 bpm Gender: female Amniotic Fluid Volume: normal CLINICAL SUMMARY Jose A Cunningham MD <Electronic Signature> ??05/24/2023 08:52am Franc Kolb MD [facility] ORDERABLES
--- OUTSIDE RECORDS SUMMARY | 2024-07-20 14:56 | XMS_ITS | Encounter Summary ---
Author Organization [facility] Health Address [address] [place] [address] Care Team Providers Care Petal Cutter Name Role Phone Unavailable Primary Care Provider Dayami e Encounter Details Date Type Department Care Team (Latest Contact Info) Description 09/25/2023 Travel Social History Tobacco Use Types Packs/Day [...] and heating? Not hard at all 09/25/2023 [facility] Occupat ional [facility] - Occupational Stress [...] place to sleep or slept in a custodial (including now)? No 09/25/2023 [place] Depression Scale Answer Date Recorded [place] Depression Scale Total 1 05/10/2023 The thought of harming myself has occurred to me . Never 05/10/2023 Sex and Gender Information Value Date Recorded [...]
--- OUTSIDE RECORDS SUMMARY | 2024-07-20 14:56 | XMS_ITS | Encounter Summary ---
Author Organization [facility] Address [address] [place] [address] Care Team Providers Care Specialty Department Supervisor Name Role Phone Unavailable Primary Care Provider Unavailabl e Reason for Visit * Reason Onset Date Comments Scheduling 10/11/2023 Encounter Details Date Type Department Care Team (Late st Contact Info) Description 10/11/2023 Telephone SM MATERNAL/ EVALUATION UNIT [address] [place] [address]. [address] [place] [address] Dionne Roth Scheduling Social History Tobacco Use Types Packs/Day [...] and heating? Not hard at all 09/25/2023 [facility] [place] [facility] - Occupational Stress [...] in a correction (including now)? No 09/25/2023 [place] Depression Scale Answer Date Recorded [place] Depression Scale Total 5 09/27/2023 The thought [...] encounter Miscellaneous Notes * Telephone Encounter - Dionne Roth - 10/11/2023 12:55 PM CDT (Cancellations) Attempted to contact pt to reschedule cancelled appt. No answer; left message to call [facility] to reschedule. documented in this encounter Plan of Treatment Not on file documented as of this encounter Visit Diagnoses Not on filedocumented in this encounter
--- OUTSIDE RECORDS SUMMARY | 2024-07-20 14:56 | XMS_ITS | Clinical Summary ---
Author Organization [facility] Address [address] [place] [address] Care Team Providers Care Neck Cutter Name Role Phone Unavailable Primary Care Provider Unavailabl e Source Comments [facility],non-owned Affiliates and Associated Physician Practices is amultiple site organization consisting of ambulatory clinics and hospital sitesin [place], [place], [place] and [place]. This disclosure is being madepursuant to the Care Everywhere program and may not contain all information available regarding this patient. Last updated 18.[facility] Allergies No known active allergies Medications * [...] migh t be different from the original. [employer] form completed. Diapers given. 07/19/2023; [...] and heating? Not hard at all 09/25/2023 [facility] - Occupational [...] in a residential (including now)? No 09/25/2023 [place] Depression Scale Answer Date Recorded [place] Depression Scale Total 5 09/27/2023 The thought [...] Mass Index 25.29 09/25/2023 8:55 AM CDT Plan of Treatment Health Maintenance Due Date Last Done Comments PAP SMEAR 2001 HPV VACCINE (1 - 3-dose series) 2016 HEPATITIS C SCREENING 08/03/2019 DTAP/TDAP/TD VACCINES (1 - Tdap) 2020 HEPATITIS B VACCINE (1 of 3 - 19+ 3-dose series) 2020 COVID-19 VACCINE ( - 2023-2 5 season) 2024 INFLUENZA VACCINE (#1) 2024 04/22/2015 DEPRESSION SCREENING 07/12/2024 09/27/2023 CHLAMYDIA/GONORRHEA SCREENING 08/09/2024 08/09/2023 ZOSTER VACCINE (1 of 2) 2051 HIV SCREENING Completed 07/19/2023 Respiratory Syncytial Virus (RSV) Vaccine Pt: or over 60 yrs Discontinued 08/23/2023 HIB VACCINE Aged Out No longer eligi ble based on patient's age to complete this topic MENINGOCOCCAL VACCINE Aged Out No mil kathrine eligible based on patient's age to complete this topic PNEUMOCOCCAL VACCINE Aged Out No long er eligible based on patient's age to complete this topic Procedures Procedure Name Priority Date/Time Associated Diagnosis Comments CHLAMYDIA + GC AMPLIFIED PROBE Routine 08/09/2023 10:45 AM CAMERA CONTROL OPERATOR Abnormal urogenital discharge HIV-1 HIV-2 ANTIBODY + HIV P24 AG PANEL Routine 07/19/2023 9:36 AM CAMERA CONTROL OPERATOR Dichorionic diamniotic twin , antepartum (HCC) from Last 3 Months or Most Recently Relevant to Health Maintenance Results * CHLAMYDIA + GC AMPLIFIED PROBE (08/09/2023 10:45 AM CAMERA CONTROL OPERATOR) Chlamydia Amplified Probe Negative Negative 08/09/2023 8:45 PM CAMERA CONTROL OPERATOR [facility] GC Amplified Probe Negative Negative 08/09/2023 8:45 PM CAMERA CONTROL OPERATOR [facility] Microbiology URINE / Unknown Collection / Unknown 08/09/2023 10:45 AM CAMERA CONTROL OPERATOR 08/09/2023 11:07 AM CAMERA CONTROL OPERATOR Narrative [facility] - 08/09/2023 8:45 PM CAMERA CONTROL OPERATOR Results based on detection/no detection of ribosomal RNA by amplified method. Ethan Velazco DO LAB - MICROBIOLOGY O RDERABLES [facility] [address] [place] [address] [phone] * HIV-1 HIV-2 ANTIBODY + HIV P24 AG PANEL (07/19/2023 9:36 AM CAMERA CONTROL OPERATOR) HIV1/2 Ab + P24 Ag Non Reactive Non Reactive 07/19/2023 10:51 AM CAMERA CONTROL OPERATOR [facility] Blood BLOOD SPECIMEN / Unknown Venipuncture / Unknown 07/19/2023 9:36 AM CAMERA CONTROL OPERATOR 07/19/2023 10:02 AM CAMERA CONTROL OPERATOR Narrative [facility] - 07/19/2023 10:51 AM CAMERA CONTROL OPERATOR No Laboratory evidence of HIV infection. Marissa Vasquez MD LAB - CHEMISTRY RASHIDA JAVIER [facility] [address] [place] [address] from Last 3 Months or Most Recently Relevant to Health Maintenance Advance Directives * Full Code (Latest Code Status on File) Date Activated Date Inactivated Comments 09/25/2023 8:42 AM 09/28/2023 2:01 PM * Full Code Date Activated Date Inactivated Comments 09/06/2023 11:16 AM 09/07/2023 1:32 PM
--- OUTSIDE RECORDS SUMMARY | 2024-07-20 14:56 | XMS_ITS | Encounter Summary ---
Author Organization [facility] Address [address] [place] [address] Care Team Providers Care Preschool Special Education Teacher Name Role Phone Unavailable Primary Care Provider Unavailabl e Reason for Visit * Reason Onset Date Comments Scheduling 09/21/2023 Encounter Details Date Type Department Care Team (Late st Contact Info) Description 09/21/2023 Telephone SM MATERNAL/ EVALUATION UNIT [facility] [facility] [place] [address] Manuel Fajardo Scheduling Social History Tobacco Use Types Packs/Day Years Used Date Smoking Tobacco: Former Cigarettes Passive Smoke Exposure: Past Smokeless Tobacco: Never Alcohol Use Standard Drinks/Week Comments Not Currently 0 (1 standard drink = 0.6 oz pur e alcohol) Overall Financial Resource Strain (CARDIA) Answe r Date Recorded How hard is it for you to pa y for the very basics like food, housing, medical care, and heating? Patient declined 07/19/2023 [facility] - Occupational Stress Questionnaire Answer Date Recorded Do you feel stress - tense, restless, nervous, or anxious, or unable to sleep at night because your mind is troubled all the time - these days? To some extent 07/19/2023 Hunger Vital Sign Answer Date Recorded Within the past 12 months, y ou worried that your food would run out before you got the money to buy more. Never true 07/19/19 24 Within the past 12 months, t he food you bought just didn't last and you didn't have money to get more. Never true 07/19/2023 PRAPARE - Transportation Answer Date Re corded In the past 12 months, has l ack of transportation kept you from medical appointments or from getting medications? No 02/2024 In the past 12 months, has l ack of transportation kept you from meetings, work, or from getting things needed for daily living? No 07/19/2023 Housing Stability Vital Sign Answer Jarad e Recorded In the last 12 months, was t here a time when you were not able to pay the mortgage or rent on time? Yes 07/19/2023 In the last 12 months, how many places have you lived? 2 07/19/2023 In the last 12 months, was t here a time when you did not have a steady place to sleep or slept in a chcf (including now)? No 07/19/2023 [place] Depression Scale Answer Date Recorded [place] Depression Scale Total 1 05/10/2023 The thought of harming myself has occurred to me . Never 05/10/2023 Comments Yes Sex and Gender Information Value Date Recorded Sex Assigned at Not on file Gender Identity Not on file Sexual Orientation Not on file documented as of this encounter Miscellaneous Notes * Telephone Encounter - Manuel Fajardo - 09/21/2023 8:42 AM CDT Contacted Patient with details regarding upcoming appt with [facility]. documented in this encounter Plan of Treatment Not on file documented as of this encounter Visit Diagnoses Not on filedocumented in this encounter
--- OUTSIDE RECORDS SUMMARY | 2024-07-20 14:56 | XMS_ITS | Encounter Summary ---
Author Organization [facility] Address [address] [place] [address] Care Team Providers Care Infantry Unit Leader Name Role Phone Unavailable Primary Care Provider Unavailabl e Reason for Visit * Auth/Cert (Routine) Specialty Diagnoses / Procedures Referred By Uriel park Referred To Contact Referral ID Status Reason Start Date Expiration Date Visits Re quested Visits Authorized [id number] 1 1 Encounter Details Date Type Department Care Team (Late Contact Info) Description 09/25/2023 11:19 AM CDT Anesthesia Event [facility] [address] [place] [address] Kelly Ntetles MD [address] [place] [id number] Jerod Grayson, MELTER OPERATOR-SPEEDER FRAME TENDER [address] [place] [address] Anesthesia Record Procedure Summary Procedure Name Responsible Anesthesiologist Anesthesia Start Time Anesthesia Stop Time EPIDURAL BLOCK Kelly Nettles MD 09/25/23 1119 09/09 01/02 1800 Events Date Time Event Comment 09/25/2023 1119 1119 An Start 1120 PT Reassessment 1121 Timeout Anesthesia part icipated in timeout at the time documented in the record by nursing. 1125 Test Dose 1127 Bolus Dose 1146 Electnc Sig This record is electronically signed by the providers listed under staff. 1725 An Start Data 1725 Quick Note To OR for twins delivery 1753 Baby Delivered 1800 Baby Delivered 1800 An Stop Meds Name Total lidocaine 2% - epinephrine (PF) 1:200,00 0 injection 5 mL fentaNYL 2 mcg/ml and ROPivacaine 0.2% i n 0.9% nacl epidural 76.6 mL * Agents Name Exp. Sevoflurane Insp. Sevoflurane N2O * Blood No blood administrations on file. Lines, Drains, and Airways Type Details Placement Removal Peripheral IV Date: 09/25/23; Time : 08; Orientation: Left; Placed By: Shelia Ryan RN; Tolerance: Well 09/25/23 0857 by Aisha Ryan RN 09/28/23 1856 by Generic, Auto Release Urethral Catheter 09/25/23; 1215; Shelia Ryan RN; 10 mL; Yes, Seal Intact; 1; Well; 09/25/23; 1730; Per protocol; Shelia Ryan RN 09/25/23 1215 by Aisha Ryan RN 09/25/23 1730 by Aisha Ryan RN documented in this encounter Social History Tobacco Use Types Packs/Day Years [...] and heating? Not hard at all 09/25/2023 [facility] [place] [facility] Occupat ional Health - Occupational Stress [...] place to sleep or slept in a fpc (including now)? No 09/25/2023 [place] Depression Scale Answer Date Recorded [place] Depression Scale Total 5 09/27/2023 The thought [...] No 09/25/2023 documented as of this encounter Progress Notes * Maude Garg, JULIA-SPEEDER FRAME TENDER - 09/26/2023 11:01 AM CDT ANESTHESIA POSTOP EVALUATION NOTE Procedure: EPIDURAL BLOCK Shikha Padilla is a 23 year old female Patient Vitals for the past 6 hrs: BP Temp Pulse Resp SpO2 Pain Rating Score #1 Pain Scale/Observation 09/26/23 0530 113/57 97.7 ??F (36.5 ??C) 71 16 100 % -- -- 09/26/23 0631 130/75 97.9 ??F (36.6 ??C) 65 18 100 % 5 N 09/26/23 0651 -- -- -- -- -- 2 N 09/26/23 0730 126/82 97.8 ??F (36.6 ??C) 58 16 100 % -- -- 09/26/23 0930 124/81 97.3 ??F (36.3 ??C) 61 16 100 % 0 N Anesthesia Type: epidural * No Diagnosis Codes entered * Mental Status: awake and sufficiently recovered from acute administration of anesthesia to participate in the evaluation Neuro Status: No numbess, tingling or visual disturbances Respiratory Function: natural Cardiac Function: stable Postop Pain: acceptable to the patient Postop Hydration: adequate Postop Nausea: none Assessment: no apparent anesthetic complications and patient tolerated procedure well Patient Disposition: Release from Anesthesia Care NOTABLE EVENTS: No notable events documented. * Jerod Grayson APRN-SPEEDER FRAME TENDER - 09/25/2023 11:19 AM CDT ANESTHESIA PREOPERATIVE EVALUATION NOTE Procedure: EPIDURAL BLOCK Vitals: Patient Vitals for the past 6 hrs: BP Temp Pulse Resp SpO2 Pain Rating Score #1 09/25/23 1120 -- -- -- -- 100 % -- 09/25/23 1118 138/91 -- -- -- -- -- 09/25/23 1048 -- -- -- -- -- 7 09/25/23 0930 -- -- -- -- -- 0 09/25/23 0856 -- -- -- -- 98 % -- 09/25/23 0855 140/96 98.2 ??F (36.8 ??C) 77 18 98 % -- LMP: Patient's last menstrual period was 01/10/2023. OB Status: ANESTHESIA PRE-EVALUATION NOTE The patient is a current non-smoker. The patient was not instructed to abstain from smoking on day of procedure. Physical Exam: Orientation X3 Airway/Mallampati Score: II Mouth Opening Distance: 3 fingerwidths Neck ROM: full TM Distance: > 3 FB Teeth: normal Heart: normal - S1 S2 Lungs: clear to ausculation bilaterally Abdomen Exam: gravid Review of Systems: History of anesthetic complications: No Sleep Apnea Risk: No Malignant Hyperthermia: No GERD: Yes, well controlled Poor Exercise Tolerance: No Recent Chest Pain: No Shortness of Breath: No AICD/Pacemaker: No Renal Disease: No Diagnostic Tests: Lab(s) reviewed: Yes. ANESTHESIA PLAN ASA Score: 2 NPO Status: Continuous clear liquids Anesthesia Plan: epidural Nerve Blocks: epidural. Planned Postop Destination: OB Anesthetic plan was discussed with: patient Anesthetic Plan discussion was: Consented The patient's procedural Anesthetic Plan was discussed with the anesthesiologist. BMI, Height, Weight Tobacco History Estimated body mass index is 25.29 kg/m?? as calculated from the following: Height as of this encounter: 1.651 m (5' 5 ). Weight as of this encounter: 68.9 kg (152 lb). Social History Tobacco Use Smoking Status Former ??? Types: Cigarettes ??? Passive exposure: Past Smokeless Tobacco Never Alcohol History Drug History Social History Substance and Sexual Activity Alcohol Use Not Currently Social History Substance and Sexual Activity Drug Use Not Currently Outpatient Medications: Inpatient Medications: Outpatient Medications Marked as Taking for the 09/25/23 encounter (Hospital Encounter) Medication Sig Last Dose ??? Calcium Carb-Cholecalciferol (CALCIUM 500/D PO) Take 1 tablet by mouth once daily ??? magnesium Take 1 (one) tablet by mouth once daily ??? multivitamin daily Take 1 (one) tablet by mouth daily with food ??? vitamin Take 1 (one) tablet by mouth once daily Current Facility-Administered Medications Medication Dose Last Admin ??? 0.9% NaCl 3 mL 3 mL at 09/25/23 0945 And ??? 0.9% NaCl 1-10 mL ??? fentaNYL 2 mcg/ml and ROPivacaine 0.2% in 0.9% nacl ??? lactated ringers Bolus at 09/25/23 1115 ??? metoclopramide 5 mg ??? metoclopramide 5 mg ??? ondansetron (disintegrating) 4 mg ??? ondansetron 4 mg ??? oxytocin 125-1,000 joao-units/min ??? oxytocin 0-20 joao-units/min 4 joao-units/min at 09/25/23 1044 ??? penicillin g potassium 3 Million Units ??? terbutaline 0.25 mg ??? tranexamic acid 1,000 mg Allergies: No Known Allergies Relevant Problems Problem List: Patient Active Problem List Diagnosis Date Noted ??? Dichorionic diamniotic twin in third trimester ([facility]) 09/25/2023 Priority: Not Prioritized ??? Gestational hypertension ([facility]) 09/21/2023 Priority: Not Prioritized ??? growth restriction antepartum ([facility]) 09/21/2023 Priority: Not Prioritized ??? Cystic fibrosis carrier, antepartum ([facility]) 08/09/2023 Priority: Not Prioritized ??? GBS bacteriuria 08/09/2023 Priority: Not Prioritized ??? Dichorionic diamniotic twin ([facility]) 05/12/2023 Priority: Not Prioritized ??? Two vessel umbilical cord, antepartum ([facility]) 08/09/2023 Twin B Medical History: Past Medical History: Diagnosis Date ??? depression Surgical History: No past surgical history on file. DIRECTOR WRITING Status: Patient's last menstrual period was 01/10/2023. OB History Para Term AB Living 2 1 1 0 0 1 SAB IAB Ectopic Multiple Live Births 0 0 0 0 1 # Outcome Date GA Lbr Damir/2nd Weight Sex Delivery Anes PTL Lv 2 Current 1 Term 05/26/21 41w0d 2835 g (6 lb 4 oz) Vag-Spont DAVID Covid Vaccine: Lab Results: Recent Labs Component Name 09/25/23 0904 WBC 8.4 RBC 3.71* HCT 31.7* HGB 10.5* PLTCOUNT 213 MCV 85.4 MCH 28.3 MCHC 33.1 MPV 10.1 Recent Labs Component Name 09/25/23 0904 ABORH O POS ABSCG NEG Recent Labs Component Name 09/20/23 1205 BLOODUA Negative WBCUA 21-50* NITRITEUA Negative PROTEINUA 1+* CREATININEUR 93.29 Recent Labs Component Name 09/25/23 0904 SODIUM 140 POTASSIUM 4.0 CALCIUM 8.3* CHLORIDE 110* CO2 22 GLUCOSE 72 BUN 8 CREATININE 0.72 No results found for requested labs within last 120 days. Recent Labs Result Component Current Result Albumin 2.4 (L) (09/25/2023) Alkaline Phosphatase 259 (H) (09/25/2023) ALT 10 (09/25/2023) Anion Gap 8 (09/25/2023) AST 19 (09/25/2023) Bilirubin Total 0.2 (09/25/2023) eGFR by CKD-EPI >90 (09/25/2023) documented in this encounter Plan of Treatment Not on file documented as of this encounter Visit Diagnoses Not on filedocumented in this encounter Administered Medications Inactive Administered Medications - up to 3 most recent administrations Medication Order MAR Action Action Date Dose Rate Site fentaNYL 2 mcg/ml and ROPivacaine 0.2% in 0.9% nacl epidural at 12 mL/hr, Epidural, CONTINUOUS, Starting on 09/25/23 at 1230, Until 09/25/23 at 2256, Demand Dose: 4 mL Lock out: 15 minutes 1 hour limit: 28 mL $ Given 09/25/2023 11:28 AM CDT 5 mL $ New Bag/Syringe 09/25/2023 11:27 AM CDT 12 mL/hr 12 mL /hr lidocaine 2% (Xylocaine-MPF) - EPINEPHrine 1:200,000 injection Epidural, PRN, Starting on 09/25/23 at 1125, Until 09/25/23 at 1800, Anesthesia Intra-op $ Given 09/25/2023 11:25 AM CDT 5 mL documented in this encounter
--- OUTSIDE RECORDS SUMMARY | 2024-07-20 14:56 | XMS_ITS | Encounter Summary ---
Author Organization [facility] Address [address] [facility] [address] Care Team Providers Care J2Ee Software Engineer Name Role Phone Unavailable Primary Care Provider Unavailabl e Reason for Visit * Reason Comments Refill Request Encounter Details Date Type Department Care Team ([facility] Contact Info) Description 12/12/2023 Refill [facility] 6[address] MOTHER/BABY [address] [place] [address] Renay Davalos MD [address] [place] [address] Refill Request Social History Tobacco Use Types Packs/Day Years [...] and heating? Not hard at all 09/25/2023 [facility] [place] of Occupat ional Health - Occupational Stress [...] place to sleep or slept in a intermediate (including now)? No 09/25/2023 [place] Depression Scale Answer Date Recorded [place] Depression Scale Total 5 09/27/2023 The thought [...]
--- OUTSIDE RECORDS SUMMARY | 2024-07-20 14:56 | XMS_ITS | Encounter Summary ---
Author Organization [facility] Address [address] [facility] [place] [address] Care Team Providers Care High School English Teacher Name Role Phone Unavailable Primary Care Provider Unavailabl e Reason for Visit * Reason Comments Nurse Only Blood Pressure Check Encounter Details Date Type Department Care Team (Latest Contact Info) Description 09/30/2023 12:55 PM CDT - 09/30/2023 11:59 PM CDT Hospital Encounter [facility] MATERNAL/ EVALUATION UNIT [address] [place] [address] Maude Gonzalez, ROPE TWISTING MACHINE OPERATOR-OUTSOLE PARAFFINER [address] [facility] [address] [place] [address] Discharge Disposition: Home or Self Care Social [...] and heating? Not hard at all 09/25/2023 [facility] [place] of Occupat ional Health - Occupational Stress [...] place to sleep or slept in a mcc (including now)? No 09/25/2023 [place] Depression Scale Answer Date Recorded [place] Depression Scale Total 5 09/27/2023 The thought of harming myself has occurred to me . Never 09/27/2023 Sex and Gender Information Value Date Recorded Sex Assigned at Not on file Gender Identity Not on file Sexual Orientation Not on file documented as of this encounter Last Filed Vital Signs Vital Sign Reading Time Taken Comments Blood Pressure 131/92 09/30/2023 1:10 PM CDT Pulse - - Temperature - - Respiratory Rate - - Oxygen Saturation - - Inhaled Oxygen Concentration - - Weight - - Height - - Body Mass Index - - documented in this encounter Functional Status Functional [...] No 09/25/2023 documented as of this encounter Medications at Time of Discharge [...] as of this encounter Progress Notes * Marissa Hunt RN - 09/30/2023 1:14 PM CDT Patient here for BP check. BP as documented. Patient last took her Nifedipine in the afternoon yesterday. States she has a BP cuff at home. Discussed with Maude Serini, INFRASTRUCTURE CONSULTANT. Patient to take her Nifedipine when she gets home and to keep follow up appointment. Provided with BP log. documented in this encounter Plan of Treatment Not on file documented as of this encounter Visit Diagnoses Not on filedocumented in this encounter
--- OUTSIDE RECORDS SUMMARY | 2024-07-20 14:57 | XMS_ITS | Encounter Summary ---
Author Organization [facility] Address [address] [place] [address] Care Team Providers Care Discharge Specialist Name Role Phone Unavailable Primary Care Provider Unavailabl e Reason for Visit * Reason Comments Routine Visit Ultrasound Encounter Details Date Type Department Care Team (Latest Contact Info) Description 08/09/2023 8:11 AM COLLEGE PRESIDENT - 08/09/2023 11:59 PM COLLEGE PRESIDENT Hospital Encounter [facility] MATERNAL/ EVALUATION UNIT [address] [place] [address] Ethan Velazco DO [address] [place] [id number] Discharge Disposition: Home or Self Care Social History Tobacco Use Types Packs/Day Years Used Date Smoking Tobacco: Never Assessed Overall Financial Resource Strain (CARDIA) Answe r Date Recorded How hard is it for you to pa y for the very basics like food, housing, medical care, and heating? Patient declined 07/19/2023 [facility] of Occupat ional Health - Occupational Stress [...] place to sleep or slept in a usp (including now)? No 07/19/2023 [place] Depression Scale Answer Date Recorded [place] Depression Scale Total 1 05/10/2023 The thought of harming myself has occurred to me . Never 05/10/2023 Comments Yes Sex and Gender Information Value Date Recorded Sex Assigned at Not on file Gender Identity Not on file Sexual Orientation Not on file documented as of this encounter Last Filed Vital Signs Vital Sign Reading Time Taken Comments Blood Pressure 122/81 08/09/2023 10:23 AM COLLEGE PRESIDENT Pulse 76 08/09/2023 10:23 AM COLLEGE PRESIDENT Temperature - - Respiratory Rate - - Oxygen Saturation - - Inhaled Oxygen Concentration - - Weight 63 kg (139 lb) 08/09/2023 10:23 AM COLLEGE PRESIDENT Height - - Body Mass Index 23.13 07/19/2023 9:26 AM COLLEGE PRESIDENT documented in this encounter Medications at Time of Discharge Medication Sig Dispensed Refills Start Date End Date magnesium 500 MG tablet Take 1 (one) tablet by mouth once daily Vit-Fe Fumarate-FA ( vitamin) 28-0.8 MG tablet Take 1 (one) tablet by mouth once daily documented as of this encounter Progress Notes * Winifred Wilkes MD - 08/09/2023 10:34 AM CST PGY3 High Risk Clinic Return Visit 08/09/23 S: Shikha Padilla is a 23 year old @ 30w1d Today she notes some green discharge, denies dysuria. Irregular contractions, non-painful. Denies CTX, LOF, VB; +FM O: Vitals: 08/09/23 1023 BP: 122/81 Pulse: 76 Weight: 63 kg (139 lb) FHT + per FETU [08/09] A EFW 1371g (16%), B EFW 1308g (9%) dopplers wnl, vtx/br Recent Labs Component Name 08/09/23 1031 GLUCOSEUA Negative A/P: Shikha Padilla is a 23 year old at 30w1d Patient Active Problem List Diagnosis Date Noted ??? Dichorionic diamniotic twin 05/12/2023 Priority: Not Prioritized Supervision of - Dating 9wk US - PNL: O+/I/-/-, NR - GC/CT: -/- - Pap: NILM - Urine Culture: GBSuria, s/p tx - UDS: negative - CF: Carrier - Hgb Electrophoresis: wnl - NIPT: LR - MOC: to be discussed - MOF: to be discussed - MOD: desires - GCT: 122 - 3T labs: wnl - GBSuria - needs intrapartum PCN DCDA Twins Selective SGA Twin B Twin B Single Umbilical Artery - [08/09] A EFW 1371g (16%), B EFW 1308g (9%) dopplers wnl, vtx/br - repeat growth US with doppler assessment 2 weeks - start testing at 32 weeks - Desires Elevated BPx1 without diagnosis of cHTN - Denies history of cHTN - BP at 14wk 140's - normotensive since, including today CF Carrier - per labs with primary OB, found after visit today - unknown if FOB has been tested/involved - discuss at next visit testing is indicated for DCDA Twins, SGA Twin B: start weekly BPP/NST at 32 weeks. Current delivery plan: Desires RTC 2 weeks Precautions for PTL/VB/DFM given. Seen and discussed with Dr. Velazco. Winifred Wilkes MD 08/09/2023 10:34 AM EGE PRESIDENT Associated attestation - Ethan Velazco DO - 08/09/2023 2:52 PM COLLEGE PRESIDENT MFM attending: Patient seen and examined with resident. Agree with assessment and plan. She is being followed due to dichorionic diamniotic twin gestation with selective SGA twin B twin B also has a single umbilical artery most recent ultrasound was performed today twin B estimated weight 1308 g 9 percentile with Dopplers all within normal range no evidence of placental resistance twin a estimated weight 1371 g 16 percentile she is due for repeat interval growth in 2 weeks and to initiate weekly testing at 32 weeks sooner if clinically warranted. It was noted after patient left from clinic from her primary OB provider's office that she has CF carrier positive we will discuss with her at the next visit including partner testing if not done so far. Based on subsequent findings will determine timing of delivery. Her glucose screen was negative from her last visit CBC WBC 10.8 H&H 12.137 respectively platelet count 215 syphilis tests nonreactive HIV nonreactive. labor precautions along with kick counts. The above was discussed with Ms. Padilla who understood all questions answered she was reassured. She is in agreement with the management plan. DO SIMONE Mcadams documented in this encounter Plan of Treatment Not on file documented as of this encounter Procedures Procedure Name Priority Date/Time Associated Diagnosis Comments TRICHOMONAS VAGINALIS AMPLIFIED PROBE Routine 08/09/2023 10:45 AM COLLEGE PRESIDENT Abnormal urogenital discharge CHLAMYDIA + GC AMPLIFIED PROBE Routine 08/09/2023 10:45 AM COLLEGE PRESIDENT Abnormal urogenital discharge URINE MICROSCOPIC ONLY REFLEX TO CULTURE Routine 08/09/2023 10:44 AM COLLEGE PRESIDENT Abnormal urogenital discharge URINALYSIS REFLEX MICROSCOPIC REFLEX CULTURE Routine 08/09/2023 10:44 AM COLLEGE PRESIDENT Abnormal urogenital discharge CULTURE URINE Routine 08/09/2023 10:44 AM COLLEGE PRESIDENT Abnormal urogenital discharge URINALYSIS - POCT (IP) BEAKER INTERFACE Routine 08/09/2023 10:31 AM COLLEGE PRESIDENT documented in this encounter Results * CHLAMYDIA + GC AMPLIFIED PROBE (08/09/2023 10:45 AM COLLEGE PRESIDENT) Chlamydia Amplified Probe Negative Negative 08/09/2023 8:45 PM COLLEGE PRESIDENT [facility] GC Amplified Probe Negative Negative 08/09/2023 8:45 PM COLLEGE PRESIDENT [facility] Microbiology URINE / Unknown Collection / Unknown 08/09/2023 10:45 AM COLLEGE PRESIDENT 08/09/2023 11:07 AM COLLEGE PRESIDENT Narrative [facility] - 08/09/2023 8:45 PM COLLEGE PRESIDENT Results based on detection/no detection of ribosomal RNA by amplified method. [facility] O GLADIS Performing Organization Address [facility] Co de Phone Number [facility] [address] [place] [address], [facility] [phone] * TRICHOMONAS VAGINALIS AMPLIFIED PROBE (08/09/2023 10:45 AM COLLEGE PRESIDENT) Trichomonas vaginalis Amplified Probe Negative Negative 08/09/2023 6:53 PM COLLEGE PRESIDENT [facility] Microbiology URINE / Unknown Collection / Unknown 08/09/2023 10:45 AM COLLEGE PRESIDENT 08/09/2023 11:07 AM COLLEGE PRESIDENT Narrative [facility] - 08/09/2023 6:53 PM COLLEGE PRESIDENT This test was developed and its performance characteristics determined by the [facility], [facility]. Urine specimens tested by the [facility] have not been cleared or approved by the U.S. Food and Drug Administration (FDA). The laboratory is regulated under the Clinical Laboratory Improvement Amendments (CLIA) as qualified to perform high-complexity testing. This test is used for clinical purposes. It should not be regarded as investigational or for research. Results based on detection/no detection of ribosomal RNA by amplified method. Ethan [facility] LAB - MICROBIOLOGY O JASPERGISELLEMONTY Performing Organization Address City/[facility] Co de Phone Number [facility] [address] [place] [address], [facility] [phone] * CULTURE URINE (08/09/2023 10:44 AM COLLEGE PRESIDENT) Culture Urine >100,000 CFU/mL urogenital corie KAMALA 08/10/2023 11:00 PM COLLEGE PRESIDENT [facility] Urine URINE SPECIMEN OBTAINED BY CLEAN CATCH PROCEDURE / Unknown Collection / Unknown 08/09/2023 10:44 AM COLLEGE PRESIDENT 08/09/2023 11:06 AM COLLEGE PRESIDENT Ethan Velazco LAB - MICROBIOLOGY O RDERABLES [facility] [address] [place] [address], [facility] [phone] * (ABNORMAL) URINE MICROSCOPIC ONLY REFLEX TO CULTURE (08/09/2023 10:44 AM COLLEGE PRESIDENT) Reflex Status Culture to follow 08/09/2023 12:20 PM COLLEGE PRESIDENT [facility] RBC UA 0-2 0 - 5 # /hpf 08/09/2023 12:20 PM COLLEGE PRESIDENT [facility] WBC UA >100(A) 0 - 5 # /hpf 08/09/2023 12:20 PM COLLEGE PRESIDENT [facility] Bacteria UA 3+(A) None Seen 08/09/2023 12:20 PM COLLEGE PRESIDENT [facility] Squamous Epithelial Cells >20(A) 0 - 5 /hpf 08/09/2023 12:20 PM COLLEGE PRESIDENT [facility] Transitional Epithelial Cell UA 3-5(A) None Seen /HPF 08/09/2023 12:20 PM COLLEGE PRESIDENT [facility] Urine URINE SPECIMEN OBTAINED BY CLEAN CATCH PROCEDURE / Unknown Collection / Unknown 08/09/2023 10:44 AM COLLEGE PRESIDENT 08/09/2023 11:06 AM COLLEGE PRESIDENT Narrative [facility] - 08/09/2023 12:20 PM COLLEGE PRESIDENT Ethan Velazco DO LAB - URINALYSIS ORD ERABLES [facility] [address] [place] [address] * (ABNORMAL) URINALYSIS REFLEX MICROSCOPIC REFLEX CULTURE (08/09/2023 10:44 AM COLLEGE PRESIDENT) Color UA Yellow Straw, Yellow 08/09/2023 11:19 AM COLLEGE PRESIDENT [facility] Clarity UA Cloudy(A) Clear 08/09/2023 11:19 AM COLLEGE PRESIDENT [facility] Glucose UA Negative Negative 08/09/2023 11:[address] [facility] Bilirubin UA Negative Negative 08/09/2023 11:[address] [facility] Ketone UA Negative Negative 08/09/2023 11:[address] [facility] Specific [place] UA 1.009 1.005 - 1.030 08/09/2023 11:[address] [facility] Blood UA Negative Negative 08/09/2023 11:[address] [facility] pH UA 7.0 5.0 - 8.0 pH 08/09/2023 11:[address] [facility] Protein UA Negative Negative 08/09/2023 11:[address] [facility] Urobilinogen UA Negative Negative mg/dL 08/09/2023 11:[address] [facility] Nitrite UA Negative Negative 08/09/2023 11:[address] [facility] Leukocyte UA 3+(A) Negative 08/09/2023 11:[address] [facility] Urine Microscopy Urine microscopy to follow 08/09/2023 11:[address] [facility] Reflex Status Culture to follow 08/09/2023 11:[address] [facility] Urine URINE SPECIMEN OBTAINED BY CLEAN CATCH PROCEDURE / Unknown Collection / Unknown 08/09/2023 10:44 AM COLLEGE PRESIDENT 08/09/2023 11:06 AM [facility] Narrative [facility] - 08/09/2023 11:19 AM [facility] Ethan Velazco DO LAB - URINALYSIS ORD ERABLES Performing Organization Address City/State/[facility] Co de Phone Number [facility] [address] [place] [address] * (ABNORMAL) URINALYSIS - POCT (IP) BEAKER INTERFACE (08/09/2023 10:31 AM [facility]) Color UA POCT Yellow Straw, Yellow, Dark Yellow, Light Yellow 08/09/2023 10:[address] [facility] Clarity UA POCT Clear Clear 10:[address] [facility] Specific [place] UA POCT 1.020 1.005 - 1.030 08/09/2023 10:[address] [facility] pH UA POCT 7.0 5.0 - 8.0 pH 08/09/2023 10:32 AM COLLEGE PRESIDENT [facility] Protein UA POCT Negative Negative 4 10:32 AM COLLEGE PRESIDENT [facility] Blood UA POCT Trace-lysed (A) Negative 08/09/2023 10:32 AM COLLEGE PRESIDENT [facility] Leukocyte UA POCT 3+(A) Negative 08/09/2023 10:32 AM COLLEGE PRESIDENT [facility] Nitrite UA POCT Negative Negative 4 10:32 AM COLLEGE PRESIDENT [facility] Glucose UA POCT Negative Negative 4 10:32 AM COLLEGE PRESIDENT [facility] Ketone UA POCT Negative Negative 08/09/2023 10:32 AM COLLEGE PRESIDENT [facility] Bilirubin UA POCT Negative Negative 08/09/2023 10:32 AM COLLEGE PRESIDENT [facility] Urobilinogen UA POCT 0.2 0.1 - 1.0 EU/dL 08/09/2023 10:[address] [facility] Urine URINE / Unknown 08/09/2023 1 0:31 AM COLLEGE PRESIDENT 08/09/2023 10:32 AM [facility] Ethan Velazco DO LAB - POINT OF CARE ORDERABLES [facility] [address] [place] [address] documented in this encounter Visit Diagnoses Diagnosis Abnormal urogenital discharge- Primary documented in this encounter
--- OUTSIDE RECORDS SUMMARY | 2024-07-20 14:57 | XMS_ITS | Encounter Summary ---
Author Organization [facility] Address [facility] [facility] [place] [address] Care Team Providers Care Talent Specialist Name Role Phone Unavailable Primary Care Provider Unavailabl e Reason for Referral * (Routine) - Open Specialty Diagnoses / Procedures Referred By Uriel t Referred To Contact Diagnoses growth restriction antepartum (HCC) Procedures BIOPHYSICAL PROFILE W NST Franc Kolb MD [address] [facility] [address] [place] [address] Referral ID Status Reason Start Date Expiration Date Visits Re quested Visits Authorized [id number] Open 08/23/2023 08/22/2024 4 4 CTOR SAFETY COUNCIL Reason for Visit * Reason Comments Ultrasound Encounter Details Date Type Department Care Team (Late st Contact Info) Description 08/30/2023 8:59 AM DIRECTOR SAFETY COUNCIL - 08/30/2023 11:59 PM DIRECTOR SAFETY COUNCIL Hospital Encounter [facility] MATERNAL/ EVALUATION UNIT [address] [place] [address] Deysi Yanes MD [address] [place] [address] Discharge Disposition: Home or Self Care Social History Tobacco Use Types Packs/Day Years Used Date Smoking Tobacco: Never Assessed Overall Financial Resource Strain (CARDIA) Answe r Date Recorded How hard is it for you to pa y for the very basics like food, housing, medical care, and heating? Patient declined 07/19/2023 [facility] [place] of Occupat ional Health - Occupational Stress [...] slept in a correction (including now)? No 07/19/2023 [place] Depression Scale Answer Date Recorded [place] Depression Scale Total 1 05/10/2023 The thought of harming myself has occurred to me . Never 05/10/2023 Comments Yes Sex and Gender Information Value Date Recorded Sex Assigned at Not on file Gender Identity Not on file Sexual Orientation Not on file documented as of this encounter Medications at Time of Discharge Medication Sig Dispensed Refills Start Date End Date magnesium 500 MG tablet Take 1 (one) tablet by mouth once daily Vit-Fe Fumarate-FA ( vitamin) 28-0.8 MG tablet Take 1 (one) tablet by mouth once daily documented as of this encounter Plan of Treatment Not on file documented as of this encounter Procedures Procedure Name Priority Date/Time Associated Diagnosis Comments BIOPHYSICAL PROFILE W NST Routine 08/30/2023 9:26 AM DIRECTOR SAFETY COUNCIL Selective growth restriction antepartum documented in this encounter Results * BIOPHYSICAL PROFILE W NST (08/30/2023 9:26 AM DIRECTOR SAFETY COUNCIL) Anatomical Region Laterality Modality Other 08/30/2023 9:26 AM DIRECTOR SAFETY COUNCIL Narrative 08/30/2023 11:17 AM DIRECTOR SAFETY COUNCIL ?[facility] [place] [facility] ?PHONE: ??FAX: FETUS A Pat. Name: ?SHIKHA PADILLA Pat. No: ?[id number] Study Date: ?? 08/30/2023 ??9:26am , Age: ? 2000, 23 Pregnancies: ?? 2, Para 1 Height: ? 65 in Weight: ? 119 lb LMP: ?Unknown GA by Base: ?? 33w1d ?? BRENDA: 10/17/2023 GA Selected: ??33w1d (From [facility]) BRENDA: ?10/17/2023 Referring MD: Natacha, , [facility] Heel Reducer: ??Nell Chapa RDMS CPT4: ? 36700,[id number],x2,98956,x2,84181,x2 BMI: ?19.8 Hist/Ind: ? DA/DC twins ?SGA both twins ??(A-8%, AC at 8% ?B 6% 08/23) ?Low-risk cf-DNA ?Single umbilical artery (SUA) twin B ?Incomplete Anatomy Screen x2 Heart Rate: 135 bpm Amniotic Fluid Index: 05.1cm (Deepest Pocket) Biophysical Profile: 04/20 Breathin ?? Tone: 2 ?? NST: 2 Movement: ??2 ?? AFV: ??2 EVAL, PLACENTA Presentation: cephalic MaternalSide: cervix/left Placenta: anterior Heart Rate: 135 bpm Amniotic Fluid Volume: normal DOPPLER Umbilical - Mid Cord S/D ??2.66(1.78 - 3.76) ? PI ?? 0.99 (0.64 - 1.22) ? Middle Cerebral Artery PSV ??37.2cm/s PI ?? 1.94 (1.58 - 2.81) ? Med PSV 46.8cm/s MoM 0.79(<1.5) Anatomy!Normal!Abnormal!Suboptimal!Prev. Seen!Comments Cranium ?! ?! ?! ?! [...] ? x ?! Lip ?! ?! ?! ? x ?! ?! Spine ?! ?! ?! ?! [...] ?! ?! ? x ?! Cord In! ?! ?! ?! ? x ?! Upper Extremi! ?! ?! ? x ?! ?! Hands ?! ?! ?! ? x ?! ?! Lower Extremi! ?! ?! ?! ? x ?! Feet ? ! ?! ?! ?! ? x ?! External Malissa! ?! ?! ?! ? x ?! Placental Cor! ?! ?! ?! ? x ?! CLINICAL SUMMARY A dichorionic, diamniotic twin intrauterine is seen. ??The DVP appears normal for twin A, and normal for twin B. ?? The FHR baseline was 130 bpm for twin A and 125 bpm for twin B during today's reactive NSTs. ??The FHR variability was moderate for both twins. IMPRESSION: Dichorionic, diamniotic twins, live, intrauterine preganacy at 33w1d ?? Amniotic fluid volume: Normal DVPs for both twins UA and MCA Doppler studies are within normal limits for both twins Reassuring testing for both twins RECOMMEND: Continue weekly testing and Dopplers studies. ?? Repeat growth assessment in 2 weeks. Thank you for allowing us the opportunity to care for your patient. ?? Deysi Yanes MD <Electronic Signature> ??08/30/2023 11:15am FETUS B Pat. Name: ?SHIKHA PADILLA Pat. No: ?[id number] Study Date: ?? 08/30/2023 ??9:26am , Age: ? 2000, 23 Pregnancies: ?? 2, Para 1 Height: ? 65 in Weight: ? 119 lb LMP: ?Unknown GA by Base: ?? 33w1d ?? BRENDA: 10/17/2023 GA Selected: ??33w1d (From [facility]) BRENDA: ?10/17/2023 Referring MD: Natacha, , [facility] Heel Reducer: ??Nell Chapa, RDMS CPT4: ? [id number],x2,95625,x2,14711,x2 Hist/Ind: ? DA/DC twins ?SGA both twins ??(A-8%, AC at 8% ?B 6% 08/23) ?Low-risk cf-DNA ?Single umbilical artery (SUA) twin B ?Incomplete Anatomy Screen x2 Heart Rate: 127 bpm Amniotic Fluid Index: 06.0cm (Deepest Pocket) Biophysical Profile: 04/20 Breathin ?? Tone: 2 ?? NST: 2 Movement: ??2 ?? AFV: ??2 EVAL, PLACENTA Presentation: breech MaternalSide: right Placenta: anterior Heart Rate: 127 bpm Amniotic Fluid Volume: normal DOPPLER Umbilical - Mid Cord S/D ??2.35(1.78 - 3.76) ? PI ?? 0.90 (0.64 - 1.22) ? Middle Cerebral Artery PSV ??43.1cm/s PI ?? 1.78 (1.58 - 2.81) ? Med PSV 46.8cm/s MoM 0.92(<1.5) Anatomy!Normal!Abnormal!Suboptimal!Prev. Seen!Comments Cranium ?! ?! ?! ?! ? x ?! Mdl (CSP/Thal! ?! ?! ?! ? x ?! Ventricles ?? ! ?! ?! ?! ? x ?! Choroid Plexu! ?! ?! ?! ? x ?! Cerebellum ?? ! ?! ?! ?! ? x ?! Cisterna M. ??! ?! ?! ?! ? x ?! Nuchal Fold ??! ?! ?! ? x ?! ?! Orbits ? ! ?! ?! ?! [...] ?! ?! ? x ?! Cord In! ?! ?! ? x ?! ?! Upper Extremi! ?! ?! ?! ? x ?! Hands ?! ?! ?! ?! ? x ?! Lower Extremi! ?! ?! ?! ? x ?! Feet ? ! ?! ?! ? x ?! ?! External Malissa! ?! ?! ?! ? x ?! Placental Cor! ?! ?! ?! ? x ?! CLINICAL SUMMARY Deysi Yanes MD <Electronic Signature> ??08/30/2023 11:15am Franc Kolb MD MFM ORDERABLES documented in this encounter Visit Diagnoses Diagnosis Selective growth restriction antepartum documented in this encounter
--- OUTSIDE RECORDS SUMMARY | 2024-07-20 14:57 | XMS_ITS | Encounter Summary ---
Author Organization [facility] Address [address] [place] [address] Care Team Providers Care Ammunition Assembly I Laborer Name Role Phone Unavailable Primary Care Provider Unavailabl e Reason for Visit * Reason Comments Non-stress Test Encounter Details Date Type Department Care Team (Late st Contact Info) Description 08/23/2023 8:46 AM AGRICULTURAL PRODUCE SORTER - 08/23/2023 11:59 PM AGRICULTURAL PRODUCE SORTER Hospital Encounter [facility] MATERNAL/ EVALUATION UNIT [address] [facility] [address] [facility] [place] [address] LansfordDeysi marinelli MD [address] [facility] [address] [place] [address] Discharge Disposition: Home or Self Care Social History Tobacco Use Types Packs/Day Years Used Date Smoking Tobacco: Never Assessed Overall Financial Resource Strain (CARDIA) Answe r Date Recorded How hard is it for you to pa y for the very basics like food, housing, medical care, and heating? Patient declined 07/19/2023 [facility] [place] of Occupat ional Health - Occupational Stress [...] in a nursing home (including now)? No 07/19/2023 [place] Depression Scale Answer Date Recorded [place] Depression Scale Total 1 05/10/2023 The thought [...]
--- OUTSIDE RECORDS SUMMARY | 2024-07-20 14:57 | XMS_ITS | Encounter Summary ---
Author Organization [facility] Address [address] [facility] [place] [address] Care Team Providers Care Stereotype Molder Name Role Phone Unavailable Primary Care Provider Unavailabl e Reason for Visit * Reason Comments Maternal Medicine Encounter Details Date Type Department Care Team (Late st Contact Info) Description 09/20/2023 8:47 AM CDT - 09/20/2023 11:59 PM CDT Hospital Encounter [facility] MATERNAL/ EVALUATION UNIT [address] [place] [address] Deysi Yanes MD [address] [facility] [address] [place] [address] Discharge Disposition: Home or Self Care Social [...] medical care, and heating? Patient declined 07/19/2023 [facility] [place] [facility] - Occupational Stress [...] place to sleep or slept in a fci (including now)? No 07/19/2023 [place] Depression Scale Answer Date Recorded [place] Depression Scale Total 1 05/10/2023 The thought of harming myself has occurred to me . Never 05/10/2023 Comments Yes Sex and Gender Information Value Date Recorded Sex Assigned at Not on file Gender Identity Not on file Sexual Orientation Not on file documented as of this encounter Last Filed Vital Signs Vital Sign Reading Time Taken Comments Blood Pressure 124/88 09/20/2023 10:11 AM CDT Pulse 92 09/20/2023 10:11 AM CDT Temperature - - Respiratory Rate - - Oxygen Saturation - - Inhaled Oxygen Concentration - - Weight 68.9 kg (152 lb) 09/20/2023 10:11 AM CDT Height - - Body Mass Index 25.29 09/06/2023 1:37 PM [employer] documented in this encounter Medications at Time [...] as of this encounter Progress Notes * Deysi Yanes MD - 09/20/2023 11:02 AM CDT PGY4 High Risk Clinic Return Visit 09/20/23 S: Shikha Padilla is a 23 year old @ 36w2d Today she notes feeling overwhelmed regarding upcoming delivery of her twins and the possibility ofa NICU admission. She [address] [facility] and fearful that they will have a prolonged admission. She has been taking her BPs at home and reports readings 120-130/80s. She denies headaches, changesin vision, RUQ/epigastric pain. Treated for yeast infection at recent vist, reports symptoms have resolved. Denies CTX, LOF, VB; +FM x2 O: Vitals: 09/20/23 1011 BP: 124/88 Pulse: 92 Weight: 68.9 kg (152 lb) FHT per FETU US Recent Labs Component Name 09/20/23 1205 PROTEINUA 1+* GLUCOSEUA Negative KETONEUA Negative A/P: Shikha Padilla is a 23 year old at 36w2d Patient Active Problem List Diagnosis Date Noted ??? Gestational hypertension ([facility]) 09/21/2023 Priority: Not Prioritized ??? growth restriction antepartum ([facility]) 09/21/2023 Priority: Not Prioritized ??? Cystic fibrosis carrier, antepartum ([facility]) 08/09/2023 Priority: Not Prioritized ??? GBS bacteriuria 08/09/2023 Priority: Not Prioritized ??? Dichorionic diamniotic twin ([facility]) 05/12/2023 Priority: Not Prioritized ??? Two vessel umbilical cord, antepartum ([facility]) 08/09/2023 Twin B Supervision of - Dating 9wk US - PNL: O+/I/-/-, NR - GC/CT: -/- - Pap: NILM - Urine Culture: GBSuria, s/p tx - UDS: negative - CF: Carrier - Hgb Electrophoresis: wnl - NIPT: LR - MOC: OCPs - MOF: breast - MOD: desires - GCT: 122 - 3T labs: wnl - Tdap: Did not receive - RSV vacc: 08/23/23 - GBSuria - needs intrapartum PCN ?? DCDA Twins FGR of Twin A and B Single umbilical artery of Twin B -Ultrasounds: -Twin A: -08/09/23: EFW 1371g (16%), dopplers wnl -08/23/23: EFW 1607g (8%), AC 8%, dopplers wnl -09/06/23: dopplers wnl -09/13/23: EFW 2074 gm (6%), AC 1%, dopplers wnl -09/20: UA/MCA dopplers wnl, BPP 10/10; cephalic -Twin B: -08/09/23: EFW 1308g (9%), dopplers wnl -08/23/23: EFW 1579g (6%), AC 13%, dopplers wnl -09/06/23: MCA dopplers decreased -09/13/23: EFW 2010g (4%), AC 5%, UA doppler increased -09/20: UA/MCA dopplers wnl, BPP 10/10; breech -We discussed mode of delivery in the setting of cephalic Twin A and malpresenting Twin B. Discussed the option for trial of vaginal delivery for both twins with internal podalic version and breech extraction of Twin B or scheduled primary delivery for both twins. If opts for a trial of vag inal delivery, we discussed the possibility of head entrapment of Twin B with possibility of maternal cervical injury and hypoxia/ injury. We also discussed the possibility of a combined vaginal and delivery in the event there is distress for Twin B. The patient strongly desires for a trial of a vaginal delivery with breech extraction of Twin B and is understanding of the above risks/different scenarios. -Delivery is recommended at 36w-37w0d given FGR of both twins with concurrent gestational hypertension. -Plan: -IOL scheduled for 09/25/23 at 0730 at 36w6d (I discussed this with the in-house attendings for Drs. Rivero and Nestor who are aware of her planned induction and agreeable to offer breech extraction of Twin B). -Discussed unknown if twins will require NICU admission though there is a possibility of such. Patient desires NICU consult and will plan to consult on admission to L&D. -Twice weekly ANT and doppler studies (next 09/22) ?? gHTN - Diagnosed at 34w during admission 09/06- - BP today: 124/88 - Home BPs: 120-130s/80s - Asymptomatic - Plan: PIH labs today, Pre-E precautions reviewed, IOL scheduled as above ?? CF and SMA Carrier - per labs with primary OB - FOB tested for status, results pending -??Genetic counseling not completed this given late gestational age. Plan for post- assessment of the twins. GBSuria - PCN during labor RTC post- Precautions for Pre-E, PTL, and FM given. Discussed with Drs. Suarez and Farzana Price MD 09/20/2023 11:37 AM MFM Fellow Brief Note: In summary, Shikha Padilla is our 23 year old at 36w1d with di/di twin gestation presentingfor routine OB follow up. Problems addressed today include: - Di/di twin gestation, FGRx2 with normal Dopplers: continue twice weekly testing; delivery scheduled for 36w6d gestation - gHTN: >1wk since outpatient labs - repeated today. Normotensive today. ?? Mare Suarez MD Maternal Medicine Fellow, PGY-5 MFM Attending I have seen and reviewed the patient with Dr. Price on 09/20/23. I agree with the above assessment, exams and plan. Exam: BP 124/88 Pulse 92 Wt 68.9 kg (152 lb) General: Alert and oriented x3, no acute distress Mentation: Normal mentation HEENT: Neck supple without masses, no LAD Cardiovascular: Regular rate and rhythm Lungs: clear to auscultation bilaterally, no wheezes/rhales Abdomen: soft, non-tender, gravid Back: no flank pain, spine normal appearance Extremities: No calf tenderness FHTs present x2, see u/s documentation Recent Labs Component Name 09/20/23 1204 09/06/23 0926 07/19/23 0936 WBC 10.8* 12.0* 10.8* HGB 11.9 12.2 12.1 HCT 37.1 37.1 37.0 PLTCOUNT 269 263 215 I have the following to add to the assessment and plan: 23 year old at 36w1d 1. DCDA twin gestation 2. growth restriction of both twins 3. Gestational hypertension 4. CF and SMA carrier 5. GBSuria earlier in the , will need Abx in labor ?? -Most recent growth on 09/12 with A 6% and AC 1%, B 4% and AC 5%, both with normal doppler studies and reassuring testing. Delivery is recommended at 36- 37 weeks. She strongly desires trial of labor and has been counseled regarding potential breech extraction of twin B, possible risks/complications, risks of entrapment and hypoxia or injury. Plan for IOL during the week, 09/24. -BP stable today. - labor and pre-eclampsia precautions. Deysi Willoughby MD Adjuster Leader Maternal Medicine [facility] documented in this encounter Plan of Treatment Not on file documented as of this encounter Procedures Procedure Name Priority Date/Time Associated Diagnosis Comments URINE MICROSCOPIC ONLY REFLEX TO CULTURE Routine 09/20/2023 12:05 PM CDT Dichorionic diamniotic twin , antepartum (HCC) URINALYSIS REFLEX MICROSCOPIC REFLEX CULTURE Routine 09/20/2023 12:05 PM CDT Dichorionic diamniotic twin , antepartum (HCC) CULTURE URINE Routine 09/20/2023 12:05 PM CDT Dichorionic diamniotic twin , antepartum (HCC) PROTEIN CREATININE RATIO URINE RANDOM PNL Routine 09/20/2023 12:05 PM CDT Dichorionic diamniotic twin , antepartum (HCC) CBC W AUTO DIFFERENTIAL Routine 09/20/2023 12:04 PM CDT Dichorionic diamniotic twin , antepartum (HCC) COMPREHENSIVE METABOLIC PANEL Routine 09/20/2023 12:04 PM CDT Dichorionic diamniotic twin , antepartum (HCC) URINALYSIS - POCT (IP) BEAKER INTERFACE Routine 09/20/2023 11:04 AM CDT documented in this encounter Results * CULTURE URINE (09/20/2023 12:05 PM CDT) Pathologist [facility] Culture Urine 10,000-50,000 CFU/mL urogenital corie KAMALA 09/22/2023 2:56 AM CDT [facility] MICROBIOLOGY Urine URINE SPECIMEN OBTAINED BY CLEAN CATCH PROCEDURE / Unknown Collection / Unknown 09/20/2023 12:05 PM CDT 09/20/2023 12:18 PM CDT Deysi Yanes MD LAB - M ICROBIOLOGY ORDERABLES [facility] MICROBIOLOGY [address] [place] [address], [facility] [phone] * (ABNORMAL) URINE MICROSCOPIC ONLY REFLEX TO CULTURE (09/20/2023 12:05 PM CDT) Reflex Status Culture to follow 09/20/2023 12:[address] [facility] RBC UA None Seen 0 - 5 # /hpf 09/20/2023 12:[address] [facility] WBC UA 21-50(A) 0 - 5 # /hpf 09/20/2023 12:[address] [facility] Bacteria UA Trace(A) None Seen 09/20/2023 12:[address] [facility] Squamous Epithelial Cells 6-10(A) 0 - 5 /hpf 09/20/2023 12:[address] [facility] Mucus UA 1+ /LPF 09/20/2023 12:[address] [facility] Urine URINE SPECIMEN OBTAINED BY CLEAN CATCH PROCEDURE / Unknown Collection / Unknown 09/20/2023 12:05 PM CDT 09/20/2023 12:[address] [facility] - 09/20/2023 12:33 PM CDT Deysi Yanes MD LAB - U RINALYSIS ORDERABLES [facility] [address] [place] [address] * (ABNORMAL) URINALYSIS REFLEX MICROSCOPIC REFLEX CULTURE (09/20/2023 12:05 PM CDT) Color UA Yellow Straw, Yellow 09/20/2023 12:[address] [facility] Clarity UA Slt Cloudy(A) Clear 09/20/2023 12:[address] [facility] Glucose UA Negative Negative 09/20/2023 12:[address] [facility] Bilirubin UA Negative Negative 09/20/2023 12:[address] [facility] Ketone UA Negative Negative 09/20/2023 12:[address] [facility] Specific [place] UA 1.013 1.005 - 1.030 09/20/2023 12:[address] [facility] Blood UA Negative Negative 09/20/2023 12:[address] [facility] pH UA 6.0 5.0 - 8.0 pH 09/20/2023 12:[address] [facility] Protein UA 1+(A) Negative 09/20/2023 12:[address] [facility] Urobilinogen UA Negative Negative mg/dL 09/20/2023 12:[address] [facility] Nitrite UA Negative Negative 09/20/2023 12:[address] [facility] Leukocyte UA 3+(A) Negative 09/20/2023 12:[address] [facility] Urine Microscopy Urine microscopy to follow 09/20/2023 12:[address] [facility] Reflex Status Culture to follow 09/20/2023 12:[address] [facility] Urine URINE SPECIMEN OBTAINED BY CLEAN CATCH PROCEDURE / Unknown Collection / Unknown 09/20/2023 12:05 PM CDT 09/20/2023 12:[address] [facility] - 09/20/2023 12:31 PM CDT Deysi Yanes MD LAB - U RINALYSIS ORDERABLES Performing Organization Address City/Va Hospital/ZIP Co de Phone Number [facility] [address] [place] [phone] * (ABNORMAL) PROTEIN CREATININE RATIO URINE RANDOM PNL (09/20/2023 12:05 PM CDT) Protein Urine 30.8(H) <11.9 mg/dL 09/20/2023 12:[address] [facility] Creatinine Urine 93.29 mg/dL 09/20/2023 12:[address] [facility] Protein/Creatin ine Ratio Urine 0.33 09/20/2023 12:[address] [facility] Urine URINE SPECIMEN OBTAINED BY CLEAN CATCH PROCEDURE / Unknown Collection / Unknown 09/20/2023 12:05 PM CDT 09/20/2023 12:18 PM CDT Deysi Yanes MD LAB - U RINE CHEMISTRY ORDERABLES Performing Organization Address City/Va Hospital/ZIP Co de Phone Number [facility] [address] [place] [phone] * (ABNORMAL) COMPREHENSIVE METABOLIC PANEL (09/20/2023 12:04 PM CDT) Glucose 75 70 - 105 mg/dL 09/20/2023 12:[address] [facility] Sodium 138 136 - 145 mmol/L 09/20/2023 12:[address] [facility] Potassium 4.2 3.5 - 5.1 mmol/L 09/20/2023 12:[address] [facility] Chloride 108(H) 98 - 107 mmol/L 09/20/2023 12:[address] [facility] CO2 21(L) 22 - 29 mmol/L 09/20/2023 12:[address] [facility] Calcium 8.9 8.4 - 10.4 mg/dL 09/20/2023 12:[address] [facility] Anion Gap 9 6 - 16 mmol/L 09/20/2023 12:[address] [facility] BUN 10 5.3 - 18.7 mg/dL 09/20/2023 12:[address] [facility] Creatinine 0.73 0.57 - 1.11 mg/dL 09/20/2023 12:[address] [facility] Alkaline Phosphatase 257(H) 40 - 150 U/L 09/20/2023 12:[address] [facility] ALT 11 0 - 55 U/L 09/20/2023 12:[address] [facility] AST 20 5 - 34 U/L 09/20/2023 12:[address] [facility] Protein Total 6.3(L) 6.4 - 8.3 gm/dL 09/20/2023 12:[address] [facility] Albumin 2.6(L) 3.4 - 5.0 gm/dL 09/20/2023 12:[address] [facility] Bilirubin Total 0.2 0.2 - 1.2 mg/dL 09/20/2023 12:[address] [facility] eGFR by CKD-EPI >90 >=90 mL/min/1.7 3 m2 09/20/2023 12:[address] [facility] Blood BLOOD SPECIMEN / Unknown Venipuncture / Unknown 09/20/2023 12:04 PM CDT 09/20/2023 12:18 PM CDT Deysi Yanes MD LAB - C HEMISTRY ORDERABLES [facility] [address] [place] [address] * (ABNORMAL) CBC W AUTO DIFFERENTIAL (09/20/2023 12:04 PM CDT) [facility] WBC 10.8(H) 4.0 - 10.7 x10E9/L 09/20/2023 12:[address] [facility] RBC Count 4.36 3.90 - 5.20 x10E12/L 09/20/2023 12:[address] [facility] Hemoglobin 11.9 11.9 - 15.8 g/dL 09/20/2023 12:[address] [facility] Hematocrit 37.1 34.8 - 46.1 % 09/20/2023 12:[address] [facility] MCV 85.1 80.0 - 98.0 fL 09/20/2023 12:[address] [facility] MCH 27.3 26.7 - 33.6 pg 09/20/2023 12:[address] [facility] MCHC 32.1 31.7 - 36.3 g/dL 09/20/2023 12:[address] [facility] RDW-CV 13.1 11.3 - 14.8 % 09/20/2023 12:[address] [facility] Platelet Count 269 150 - 420 x10E9/L 09/20/2023 12:[address] [facility] MPV 9.9 7.8 - 11.4 fL 09/20/2023 12:[address] [facility] Neutrophil % 73.2 41.0 - 74.0 % 09/20/2023 12:[address] [facility] Lymphocyte % 20.7 17.0 - 47.0 % 09/20/2023 12:[address] [facility] Monocyte % 5.0 3.0 - 11.0 % 09/20/2023 12:[address] [facility] Eosinophil % 0.2 0.0 - 7.0 % 09/20/2023 12:[address] [facility] Basophil % 0.4 0.0 - 1.6 % 09/20/2023 12:[address] [facility] Immature Granulocytes % 0.5 0.0 - 1.0 % 09/20/2023 12:[address] [facility] Neutrophil Absolute 7.87(H) 1.60 - 7.50 x10E9/L 09/20/2023 12:[address] [facility] Lymphocyte Absolute 2.23 1.00 - 4.40 x10E9/L 09/20/2023 12:[address] [facility] Monocyte Absolute 0.54 0.15 - 1.00 x10E9/L 09/20/2023 12:[address] [facility] Eosinophil Absolute 0.02 0.00 - 0.60 x10E9/L 09/20/2023 12:[address] [facility] Basophil Absolute 0.04 0.00 - 0.13 x10E9/L 09/20/2023 12:[address] [facility] Blood BLOOD SPECIMEN / Unknown Venipuncture / Unknown 09/20/2023 12:04 PM CDT 09/20/2023 12:19 PM CDT Deysi Yanes MD LAB - H EMATOLOGY ORDERABLES [facility] [address] [place] [address] * (ABNORMAL) URINALYSIS - POCT (IP) BEAKER INTERFACE (09/20/2023 11:04 AM CDT) Color UA POCT Yellow Straw, Yellow, Dark Yellow, Light Yellow 09/20/2023 11:[address] [facility] Clarity UA POCT Clear Clear 11:[address] [facility] Specific [place] UA POCT 1.015 1.005 - 1.030 09/20/2023 11:[address] [facility] pH UA POCT 7.0 5.0 - 8.0 pH 09/20/2023 11:[address] [facility] Protein UA POCT 1+(A) Negative 11:[address] [facility] Blood UA POCT Trace-intac t(A) Negative 09/20/2023 11:[address] [facility] Leukocyte UA POCT 1+(A) Negative 09/20/2023 11:[address] [facility] Nitrite UA POCT Negative Negative 4 11:[address] [facility] Glucose UA POCT Negative Negative 4 11:[address] [facility] Ketone UA POCT Negative Negative 09/20/2023 11:[address] [facility] Bilirubin UA POCT Negative Negative 09/20/2023 11:[address] [facility] Urobilinogen UA POCT 0.2 0.1 - 1.0 EU/dL 09/20/2023 11:[address] [facility] Urine URINE / Unknown 09/20/2023 1 1:04 AM CDT 09/20/2023 11:06 AM CDT Deysi Yanes MD LAB - P OINT OF CARE ORDERABLES Performing Organization Address City/State/[facility] Co de Phone Number [facility] [address] [place] [address] documented in this encounter Visit Diagnoses Diagnosis Dichorionic diamniotic twin , antepartum (HCC)- Primary Reserved for inherently not codable concepts WITHOUT codable children documented in this encounter
--- OUTSIDE RECORDS SUMMARY | 2024-07-20 14:57 | XMS_ITS | Encounter Summary ---
Author Organization [facility] Address [address] [place] [address] Care Team Providers Care Technician Test Systems Name Role Phone Unavailable Primary Care Provider Unavailabl e Reason for Visit * Reason Comments Non-stress Test Encounter Details Date Type Department Care Team (Latest Contact Info) Description 09/20/2023 8:47 AM CDT - 09/20/2023 11:59 PM CDT Hospital Encounter HC MATERNAL/ EVALUATION UNIT [address] [facility] [place] [phone] Franc Kolb MD [address] [facility] [address] [place] [address] Discharge Disposition: Home or Self Care Social [...] medical care, and heating? Patient declined 07/19/2023 [facility] [place] [facility] Occupat ional Health - Occupational Stress [...] place to sleep or slept in a half-way (including now)? No 07/19/2023 [place] Depression Scale Answer Date Recorded [place] Depression Scale Total 1 05/10/2023 The thought [...]
--- OUTSIDE RECORDS SUMMARY | 2024-07-20 14:57 | XMS_ITS | Encounter Summary ---
Author Organization [facility] Address [address] [place] [address] Care Team Providers Care University Administrative Assistant Name Role Phone Unavailable Primary Care Provider Unavailabl e Encounter Details Date Type Department Care Team (Latest Contact Info) Description 08/23/2023 Travel Social History Tobacco Use Types Packs/Day Years Used Date Smoking Tobacco: Never Assessed Overall Financial Resource Strain (CARDIA) Answe r Date Recorded How hard is it for you to pa y for the very basics like food, housing, medical care, and heating? Patient declined 07/19/2023 [facility] Occupat ional Health - Occupational [...] place to sleep or slept in a snf (including now)? No 07/19/2023 [place] Depression Scale Answer Date Recorded [place] Depression Scale Total 1 05/10/2023 The thought of harming myself has occurred to me . Never 05/10/2023 Comments Yes Sex and Gender Information Value Date Recorded Sex Assigned at Not on file Gender Identity Not on file Sexual Orientation Not on file documented as of this encounter Plan of Treatment Not on file documented as of this encounter Visit Diagnoses Not on filedocumented in this encounter
--- OUTSIDE RECORDS SUMMARY | 2024-07-20 14:57 | XMS_ITS | Encounter Summary ---
Author Organization [facility] Address [address] [place] [address] Care Team Providers Care Bacteriology Technician Name Role Phone Unavailable Primary Care Provider Unavailabl e Reason for Visit * Reason Comments Care Ultrasound Non-stress Test Encounter Details Date Type Department Care Team (Latest Contact Info) Description 09/13/2023 8:16 AM DIALER - 09/13/2023 11:59 PM DIALER Hospital Encounter [facility] MATERNAL/ EVALUATION UNIT [address] [place] [address] Maude Gonzalez, APPRENTICE ARCHITECT-EXPERIENCE DESIGN DIRECTOR [address] [place] [address] Discharge Disposition: Home or Self [...] medical care, and heating? Patient declined 07/19/2023 [facility] [place] of Occupat ional Health - Occupational Stress [...] slept in a fpc (including now)? No 07/19/2023 [place] Depression Scale Answer Date Recorded [place] Depression Scale Total 1 05/10/2023 The thought of harming myself has occurred to me . Never 05/10/2023 Comments Yes Sex and Gender Information Value Date Recorded Sex Assigned at Not on file Gender Identity Not on file Sexual Orientation Not on file documented as of this encounter Last Filed Vital Signs Vital Sign Reading Time Taken Comments Blood Pressure 122/82 09/13/2023 10:05 AM DIALER Pulse 102 09/13/2023 10:05 AM DIALER Temperature - - Respiratory Rate - - Oxygen Saturation - - Inhaled Oxygen Concentration - - Weight 68.5 kg (151 lb) 09/13/2023 10:05 AM DIALER Height - - Body Mass Index 25.13 09/06/2023 1:37 PM DIALER documented in this encounter Medications at Time [...] of this encounter Progress Notes * Deysi Bowie, JULIA-EXPERIENCE DESIGN DIRECTOR - 09/13/2023 9:57 AM CST FARM EQUIPMENT MECHANIC APPRENTICE [facility] Return Visit 09/13/23 S: Shikha Padilla is a 23 year old @ 35w1d, based on a 9 week u/s. EDC: 10/17/23 Pt is here today for routine follow up appointment. Denies regular contractions, vaginal bleeding, leaking of fluid, and reports good FM x2. Denies Headache, vision changes, RUQ pain. Denies GI/. Pt denies dizziness, lightheadedness and SOB. Pt c/o vaginal itching today. She denies abnormal vaginal discharge and foul odor. Pt declines RSV vaccine. 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 Eyes: sclera non icteric, normal ocular movements. Heart: Normal peripheral perfusion Lungs: Normal respiratory effort, negative for coughing or wheezing Abdomen: Soft and non tender, Gravid Fundal Height: deferred due to u/s FHR: deferred due to u/s today Extremities: No cyanosis, no edema, equal size & shape bilaterally Psychiatric: Appropriate mood and affect Growth U/S: - AA: EFW 2074 gm 6%, AC 1%, DVP 4.66, BPP 8/8, Dopplers Reassuring - BB: EFW 2010 gm 4%, AC 5%, DVP 4.83, BPP 8/8, Dopplers Reassuring Results for orders placed or performed during the hospital encounter of 09/13/23 WET PREP SMEAR - POINT OF CARE (IP) Result Value Ref Range Clue Cells (Wet Smear) Absent Absent Yeast (Wet Smear) Present (Abnormal) Absent Trichomonas Wet Prep POCT Absent Absent WBC (Wet Smear) Absent Absent pH Wet Smear 0.0 4.5 URINALYSIS - POCT (IP) BEAKER INTERFACE Result Value Ref Range Color UA POCT Yellow Straw, Yellow, Dark Yellow, Light Yellow Clarity UA POCT Clear Clear Specific [place] UA POCT 1.015 1.005 - 1.030 pH UA POCT 6.0 5.0 - 8.0 pH Protein UA POCT Negative Negative Blood UA POCT Negative Negative Leukocyte UA POCT 1+ (Abnormal) Negative Nitrite UA POCT Negative Negative Glucose UA POCT Negative Negative Ketone UA POCT Negative Negative Bilirubin UA POCT Negative Negative Urobilinogen UA POCT 0.2 0.1 - 1.0 EU/dL A/P: Shikha Padilla is a 23 year old at 35w1d Supervision of - Dating 9wk US - PNL: O+/I/-/-, NR - GC/CT: -/- - Pap: NILM - Urine Culture: GBSuria, s/p tx - UDS: negative - CF: Carrier - Hgb Electrophoresis: wnl - NIPT: LR - MOC: OCPs - MOF: breast - MOD: desires - GCT: 122 - 3T labs: wnl - RSV vacc: 08/23/23 - GBSuria - needs intrapartum PCN ?? DCDA Twins Twin B Single Umbilical Artery SGA x2 - AA 08/09/23: EFW 1371g 16%, dopplers wnl - 08/23/23: EFW 1607 gms 8%, AC 8%, dopplers wnl 09/06/23: BPP 8/8 with normal doppler studies - 09/13/23: EFW 2074 gm 6%, AC 1%, dopplers wnl - BB 08/09/23: EFW 1308g (9%) dopplers wnl - 08/23/23: EFW 1579 (6%), AC 13%, Dopplers normal - 09/06/23: BPP 8/8 with cephalization of blood flow - 09/13/23: EFW 2010 gm 4%, AC 5%, UA PI is mildly increased for twin A, indicating there may be increasing placental resistance - Desires , plan delivery more concretely after next growth, anticipate approx 37w if growth on same trajectory and Dopplers remain normal - cont serial growth US - Testing: Twice weekly NST, Weekly Doppler studies and BPP ?? Elevated BPx1??without diagnosis of cHTN - Denies history of cHTN - BP at 14wk 140's - BP 156/105, asymptomatic - plan for patient to go to labor and delivery for serial BP obs and PIH labs ?? CF Carrier - per labs with primary OB - FOB tested for status, results pending - pending FOB result will route for genetic counselors ?? Yeast Vaginitis Present - Rx'ed: Diflucan 09/13/23 GBSuria - Plan Antibiotics during L&D testing is indicated for??DCDA Twins, SGA x2, Needs Twice weekly NST with Weekly BPP - dopplers Current delivery plan:??Desires RTC??2 weeks Precautions for??PTL/VB/DFM??given. ?? DALLIN Mathews 09/13/2023 11:08 AM The total time spent today 30 minutes performing chart prep, review of data, physical exam, patienteducation and visit with the patient. ER documented in this encounter Plan of Treatment Not on file documented as of this encounter Procedures Procedure Name Priority Date/Time Associated Diagnosis Comments WET PREP SMEAR - POINT OF CARE (IP) Routine 09/13/2023 11:07 AM DIALER Vaginal itching URINALYSIS - POCT (IP) BEAKER INTERFACE Routine 09/13/2023 10:42 AM DIALER documented in this encounter Results * (ABNORMAL) WET PREP SMEAR - POINT OF CARE (IP) (09/13/2023 11:07 AM DIALER) Clue Cells (Wet Smear) Absent Absent [facility] POCT TESTING Yeast (Wet Smear) Present(A) Absent [facility] POCT TESTING Trichomonas Wet Prep POCT Absent Absent [facility] POCT TESTING WBC (Wet Smear) Absent Absent [facility] POCT TESTING pH Wet Smear 0.[address] [facility] [address] TESTING Other VAGINAL SWAB / Unknown 09/13/2023 11:07 AM DIALER Deysi Bowie APRN-EXPERIENCE DESIGN DIRECTOR LAB - POINT OF CARE ORDERABLES [facility] POCT TESTING [address] [phone] * (ABNORMAL) URINALYSIS - POCT (IP) BEAKER INTERFACE (09/13/2023 10:42 AM DIALER) Color UA POCT Yellow Straw, Yellow, Dark Yellow, Light Yellow 09/13/2023 10:43 AM DIALER [facility] Clarity UA POCT Clear Clear 10:43 AM DIALER [facility] Specific [place] UA POCT 1.015 1.005 - 1.030 09/13/2023 10:43 AM DIALER [facility] pH UA POCT 6.0 5.0 - 8.0 pH 09/13/2023 10:43 AM DIALER [facility] Protein UA POCT Negative Negative 10:43 AM DIALER [facility] Blood UA POCT Negative Negative 09/13/2023 10:43 AM DIALER [facility] Leukocyte UA POCT 1+(A) Negative 09/13/2023 10:43 AM DIALER [facility] Nitrite UA POCT Negative Negative 10:43 AM DIALER [facility] Glucose UA POCT Negative Negative 10:43 AM DIALER [facility] Ketone UA POCT Negative Negative 09/13/2023 10:43 AM DIALER [facility] Bilirubin UA POCT Negative Negative 09/13/2023 10:43 AM DIALER [facility] Urobilinogen UA POCT 0.2 0.1 - 1.0 EU/dL 09/13/2023 10:43 AM DIALER [facility] Urine URINE / Unknown 09/13/2023 1 0:42 AM DIALER 09/13/2023 10:43 AM DIALER Maude Gonzalez APRN-JOSI LAB - POINT OF C ARE ORDERABLES [facility] [address] [place] [address] documented in this encounter Visit Diagnoses Diagnosis Two vessel umbilical cord, antepartum (HCC)- Primary Other umbilical cord complications during labor and delivery, antepartum GBS bacteriuria Selective growth restriction antepartum Vaginal itching Pruritus of genital organs documented in this encounter
--- OUTSIDE RECORDS SUMMARY | 2024-07-20 14:57 | XMS_ITS | Encounter Summary ---
Author Organization [facility] Health Address [address] [place] [address] Care Team Providers Care Fish Straightener Name Role Phone Unavailable Primary Care Provider Unavailabl e Encounter Details Date Type Department Care Team (Latest Contact Info) Description 09/13/2023 Travel Social History Tobacco Use Types Packs/Day [...] medical care, and heating? Patient declined 07/19/2023 [facility] [place] of Occupat ional Health - Occupational Stress [...] place to sleep or slept in a senior living (including now)? No 07/19/2023 [place] Depression Scale Answer Date Recorded [place] Depression Scale Total 1 05/10/2023 The thought [...]
--- OUTSIDE RECORDS SUMMARY | 2024-07-20 14:57 | XMS_ITS | Encounter Summary ---
Author Organization [facility] Address [address] [place] [address] Care Team Providers Care Medical Investigator Name Role Phone Unavailable Primary Care Provider Unavailabl e Reason for Visit * Reason Onset Date Comments Referral 01/15/2021 Encounter Details Date Type Department Care Team (Late st Contact Info) Description 01/15/2021 Telephone [facility] MATERNAL/ EVALUATION UNIT [address] [place] [address] Luz Avalos, PhD [address] [place] [address] Referral Social History Tobacco Use Types Packs/Day Years Used Date Smoking Tobacco: Never Assessed Sex and Gender Information Value Date Recorded Sex Assigned at Not on file Gender Identity Not on file Sexual Orientation Not on file documented as of this encounter Miscellaneous Notes * Telephone Encounter - Luz Avalos, PhD - 01/15/2021 10:01 AM CDT Placed second call to patient to discuss referral to genetic counseling (patient and FOB carriers of cystic fibrosis). I again left my information and asked the patient to return my call. Lzu Avalos, PhD, MS, [facility] Certified Genetic Counselor documented in this encounter Plan of Treatment Not on file documented as of this encounter Visit Diagnoses Not on filedocumented in this encounter
--- OUTSIDE RECORDS SUMMARY | 2024-07-20 14:57 | XMS_ITS | Encounter Summary ---
Author Organization [facility] Address [address] [place] [address] Care Team Providers Care Retread Builder Name Role Phone Unavailable Primary Care Provider Unavailabl e Reason for Visit * Reason Onset Date Comments Scheduling 09/07/2023 Encounter Details Date Type Department Care Team (Late st Contact Info) Description 09/07/2023 Telephone [facility] MATERNAL/ EVALUATION UNIT [facility] [place] [address] Sienna Rios Scheduling Social History Tobacco Use Types Packs/Day [...] medical care, and heating? Patient declined 07/19/2023 [facility] of Occupat ional Health - Occupational [...] place to sleep or slept in a long-term (including now)? No 07/19/2023 [place] Depression Scale Answer Date Recorded [place] Depression Scale Total 1 05/10/2023 The thought of harming myself has occurred to me . Never 05/10/2023 Comments Yes Sex and Gender Information Value Date Recorded Sex Assigned at Not on file Gender Identity Not on file Sexual Orientation Not on file documented as of this encounter Miscellaneous Notes * Telephone Encounter - Sienna Rios - 09/07/2023 9:49 AM CST ATTEMPTED TO CONTACT PATIENT ABOUT APPOINTMENT ON 09/13/23. SENT MY CHART MESSAGE. ICAL RESEARCH TECHNICIAN documented in this encounter Plan of Treatment Not on file documented as of this encounter Visit Diagnoses Not on filedocumented in this encounter
--- OUTSIDE RECORDS SUMMARY | 2024-07-20 14:57 | XMS_ITS | Encounter Summary ---
Author Organization [facility] Health Address [address] [place] [address] Care Team Providers Care Overhauler Helper Name Role Phone Unavailable Primary Care Provider Unavailabl e Encounter Details Date Type Department Care Team (Latest Contact Info) Description 08/09/2023 Travel Social History Tobacco Use Types Packs/Day Years Used Date Smoking Tobacco: Never Assessed Overall Financial Resource Strain (CARDIA) Answe r Date Recorded How hard is it for you to pa y for the very basics like food, housing, medical care, and heating? Patient declined 07/19/2023 [facility] of Occupat ional Health - Occupational Stress [...] in a fci (including now)? No 07/19/2023 [place] Depression Scale Answer Date Recorded [place] Depression Scale Total 1 05/10/2023 The thought [...]
--- OUTSIDE RECORDS SUMMARY | 2024-07-20 14:57 | XMS_ITS | Encounter Summary ---
Author Organization [facility] Health Address [address] [place] [address] Care Team Providers Care Supervisor Post Wave Name Role Phone Unavailable Primary Care Provider Unavailabl e Reason for Visit * Reason Comments Blood Pressure Pt sent form clinic for elevated bp * Auth/Cert (Routine) Specialty Diagnoses / Procedures Referred By Contac t Referred To Contact Referral ID Status Reason Start Date Expiration Date Visits Re quested Visits Authorized [id number] 1 1 Encounter Details Date Type Department Care Team (Latest Contact Info) Description 09/06/2023 9:46 AM THREAD WEAVER - 09/07/2023 12:25 PM THREAD WEAVER Hospital Encounter HC 5E ANTEPARTUM/MOTHER BABY [address] [id number] Elicia Hernandez MD [address] [place] [address] Discharge Disposition: Home or Self Care Social [...] medical care, and heating? Patient declined 07/19/2023 [facility] [place] of Occupat ional Health - Occupational Stress [...] in a fci (including now)? No 07/19/2023 [place] Depression Scale Answer Date Recorded [place] Depression Scale Total 1 05/10/2023 The thought of harming myself has occurred to me . Never 05/10/2023 Comments Yes Sex and Gender Information Value Date Recorded Sex Assigned at Not on file Gender Identity Not on file Sexual Orientation Not on file documented as of this encounter Last Filed Vital Signs Vital Sign Reading Time Taken Comments Blood Pressure 121/91 09/07/2023 8:55 AM THREAD WEAVER Pulse 66 09/07/2023 8:55 AM THREAD WEAVER Temperature 36.8 ??C (98.2 ??F) 09/07/2023 8:55 AM CS T Respiratory Rate 16 09/07/2023 8:55 AM THREAD WEAVER Oxygen Saturation 100% 09/07/2023 8:55 AM THREAD WEAVER Inhaled Oxygen Concentration - - Weight 67.5 kg (148 lb 12.8 oz) 09/06/2023 1:37 PM THREAD WEAVER Height 165.1 cm (5' 5 ) 09/06/2023 1:37 PM THREAD WEAVER Body Mass Index 24.76 09/06/2023 1:37 PM THREAD WEAVER documented in this encounter Discharge Summaries * Isabel Matute MD - 09/07/2023 12:08 PM CST Antepartum Discharge Summary Date of Admission: 09/06/2023 Date of Discharge: 09/07/2023 Admission Diagnosis: 23 year old at 34w1d gestation with 1. Elevated blood pressures 2. Bacteriuria 3. DCDA twins 4. Twin B single umbilical artery 5. SGA x2 6. CF carrier Discharge Diagnosis: IUP at 34w2d with 1. As above, plus 2. gHTN Service: [facility] Maternal Medicine Service Consults: History: Shikha Padilla is a 23 year old at 34w1d whose care was with [facility]. The patient presented from clinic for elevated blood pressures and was admitted to our service for blood pressure monitoring and rule out pre-eclampsia. was complicated by: Patient Active Problem List Diagnosis Date Noted ??? Elevated blood pressure reading without diagnosis of hypertension 09/06/2023 Priority: Not Prioritized ??? Cystic fibrosis carrier, antepartum 08/09/2023 Priority: Not Prioritized ??? GBS bacteriuria 08/09/2023 Priority: Not Prioritized ??? Dichorionic diamniotic twin 05/12/2023 Priority: Not Prioritized ??? Two vessel umbilical cord, antepartum 08/09/2023 Twin B ??? Selective growth restriction antepartum 08/09/2023 Twin B Hospital Course: Patient's blood pressures overnight gave her the diagnosis of gestational hypertension. 24 hour urine protein was not collected to higher rate of false positives with current bacteriuria. Results: Recent Labs Component Name 09/06/23 1140 ABORH O POS Recent Labs Component Name 09/06/23 0926 07/19/23 0936 WBC 12.0* 10.8* HGB 12.2 12.1 HCT 37.1 37.0 PLTCOUNT 263 215 Discharge Vitals: BP 121/91 (BP Cuff Size: A) Pulse 66 Temp 98.2 ??F (36.8 ??C) (Oral) Resp 16 Ht 1.651 m (5'5 ) Wt 67.5 kg (148 lb 12.8 oz) SpO2 100% Dispostion: Home with return precautions Followup: with [facility] next week Continue/start these medications at home: Current Discharge Medication List CONTINUE taking these medications which have NOT CHANGED Instructions Authorizing Provider CALCIUM 500/D PO Take 1 tablet by mouth once daily magnesium 500 MG tablet Take 1 (one) tablet by mouth once daily multivitamin daily tablet Take 1 (one) tablet by mouth daily with food vitamin 28-0.8 MG tablet Take 1 (one) tablet by mouth once daily Discharge Instructions: Discharge Procedure Orders Why you were hospitalized Order Specific Question Answer Comments Your discharge diagnosis is: Gestational hypertension [931906] Count kicks Count your baby's movements every day. You should feel at least 10 movements in 2 hours. Once you have felt 10 movements, you can stop counting. When counting movements, drink a glass of water or eata snack within an hour of counting. Count when your baby is normally active and lay on your side without interruptions. If you do not reach 10 movements in 2 hours, please come to the hospital. No special diet needed Resume your normal home diet as tolerated. Eat well-balanced meals that include foods from all of the food groups. Drink plenty of fluids It is important that you stay well hydrated. You should drink at least eight to ten 8-ounce glassesof water per day. Follow up instructions Hypertension, Preeclampsia and Eclampsia - Prior to Discharge, please make a follow up appointment with your OB Provider within 7 to 14 days. Activity as tolerated Come to the Hospital Come to the hospital if you are experiencing ANY of the following symptoms: Contractions lasting more than 40 seconds and more than 5 per hour. --Contractions may feel like a backache that comes and goes, your belly tightening or cramping, or your baby pushing down. They should be times from the beginning of one contraction to the beginning of the next. --Ruptured Membranes: Your water breaks, you may notice a large gush or small leak with a steady trickle and you may not need to change your underwear or pads often. The fluid will be clear, yellow, pink, or green in color. --Vaginal Bleeding: Bright red bleeding or clots. --Baby Movements: Once you feel your baby move, if your baby stops moving or is moving less than itnormally does. --Pre-Eclampsia: Signs may include a headache (not relieved by medication), upper stomach pain, seeing spots, swelling in your hands or face, or gaining more than 5 pounds in a week. Contact your Provider Contact your provider if you are experiencing any of the following: --shortness of breath --nausea or throwing up --diarrhea or constipation --temperature higher than 100.4 F --Burning or painful urination --A change in color or odor to your urine Follow up with provider Additional Scheduling Instructions: Readmission Risk Score: N/A. 0-18 = Low/Moderate Risk - Follow up within 14 days 19-100 = High Risk - Follow up within 5 days Order Specific Question Answer Comments Follow Up Instructions for Patient: Other (See Comment) 09/12 Isabel Matute MD 09/07/2023 4:57 PM Associated attestation - Elicia Hernandez MD - 09/24/2023 4:17 PM CDT [facility] I have reviewed Shikha Padilla who is a 23 year old with a dichorionic twin gestation at 34w2d with the OB resident team. We have discussed her past history and reviewed all pertinent records and recent clinical course. Shikha was admitted yesterday secondary to new onset elevated BP readings. Twin A is SGA and twin B has a SUA and suspected FGR (EFW most recently 6th centile with MCA PI < 5th centile). I have seen and evaluated her. She has no complaints and is eager for discharge. The plan is for discharge home. Monitor BP at least twice daily with home cuff after discharge. Maintain a log of BP readings and bring to all future visits. Increase frequency of NSTs to twice weekly and continue weekly amniotic fluid volume assessment & Dopplers for twin B while awaiting delivery no later than ~37 weeks. Follow-up on urine culture results after discharge. Elicia Hernandez MD, MPH documented in this encounter Discharge Instructions * Discharge Instructions* Laura Todd RN - 09/07/2023 10:34 AM THREAD WEAVER Use your home blood pressure cuff to take your blood pressure once a day while at rest. If top number is greater than or equal to 160 OR if bottom number is greater than or equal to 110, contact Sandi. AD WEAVER documented in this encounter Medications at Time [...] by mouth once daily 100 tablet 09/27/2023 ibuprofen (Motrin) 600 MG tablet Take 1 [...] as of this encounter Progress Notes * Laura Todd RN - 09/07/2023 11:52 AM CST 09/07/23 1010 Clinician Communication Notification Reason: OB - Monitor Strip Review;Discharge Name of Clinician Notified: Juju Role: OB Resident Notification Method: In Person Action Orders Received Comments: many cxts on NST but pt reports only feeling a few and is very comfortable. Has BP cuff at home to monitor BP. Will educate BP parameters of 160/110 and educate about S&S of PreE. Patient has met all milestones for discharge. IV removed. Discharge paperwork reviewed with patient. BP parameters of 160/110 reviewed with pt. Educated on S&S on preE. Verbalizes understanding and denies any further questions. Care relinquished. AD WEAVER * Isabel Matute MD - 09/07/2023 6:50 AM CST R1 Antepartum Progress Note Date: 09/07/2023 Hospital Day: 1 Subjective: Shikha Padilla is a 23 year old at 34w2d weeks gestation admitted for blood pressure observation and diagnosed with gHTN. There were no acute overnight events. She denies RUFF, vision changes, CP, SOB, RUQ pain, N/V, or LE swelling. She denies vaginal bleeding, loss of fluid, and contractions. She reports normal movement. Objective: Patient Vitals for the past 24 hrs: Temp Pulse Resp BP SpO2 09/07/23 0337 97.9 ??F (36.6 ??C) 69 16 120/68 98 % 09/07/23 0030 98.5 ??F (36.9 ??C) 92 16 125/83 98 % 09/06/23 1950 98.9 ??F (37.2 ??C) 79 16 (!) 144/100 99 % 09/06/23 1630 99.2 ??F (37.3 ??C) 92 18 121/78 99 % 09/06/23 1337 97.8 ??F (36.6 ??C) 74 16 134/91 100 % 09/06/23 1120 -- -- 20 -- -- 09/06/23 1058 -- -- -- 133/87 -- 09/06/23 1043 -- -- -- 139/92 -- 09/06/23 1029 -- -- 18 130/87 -- 09/06/23 1012 -- -- -- 157/94 -- 09/06/23 0957 -- -- -- -- 100 % 09/06/23 0956 97.8 ??F (36.6 ??C) -- 16 147/98 -- No intake or output data in the 24 hours ending 09/07/23 0650 Physical Exam: General: alert, cooperative, no distress Lungs: clear to auscultation bilaterally Heart: regular rate and rhythm Abdomen: gravid, nontender, no palpable contractions Extremities: normal, non-tender bilaterally Labs: Recent Labs Component Name 09/06/23 0926 07/19/23 0936 WBC 12.0* 10.8* HGB 12.2 12.1 HCT 37.1 37.0 PLTCOUNT 263 215 Recent Labs Component Name 09/06/23 0926 SODIUM 138 POTASSIUM 4.2 CHLORIDE 108* CO2 22 BUN 8 CREATININE 0.71 GLUCOSE 74 CALCIUM 9.0 ALBUMIN 2.6* ALKPHOS 210* ALT 9 AST 17 TBIL 0.2 TPROT 6.3* EGFR >90 [place]: See separate procedure note MEDICATIONS FOR CURRENT ENCOUNTER: ?? SCHEDULED MEDICATIONS: ?? 0.9% NaCl injection 3 mL, Intracatheter, q8h ?? vitamin with iron tablet 1 tablet, Oral, QDAY ?? CONTINUOUS MEDICATIONS: ?? PRN MEDICATIONS: ?? 0.9% NaCl injection 1-10 mL, Intracatheter, PRN ?? calcium carbonate (Tums) chew tablet 2 tablet, Oral, q4h PRN ?? simethicone (Mylicon) chew tablet 160 mg, Oral, 4X/day - PC & NIGHTLY PRN Assessment/Plan: 23 year old at 34w2d, with Rule out Pre-eclampsia/New onset elevated blood pressures - Sent from clinic due to elevated blood pressure of 156/105 - BP at 14wk 140's; otherwise normotensive this - Asymptompatic - Pr/Cr ratio: too low to calculate - Other PreE labs: plt 263, Cr 0.71, ALT/AST 03/28 - AISLINN (09/06): DVP 4.4cm and 5.5cm for twin A and B respectively - 24h BP range: 120-157/68-100 (11/18 MR) Plan: - Possible dispo home today with blood pressure cuff and PreE return precautions ?? UA positive for Bacteruria - Currently asymptomatic - Concerning for possible UTI - Culture pending Plan - Follow-up culture - Will not do 24h urine protein at this time ?? DCDA Twins Twin B Single Umbilical Artery SGA x2 - [08/09] A EFW 1371g (16%), B EFW 1308g (9%) dopplers wnl, vtx/br -??[08/23] EFW A 1607g (8%) AC 8%, B 1579 (6%), AC 13%, Dopplers normal x2, vtx/vtx, 1.7% discordance?? - today twin B with new cephalization - Desires , plan delivery more concretely after next growth and pending BP Plan - Cont serial growth US - Weekly testing? CF Carrier - per labs with primary OB -??pending FOB result will route for genetic counselors ?? Supervision of - Dating: L=9wk - PNL: O+/Rubella imm/RPR NR/ HepB neg, HIV neg - GBS uria this - Vertex/breech Isabel Matute MD 09/07/2023 6:50 AM AD WEAVER * Mi Gupta, Graduate Nurse - 09/06/2023 9:48 PM CST Problem: High Risk for INNER TUBE INSERTER Injury Related to Hypertension Goal: Blood Pressure Remains within Acceptable Limits Outcome: Progressing Goal: Fluid and electrolyte balance are achieved/maintained Outcome: Progressing Goal: No Symptoms of Headache or Visual Disturbances Outcome: Progressing Goal: Maintains Level of Consciousness Outcome: Progressing Goal: Absence of Seizures Description: No seizures or other Central Nervous System damage is evident. Outcome: Progressing Goal: Serum Magnesium Level is within Therapeutic Level Outcome: Progressing Problem: Respiratory Status Description: High risk for altered respiratory function: Decreased related to excessive fluid volume (pulmonary edema). Goal: Vital Signs are medically acceptable Outcome: Progressing Goal: Signs/Symptoms of Pulmonary Edema Avoided Outcome: Progressing Goal: Respiratory rate will be within normal limits for patient. Outcome: Progressing Problem: High Risk for Hepatic Injury Goal: Signs/Symptoms of Hepatic Injury are Avoided Description: No signs or symptoms of hepatic injury or rupture are observed. Outcome: Progressing Goal: Normal or Improving Liver Function Studies Outcome: Progressing Problem: High Risk for Impaired Well Being Goal: Viable Infant is Safely Delivered Outcome: Progressing Problem: Anxiety and Fear Description: Anxiety and fear related to risk of harm to self and fetus. Goal: Anxiety is at manageable level Outcome: Progressing Goal: Verbalizes Understanding of Disease Process and Treatment Outcome: Progressing Goal: Family Members Act as Support System Outcome: Progressing Goal: Patient Will Verbalize Concerns Related to Multiple Outcome: Progressing Problem: Potential for Labor Goal: Patient will remain free of labor. Outcome: Progressing Problem: Nutrition Goal: Total intake will be consistent with estimated nutrient needs Outcome: Progressing AD WEAVER * Jarrett Beasley - 09/06/2023 3:34 PM CST Warehouse Freight Handler met with Patient in room for initial visit. Patient shared about hospital stay and hope togo home soon. She hoped to enjoy the nice weather before it gets cold again. Patient denied other concerns at this time. This Warehouse Freight Handler offered support through listening presence by engaging in conversation and understanding. 09/06/23 1500 Visit Type Assessment Date 09/06/23 Warehouse Freight Handler Visiting Patient [facility] Pastoral Care Reason for Visit Initial Visit Pastoral Care Visit Type(s) Initial Visit Encounter Type Patient Spiritual Assessment Spiritual Assessment Content;Hopeful Interventions Pastoral Care Conversation;Reflective Listening;Support Support Coping Plan/Outcome Plan Will Remain Available if Requested Chaplain Chan Ascom [phone] Outside: [phone] For more urgent needs, please page at the appropriate pager number below. [place] Pastoral Care pager - Call [phone] (Mon-Fri: 7AM - 9PM and Sat/Sun 7AM - 3PM). Pastoral Care radiation safety officer pager - Call [phone] (outside of the times listed above) and enter a 10 digit call back number. Please allow the radiation safety officer mechanical specialist 30 minutes to arrive to the hospital. AD WEAVER documented in this encounter H&P Notes * Loc Jordan MD - 09/06/2023 9:49 AM CST PGY1 Obstetric H&P Note 09/06/2023, 10:47 AM CC: Sent from clinic for elevated blood pressures HPI: 23 year old at 34w1d gestation Dating: LMP c/w 9 week ultrasound Estimated Date of Delivery: 10/17/23 care: is with high risk [facility] Patient's is complicated by: Patient Active Problem List Diagnosis Date Noted ??? Elevated blood pressure reading without diagnosis of hypertension 09/06/2023 Priority: Not Prioritized ??? Cystic fibrosis carrier, antepartum 08/09/2023 Priority: Not Prioritized ??? GBS bacteriuria 08/09/2023 Priority: Not Prioritized ??? Dichorionic diamniotic twin 05/12/2023 Priority: Not Prioritized ??? Two vessel umbilical cord, antepartum 08/09/2023 Twin B ??? Selective growth restriction antepartum 08/09/2023 Twin B Patient presents with no CC. She was sent from clinic due to an elevated blood pressure of 156/105.She denies headaches, visions changes, SOB/chest pain, RUQ pain, changes in swelling. She notes mild and irregular contractions. She denies dysuria or increased frequency. positive Ctx. positive LOF. negative VB. positive FM. Review of Symptoms: A comprehensive review of systems was negative except as stated above Obstetrical History: OB History Para Term AB Living 2 1 1 1 SAB IAB Ectopic Multiple Live Births 1 # Outcome Date GA Lbr Damir/2nd Weight Sex Delivery Anes PTL Lv 2 Current 1 Term 05/26/21 41w0d 2835 g (6 lb 4 oz) DAVID Gynecologic History: History of abnormal pap smear: patient denies History of procedure on cervix: patient denies STI History: Denies gonorrhea, chlamydia, trichomonas, herpes, HIV, syphilis Medical History: Past Medical History: Diagnosis Date ??? depression She denies history of hypertension, diabetes, asthma or bleeding disorders. Psych History: Depression: No Anxiety: No Bipolar disorder: No Schizophrenia: No Surgeries: No past surgical history on file. Current Medications: Prior to Admission medications Medication Sig Start Date End Date Taking? Authorizing Provider Calcium Carb-Cholecalciferol (CALCIUM 500/D PO) Take 1 tablet by mouth once daily Daniel Fox MD magnesium 500 MG tablet Take 1 (one) tablet by mouth once daily Daniel Fox MD multivitamin daily tablet Take 1 (one) tablet by mouth daily with food Daniel Fox MD Vit-Fe Fumarate-FA ( vitamin) 28-0.8 MG tablet Take 1 (one) tablet by mouth once daily Daniel Fox MD Allergies: No Known Allergies Social History: Social History Smoking status: Former Packs/day: 0.00 Years: 0.00 Types: Cigarettes Smokeless tobacco: Never Alcohol use: Not Current* Drug use: Not Current* Sexual activity: Not on file Family History: No family history on file. No history of infants born with defects No history of family members with bleeding disorders or history of blood clots. No history of breast, ovarian, or uterine cancer Objective: Patient Vitals for the past 24 hrs: Temp Resp BP 09/06/23 1029 -- 18 130/87 09/06/23 1012 -- -- 157/94 09/06/23 0956 97.8 ??F (36.6 ??C) 16 147/98 Assessment/ Non-Stress Test Baseline: 125 beats/minute moderate variability Reactive Contractions: Irregular Decelerations: none Baseline: 130 beats/minute moderate variability Reactive Contractions: Irregular Decelerations: none Physical Exam General: no acute distress, alert and oriented x3 HEENT: extra-occular movements intact, moist mucous membranes Heart: regular rate and rhythm, no rubs/murmurs/gallops Lungs: clear to auscultation bilaterally, no wheezing/crackles Abdomen: gravid, soft, non-tender Extremities: non-tender bilaterally, no edema bilaterally Neuro: cranial nerves grossly intact, strength and sensation intact and symmetric bilaterally Psych: appropriate affect Cervical Exam Dilation (cm): Fingertip Effacement: 0 Station: -3 Bedside ultrasound: FETU Current Lab Review: No results found for this visit on 09/06/23. labs Blood type: O+ Rubella: immune Hep B surface antigen:non-reactive RPR: non-reactive HIV:Negative GCT: 122 GBS: GBS uria this Assessment/Plan: 23 year old at 34w1d gestation Rule out Pre-eclampsia/New onset elevated blood pressures - Sent from clinic due to elevated blood pressure of 156/105 - BP at 14wk 140's; otherwise normotensive this - BP range in WEU: 130-157/87-98 (2 mild range pressures/3) - Asymptompatic - Pr/Cr ratio: too low to calculate - Other PreE labs: plt 263, Cr 0.71, ALT/AST 9/17 - AISLINN: DVP 4.4cm and 5.5cm for twin A and B respectively - Cervix 0.5/0/-3 - admit to 5E for BP observation UA positive for Bacteruria - Currently asymptomatic - Concerning for possible UTI - Culture pending Plan - Follow-up culture DCDA Twins Twin B Single Umbilical Artery SGA x2 - [08/09] A EFW 1371g (16%), B EFW 1308g (9%) dopplers wnl, vtx/br -??[08/23] EFW A 1607g (8%) AC 8%, B 1579 (6%), AC 13%, Dopplers normal x2, vtx/vtx, 1.7% discordance - today twin B with new cephalization - Desires , plan delivery more concretely after next growth and pending BP Plan - Cont serial growth US - Weekly testing -Needs to be consented for all possible modes of delivery CF Carrier - per labs with primary OB -??pending FOB result will route for genetic counselors Supervision of Dating: L=9wk PNL: O+/Rubella imm/RPR NR/ HepB neg, HIV neg GBS uria this Vertex/breech Dispo: 5E for BP observation Discussed with Dr. Jordan and Dr. Leo Davalos MD 09/06/2023 10:47 AM PGY3 Addendum Patient seen by Dr. Davalos. Briefly, patient is a 23 year old 34w1d who receives care with [facility]. Patient presented for elevated BP in clinic. In short the patient had a significantly elevated mild range BP while in clinic. She is asymptomatic. While in triage the patient has had multiple mild range Bps but has not ruled in for gHTN or PreE. The patient's PIH labs were all wnl, including her P/C which was incalculable. The patient did have a mild range BP at a clinic visit at 14wks of note. The patient's has also been complicated by DCDA twins that are SGA x2 and Twin B having asingle umbilical artery. BPPs reassuring. Patient is also a CF carrier, still pending FOB testing Patient has a U/A collected today that was concerning for a UTI, will follow up on final culture Plan to admit to [facility] for BP obs and BID monitoring Loc Jordan MD 09/06/2023 12:19 PM AD WEAVER Associated attestation - Elicia Hernandez MD - 09/07/2023 12:51 PM THREAD WEAVER [facility] I have reviewed Shikha Padilla who is a 23 year old with a dichorionic twin gestation at 34w2d with the OB resident team. We have discussed her past history and reviewed all pertinent recordsand recent clinical course. Shikha was admitted yesterday secondary to new onset elevated BP readings. Twin A is SGA and twin B has a SUA and suspected FGR (EFW most recently 6th centile with MCA PI< 5th centile). I have seen and evaluated her. She has no complaints and is eager for discharge. Exam: BP 121/91 (BP Cuff Size: A) Pulse 66 Temp 98.2 ??F (36.8 ??C) (Oral) Resp 16 Ht 1.651 m (5'5 ) Wt 67.5 kg (148 lb 12.8 oz) SpO2 100% BPmax 156/105 Gen - comfortable, alert, cooperative FHT - please see separate procedure note Ultrasounds: 09/06: A: cephalic, left / MVP 4.4 cm / normal UA & MCA PI / BPP 8/8 B: breech, right / MVP 5.5 cm / normal UA PI / MCA PI < 5th centile / BPP 8/8 08/23: A: 1607 g (8th centile), AC 8th centile / anterior placenta B: 1579 g (6th centile), AC 13th centile / anterior placenta (right lateral documented on 09/06) Please see separate imaging reports for details. Recent Labs Component Name 09/06/23 0926 07/19/23 0936 WBC 12.0* 10.8* HGB 12.2 12.1 HCT 37.1 37.0 PLTCOUNT 263 215 Recent Labs Component Name 09/06/23 0926 SODIUM 138 POTASSIUM 4.2 CHLORIDE 108* CO2 22 BUN 8 CREATININE 0.71 GLUCOSE 74 CALCIUM 9.0 ALBUMIN 2.6* ALKPHOS 210* ALT 9 AST 17 TBIL 0.2 TPROT 6.3* EGFR >90 09/06: urine protein < 6.8 mg/dL UA: 3+ LE, - nitrite, 3-5 RBC, 51-100 WBC, 3+ bacteria; urine culture - pending I agree with the findings and plan of care as documented by the resident / fellow. The following are my additions / revisions: Discharge home. Monitor BP at least twice daily with home cuff after discharge. Maintain a log of BP readings and bring to all future visits. Increase frequency of NSTs to twice weekly and continue weekly amniotic fluid volume assessment & Dopplers for twin B while awaiting delivery no later than ~37 weeks. Follow-up on urine culture results after discharge. Elicia Hernandez MD, MPH documented in this encounter Procedure Notes * Isabel Matute MD - 09/07/2023 10:27 AM CST Name: Shikha Padilla Date of : 2000 Today's Date: 09/07/2023 34w2d Start: 901 End: 950 NST RESULTS (MULTIPLES) OBJECTIVE FINDINGS Temp: 98.2 ??F (36.8 ??C), Pulse: 66, Resp: 16, BP: 121/91 NST Indication(s): Multiple gestation, Gestational hypertension Uterine Irritability: Yes Contractions: Irregular Frequency: x9 Duration (sec) Range: 70-140 Perceived Intensity: Mild COMMENTS/INTERVENTIONS Comments: reports feeling a few mild cxts but is very comfortable. Inpatient Interventions: Provider Notified OBJECTIVE FINDINGS Movement A: Present Monitoring Mode A: External, Monitor Readjusted Baseline FHR: 130 BPM Variability A: Moderate Accelerations-A: Yes Decelerations-A: None Movement B: Present Monitoring Mode B: External, Monitor Readjusted Baseline FHR B: 130 BPM Variability B: Moderate Accelerations-B: Yes Decelerations-B: None Laura Todd RN Non-Stress Test [facility] Patient Name: Shikha Padilla LMP: Patient's last menstrual period was 01/10/2023. Gestational Age: 34w2d as of 09/07/2023 Estimated Date of Delivery: 10/17/23 Indications: Hypertension in NST date: 09/07/2023 NST duration: >20 mins Interpretation: Baseline: FHTs A: 125 beats/minute moderate variability FHTs B: 130 beats/minute moderate variability Reactive Contractions: irregular; q5-10min Decelerations: none Impression and Plan: FWBs reassuring, continue monitoring as scheduled. Isabel Matute MD 09/07/2023 12:59 PM AD WEAVER Associated attestation - Elicia Hernandez MD - 09/07/2023 1:21 PM THREAD WEAVER I have reviewed the tracing and concur with the resident's description and interpretation. No concerning FHR decelerations were detected. Elicia Hernandez MD [facility] STAFF * Isabel Matute MD - 09/06/2023 6:38 PM CSTAssociated Order(s): NON-STRESS TEST Name: Shikha Padilla Date of : 2000 Today's Date: 09/06/2023 34w1d NST RESULTS (MULTIPLES) Start:1745 Stop:1837 OBJECTIVE FINDINGS Temp: 99.2 ??F (37.3 ??C), Pulse: 92, Resp: 18, BP: 121/78 NST Indication(s): Multiple gestation Uterine Irritability: No Contractions: Irregular Frequency: Q3-8 Perceived Intensity: Mild (pt only felt 2 contractions as tight) COMMENTS/INTERVENTIONS OBJECTIVE FINDINGS Movement A: Present Monitoring Mode A: External Baseline FHR: 125 BPM Variability A: Moderate Accelerations-A: Yes Decelerations-A: None Movement B: Present Monitoring Mode B: External Baseline FHR B: 130 BPM Variability B: Moderate Accelerations-B: Yes Decelerations-B: None Malina Lopes RN Non-Stress Test [facility] Patient Name: Shikha Padilla LMP: Patient's last menstrual period was 01/10/2023. Gestational Age: 34w2d as of 09/07/2023 Estimated Date of Delivery: 10/17/23 Indications: Hypertension in NST date: 09/06/2023 NST duration: >20 mins Interpretation: Baseline: FHTs A: 125 beats/minute moderate variability FHTs B: 130 beats/minute moderate variability Reactive Contractions: q5-8min ctx Decelerations: none Impression and Plan: FWB reassuring, continue monitoring as scheduled. Isabel Matute MD 09/07/2023 1:14 PM AD WEAVER Associated attestation - Elicia Hernandez MD - 09/07/2023 1:21 PM THREAD WEAVER I have reviewed the tracing and concur with the resident's description and interpretation. No concerning FHR decelerations were detected. Elicia Hernandez MD [facility] STAFF documented in this encounter Plan of Treatment Not on file documented as of this encounter Procedures Procedure Name Priority Date/Time Associated Diagnosis Comments NON-STRESS TEST Routine 09/06/2023 6:38 PM THREAD WEAVER BLOOD TYPE VERIFICATION Routine 09/06/2023 11:40 AM THREAD WEAVER TYPE + SCREEN PANEL STAT 09/06/2023 1 1:26 AM THREAD WEAVER documented in this encounter Results * NON-STRESS TEST (09/06/2023 6:38 PM THREAD WEAVER) Anatomical Region Laterality Modality Other Narrative 09/06/2023 6:38 PM THREAD WEAVER Isabel Matute MD ? 09/07/2023 ??1:20 PM Name: ??Shikha Padilla Date of : ??2000 Today's Date: ??09/06/2023 34w1d ? NST RESULTS (MULTIPLES) Start:174 Stop:1838 OBJECTIVE FINDINGS Temp: 99.2 ??F (37.3 [...] None ? Malina Lopes RN Non-Stress Test [facility] Patient Name: Shikha Padilla LMP: Patient's last menstrual period was [...] MD 09/07/2023 1:14 PM Ara Bailey MD [facility] ORDERABLES * BLOOD TYPE VERIFICATION (09/06/2023 11:40 AM THREAD WEAVER) ABO Rh O POS 09/06/2023 12:07 PM THREAD WEAVER [facility] LAB Blood Bank BLOOD SPECIMEN / Unknown Lab Venipuncture / Unknown 09/06/2023 11:40 AM THREAD WEAVER 09/06/2023 11:40 AM THREAD WEAVER Elicia Hernandez MD LAB - BLOOD BANK OR DERABLES [facility] [address] [phone] * TYPE + SCREEN PANEL (09/06/2023 11:26 AM THREAD WEAVER) ABO Rh O POS 09/06/2023 12:07 PM THREAD WEAVER [facility] Comment:No history; collect retype. Antibody Screen NEG 12:07 PM THREAD WEAVER [facility] Blood Bank BLOOD SPECIMEN / Unknown Venipuncture / Unknown 09/06/2023 11:26 AM THREAD WEAVER 09/06/2023 11:34 AM THREAD WEAVER Elicia Hernandez MD LAB - BLOOD BANK OR DERABLES [facility] [address] [phone] documented in this encounter Visit Diagnoses Diagnosis Elevated blood pressure reading without diagnosis of hypertension- Primary Elevated blood pressure reading without diagnosis of hypertension documented in this encounter Administered Medications Inactive Administered Medications - up to 3 most recent administrations Medication Order MAR Action Action Date Dose Rate Site 0.9% NaCl injection 1-10 mL 1-10 mL, Intracatheter, PRN, Other, peripheral line flush, Starting on Wed09/06/23 at 1113, Until Wed09/07/23 at 1327, Flush peripheral IV catheter with 1-10 mL of normal saline before and after medications and prn to clear blood from the line or to verify patency. 0.9% NaCl injection 3 mL 3 mL, Intracatheter, EVERY 8 HOURS, First dose on Wed09/06/23 at 1400, Until Discontinued, Flush peripheral IV catheter with 3 mL of normal saline every 8 hours. $ Given 09/07/2023 5:21 AM THREAD WEAVER 3 mL $ Given 09/06/2023 9:51 PM THREAD WEAVER 3 mL $ Given 09/06/2023 5:54 PM THREAD WEAVER 3 mL vitamin with iron tablet 1 tablet 1 tablet, Oral, DAILY, 365 doses, First dose on Wed09/06/23 at 1130, Last dose on Wed09/04/24 at 0900 $ Given 09/07/2023 8:55 AM THREAD WEAVER 1 tablet documented in this encounter Active and Recently Administered Medications Times are shown in THREAD WEAVER. Scheduled Medication Order 09/05/2023 09/06/2023 09/07/2023 0.9% NaCl injection 3 mL(Linked Group 1) 3 mL, Intracatheter, EVERY 8 HOURS, First dose on Wed09/06/23 at 1400, Until Discontinued, Flush peripheral IV catheter with 3 mL of normal saline every 8 hours. 1754 ($ Given - Provider: Malina Lopes RN)2151 ($ Given - Provider: Mi Gupta, Graduate Nurse) 0521 ($ Given - Provider: Mi Gupta, Graduate Nurse) vitamin with iron tablet 1 tablet 1 tablet, Oral, DAILY, 365 doses, First dose on Wed09/06/23 at 1130, Last dose on Wed09/04/24 at 0900 1755 (Not Administered - Provider: Malina Lopes RN - Reason: Taken prior to admission) 0855 ($ Given - Provider: Laura Todd RN) PRN Medication Order 09/05/2023 09/06/2023 09/07/2023 0.9% NaCl injection 1-10 mL(Linked Group 1) 1-10 mL, Intracatheter, PRN, Other, peripheral line flush, Starting on Wed09/06/23 at 1113, Until Wed09/07/23 at 1327, Flush peripheral IV catheter with 1-10 mL of normal saline before and after medications and prn to clear blood from the line or to verify patency. calcium carbonate (Tums) chew tablet 2 tablet 2 tablet, Oral, EVERY 4 HOURS PRN, GI Upset, Starting on Wed09/06/23 at 1113, Until Wed09/07/23 at 1327 simethicone (Mylicon) chew tablet 160 mg 160 mg, Oral, QID PRN (after meals and at bedtime), Gas Pain, Starting on Wed09/06/23 at 1113, Until Wed09/07/23 at 1327 Linked Groups Order Group 1: SALINE LOCK, INSERT AND MAINTAIN (CANCELED) Routine, CONTINUOUS, Starting on Wed09/06/23 at 1115, Until Specified, New collection And 0.9% NaCl injection 3 mLJump to med 3 mL, Intracatheter, EVERY 8 HOURS, First dose on Wed09/06/23 at 1400, Until Discontinued, Flush peripheral IV catheter with 3 mL of normal saline every 8 hours. And 0.9% NaCl injection 1-10 mLJump to med 1-10 mL, Intracatheter, PRN, Other, peripheral line flush, Starting on Wed09/06/23 at 1113, Until Wed09/07/23 at 1327, Flush peripheral IV catheter with 1-10 mL of normal saline before and after medications and prn to clear blood from the line or to verify patency. documented in this encounter
--- OUTSIDE RECORDS SUMMARY | 2024-07-20 14:57 | XMS_ITS | Encounter Summary ---
Author Organization [facility] Address [address] [facility] [place] [address] Care Team Providers Care Luster Applicator Name Role Phone Unavailable Primary Care Provider Unavailabl e Reason for Referral * (Routine) - Closed Specialty Diagnoses / Procedures Referred By Uriel park Referred To Contact Diagnoses Dichorionic diamniotic twin in second trimester (HCC) Encounter for ultrasound to assess anatomy and growth in twin , antepartum (HCC) Procedures SONOGRAM - COMPLETE Sergo Messina MD [address] [place] [id number] Referral ID Status Reason Start Date Expiration Date Visits Re quested Visits Authorized [id number] Closed 05/31/2023 05/30/2024 1 1 OILER Reason for Visit * Reason Comments Ultrasound Encounter Details Date Type Department Care Team (Late Contact Info) Description 07/19/2023 8:00 AM PARBOILER Hospital Encounter [facility] MATERNAL/ EVALUATION UNIT [address] [facility] [place] [address] Deysi Yanes MD [address] [facility] [address] [place] [address] Discharge Disposition: Home or Self Care Social History Tobacco Use Types Packs/Day Years Used Date Smoking Tobacco: Never Assessed Overall Financial Resource Strain (CARDIA) Answe r Date Recorded How hard is it for you to pa y for the very basics like food, housing, medical care, and heating? Patient declined 07/19/2023 [place] [facility] - Occupational Stress [...] place to sleep or slept in a penitentiary (including now)? No 07/19/2023 [place] Depression Scale Answer Date Recorded [place] Depression Scale Total 1 05/10/2023 The thought of harming myself has occurred to me . Never 05/10/2023 Comments Yes Sex and Gender Information Value Date Recorded Sex Assigned at Not on file Gender Identity Not on file Sexual Orientation Not on file documented as of this encounter Medications at Time of Discharge Medication Sig Dispensed Refills Start Date End Date Vit-Fe Fumarate-FA ( vitamin) 28-0.8 MG tablet Take 1 (one) tablet by mouth once daily documented as of this encounter Plan of Treatment Not on file documented as of this encounter Procedures Procedure Name Priority Date/Time Associated Diagnosis Comments SONOGRAM - COMPLETE Routine 07/19/2023 8 :20 AM PARBOILER Dichorionic diamniotic twin in second trimester (HCC) Encounter for ultrasound to assess anatomy and growth in twin , antepartum (HCC) documented in this encounter Results * SONOGRAM - COMPLETE (07/19/2023 8:20 AM PARBOILER) Anatomical Region Laterality Modality Other 07/19/2023 8:20 AM PARBOILER Narrative 07/19/2023 10:27 AM PARBOILER ?[facility] [place] [facility] ?PHONE: ??FAX: FETUS A Pat. Name: ?SHIKHA PADILLA Pat. No: ?[id number] Study Date: ?? 07/19/2023 ??8:20am , Age: ? 2000, 22 Pregnancies: ?? 2, Para 1001 Height: ? 65 in Weight: ? 115 lb LMP: ?Unknown GA by Base: ?? 27w1d ?? BRENDA: 10/17/2023 GA by US: ? 26w5d ?? BRENDA: 10/20/2023 GA Selected: ??27w1d (From [facility]) BRENDA: ?10/17/2023 Referring MD: Sergo Messina MD Field Radio Technician: ??Akua Jennings RDMS CPT4: ? 15297,79455 BMI: ?19.13 Hist/Ind: ? DA/DC twins ?Low-risk cf-DNA ?Single umbilical artery (SUA) twin B ? Anatomy Screen MEASUREMENTS & AGE ? GROWTH EVALUATION Measurement ??GA ? Range ? Srce %for GA Ratios ----- ---- ------- BPD ??6.6 cm 26w5d (42e5r-81u9b) Hadl BPD 24% FL/BPD 0.73 (0.71 - 0.87) HC ??24.4 cm 26w4d (92d6q-71w2c) Hadl HC ??9% FL/AC ??0.22 (0.20 - 0.24) AC ??22.3 cm 26w5d (00a7c-43l2c) Hadl AC ??31% HC/AC ??1.09 (1.00 - 1.18) FL ?? 4.9 cm 26w2d (36g3a-90a3i) Hadl FL ??15% CI ? 0.77 (0.70 - 0.86) HL ?? 4.7 cm 27w3d (70f7p-92l4g) Tomasz HL ??56% Cere 3.0 cm 26w1d (50c1o-38d7p) Hill Cere30% GA for sonogram 26w5d (87h0z-20t8i) ?? Weight Estimate: based on (BPD,HC,AC,FL) Hadlock ?Weight: 983 gm (839-1126gm) Hadlo ? : 2lbs, 2oz ? Normal: 1071 gm (803- 1338gm) Hadl ? Wt% ? 27% for 27w1d Heart Rate: 155 bpm Amniotic Fluid Index: 05.4cm (Deepest Pocket) PROCEDURE, TECHNIQUE Procedure: Second trimester exam Technique: transabdominal EVAL, PLACENTA Presentation: cephalic MaternalSide: left:cervix Umbilical Cord: 3 Vessels Placenta: anterior Heart Rate: 155 bpm Amniotic Fluid Volume: normal MATERNAL ANATOMY Right ??Desc: Suboptimal Left ??Desc: Suboptimal Anatomy!Normal!Abnormal!Suboptimal!Prev. Seen!Comments Cranium ?! ?? x ??! ?! ?! ?! Mdl (CSP/Thal! ?? x ??! ?! ?! ?! Ventricles ?? ! ?? x ??! ?! ?! ?! Choroid Plexu! ?? x ??! ?! ?! ?! Cerebellum ?? ! ?? x ??! ?! ?! ?! Cisterna M. ??! ?? x ??! ?! ?! ?! Orbits ? ! ?? x ??! ?! ?! ?! Profile ?! ?? x ??! ?! ?! ?! Nasal Bone ?? ! ?? x ??! ?! ?! ?! Lip ?! ?! ?! ? x ?! ?! Spine ?! ?? x ??! ?! ?! ?! Lungs ?! ?? x ??! ?! ?! ?! 4 Chamber Hea! ?? x ??! ?! ?! ?! LVOT ? ! ?? x ??! ?! ?! ?! RVOT ? ! ?? x ??! ?! ?! ?! 3 Vessel View! ?? x ??! ?! ?! ?! 3 Vessel Trac! ?? x ??! ?! ?! ?! Cross-over ?? ! ?? x ??! ?! ?! ?! Ductal Arch ??! ?! ?! ? x ?! ?! Aortic Arch ??! ?! ?! ? x ?! ?! Caval View ?? ! ?? x ??! ?! ?! ?! Situs ?! ?? x ??! ?! ?! ?! Diaphragm ?! ?? x ??! ?! ?! ?! Stomach ?! ?? x ??! ?! ?! ?! Bowel ?! ?? x ??! ?! ?! ?! Kidneys ?! ?? x ??! ?! ?! ?! Bladder ?! ?? x ??! ?! ?! ?! 3 Vessel Cord! ?? x ??! ?! ?! ?! Cord In! ?? x ??! ?! ?! ?! Upper Extremi! ?! ?! ? x ?! ?!unremarkable ?right, suboptimal ?left Hands ?! ?! ?! ? x ?! ?! Lower Extremi! ?? x ??! ?! ?! ?! Feet ? ! ?? x ??! ?! ?! ?! External Malissa! ?? x ??! ?! ?! ?!Male Placental Cor! ?? x ??! ?! ?! ?! CLINICAL SUMMARY A dichorionic, diamniotic twin intrauterine is seen. ??The measurements today are consistent with normal and concordant growth for both twins. The BRENDA selected is based on LMP and a prior ultrasound. ??The DVP appears normal for both twins. The twin peak was previously seen. ??Imaging of the anatomy is limited by position and gestational age, and portions of the anatomy surveys could not be completed today (see table). ??A single umbilical artery was previously identified for twin B, and is again observed today. ??No other abnormalities are detected at this time, within the limitations of ultrasound examination. IMPRESSION: Dichorionic, Diamniotic Twins, live, intrauterine at 27w1d sizes are both normal and concordant Amniotic fluid volume: Normal DVPs for both twins Incomplete anatomy surveys (see table) Single umbilical artery for twin B RECOMMEND: Ultrasound in 3-4 weeks to complete the anatomy surveys and assess growth. Thank you for allowing us the opportunity to care for your patient. ?? Deysi Yanes MD <Electronic Signature> ??07/19/2023 10:24am FETUS B Pat. Name: ?SHIKHA PADILLA. No: ?[id number] Study Date: ?? 07/19/2023 ??8:20am , Age: ? 2000, 22 Pregnancies: ?? 2, Para 1001 Height: ? 65 in Weight: ? 115 lb LMP: ?Unknown GA by Base: ?? 27w1d ?? BRENDA: 10/17/2023 GA by US: ? 26w0d ?? BRENDA: 10/25/2023 GA Selected: ??27w1d (From [facility]) BRENDA: ?10/17/2023 Referring MD: Sergo Messina MD Field Radio Technician: ??Akua Jennings RDMS CPT4: ? 33089,43430 Hist/Ind: ? DA/DC twins ?Low-risk cf-DNA ?Single umbilical artery (SUA) twin B ? Anatomy Screen MEASUREMENTS & AGE ? GROWTH EVALUATION Measurement ??GA ? Range ? Srce %for GA Ratios ----- ---- ------- BPD ??6.4 cm 25w5d (88r4l-22i2e) Hadl BPD 6% FL/BPD 0.78 (0.71 - 0.87) HC ??23.9 cm 26w0d (05w7b-59g3o) Hadl HC ??3% FL/AC ??0.23 (0.20 - 0.24) AC ??21.9 cm 26w3d (87t5n-68d5c) Hadl AC ??21% HC/AC ??1.09 (1.00 - 1.18) FL ?? 4.9 cm 26w5d (77i9a-59a7b) Hadl FL ??23% CI ? 0.75 (0.70 - 0.86) HL ?? 4.3 cm 25w6d (59p7j-37v8g) Tomasz HL ??28% Cere 2.9 cm 25w3d (23a7l-74h9d) Hill Cere13% GA for sonogram 26w0d (43s1c-23r5w) ?? Weight Estimate: based on (BPD,HC,AC,FL) Hadlock ?Weight: 936 gm (800-1073gm) Hadlo ? : 2lbs, 1oz ? Normal: 1071 gm (803- 1338gm) Hadl ? Wt% ? 17% for 27w1d Heart Rate: 142 bpm Amniotic Fluid Index: 06.5cm (Deepest Pocket) PROCEDURE, TECHNIQUE Procedure: Second trimester exam Technique: transabdominal EVAL, PLACENTA Presentation: breech MaternalSide: fundal/right Umbilical Cord: 2 Vessels Placenta: anterior Heart Rate: 142 bpm Amniotic Fluid Volume: normal MATERNAL ANATOMY Right ??Desc: Suboptimal Left ??Desc: Suboptimal Anatomy!Normal!Abnormal!Suboptimal!Prev. Seen!Comments Cranium ?! ?? x ??! ?! ?! ?! Mdl (CSP/Thal! ?? x ??! ?! ?! ?! Ventricles ?? ! ?? x ??! ?! ?! ?! Choroid Plexu! ?? x ??! ?! ?! ?! Cerebellum ?? ! ?? x ??! ?! ?! ?! Cisterna M. ??! ?? x ??! ?! ?! ?! Orbits ? ! ?! ?! ? x ?! ?! Profile ?! ?! ?! ? x ?! ?! Nasal Bone ?? ! ?! ?! ? x ?! ?! Lip ?! ?! ?! ? x ?! ?! Spine ?! ?? x ??! ?! ?! ?! Lungs ?! ?! ?! ? x ?! ?! 4 Chamber Hea! ?! ?! ? x ?! ?! LVOT ? ! ?! ?! ? x ?! ?! RVOT ? ! ?! ?! ? x ?! ?! 3 Vessel View! ?? x ??! ?! ?! ?! 3 Vessel Trac! ?! ?! ? x ?! ?! Cross-over ?? ! ?! ?! ? x ?! ?! Ductal Arch ??! ?! ?! ? x ?! ?! Aortic Arch ??! ?! ?! ? x ?! ?! Caval View ?? ! ?? x ??! ?! ?! ?! Situs ?! ?? x ??! ?! ?! ?! Diaphragm ?! ?? x ??! ?! ?! ?! Stomach ?! ?? x ??! ?! ?! ?! Bowel ?! ?? x ??! ?! ?! ?! Kidneys ?! ?? x ??! ?! ?! ?! Bladder ?! ?? x ??! ?! ?! ?! 3 Vessel Cord! ?! ?x ?? ! ? x ?! ?!Single right ?umbilical artery, ?cord ?insertion/abdomin ?al contour view ?seen suboptimally ?due to ?position Cord In! ?! ?! ? x ?! ?! Upper Extremi! ?! ?! ? x ?! ?!unremarkable ?right, suboptimal ?left Hands ?! ?? x ??! ?! ?! ?! Lower Extremi! ?? x ??! ?! ?! ?! Feet ? ! ?! ?! ? x ?! ?! External Malissa! ?? x ??! ?! ?! ?!Female Placental Cor! ?? x ??! ?! ?! ?! CLINICAL SUMMARY Deysi Yanes MD <Electronic Signature> ??07/19/2023 10:24am Sergo Messina MD [facility] ORDERABLES documented in this encounter Visit Diagnoses Diagnosis Dichorionic diamniotic twin in second trimester (HCC) Twin , antepartum Encounter for ultrasound to assess anatomy and growth in twin , antepartum (HCC) documented in this encounter
--- OUTSIDE RECORDS SUMMARY | 2024-07-20 14:57 | XMS_ITS | Encounter Summary ---
Author Organization [facility] Address [address] [place] [address] Care Team Providers Care Regional Dedicated Truck Driver Name Role Phone Unavailable Primary Care Provider Unavailabl e Encounter Details Date Type Department Care Team (Latest Contact Info) Description 05/24/2023 Travel Social History Tobacco Use Types Packs/Day Years Used Date Smoking Tobacco: Never Assessed Overall Financial Resource Strain (CARDIA) Answe r Date Recorded How hard is it for you to pa y for the very basics like food, housing, medical care, and heating? Not hard at all 05/10/2023 Hunger Vital Sign Answer Date Recorded Within the past 12 months, y ou worried that your food would run out before you got the money to buy more. Never true 05/10/20 23 Within the past 12 months, t he food you bought just didn't last and you didn't have money to get more. Never true 05/10/2023 PRAPARE - Transportation Answer Date Re corded In the past 12 months, has l ack of transportation kept you from medical appointments or from getting medications? No 04/13 In the past 12 months, has l ack of transportation kept you from meetings, work, or from getting things needed for daily living? No 05/10/2023 Housing Stability Vital Sign Answer Jarad e Recorded In the last 12 months, was t here a time when you were not able to pay the mortgage or rent on time? No 05/10/2023 In the last 12 months, how many places have you lived? 2 05/10/2023 In the last 12 months, was t here a time when you did not have a steady place to sleep or slept in a assisted (including now)? No 05/10/2023 [place] Depression Scale Answer Date Recorded [place] Depression Scale Total 1 05/10/2023 The thought [...]
--- OUTSIDE RECORDS SUMMARY | 2024-07-20 14:57 | XMS_ITS | Encounter Summary ---
Author Organization [facility] Address [address] [place] [address] Care Team Providers Care Crt Name Role Phone Unavailable Primary Care Provider Unavailabl e Reason for Referral * (Routine) - Closed Specialty Diagnoses / Procedures Referred By Contac t Referred To Contact Diagnoses Encounter for screening for cervical length (HCC) Procedures SONOGRAM - TRANSVAGINAL Franc Kolb MD [address] [place] [id number] Referral ID Status Reason Start Date Expiration Date Visits Re quested Visits Authorized [id number] Closed 05/11/2023 05/10/2024 1 1 CARE ASSISTANT * (Routine) - Closed Specialty Diagnoses / Procedures Referred By Contac t Referred To Contact Diagnoses Encounter for screening for cervical length (HCC) Procedures SONOGRAM - TRANSVAGINAL Franc Kolb MD [address] [address] Referral ID Status Reason Start Date Expiration Date Visits Re quested Visits Authorized [id number] Closed 05/11/2023 05/10/2024 1 1 Reason for Visit * Reason Comments Ultrasound Encounter Details Date Type Department Care Team (Latest Contact Info) Description 05/24/2023 7:48 AM PET CARE ASSISTANT - 05/24/2023 11:59 PM PET CARE ASSISTANT Hospital Encounter [facility] MATERNAL/ EVALUATION UNIT [address] [facility] [place] [address] Marissa Vasquez MD [address] [place] [address] Discharge Disposition: Home or Self Care Social [...] slept in a chcf (including now)? No 05/10/2023 [place] Depression Scale Answer Date Recorded [place] Depression Scale Total 1 05/10/2023 The thought [...] Priority Date/Time Associated Diagnosis Comments SONOGRAM - TRANSVAGINAL Routine 05/24/2023 8:12 AM PET CARE ASSISTANT Encounter for screening for cervical length (HCC) documented in this encounter Results * SONOGRAM - TRANSVAGINAL (05/24/2023 8:12 AM PET CARE ASSISTANT) Anatomical Region Laterality Modality Other 05/24/2023 8:12 AM PET CARE ASSISTANT Narrative 05/24/2023 8:52 AM PET CARE ASSISTANT ? [facility] ?PHONE: ??FAX: FETUS A Pat. Name: ?SHIKHA PADILLA Pat. No: ?[id number] Study Date: ?? 05/24/2023 ??8:12am , Age: ? 2000, 22 Pregnancies: ?? 2, Para 1001 Height: ? 65 in Weight: ? 115 lb LMP: ?Unknown GA by Base: ?? 19w1d ?? BRENDA: 10/17/2023 GA Selected: ??19w1d (From [facility]) BRENDA: ?10/17/2023 Referring MD: Sergo Messina MD Front Facer: ??Amrita Sanderson RDMS CPT4: ? [id number],[id number] BMI: ?19.13 Hist/Ind: ? DA/DC twins ?Low-risk [...] Signature> ??05/24/2023 08:52am FETUS B Pat. Name: ?SHIKHA PADILLA. No: ?[id number] Study Date: ?? 05/24/2023 ??8:12am , Age: ? 2000, 22 Pregnancies: ?? 2, Para 1001 Height: ? 65 in Weight: ? 115 lb LMP: ?Unknown GA by Base: ?? 19w1d ?? BRENDA: 10/17/2023 GA Selected: ??19w1d (From [facility]) BRENDA: ?10/17/2023 Referring MD: Sergo Messina MD Front Facer: ??Amrita Sanderson RDMS CPT4: ? [id number] Hist/Ind: ? DA/DC twins ?Low-risk cf-DNA ?Single [...] <Electronic Signature> ??05/24/2023 08:52am Franc Kolb MD [facility] ORDERABLES documented in this encounter Visit Diagnoses Diagnosis Encounter for screening for cervical length (HCC)- Primary documented in this encounter
--- OUTSIDE RECORDS SUMMARY | 2024-07-20 14:57 | XMS_ITS | Encounter Summary ---
Author Organization [facility] Address [address] [place] [address] Care Team Providers Care Hall Worker Name Role Phone Unavailable Primary Care Provider Unavailabl e Reason for Visit * Reason Comments Non-stress Test Encounter Details Date Type Department Care Team (Late st Contact Info) Description 08/30/2023 8:59 AM COMPUTER FORENSICS EXAMINER - 08/30/2023 11:59 PM COMPUTER FORENSICS EXAMINER Hospital Encounter [facility] MATERNAL/ EVALUATION UNIT [address] [facility] [place] [address] [place], Deysi Willoughby MD [address] [facility] [address] [place] [address] Discharge Disposition: Home or Self Care Social History Tobacco Use Types Packs/Day Years Used Date Smoking Tobacco: Never Assessed Overall Financial Resource Strain (CARDIA) Answe r Date Recorded How hard is it for you to pa y for the very basics like food, housing, medical care, and heating? Patient declined 07/19/2023 [facility] [place] of Occupat ional Health - Occupational Stress [...] place to sleep or slept in a halfway (including now)? No 07/19/2023 [place] Depression Scale Answer Date Recorded [place] Depression Scale Total 1 05/10/2023 The thought of harming myself has occurred to me . Never 05/10/2023 Comments Yes Sex and Gender Information Value Date Recorded Sex Assigned at Not on file Gender Identity Not on file Sexual Orientation Not on file documented as of this encounter Last Filed Vital Signs Vital Sign Reading Time Taken Comments Blood Pressure 132/75 08/30/2023 10:05 AM COMPUTER FORENSICS EXAMINER Pulse 76 08/30/2023 10:05 AM COMPUTER FORENSICS EXAMINER Temperature - - Respiratory Rate - - Oxygen Saturation - - Inhaled Oxygen Concentration - - Weight - - Height - - Body Mass Index - - documented in this encounter Medications at Time [...]
--- OUTSIDE RECORDS SUMMARY | 2024-07-20 14:57 | XMS_ITS | Encounter Summary ---
Author Organization [facility] Address [address] [facility] [place] [address] Care Team Providers Care E Learning Designer Name Role Phone Unavailable Primary Care Provider Unavailabl e Reason for Visit * Reason Comments Maternal Medicine Encounter Details Date Type Department Care Team (Late st Contact Info) Description 08/23/2023 8:46 AM SHOE SPRAYER - 08/23/2023 11:59 PM SHOE SPRAYER Hospital Encounter [facility] MATERNAL/ EVALUATION UNIT [address] [facility] [facility] [place] [address] [place], Deysi Willoughby MD [address] [facility] [address] [place] [address] Discharge Disposition: Home or Self Care Social History Tobacco Use Types Packs/Day Years Used Date Smoking Tobacco: Never Assessed Overall Financial Resource Strain (CARDIA) Answe r Date Recorded How hard is it for you to pa y for the very basics like food, housing, medical care, and heating? Patient declined 07/19/2023 [facility] [place] of Occupat ional Health - Occupational [...] in a halfway (including now)? No 07/19/2023 [place] Depression Scale Answer Date Recorded [place] Depression Scale Total 1 05/10/2023 The thought of harming myself has occurred to me . Never 05/10/2023 Comments Yes Sex and Gender Information Value Date Recorded Sex Assigned at Not on file Gender Identity Not on file Sexual Orientation Not on file documented as of this encounter Last Filed Vital Signs Vital Sign Reading Time Taken Comments Blood Pressure 136/84 08/23/2023 10:15 AM SHOE SPRAYER Pulse 85 08/23/2023 10:15 AM SHOE SPRAYER Temperature - - Respiratory Rate - - Oxygen Saturation - - Inhaled Oxygen Concentration - - Weight 65.6 kg (144 lb 9.6 oz) 08/23/2023 10:15 AM SHOE SPRAYER Height - - Body Mass Index 24.06 07/19/2023 9:26 AM SHOE SPRAYER documented in this encounter Medications at Time of Discharge Medication Sig Dispensed Refills Start Date End Date magnesium 500 MG tablet Take 1 (one) tablet by mouth once daily Vit-Fe Fumarate-FA ( vitamin) 28-0.8 MG tablet Take 1 (one) tablet by mouth once daily documented as of this encounter Progress Notes * Deysi Yanes MD - 08/23/2023 10:20 AM CST PGY4 High Risk Clinic Return Visit 08/23/23 S: Shikha Padilla is a 23 year old @ 32w1d Today she notes she is feeling well. Some contractions, not consistent, not very painful. Reports no concerns today. Denies LOF, VB; +FM x2 Her is c/b: Patient Active Problem List Diagnosis Date Noted ??? Cystic fibrosis carrier, antepartum 08/09/2023 Priority: Not Prioritized ??? GBS bacteriuria 08/09/2023 Priority: Not Prioritized ??? Dichorionic diamniotic twin 05/12/2023 Priority: Not Prioritized ??? Two vessel umbilical cord, antepartum 08/09/2023 Twin B ??? Selective growth restriction antepartum 08/09/2023 Twin B O: Vitals: 08/23/23 1015 BP: 136/84 Pulse: 85 Weight: 65.6 kg (144 lb 9.6 oz) Formal US today Recent Labs Component Name 08/23/23 1048 08/09/23 1044 PROTEINUA - Negative GLUCOSEUA Negative Negative KETONEUA - Negative A/P: Shikha Padilla is a 23 year old at 32w1d Supervision of - Dating 9wk US - PNL: O+/I/-/-, NR - GC/CT: -/- - Pap: NILM - Urine Culture: GBSuria, s/p tx - UDS: negative - CF: Carrier - Hgb Electrophoresis: wnl - NIPT: LR - MOC: to be discussed - MOF: to be discussed - MOD: desires - GCT: 122 - 3T labs: wnl - RSV vacc: today - GBSuria - needs intrapartum PCN ?? DCDA Twins Twin B Single Umbilical Artery SGA x2 - [08/09] A EFW 1371g (16%), B EFW 1308g (9%) dopplers wnl, vtx/br - [08/23] EFW A 1607g (8%) AC 8%, B 1579 (6%), AC 13%, Dopplers normal x2, vtx/vtx - testing started at 32w - Desires , plan delivery more concretely after next growth, anticipate approx 37w if growth on same trajectory and Dopplers remain normal ?? Elevated BPx1??without diagnosis of cHTN - Denies history of cHTN - BP at 14wk 140's - normotensive since, including today ?? CF Carrier - per labs with primary OB, discussed today - had not been previously discussed - FOB to get tested for status, discussed - pending FOB result will route for genetic counselors ?? testing is indicated for DCDA Twins, SGA x2: start weekly BPP/NST at 32 weeks. Current delivery plan: Desires RTC 2 weeks Precautions for PTL/VB/DFM given. Patient seen by and case was discussed with Dr. Yanes. RTC 2w Tracy Godfrey MD 08/23/2023 11:02 AM MFM Attending I have seen and reviewed the patient with Dr. Lux on 08/23/23. I agree with the above assessment, exams and plan. Exam: BP 136/84 Pulse 85 Wt 65.6 kg (144 lb 9.6 oz) General: Alert and oriented x3, no acute distress Mentation: Normal mentation HEENT: Neck supple without masses, no LAD Cardiovascular: Regular rate and rhythm Lungs: clear to auscultation bilaterally, no wheezes/rhales Abdomen: soft, non-tender, gravid Back: no flank pain, spine normal appearance Extremities: No calf tenderness FHTs present x2, see u/s documentation Recent Labs Component Name 07/19/23 0936 WBC 10.8* HGB 12.1 HCT 37.0 PLTCOUNT 215 I have the following to add to the assessment and plan: 23 year old at 32w1d 1. DCDA twin gestation 2. growth restriction of both twins 3. Mildly elevated BPs throughout , suspect pre-/borderline hypertension 4. CF carrier -U/s today shows twin A EFW 8% and AC 8%, B's EFW 6% and AC 13%, with normal DVPs and Doppler studies of both twins. Recommend to continue weekly BPP/NST and Doppler studies, reassess growth in 2 wk.Given current lack of e/o pathologic FGR and EFW and AC >3%, would recommend delivery ~37 wk, but will need to continue to evaluate growth, dopplers, testing and maternal BPs, and adjustdelivery timing as clinically indicated. -BP stable today. - labor and pre-eclampsia precautions. Deysi Willoughby MD Rn Intensive Care Unit Maternal Medicine [facility] SPRAYER documented in this encounter Plan of Treatment Not on file documented as of this encounter Visit Diagnoses Not on filedocumented in this encounter
--- OUTSIDE RECORDS SUMMARY | 2024-07-20 14:57 | XMS_ITS | Encounter Summary ---
Author Organization [facility] Address [facility] [facility] [address] Care Team Providers Care Corporate Webmaster Name Role Phone Unavailable Primary Care Provider Unavailabl e Reason for Referral * (Routine) - Open Specialty Diagnoses / Procedures Referred By Uriel park Referred To Contact Diagnoses Dichorionic diamniotic twin in third trimester (HCC) growth restriction antepartum (HCC) Procedures SONOGRAM - COMPLETE Franc Kolb MD [address] [place] [address] Referral ID Status Reason Start Date Expiration Date Visits Re quested Visits Authorized [id number] Open 08/16/2023 08/15/2024 1 1 ICER * (Routine) - Open Specialty Diagnoses / Procedures Referred By Uriel park Referred To Contact Diagnoses Dichorionic diamniotic twin in third trimester (HCC) growth restriction antepartum (HCC) Procedures SONOGRAM - COMPLETE Franc Kolb MD [address] [address] Referral ID Status Reason Start Date Expiration Date Visits Re quested Visits Authorized [id number] Open 08/16/2023 08/15/2024 1 1 ICER Reason for Visit * Reason Comments Ultrasound Encounter Details Date Type Department Care Team (Latest Contact Info) Description 08/23/2023 8:46 AM TOP ICER - 08/23/2023 11:59 PM TOP ICER Hospital Encounter [facility] MATERNAL/ EVALUATION UNIT [address] [place] [address] Bev Rae MD [address] [place] [address] Discharge Disposition: Home or Self Care Social History Tobacco Use Types Packs/Day Years Used Date Smoking Tobacco: Never Assessed Overall Financial Resource Strain (CARDIA) Answe r Date Recorded How hard is it for you to pa y for the very basics like food, housing, medical care, and heating? Patient declined 07/19/2023 [facility] [place] of Occupat ional Health - Occupational Stress [...] place to sleep or slept in a longterm (including now)? No 07/19/2023 [place] Depression Scale Answer Date Recorded [place] Depression Scale Total 1 05/10/2023 The thought [...] Procedure Name Priority Date/Time Associated Diagnosis Comments URINALYSIS - POCT (IP) BEAKER INTERFACE Routine 08/23/2023 10:48 AM TOP ICER SONOGRAM - COMPLETE Routine 08/23/2023 9 :09 AM TOP ICER Dichorionic diamniotic twin in third trimester (HCC) Selective growth restriction antepartum documented in this encounter Results * (ABNORMAL) URINALYSIS - POCT (IP) BEAKER INTERFACE (08/23/2023 10:48 AM TOP ICER) Color UA POCT Light Yellow Straw, Yellow, Dark Yellow, Light Yellow 08/23/2023 10:49 AM TOP ICER [facility] Clarity UA POCT Slightly Cloudy(A) Clear 08/23/2023 10:49 AM TOP ICER [facility] Specific [place] UA POCT 1.015 1.005 - 1.030 08/23/2023 10:49 AM TOP ICER [facility] pH UA POCT 6.5 5.0 - 8.0 pH 08/23/2023 10:49 AM TOP ICER [facility] Protein UA POCT Negative Negative 10:49 AM TOP ICER [facility] Blood UA POCT Trace-intac t(A) Negative 08/23/2023 10:49 AM TOP ICER [facility] Leukocyte UA POCT 3+(A) Negative 08/23/2023 10:49 AM TOP ICER [facility] Nitrite UA POCT Negative Negative 10:49 AM TOP ICER [facility] Glucose UA POCT Negative Negative 10:49 AM TOP ICER [facility] Ketone UA POCT Negative Negative 08/23/2023 10:49 AM TOP ICER [facility] Bilirubin UA POCT Negative Negative 08/23/2023 10:49 AM TOP ICER [facility] Urobilinogen UA POCT 0.2 0.1 - 1.0 EU/dL 08/23/2023 10:49 AM TOP ICER [facility] Urine URINE / Unknown 08/23/2023 1 0:48 AM TOP ICER 08/23/2023 10:49 AM TOP ICER Bev Rae MD LAB - POINT OF CARE ORDERABLES Performing Organization Address [facility] Co de Phone Number [facility] [address] [place] [address] * SONOGRAM - COMPLETE (08/23/2023 9:09 AM TOP ICER) Anatomical Region Laterality Modality Other 08/23/2023 9:09 AM TOP ICER Narrative 08/23/2023 11:16 AM TOP ICER ? [facility] ?Maternal and Care Center ?PHONE: ??FAX: FETUS A Pat. Name: ?SHIKHA PADILLA Pat. No: ?[id number] Study Date: ?? 08/23/2023 ??9:09am , Age: ? 2000, 23 Height: ? 65 in Weight: ? 119 lb LMP: ?Unknown GA by Base: ?? 32w1d ?? BRENDA: 10/17/2023 GA by US: ? 30w5d ?? BRENDA: 10/27/2023 GA Selected: ??32w1d (From [place]) BRENDA: ?10/17/2023 Referring MD: MD Natacha, [facility] Sales Representative: ??Amrita Sanderson RDMS CPT4: ? [id number] BMI: ?19.8 Hist/Ind: ? DA/DC twins ?B SGA (AC at 9% 08/09) ?Low-risk cf-DNA ?Single umbilical artery (SUA) twin B ? Anatomy Screen MEASUREMENTS & AGE ? GROWTH EVALUATION Measurement ??GA ? Range ? Srce %for GA Ratios ----- ---- ------- BPD ??8.2 cm 32w5d (10g8q-51j1h) Hadl BPD 61% FL/BPD 0.70 (0.71 - 0.87* HC ??29.2 cm 32w1d (21i5t-24f3e) Hadl HC ??14% FL/AC ??0.22 (0.20 - 0.24) AC ??26.2 cm 30w3d (81e5h-90g6k) Hadl AC ??8% HC/AC ??1.11 (0.95 - 1.14) FL ?? 5.7 cm 30w1d (48r8l-00r3b) Hadl FL ??3% CI ? 0.80 (0.70 - 0.86) HL ?? 5.6 cm 32w2d (78l0f-60l9g) Tomasz HL ??52% GA for sonogram 30w5d (91e8p-17t4z) ?? Weight Estimate: based on (BPD,HC,AC,FL) Hadlock ?Weight: 1607 gm (1373-1842gm) Had ? : 3lbs, 8oz ? Normal: 1974 gm (1481- 2467gm) Had ? Wt% ? 8% for 32w1d Heart Rate: 137 bpm Amniotic Fluid Index: 03.8cm (Deepest Pocket) Biophysical Profile: 04/20 Breathin ?? Tone: 2 ?? NST: 2 Movement: ??2 ?? AFV: ??2 PROCEDURE, TECHNIQUE Technique: transabdominal EVAL, PLACENTA Presentation: cephalic MaternalSide: left Placenta: anterior Heart Rate: 137 bpm Amniotic Fluid Volume: normal DOPPLER Umbilical - Mid Cord S/D ??2.88(1.84 - 3.86) ? PI ?? 1.06 (0.66 - 1.25) ? Middle Cerebral Artery PI ?? 2.18 (1.61 - 2.87) ? Anatomy!Normal!Abnormal!Suboptimal!Prev. Seen!Comments Cranium ?! ?! ?! ?! [...] ?! ? x ?! Ductal Arch ??! ?? x ??! ?! ?! ?! Aortic Arch ??! ?? x ??! ?! ?! ?! Caval View ?? ! ?! [...] Upper Extremi! ?! ?! ? x ?! ?!suboptimal left, ?previously seen ?right Hands ?! ?! ?! ? x ?! ?! Lower Extremi! ?! ?! ?! ? x ?! Feet ? ! ?! ?! ?! ? x ?! External Malissa! ?! ?! ?! ? x ?! Placental Cor! ?! ?! ?! ? x ?! CLINICAL SUMMARY The FHR baseline was 140 bpm for twin A and 135 bpm for twin B during today's reactive NST. ?? A twin is noted. ??Twin A is cephalic on the maternal left, with an anterior placenta. ??Twin B is cephalic on the maternal right, with an anterior placenta. ??A chorionic peak was previously seen. ??The measurements today are consistent with adequate growth compared to previous examination for both twins, although the EFWs now both plot below the 10th percentile. ??The BRENDA selected is based on a prior ultrasound examination. ??The difference in estimated weight is 2%. ??The amniotic fluid appears normal for both twins. ??The 2-vessel cord is again noted in Twin B. ??No other markers for aneuploidy or major malformations are visualized on either twin. ??The anatomic surveys were not completed today due to position. ?? IMPRESSION: Dichorionic, Diamnionic Twin live intrauterine at 32w1d ?? sizes both small for gestational age by established BRENDA ?? Concordant growth and fluid volumes ?? Single umbilical artery, twin B No other sonographic signs of abnormality Incomplete anatomic surveys testing: Reassuring for twin A and reassuring for twin B Doppler studies: Reassuring for twin A and reassuring for twin B RECOMMEND: ?? Continue weekly testing Repeat ultrasound in 3 weeks for growth assessment ?? Additional testing (Doppler studies, etc.) at the time as clinically indicated based on that assessment Given lack of evidence of pathologic growth restriction (EFW & AC at or above the 3rd%ile with normal Doppler studies and AFV), no additional surveillance is indicated in the interim. Thank you for allowing us the opportunity to care for your patient. Bev Rae MD <Electronic Signature> ??08/23/2023 11:15am FETUS B Pat. Name: ?SHIKHA PADILLA. No: ?[id number] Study Date: ?? 08/23/2023 ??9:09am , Age: ? 2000, 23 Height: ? 65 in Weight: ? 119 lb LMP: ?Unknown GA by Base: ?? 32w1d ?? BRENDA: 10/17/2023 GA by US: ? 30w0d ?? BRENDA: 11/01/2023 GA Selected: ??32w1d (From [facility]) BRENDA: ?10/17/2023 Referring MD: MD Natacha, [facility] Sales Representative: ??Amrita Sanderson RDMS CPT4: ? [id number] Hist/Ind: ? DA/DC twins ?B SGA (AC at 9% 08/09) ?Low-risk cf-DNA ?Single umbilical artery (SUA) twin B ? Anatomy Screen MEASUREMENTS & AGE ? GROWTH EVALUATION Measurement ??GA ? Range ? Srce %for GA Ratios ----- ---- ------- BPD ??7.4 cm 29w4d (98a8i-39x8e) Hadl BPD 1% FL/BPD 0.78 (0.71 - 0.87) HC ??28.4 cm 31w1d (23m6l-34a7c) Hadl HC ??3% FL/AC ??0.22 (0.20 - 0.24) AC ??26.6 cm 30w5d (05v3l-36y5x) Hadl AC ??13% HC/AC ??1.07 (0.95 - 1.14) FL ?? 5.7 cm 30w1d (22r6c-80z2f) Hadl FL ??3% CI ? 0.71 (0.70 - 0.86) HL ?? 5.0 cm 29w0d (64s3s-13h1m) Tomasz HL ??<05 GA for sonogram 30w0d (19s2s-95t9r) ?? Weight Estimate: based on (BPD,HC,AC,FL) Hadlock ?Weight: 1579 gm (1348-1809gm) Had ? : 3lbs, 7oz ? Normal: 1974 gm (1481- 2467gm) Had ? Wt% ? 6% for 32w1d Heart Rate: 131 bpm Amniotic Fluid Index: 06.8cm (Deepest Pocket) Biophysical Profile: 04/20 Breathin ?? Tone: 2 ?? NST: 2 Movement: ??2 ?? AFV: ??2 PROCEDURE, TECHNIQUE Technique: transabdominal EVAL, PLACENTA Presentation: cephalic MaternalSide: right Placenta: anterior Heart Rate: 131 bpm Amniotic Fluid Volume: normal DOPPLER Umbilical - Mid Cord S/D ??2.76(1.84 - 3.86) ? PI ?? 0.93 (0.66 - 1.25) ? Middle Cerebral Artery PI ?? 2.43 (1.61 - 2.87) ? Anatomy!Normal!Abnormal!Suboptimal!Prev. Seen!Comments Cranium ?! ?! ?! ?! ? x ?! Mdl (CSP/Thal! ?! ?! ?! ? x ?! Ventricles ?? ! ?! ?! ?! ? x ?! Choroid Plexu! ?! ?! ?! ? x ?! Cerebellum ?? ! ?! ?! ?! ? x ?! Cisterna M. ??! ?! ?! ?! ? x ?! Orbits ? ! ?? x ??! ?! ?! ?! Profile ?! ?? x ??! ?! ?! ?! Nasal Bone ?? ! ?? x ??! ?! ?! ?! Lip ?! ?? x ??! ?! ?! ?! Spine ?! ?! ?! ?! ? x ?! Lungs ?! ?? x ??! ?! ?! ?! 4 Chamber Hea! ?? x ??! ?! ?! ?! LVOT ? ! ?? x ??! ?! ?! ?! RVOT ? ! ?? x ??! ?! ?! ?! 3 Vessel View! ?! ?! ?! ? x ?! 3 Vessel Trac! ?? x ??! ?! ?! ?! Cross-over ?? ! ?? x ??! ?! ?! ?! Ductal Arch ??! ?? x ??! ?! ?! ?! Aortic Arch ??! ?! ?! ? x ?! ?! Caval View ?? ! ?! ?! ?! ? x ?! Situs ?! ?! ?! ?! ? x ?! Diaphragm ?! ?! ?! ?! ? x ?! Stomach ?! ?! ?! ?! ? x ?! Bowel ?! ?! ?! ?! ? x ?! Kidneys ?! ?! ?! ?! ? x ?! Bladder ?! ?! ?! ?! ? x ?! 3 Vessel Cord! ?! ?x ?? ! ?! ?!Two vessel cord Cord In! ?! ?! ? x ?! ?! Upper Extremi! ?! ?! ?! ? x ?! Hands ?! ?! ?! ?! ? x ?! Lower Extremi! ?! ?! ?! ? x ?! Feet ? ! ?! ?! ? x ?! ?! External Malissa! ?! ?! ?! ? x ?! Placental Cor! ?! ?! ?! ? x ?! CLINICAL SUMMARY Bev Rae MD <Electronic Signature> ??08/23/2023 11:15am Franc Kolb MD [facility] ORDERABLES documented in this encounter Visit Diagnoses Diagnosis Dichorionic diamniotic twin in third trimester (HCC)- Primary Twin , antepartum Selective growth restriction antepartum documented in this encounter
--- OUTSIDE RECORDS SUMMARY | 2024-07-20 14:57 | XMS_ITS | Encounter Summary ---
Author Organization [facility] Address [address] [address] Care Team Providers Care Rabble Furnace Tender Name Role Phone Unavailable Primary Care Provider Unavailabl e Reason for Visit * Reason Comments Non-stress Test Encounter Details Date Type Department Care Team (Late st Contact Info) Description 09/13/2023 8:16 AM CABINET INSTALLER - 09/13/2023 11:59 PM CABINET INSTALLER Hospital Encounter [facility] MATERNAL/ EVALUATION UNIT [address] [place] [address] [place] marinelli MD [address] [facility] [address] [place] [address] Discharge Disposition: Home or Self Care Social [...] medical care, and heating? Patient declined 07/19/2023 [facility] of Occupat ional Health - Occupational Stress [...] place to sleep or slept in a prison (including now)? No 07/19/2023 [place] Depression Scale Answer Date Recorded [place] Depression Scale Total 1 05/10/2023 The thought [...] documented as of this encounter Visit Diagnoses Diagnosis Two vessel umbilical cord, antepartum (HCC)- Primary Other umbilical cord complications during labor and delivery, antepartum GBS bacteriuria Selective growth restriction antepartum documented in this encounter
--- OUTSIDE RECORDS SUMMARY | 2024-07-20 14:57 | XMS_ITS | Encounter Summary ---
Author Organization [facility] Address [address] [facility] [place] [address] Care Team Providers Care Wire Inspector Name Role Phone Unavailable Primary Care Provider Unavailabl e Reason for Visit * Reason Onset Date Comments Scheduling 06/17/2023 Encounter Details Date Type Department Care Team (Late st Contact Info) Description 06/17/2023 Telephone [facility] MATERNAL/ EVALUATION UNIT [address] [facility] [place] [address] Dionne Roth Scheduling Social History Tobacco Use [...] place to sleep or slept in a [place] (including now)? No 05/10/2023 [place] Depression Scale Answer Date Recorded [place] Depression Scale Total 1 05/10/2023 The thought of harming myself has occurred to me . Never 05/10/2023 Comments Yes Sex and Gender Information Value Date Recorded Sex Assigned at Not on file Gender Identity Not on file Sexual Orientation Not on file documented as of this encounter Miscellaneous Notes * Telephone Encounter - Dionne Roth - 06/17/2023 8:56 AM CST Attempted to contact Pt to priyanka. Cancelled appts (Due to COVID) no answer, LVM and sent message via [email or web address]. BALL MARKER documented in this encounter Plan of Treatment Not on file documented as of this encounter Visit Diagnoses Not on filedocumented in this encounter
--- OUTSIDE RECORDS SUMMARY | 2024-07-20 14:57 | XMS_ITS | Encounter Summary ---
Author Organization [facility] Address [facility] [place] [address] Care Team Providers Care Belting Cutter Name Role Phone Unavailable Primary Care Provider Unavailabl e Reason for Referral * (Routine) - Open Specialty Diagnoses / Procedures Referred By Uriel park Referred To Contact Diagnoses Dichorionic diamniotic twin in second trimester (HCC) Procedures SONOGRAM - COMPLETE Franc Kolb MD [address] [place] [id number] Referral ID Status Reason Start Date Expiration Date Visits Re quested Visits Authorized [id number] Open 07/28/2023 07/27/2024 1 1 UATE NURSE * (Routine) - Open Specialty Diagnoses / Procedures Referred By Uriel park Referred To Contact Diagnoses Dichorionic diamniotic twin in second trimester (HCC) Procedures SONOGRAM - COMPLETE Franc Kolb MD [address] [address] Referral ID Status Reason Start Date Expiration Date Visits Re quested Visits Authorized [id number] Open 07/28/2023 07/27/2024 1 1 UATE NURSE Reason for Visit * Reason Comments Ultrasound Encounter Details Date Type Department Care Team (Latest Contact Info) Description 08/09/2023 8:11 AM GRADUATE NURSE - 08/09/2023 11:59 PM GRADUATE NURSE Hospital Encounter [facility] MATERNAL/ EVALUATION UNIT [address] [place] [address] Franc Kolb MD [address] [place] [address] Discharge Disposition: Home or Self Care Social History Tobacco Use Types Packs/Day Years Used Date Smoking Tobacco: Never Assessed Overall Financial Resource Strain (CARDIA) Answe r Date Recorded How hard is it for you to pa y for the very basics like food, housing, medical care, and heating? Patient declined 07/19/2023 [facility] of Occupat ional Health - Occupational Stress [...] slept in a intermediate (including now)? No 07/19/2023 [place] Depression Scale Answer Date Recorded [place] Depression Scale Total 1 05/10/2023 The thought [...] Associated Diagnosis Comments SONOGRAM - COMPLETE Routine 08/09/2023 8 :36 AM GRADUATE NURSE Dichorionic diamniotic twin in second trimester (HCC) documented in this encounter Results * SONOGRAM - COMPLETE (08/09/2023 8:36 AM GRADUATE NURSE) Anatomical Region Laterality Modality Other 08/09/2023 8:36 AM GRADUATE NURSE Narrative 08/09/2023 10:32 AM GRADUATE NURSE ? [facility] ?[facility] ?PHONE: ??FAX: FETUS A Pat. Name: ?ANITA PADILLA. No: ?[id number] Study Date: ?? 08/09/2023 ??8:36am , Age: ? 2000, 23 Pregnancies: ?? 2, Para 1001 Height: ? 65 in Weight: ? 115 lb LMP: ?Unknown GA by Base: ?? 30w1d ?? BRENDA: 10/17/2023 GA by US: ? 29w4d ?? BRENDA: 10/21/2023 GA Selected: ??30w1d (From [facility]) BRENDA: ?10/17/2023 Referring MD: Sergo Messina MD Electric Stove Mechanic: ??Ezio HoustonMARCE CPT4: ? 07787 x2,[id number] BMI: ?19.13 Hist/Ind: ? DA/DC twins ?Low-risk cf-DNA ?Single umbilical artery (SUA) twin B ? Anatomy Screen MEASUREMENTS & AGE ? GROWTH EVALUATION Measurement ??GA ? Range ? Srce %for GA Ratios ----- ---- ------- BPD ??7.8 cm 31w3d (45o6s-35r0o) Hadl BPD 77% FL/BPD 0.70 (0.71 - 0.87* HC ??28.5 cm 31w2d (65t0g-53m9w) Hadl HC ??49% FL/AC ??0.22 (0.20 - 0.24) AC ??24.7 cm 29w0d (35j4g-40q0l) Hadl AC ??15% HC/AC ??1.15 (0.97 - 1.16) FL ?? 5.5 cm 28w6d (18n1e-34p0h) Hadl FL ??9% CI ? 0.80 (0.70 - 0.86) HL ?? 4.9 cm 28w6d (45f5m-32a0n) Tomasz HL ??29% GA for sonogram 29w4d (57n4q-38g1f) ?? Weight Estimate: based on (BPD,HC,AC,FL) Hadlock ?Weight: 1371 gm (1171-1571gm) Had ? : 3lbs, 0oz ? Normal: 1578 gm (1183- 1973gm) Had ? Wt% ? 16% for 30w1d Heart Rate: 147 bpm Amniotic Fluid Index: 06.8cm (Deepest Pocket) PROCEDURE, TECHNIQUE Technique: transabdominal EVAL, PLACENTA Presentation: cephalic MaternalSide: left Placenta: anterior Heart Rate: 147 bpm Amniotic Fluid Volume: normal Anatomy!Normal!Abnormal!Suboptimal!Prev. Seen!Comments Cranium ?! ?! ?! ?! [...] x ?! Ductal Arch ??! ?! ?! ? [...] ?! ? x ?! CLINICAL SUMMARY A DC/DA twin intrauterine is seen. ??The measurements today are consistent with AGA size for twin A and SGA for twin B, though sizes are concordant. ??The BRENDA is based on a prior ultrasound. ??The DVP appears normal for twin A, and normal for twin B. ?? IMPRESSION: DA/DA living twin IUP at 30w1d ?? size is appropriate for twin A and smaller than expected for twin B ?? Sizes are concordant Amniotic fluid volume: Normal for twin A, normal for twin B ?? Incomplete anatomic surveys for both twins No malformations seen within the limitations of ultrasound for both twins Doppler studies: reassuring umbilical artery S:D Doppler ratio for twin B ?? RECOMMEND: Begin testing in 2 weeks with indicated Doppler studies ?? Growth assessments in 2 weeks Thank you for allowing us the opportunity to care for you patient Franc Kolb MD <Electronic Signature> ??08/09/2023 10:16am FETUS B Pat. Name: ?TAI ANITA Recinos Pat. No: ?[id number] Study Date: ?? 08/09/2023 ??8:36am , Age: ? 2000, 23 Pregnancies: ?? 2, Para 1001 Height: ? 65 in Weight: ? 115 lb LMP: ?Unknown GA by Base: ?? 30w1d ?? BRENDA: 10/17/2023 GA by US: ? 28w4d ?? BRENDA: 10/28/2023 GA Selected: ??30w1d (From [facility]) BRENDA: ?10/17/2023 Referring MD: Sergo Messina MD Electric Stove Mechanic: ??Ezio Green RDMS CPT4: ? 45719 x2,[id number] Hist/Ind: ? DA/DC twins ?Low-risk cf-DNA ?Single umbilical artery (SUA) twin B ? Anatomy Screen MEASUREMENTS & AGE ? GROWTH EVALUATION Measurement ??GA ? Range ? Srce %for GA Ratios ----- ---- ------- BPD ??7.1 cm 28w2d (98k2j-21z7z) Hadl BPD 3% FL/BPD 0.78 (0.71 - 0.87) HC ??27.0 cm 29w3d (26a0r-79e8l) Hadl HC ??6% FL/AC ??0.22 (0.20 - 0.24) AC ??24.7 cm 28w6d (94y7c-82x6n) Hadl AC ??14% HC/AC ??1.09 (0.97 - 1.16) FL ?? 5.5 cm 29w0d (81r6t-66h5d) Hadl FL ??10% CI ? 0.73 (0.70 - 0.86) HL ?? 4.9 cm 29w0d (43f3o-03j6m) Tomasz HL ??31% GA for sonogram 28w4d (76z5u-20r2c) ?? Weight Estimate: based on (BPD,HC,AC,FL) Hadlock ?Weight: 1308 gm (1117-1499gm) Had ? : 2lbs, 14oz ? Normal: 1578 gm (1183- 1973gm) Had ? Wt% ? 9% for 30w1d Heart Rate: 137 bpm Amniotic Fluid Index: 07.6cm (Deepest Pocket) PROCEDURE, TECHNIQUE Technique: transabdominal EVAL, PLACENTA Presentation: breech MaternalSide: right Placenta: anterior Heart Rate: 137 bpm Amniotic Fluid Volume: normal DOPPLER Umbilical - Mid Cord S/D ??2.57(1.95 - 4.09) ? PI ?? 0.89 (0.70 - 1.29) ? Anatomy!Normal!Abnormal!Suboptimal!Prev. Seen!Comments Cranium ?! ?! ?! ?! ? x ?! Mdl (CSP/Thal! ?! ?! ?! ? x ?! Ventricles ?? ! ?! ?! ?! ? x ?! Choroid Plexu! ?! ?! ?! ? x ?! Cerebellum ?? ! ?! ?! ?! ? x ?! Cisterna M. ??! ?! ?! ?! ? x ?! Orbits ? ! ?! ?! ? x ?! ?! Profile ?! ?! ?! ? x ?! ?! Nasal Bone ?? ! ?! ?! ? x ?! ?! Lip ?! ?! ?! ? x ?! ?! Spine ?! ?! ?! ?! ? x ?! Lungs ?! ?! ?! ? x ?! ?! 4 Chamber Hea! ?! ?! ? x ?! ?! LVOT ? ! ?! ?! ? x ?! ?! RVOT ? ! ?! ?! ? x ?! ?! 3 Vessel View! ?! ?! ?! ? x ?! 3 Vessel Trac! ?! ?! ? [...] ?x ?? ! ? x ?! ?!Single umbilical ?artery Cord In! ?! ?! ? x ?! ?! Upper Extremi! ?? x ??! ?! ?! ?!unremarkable ?left, right ?previously seen Hands ?! ?! ?! ?! ? x ?! Lower Extremi! ?! ?! ?! ? x ?! Feet ? ! ?! ?! ? x ?! ?! External Malissa! ?! ?! ?! ? x ?! Placental Cor! ?! ?! ?! ? x ?! CLINICAL SUMMARY Franc Kolb MD <Electronic Signature> ??08/09/2023 10:16am Franc Kolb MD [facility] ORDERABLES documented in this encounter Visit Diagnoses Diagnosis Dichorionic diamniotic twin in second trimester (HCC)- Primary Twin , antepartum documented in this encounter
--- OUTSIDE RECORDS SUMMARY | 2024-07-20 14:57 | XMS_ITS | Encounter Summary ---
Author Organization [facility] Address [address] [facility] [place] [address] Care Team Providers Care Switch Foreman Name Role Phone Unavailable Primary Care Provider Unavailabl e Reason for Visit * Reason Onset Date Comments Referral 04/28/2023 Encounter Details Date Type Department Care Team (Late st Contact Info) Description 04/28/2023 Telephone [facility] MATERNAL/ EVALUATION UNIT [address] [place] [address]. [address] [place] [address] Maria Luisa Munoz film coater Social History Tobacco Use Types Packs/Day Years Used Date Smoking Tobacco: Never Assessed Sex and Gender Information Value Date Recorded Sex Assigned at Not on file Gender Identity Not on file Sexual Orientation Not on file documented as of this encounter Miscellaneous Notes * Telephone Encounter - Maria Luisa Munoz RN - 04/28/2023 9:17 AM CDT Comanage referral order received from Dr Messina @ [facility]. Indication-twins unspecified Shikha pearce, offered 05/06 declined, scheduled for US and new patient appointment. Order and records scanned. Dania @ [facility] notified of apt date and time. documented in this encounter Plan of Treatment Not on file documented as of this encounter Visit Diagnoses Not on filedocumented in this encounter
--- OUTSIDE RECORDS SUMMARY | 2024-07-20 14:57 | XMS_ITS | Encounter Summary ---
Author Organization [facility] Address [address] [facility] [place] [address] Care Team Providers Care Lead Mason Tender Name Role Phone Unavailable Primary Care Provider Dayami e Encounter Details Date Type Department Care Team (Late st Contact Info) Description 05/10/2023 8:30 AM CDT - 05/10/2023 11:59 PM CDT Hospital Encounter [facility] MATERNAL/ EVALUATION UNIT [address] [facility] [place] [address] Darfur, Deysi Willoughby MD [address] [facility] [address] [place] [address] Discharge Disposition: Home or Self Care Social [...] in a assisted (including now)? No 05/10/2023 [place] Depression Scale Answer Date Recorded [place] Depression Scale Total 1 05/10/2023 The thought of harming myself has occurred to me . Never 05/10/2023 Comments Yes Sex and Gender Information Value Date Recorded Sex Assigned at Not on file Gender Identity Not on file Sexual Orientation Not on file documented as of this encounter Last Filed Vital Signs Vital Sign Reading Time Taken Comments Blood Pressure 127/74 05/10/2023 10:05 AM CDT Pulse 73 05/10/2023 10:05 AM CDT Temperature - - Respiratory Rate - - Oxygen Saturation - - Inhaled Oxygen Concentration - - Weight 52.3 kg (115 lb 6.4 oz) 05/10/2023 10:05 AM CDT Height - - Body Mass Index - - documented in this encounter Medications at Time of Discharge Medication Sig Dispensed Refills Start Date End Date Vit-Fe Fumarate-FA ( vitamin) 28-0.8 MG tablet Take 1 (one) tablet by mouth once daily documented as of this encounter Progress Notes * Deysi Yanes MD - 05/10/2023 10:00 AM CDT PGY4 OB Clinic Initial Visit 05/10/2023 CC: Twins HPI: 22 year old at 17w1d weeks gestation, dated by 9wk US. Estimated Date of Delivery: 10/17/2023. Care with Dr. Messina Her is complicated by: There is no problem list on file for this patient. Patient denies cramping/contractions/VB/LOF. She reports starting to feel some movements. STates this is going well. 10-Point Review of Systems was performed: Positive for: see HPI NEGATIVE for headache, fever, vision changes, chest pain, shortness of breath, nausea, vomiting, diarrhea, constipation, dysuria, pruritic or malodorous vaginal discharge, abnormal vaginal bleeding, rashes, joint pain, calf pain, myalgias Obstetrical History: OB History Para Term AB Living 2 1 1 1 SAB IAB Ectopic Multiple Live Births 1 # Outcome Date GA Lbr Damir/2nd Weight Sex Delivery Anes PTL Lv 2 Current 1 Term 05/26/21 41w0d 2835 g (6 lb 4 oz) DAVID Gynecologic History: Reports history of normal monthly menses. Patient denies history of abnormal pap smears. Denies history of cervical procedures. Patient denies STDs, including HSV. Medical History: Denies HTN, diabetes, asthma, bleeding or clotting disorders, thyroid disorders, depression, anxiety, schizophrenia, bipolar disorder. Surgeries: No past surgical history on file. Allergies: No Known Allergies Curent Medications: Current Outpatient Medications on File Prior to Encounter Medication Sig Dispense Refill ??? Vit-Fe Fumarate-FA ( vitamin) 28-0.8 MG tablet Take 1 (one) tablet by mouth once daily No current facility-administered medications on file prior to encounter. Family History: No history of infants born with defects No history of family members with bleeding disorders or history of blood clots. No history of breast, ovarian, or uterine cancer Social History: Social History Socioeconomic History ??? Marital status: Single Spouse name: Not on file ??? Number of children: Not on file ??? Years of education: Not on file ??? Highest education level: Not on file Occupational History ??? Not on file Tobacco Use ??? Smoking status: Not on file ??? Smokeless tobacco: Not on file Substance and Sexual Activity ??? Alcohol use: Not on file ??? Drug use: Not on file ??? Sexual activity: Not on file Other Topics Concern ??? Not on file Social History Narrative ??? Not on file Social Determinants of Health Financial Resource Strain: Low Risk (05/10/2023) Overall Financial Resource Strain (CARDIA) ??? Difficulty of Paying Living Expenses: Not hard at all Food Insecurity: No Food Insecurity (05/10/2023) Hunger Vital Sign ??? Worried About Running Out of Food in the Last Year: Never true ??? Ran Out of Food in the Last Year: Never true Transportation Needs: No Transportation Needs (05/10/2023) PRAPARE - Transportation ??? Lack of Transportation (Medical): No ??? Lack of Transportation (Non-Medical): No Stress: Not on file Housing Stability: Low Risk (05/10/2023) Housing Stability Vital Sign ??? Unable to Pay for Housing in the Last Year: No ??? Number of Places Lived in the Last Year: 2 ??? Unstable Housing in the Last Year: No Objective: Vitals: 05/10/23 1005 BP: 127/74 Pulse: 73 Weight: 52.3 kg (115 lb 6.4 oz) BP 127/74 Pulse 73 Wt 52.3 kg (115 lb 6.4 oz) heart tones: per FETU Physical Exam: General: alert, cooperative, no distress Lungs: breathing comfortably on room air Abdomen: soft, non-tender, no masses Lower Extremities: no edema, non-tender bilaterally Female urogenital: per primary OBGYN Lab Review: Recent Labs Component Name 05/10/23 1016 GLUCOSEUA Negative Assessment/Plan: 22 year old at 17w1d with 1. Supervision of 1. Datinwk US 2. PNC with DR. Messina 3. PNL: with primary OBGYN 4. MOD: will continue to discuss closer to delivery time point desires 2. Di/Di Twins - US today: CL 3.7cm -The risks for problems associated with a twin . Risks of twin gestation including pretermdelivery, increased risk for gestational diabetes, preeclampsia and/or hypertension, growth disorders, and, in the case of monochorionic twins, twin-twin transfusion syndrome. The usual surveillance of twins, including serial assessment of growth and testing was explained. instances. The increased risk for IUFD as well as anomalies was explained. - Recommendations for twin pregnancies include both serial ultrasounds for growth as well as weeklyBPP/AISLINN/NST/Dopplers from 32 weeks through delivery (earlier if there are other complications). If the presenting twin is vertex, vaginal delivery is recommended in the absence of other obstetrical conditions. If the second twin is breech at term, total breech extraction for the second twin is associated with a better outcome than either external cephalic version (after delivery of Baby A) or C/S for Baby B. Plan: CL in 2 weeks and will need completion of anatomy scan in 4 weeks with clinic visit 3. Elevated BP without diagnosis of cHTN - Denies history of cHTN - BP at 14wk 140's - Bp today normotensive - Plan: managed per primary OBGYN, recommend getting BP cuff instructions were given including weight gain, exercise, diet (including intake of fish products with regards to Hg content), sexual activity, and common OTC medication use. Calcium intake of 1200 mg per day and vitamins with folate were recommended. Alcohol and smoking were discussed and advised to avoid during . The course of care was outlined. PTL precautions discussed. RTC in 4 weeks. D/W with Dr. Yanes. Beverly Bellamy MD 05/10/2023 10:55 AM Maternal Medicine Attending: I have seen and reviewed Shikha Padilla who is a 22 year old female at 17w1d with Dr. Bellamy on 05/10/23. We have discussed her past history and reviewed all pertinent records and recent clinical course. I have evaluated and examined her. I concur with the above findings and assessments. Exam: BP 127/74 Pulse 73 Wt 52.3 kg (115 lb 6.4 oz) General: Alert and oriented x3, no acute distress Mentation: Normal mentation HEENT: Neck supple without masses, no LAD Cardiovascular: Regular rate and rhythm Lungs: clear to auscultation bilaterally, no wheezes/rhales Abdomen: soft, non-tender, gravid Back: no flank pain, spine normal appearance Extremities: No calf tenderness FHTs present x2 My exam concurs with above. I have the following to add to the assessment and plan: 1. DCDA twin gestation 2. Mildly elevated BPs early in , possible pre-/borderline hypertension, normotensive today -Reviewed typical management and recommendations of twin , complications, and risks. F/u 4wk for anatomy completion/growth, followed by serial growth. Rec ASA ppx. Deysi Willoughby MD Business Intelligence Administrator Maternal Medicine [facility] documented in this encounter Plan of Treatment Not on file documented as of this encounter Visit Diagnoses Not on filedocumented in this encounter
--- OUTSIDE RECORDS SUMMARY | 2024-07-20 14:57 | XMS_ITS | Encounter Summary ---
Author Organization [facility] Address [address] [place] [address] Care Team Providers Care Mirror Specialist Name Role Phone Unavailable Primary Care Provider Unavailabl e Encounter Details Date Type Department Care Team (Latest Contact Info) Description 07/19/2023 Travel Social History Tobacco Use Types Packs/Day Years Used Date Smoking Tobacco: Never Assessed Overall Financial Resource Strain (CARDIA) Answe r Date Recorded How hard is it for you to pa y for the very basics like food, housing, medical care, and heating? Patient declined 07/19/2023 [facility] of Occupat ional Health - [...] [place] [facility] (including now)? No 07/19/2023 [place] Depression Scale Answer Date Recorded [place] Depression Scale Total 1 05/10/2023 The thought [...]
--- OUTSIDE RECORDS SUMMARY | 2024-07-20 14:57 | XMS_ITS | Encounter Summary ---
Author Organization [facility] Address [address] [place] [address] Care Team Providers Care Application Project Leader Name Role Phone Unavailable Primary Care Provider Unavailabl e Encounter Details Date Type Department Care Team (Latest Contact Info) Description 09/06/2023 Travel Social History Tobacco Use Types Packs/Day [...] medical care, and heating? Patient declined 07/19/2023 [facility] [place] of Occupat ional Health - Occupational Stress [...] slept in a custodial (including now)? No 07/19/2023 [place] Depression Scale Answer Date Recorded [place] Depression Scale Total 1 05/10/2023 The thought [...]
--- OUTSIDE RECORDS SUMMARY | 2024-07-20 14:57 | XMS_ITS | Encounter Summary ---
Author Organization [facility] Address [address] [place] [address] Care Team Providers Care Professional Shopper Name Role Phone Unavailable Primary Care Provider Unavailabl e Encounter Details Date Type Department Care Team (Latest Contact Info) Description 09/20/2023 Travel Social History Tobacco Use Types Packs/Day [...] care, and heating? Patient declined 07/19/2023 [facility] of Occupat ional Health - Occupational Stress [...] slept in a fdc (including now)? No 07/19/2023 [place] Depression Scale Answer Date Recorded [place] Depression Scale Total 1 05/10/2023 The thought [...]
--- OUTSIDE RECORDS SUMMARY | 2024-07-20 14:57 | XMS_ITS | Encounter Summary ---
Author Organization [facility] Address [address] [place] [address] Care Team Providers Care Fibreglass Laminator Name Role Phone Unavailable Primary Care Provider Unavailabl e Reason for Visit * Reason Onset Date Comments Referral 01/08/2021 Encounter Details Date Type Department Care Team (Late st Contact Info) Description 01/08/2021 Telephone [facility] MATERNAL/ EVALUATION UNIT [address] [facility] [place] [address] Luz Avalos, PhD [address] [place] [address] Referral Social History Tobacco Use Types Packs/Day Years Used Date Smoking Tobacco: Never Assessed Sex and Gender Information Value Date Recorded Sex Assigned at Not on file Gender Identity Not on file Sexual Orientation Not on file documented as of this encounter Miscellaneous Notes * Telephone Encounter - Luz Avalos, PhD - 01/08/2021 9:11 AM CDT Called patient to discuss referral to genetic counseling. Left message with my contact information. Luz Avalos, PhD, MS, [facility] Certified Genetic Counselor documented in this encounter Plan of Treatment Not on file documented as of this encounter Visit Diagnoses Not on filedocumented in this encounter
--- OUTSIDE RECORDS SUMMARY | 2024-07-20 14:57 | XMS_ITS | Encounter Summary ---
Author Organization [facility] Address [address] [place] [address] Care Team Providers Care Hand Picker Name Role Phone Unavailable Primary Care Provider Unavailabl e Reason for Referral * (Routine) - Open Specialty Diagnoses / Procedures Referred By Uriel park Referred To Contact Diagnoses growth restriction antepartum (HCC) Dichorionic diamniotic twin , antepartum (HCC) Procedures SONOGRAM - COMPLETE Franc Kolb MD [address] [facility] [address] [place] [phone] Referral ID Status Reason Start Date Expiration Date Visits Re quested Visits Authorized [id number] Open 08/23/2023 08/22/2024 2 2 TRIC MOTOR TESTER ASSEMBLER Reason for Visit * Reason Comments Ultrasound Encounter Details Date Type Department Care Team (Late st Contact Info) Description 09/13/2023 8:15 AM ELECTRIC MOTOR TESTER ASSEMBLER Hospital Encounter [facility] MATERNAL/ EVALUATION UNIT [address] [place] [address] Deysi Yanes MD [address] [place] [address] Discharge Disposition: Home or Self Care Social [...] declined 07/19/2023 [facility] - Occupational Stress Questionnaire Answer Date Recorded [...] place to sleep or slept in a jail (including now)? No 07/19/2023 [place] Depression Scale Answer Date Recorded [place] Depression Scale Total 1 05/10/2023 The thought [...] Associated Diagnosis Comments SONOGRAM - COMPLETE Routine 09/13/2023 8 :29 AM ELECTRIC MOTOR TESTER ASSEMBLER Selective growth restriction antepartum Dichorionic diamniotic twin , antepartum (HCC) documented in this encounter Results * SONOGRAM - COMPLETE (09/13/2023 8:29 AM ELECTRIC MOTOR TESTER ASSEMBLER) Anatomical Region Laterality Modality Other 09/13/2023 8:29 AM ELECTRIC MOTOR TESTER ASSEMBLER Narrative 09/13/2023 11:06 AM ELECTRIC MOTOR TESTER ASSEMBLER ? [facility] ?PHONE: ??FAX: FETUS A Pat. Name: ?SHIKHA PADILLA Pat. No: ?[id number] Study Date: ?? 09/13/2023 ??8:29am , Age: ? 2000, 23 Pregnancies: ?? 2, Para 1 Height: ? 65 in Weight: ? 119 lb LMP: ?Unknown GA by Base: ?? 35w1d ?? BRENDA: 10/17/2023 GA by US: ? 33w2d ?? BRENDA: 10/30/2023 GA Selected: ??35w1d (From [facility]) BRENDA: ?10/17/2023 Referring MD: Natacha, , [facility] Animal Trapper: ??Lyndsay Pete RDMS CPT4: ? 48800 x2,08203 x2,17909 x2,52396 x2 BMI: ?19.8 Hist/Ind: ? DA/DC Twins ?SGA both twins (08/23: A: 8%, B: 6%) ?cf-DNA Low risk ?Twin B: single umbilical artery ?Incomplete anatomy x2 MEASUREMENTS & AGE ? GROWTH EVALUATION Measurement ??GA ? Range ? Srce %for GA Ratios ----- ---- ------- BPD ??8.2 cm 33w0d (44b9p-58f0b) Hadl BPD 5% FL/BPD 0.79 (0.71 - 0.87) HC ??31.4 cm 35w2d (18y1n-67u0j) Hadl HC ??18% FL/AC ??0.23 (0.20 - 0.24) AC ??28.0 cm 32w0d (92b1s-04i6k) Hadl AC ??1% HC/AC ??1.12 (0.93 - 1.12* FL ?? 6.5 cm 33w4d (81c1s-71g8i) Hadl FL ??9% CI ? 0.77 (0.70 - 0.86) HL ?? 5.8 cm 33w4d (53e7f-16l7x) Tomasz HL ??24% GA for sonogram 33w2d (11s9h-51u9e) ?? Weight Estimate: based on (BPD,HC,AC,FL) Hadlock [...] Signature> ??09/13/2023 11:04am FETUS B Pat. Name: ?TAISHIKHA GARCIA Pat. No: ?[id number] Study Date: ?? 09/13/2023 ??8:29am , Age: ? 2000, 23 Pregnancies: ?? 2, Para 1 Height: ? 65 in Weight: ? 119 lb LMP: ?Unknown GA by Base: ?? 35w1d ?? BRENDA: 10/17/2023 GA by US: ? 32w2d ?? BRENDA: 11/06/2023 GA Selected: ??35w1d (From [facility]) BRENDA: ?10/17/2023 Referring MD: Natacha, , [facility] Animal Trapper: ??Lyndsay Pete RDMS CPT4: ? 10624 x2,75822 x2,61547 x2,00531 x2 Hist/Ind: ? DA/DC Twins ?SGA both twins (08/23: A: 8%, B: 6%) ?cf-DNA Low risk ?Twin B: single umbilical artery ?Incomplete anatomy x2 MEASUREMENTS & AGE ? GROWTH EVALUATION Measurement ??GA ? Range ? Srce %for GA Ratios ----- ---- ------- BPD ??8.1 cm 32w3d (32u8r-10m2t) Hadl BPD 2% FL/BPD 0.77 (0.71 - 0.87) HC ??29.9 cm 33w1d (00q7g-30j1t) Hadl HC ??<01 FL/AC ??0.22 (0.20 - 0.24) AC ??28.8 cm 32w5d (94i8n-46r4r) Hadl AC ??5% HC/AC ??1.04 (0.93 - 1.12) FL ?? 6.2 cm 32w1d (40m9z-65l5q) Hadl FL ??1% CI ? 0.75 (0.70 - 0.86) HL ?? 5.3 cm 31w0d (66v6o-58k0j) Tomasz HL ??<05 GA for sonogram 32w2d (74m0m-95o4c) ?? Weight Estimate: based on (BPD,HC,AC,FL) Hadlock ?Weight: 2010 gm (1717-2304gm) Had ? : 4lbs, 6oz ? Normal: 2617 gm (1962- 3271gm) Had ? Wt% ? 4% for 35w1d Heart Rate: 129 bpm Amniotic Fluid Index: 04.8cm (Deepest Pocket) Biophysical Profile: 04/20 Breathin ?? [...] <Electronic Signature> ??09/13/2023 11:04am Franc Kolb MD [facility] ORDERABLES documented in this encounter Visit Diagnoses Diagnosis Selective growth restriction antepartum- Primary Dichorionic diamniotic twin , antepartum (HCC) Reserved for inherently not codable concepts WITHOUT codable children documented in this encounter
--- OUTSIDE RECORDS SUMMARY | 2024-07-20 14:57 | XMS_ITS | Encounter Summary ---
Author Organization [facility] Address [facility] [facility] [address] [place] [address] Care Team Providers Care Line Installer Name Role Phone Unavailable Primary Care Provider Unavailabl e Reason for Referral * Social Work (Routine) - Closed Specialty Diagnoses / Procedures Referred By Uriel t Referred To Contact Obstetrics and Gynecology Diagnoses , unspecified gestational age (HCC) Procedures REFERRAL TO OB NURSE NAVIGATOR Marissa Vasquez MD [address] [place] [address] Referral ID Status Reason Start Date Expiration Date Visits Re quested Visits Authorized [id number] Closed 07/19/2023 07/18/2024 1 1 P SHEARER Reason for Visit * Reason Comments Care Encounter Details Date Type Department Care Team (Late st Contact Info) Description 07/19/2023 8:01 AM SHEEP SHEARER - 07/19/2023 11:59 PM SHEEP SHEARER Hospital Encounter [facility] MATERNAL/ EVALUATION UNIT [address] [place] [address] Deysi Yanes MD [address] [place], [place] [phone] Marissa Vasquez MD [address] [place] [address] Discharge Disposition: Home or Self Care Social History Tobacco Use Types Packs/Day Years Used Date Smoking Tobacco: Never Assessed Overall Financial Resource Strain (CARDIA) Answe r Date Recorded How hard is it for you to pa y for the very basics like food, housing, medical care, and heating? Patient declined 07/19/2023 [facility] Occupat ional Health - Occupational Stress [...] place to sleep or slept in a retirement (including now)? No 07/19/2023 [place] Depression Scale Answer Date Recorded [place] Depression Scale Total 1 05/10/2023 The thought of harming myself has occurred to me . Never 05/10/2023 Comments Yes Sex and Gender Information Value Date Recorded Sex Assigned at Not on file Gender Identity Not on file Sexual Orientation Not on file documented as of this encounter Last Filed Vital Signs Vital Sign Reading Time Taken Comments Blood Pressure 131/65 07/19/2023 9:26 AM SHEEP SHEARER Pulse 72 07/19/2023 9:26 AM SHEEP SHEARER Temperature - - Respiratory Rate - - Oxygen Saturation - - Inhaled Oxygen Concentration - - Weight 60.8 kg (134 lb) 07/19/2023 9:26 AM SHEEP SHEARER Height 165.1 cm (5' 5 ) 07/19/2023 9:26 AM SHEEP SHEARER Body Mass Index 22.3 07/19/2023 9:26 AM SHEEP SHEARER documented in this encounter Medications at Time of Discharge Medication Sig Dispensed Refills Start Date End Date Vit-Fe Fumarate-FA ( vitamin) 28-0.8 MG tablet Take 1 (one) tablet by mouth once daily documented as of this encounter Progress Notes * Maria Josue RN - 07/19/2023 9:31 AM CST Patient was given third trimester education packet, which includes: When Baby Blues Appear Here to Stay Moms helping moms Car seat safety check locations Safety Program What does a safe sleep environment look like? Weigh In Wednesday's Support Group [facility] Health virtual and In-person classes and support groups Looking for a Final Expense Agent? Your expert providers Your experience, your way The Importance of Labor of Love: My Plan [employer] [employer] form completed. Diapers given. 07/19/2023 Referral for OB Nurse Navigator sent with verbal consent from patient. P SHEARER * Juan Jean MD - 07/19/2023 9:18 AM CST PGY1 [facility] Return Visit 07/19/23 S: Shikha Padilla is a 22 year old @ 27w1d Today she notes she is doing well and is without complaint. Denies CTX, LOF, VB; +FM O: There were no vitals filed for this visit. FHT A:142bpm FHT B: 142bpm Recent Labs Component Name 05/10/23 1016 GLUCOSEUA Negative A/P: Shikha Padilla is a 22 year old at 27w1d Patient Active Problem List Diagnosis Date Noted ??? Dichorionic diamniotic twin 05/12/2023 Priority: Not Prioritized Supervision of - Datinwk US - PNC with Dr. Messina - PNL: with primary OBGYN - 3T + GCT today - MOD: Desires . Continue to discuss ?? Di/Di Twins - US [05/24]: CL 3.7cm unchanged from 05/10 - [07/19] Formal US pending, Twin A Vertex, Twin B Breech - 2-vessel umbilical cord Fetus B - F/u on 3wks for completion of anatomy scan and next PNV ?? Elevated BPx1 without diagnosis of cHTN - Denies history of cHTN - BP at 14wk 140's - BP 05/10 normotensive - Normotensive today, asymptomatic [07/19] - Plan: managed per primary OBGYN testing is indicated for weekly BPP/AISLINN/NST/Dopplers from 32 weeks through delivery (earlier if there are other complications) Current delivery plan: desires RTC in 3wks for next PNV as well as Anatomy scan Precautions for PTL and PreE given. Seen and discussed with Dr. Pedro Jean MD 07/19/2023 9:18 AM P SHEARER Associated attestation - Marissa Vasquez MD - 07/21/2023 6:21 PM SHEEP SHEARER MFM Attending Attestation: I discussed the care of this patient with the resident physician. I have reviewed her management plan. I agree with the above note, assessment and plan. Marissa Vasquez MD documented in this encounter Plan of Treatment Not on file documented as of this encounter Procedures Procedure Name Priority Date/Time Associated Diagnosis Comments URINALYSIS - POCT (IP) BEAKER INTERFACE Routine 07/19/2023 10:16 AM SHEEP SHEARER SYPHILIS ANTIBODY CASCADING REFLEX Routine 07/19/2023 9:36 AM SHEEP SHEARER Dichorionic diamniotic twin , antepartum (HCC) HIV-1 HIV-2 ANTIBODY + HIV P24 AG PANEL Routine 07/19/2023 9:36 AM SHEEP SHEARER Dichorionic diamniotic twin , antepartum (HCC) CBC W/O DIFFERENTIAL Routine 07/19/2023 9:36 AM SHEEP SHEARER Dichorionic diamniotic twin , antepartum (HCC) GLUCOSE CHALLENGE Routine 07/19/2023 9:3 6 AM SHEEP SHEARER Dichorionic diamniotic twin , antepartum (HCC) documented in this encounter Results * (ABNORMAL) URINALYSIS - POCT (IP) BEAKER INTERFACE (07/19/2023 10:16 AM SHEEP SHEARER) Color UA POCT Yellow Straw, Yellow, Dark Yellow, Light Yellow 07/19/2023 10:17 AM SHEEP SHEARER [facility] Clarity UA POCT Clear Clear 10:17 AM [facility] Specific Paulina UA POCT 1.020 1.005 - 1.030 07/19/2023 10:17 AM [facility] pH UA POCT 6.0 5.0 - 8.0 pH 07/19/2023 10:17 AM [facility] Protein UA POCT Negative Negative 10:17 AM [facility] Blood UA POCT Trace-intac t(A) Negative 07/19/2023 10:17 AM [facility] Leukocyte UA POCT 3+(A) Negative 07/19/2023 10:17 AM [facility] Nitrite UA POCT Negative Negative 10:17 AM [facility] Glucose UA POCT Trace(A) Negative 10:17 AM [facility] Ketone UA POCT Negative Negative 07/19/2023 10:17 AM [facility] Bilirubin UA POCT Negative Negative 07/19/2023 10:17 AM [facility] Urobilinogen UA POCT 0.2 0.1 - 1.0 EU/dL 07/19/2023 10:17 AM [facility] Urine URINE / Unknown 07/19/2023 1 0:16 AM SHEEP SHEARER 07/19/2023 10:17 AM [facility] Marissa Vasquez MD LAB - POINT OF CARE ORDERABLES [facility] [address] [place] [address] * HIV-1 HIV-2 ANTIBODY + HIV P24 AG PANEL (07/19/2023 9:36 AM SHEEP SHEARER) Pathologist [facility] HIV1/2 Ab + P24 Ag Non Reactive Non Reactive 07/19/2023 10:51 AM SHEEP SHEARER [facility] Blood BLOOD SPECIMEN / Unknown Venipuncture / Unknown 07/19/2023 9:36 AM SHEEP SHEARER 07/19/2023 10:02 AM SHEEP SHEARER Narrative [facility] - 07/19/2023 10:51 AM SHEEP SHEARER No Laboratory evidence of HIV infection. Marissa Vasquez MD LAB - CHEMISTRY ORDE RABLES Performing Organization Address [facility]/ZIP Co de Phone Number [facility] [address], [place] [phone] * SYPHILIS ANTIBODY CASCADING REFLEX (07/19/2023 9:36 AM SHEEP SHEARER) [facility] Treponema pallidum Antibody Non Reactive Non Reactive 07/19/2023 10:52 AM SHEEP SHEARER [facility] Comment: No Laboratory evidence of syphilis infection. ?? Note: ??Circulating antibodies may be low or undetectable in early infection. ??If recent exposure is suspected, re-draw sample in 2-4 weeks and repeat testing. Blood BLOOD SPECIMEN / Unknown Venipuncture / Unknown 07/19/2023 9:36 AM SHEEP SHEARER 07/19/2023 10:02 AM SHEEP SHEARER Marissa Vasquez MD LAB - SEROLOGY ORDER MENDEZ Performing Organization Address [facility] Co de Phone Number [facility] [address], [place] [phone] * (ABNORMAL) CBC W/O DIFFERENTIAL (07/19/2023 9:36 AM SHEEP SHEARER) Pathologist [facility] WBC 10.8(H) 4.0 - 10.7 x10E9/L 07/19/2023 10:12 AM [facility] RBC Count 3.95 3.90 - 5.20 x10E12/L 07/19/2023 10:12 AM [facility] Hemoglobin 12.1 11.9 - 15.8 g/dL 07/19/2023 10:12 AM [facility] Hematocrit 37.0 34.8 - 46.1 % 07/19/2023 10:12 AM [facility] MCV 93.7 80.0 - 98.0 fL 07/19/2023 10:12 AM [facility] MCH 30.6 26.7 - 33.6 pg 07/19/2023 10:12 AM [facility] MCHC 32.7 31.7 - 36.3 g/dL 07/19/2023 10:12 AM [facility] RDW-CV 11.9 11.3 - 14.8 % 07/19/2023 10:12 AM [facility] Platelet Count 215 150 - 420 x10E9/L 07/19/2023 10:12 AM [facility] MPV 9.5 7.8 - 11.4 fL 07/19/2023 10:12 AM [facility] Blood BLOOD SPECIMEN / Unknown Venipuncture / Unknown 07/19/2023 9:36 AM SHEEP SHEARER 07/19/2023 10:02 AM SHEEP SHEARER Marissa Vasquez MD LAB - HEMATOLOGY ORD ERABLES [facility] [address] [place] [address] * GLUCOSE CHALLENGE (07/19/2023 9:36 AM SHEEP SHEARER) [facility] Glucose Challenge 122 64 - 140 mg/dL 07/19/2023 10:27 AM [facility] Glucose Challenge Time 07/19/2023 10:27 AM [facility] Blood BLOOD SPECIMEN / Unknown Venipuncture / Unknown 07/19/2023 9:36 AM SHEEP SHEARER 07/19/2023 10:02 AM SHEEP SHEARER Marissa Vasquez MD LAB - CHEMISTRY ORDGrisel JAVIER [facility] [address], [place] [phone] documented in this encounter Visit Diagnoses Diagnosis Dichorionic diamniotic twin , antepartum (HCC)- Primary Reserved for inherently not codable concepts WITHOUT codable children , unspecified gestational age (HCC) documented in this encounter
--- OUTSIDE RECORDS SUMMARY | 2024-07-20 14:57 | XMS_ITS | Encounter Summary ---
Author Organization [facility] Address [address] [place] [address] Care Team Providers Care Finding Fastener Name Role Phone Unavailable Primary Care Provider Unavailabl e Reason for Visit * Reason Onset Date Comments Care Management 07/20/2023 Called pt to est ablish care for SDOH needs. Pt states she had just gone through a divorce and moved. She is in stable housing and has no other concerns or needs. She states she had stress due to the divorce and custody of her 2 year old son. Offered resources for therapy and pt declined. Informed pt we would close her case at this time, but she can always reach out again at the clinic if she needs any assistance. Encounter Details Date Type Department Care Team (Late st Contact Info) Description 07/20/2023 Patient Outreach [facility] MATERNAL/ EVALUATION UNIT [address] [place] [address] Janet Perez, RN Care Management (Called pt to establish care for SDOH needs. Pt states she had just gone through a divorce and moved. She is in stable housing and has no other concerns or needs. She states she had stress due to the divorce and custody of her 2 year old son. Offered resources for therapy and pt declined. Informed pt we would close her case at this time, but she can always reach out again at the clinic if she needs any assistance. ) Social History Tobacco Use Types Packs/Day Years Used Date Smoking Tobacco: Never Assessed Overall Financial Resource Strain (CARDIA) Answe r Date Recorded How hard is it for you to pa y for the very basics like food, housing, medical care, and heating? Patient declined 07/19/2023 [facility] [place] of Occupat ional Health - Occupational Stress [...] in a custodial (including now)? No 07/19/2023 [place] Depression Scale Answer Date Recorded [place] Depression Scale Total 1 05/10/2023 The thought of harming myself has occurred to me . Never 05/10/2023 Comments Yes Sex and Gender Information Value Date Recorded Sex Assigned at Not on file Gender Identity Not on file Sexual Orientation Not on file documented as of this encounter Miscellaneous Notes * Telephone Encounter - Janet Perez RN - 07/20/2023 10:51 AM CST Called pt to establish care for SDOH needs. Pt states she had just gone through a divorce and moved. She is in stable housing and has no other concerns or needs. She states she had stress due to the divorce and custody of her 2 year old son. Offered resources for therapy and pt declined assistance.Informed pt we would close her case at this time, but she can always reach out again at the clinic if she needs any assistance. DCARE PROVIDER documented in this encounter Plan of Treatment Not on file documented as of this encounter Visit Diagnoses Not on filedocumented in this encounter
--- OUTSIDE RECORDS SUMMARY | 2024-07-20 14:57 | XMS_ITS | Encounter Summary ---
Author Organization [facility] Address [address] [place] [address] Care Team Providers Care Seam Hammerer Name Role Phone Unavailable Primary Care Provider Unavailabl e Encounter Details Date Type Department Care Team (Latest Contact Info) Description 05/10/2023 Travel Social History Tobacco Use Types Packs/Day [...] slept in a fpc (including now)? No 05/10/2023 [place] Depression Scale Answer Date Recorded [place] Depression Scale Total 1 05/10/2023 The thought [...]
--- OUTSIDE RECORDS SUMMARY | 2024-07-20 14:57 | XMS_ITS | Encounter Summary ---
Author Organization [facility] Address [address] [place] [address] Care Team Providers Care Lap Machine Tender Name Role Phone Unavailable Primary Care Provider Unavailabl e Reason for Visit * Reason Comments Maternal Medicine * Auth/Cert (Routine) Specialty Diagnoses / Procedures Referred By Contac t Referred To Contact Referral ID Status Reason Start Date Expiration Date Visits Re quested Visits Authorized [id number] 1 1 Encounter Details Date Type Department Care Team (Latest Contact Info) Description 09/06/2023 8:00 AM AUTOMATION ARCHITECT - 09/06/2023 9:45 AM AUTOMATION ARCHITECT Hospital Encounter [facility] MATERNAL/ EVALUATION UNIT [address] [place] [address] Franc Kolb MD [address] [facility] [address] [place] [address] Discharge Disposition: Home or Self Care Social [...] medical care, and heating? Patient declined 07/19/2023 [facility] of Occupat ional Health - Occupational Stress [...] place to sleep or slept in a long term (including now)? No 07/19/2023 [place] Depression Scale Answer Date Recorded [place] Depression Scale Total 1 05/10/2023 The thought of harming myself has occurred to me . Never 05/10/2023 Comments Yes Sex and Gender Information Value Date Recorded Sex Assigned at Not on file Gender Identity Not on file Sexual Orientation Not on file documented as of this encounter Last Filed Vital Signs Vital Sign Reading Time Taken Comments Blood Pressure 156/105 09/06/2023 9:10 AM AUTOMATION ARCHITECT Pulse 90 09/06/2023 9:10 AM AUTOMATION ARCHITECT Temperature - - Respiratory Rate - - Oxygen Saturation - - Inhaled Oxygen Concentration - - Weight 67.6 kg (149 lb) 09/06/2023 9:00 AM AUTOMATION ARCHITECT Height - - Body Mass Index 24.79 07/19/2023 9:26 AM AUTOMATION ARCHITECT documented in this encounter Medications at Time of Discharge Medication Sig Dispensed Refills Start Date End Date Calcium Carb-Cholecalciferol (CALCIUM 500/D PO) Take 1 tablet by mouth once daily magnesium 500 MG tablet Take 1 (one) tablet by mouth once daily multivitamin daily tablet Take 1 (one) tablet by mouth daily with food Vit-Fe Fumarate-FA ( vitamin) 28-0.8 MG tablet Take 1 (one) tablet by mouth once daily documented as of this encounter Progress Notes * Marissa Hunt RN - 09/06/2023 9:07 AM CST [employer] form completed. Diapers given. 09/06/2023 MATION ARCHITECT * Jessica Osborne MD - 09/06/2023 9:04 AM CST PGY3 High Risk [facility] Return Visit 09/06/23 S: Shikha Padilla is a 23 year old @ 34w1d Patient denies having any headaches, changes in vision, chest pain, SOB, or RUQ pain. Denies CTX, LOF, VB; +FM O: Vitals: 09/06/23 0900 Weight: 67.6 kg (149 lb) FHT and growth per US Recent Labs Component Name 08/23/23 1048 08/09/23 1044 PROTEINUA - Negative GLUCOSEUA Negative Negative KETONEUA - Negative A/P: Shikha Padilla is a 23 year old at 34w1d Supervision of - Dating 9wk US - PNL: O+/I/-/-, NR - GC/CT: -/- - Pap: NILM - Urine Culture: GBSuria, s/p tx - UDS: negative - CF: Carrier - Hgb Electrophoresis: wnl - NIPT: LR - MOC: OCPs - MOF: breast - MOD: desires - GCT: 122 - 3T labs: wnl - RSV vacc: 08/23 - GBSuria - needs intrapartum PCN ?? [...] normal - cont serial growth US - weekly testing ?? Elevated BPx1??without diagnosis of cHTN - [...] for genetic counselors ?? testing is indicated for??DCDA Twins, SGA x2: cont??weekly BPP/NST??at 32 weeks. Current delivery plan:??Desires RTC??2 weeks Precautions for??PTL/VB/DFM??given. ?? Patient seen by and case was discussed with Dr. Kolb. RTC 2w Patient sent to triage for further evaluation given elevated blood pressure Jessica Osborne MD 09/06/2023 9:04 AM MATION ARCHITECT Associated attestation - Franc Kolb MD - 09/09/2023 9:50 AM AUTOMATION ARCHITECT MFM Attending I have seen, evaluated and examined the patient with Dr. Osborne. I agree with the above assessment, exams and plans. Exam: BP (!) 156/105 Pulse 90 Wt 67.6 kg (149 lb) Gen - NAD Abd - NT Ext - NT, no edema FHTs - + x 2 per US I have the following to add to the plan: no additions Franc Kolb MD [facility] documented in this encounter Plan of Treatment Not on file documented as of this encounter Procedures Procedure Name Priority Date/Time Associated Diagnosis Comments URINE MICROSCOPIC ONLY REFLEX TO CULTURE Routine 09/06/2023 9:26 AM AUTOMATION ARCHITECT Dichorionic diamniotic twin , antepartum (HCC) Selective growth restriction antepartum URINALYSIS REFLEX MICROSCOPIC REFLEX CULTURE STAT 09/06/2023 9:26 AM AUTOMATION ARCHITECT Dichorionic diamniotic twin , antepartum (HCC) Selective growth restriction antepartum CULTURE URINE Routine 09/06/2023 9:26 AM AUTOMATION ARCHITECT Dichorionic diamniotic twin , antepartum (HCC) Selective growth restriction antepartum CBC W AUTO DIFFERENTIAL STAT 09/06/2023 9:26 AM AUTOMATION ARCHITECT Dichorionic diamniotic twin , antepartum (HCC) Selective growth restriction antepartum COMPREHENSIVE METABOLIC PANEL STAT 09/06/2023 9:26 AM AUTOMATION ARCHITECT Dichorionic diamniotic twin , antepartum (HCC) Selective growth restriction antepartum PROTEIN CREATININE RATIO URINE RANDOM PNL STAT 09/06/2023 9:26 AM AUTOMATION ARCHITECT Dichorionic diamniotic twin , antepartum (HCC) Selective growth restriction antepartum documented in this encounter Results * CULTURE URINE (09/06/2023 9:26 AM AUTOMATION ARCHITECT) Culture Urine >100,000 CFU/mL urogenital corie KAMALA 09/07/2023 8:18 PM AUTOMATION ARCHITECT [facility] MICROBIOLOGY Urine URINE SPECIMEN OBTAINED BY CLEAN CATCH PROCEDURE / Unknown Collection / Unknown 09/06/2023 9:26 AM AUTOMATION ARCHITECT 09/06/2023 9:40 AM AUTOMATION ARCHITECT Franc Kolb MD LAB - MICROBIOLOGY O RDERABLES [facility] MICROBIOLOGY [address] [place] [address], [facility] [phone] * (ABNORMAL) URINE MICROSCOPIC ONLY REFLEX TO CULTURE (09/06/2023 9:26 AM AUTOMATION ARCHITECT) Reflex Status Culture to follow 09/06/2023 9:56 AM AUTOMATION ARCHITECT [facility] RBC UA 3-5 0 - 5 # /hpf 09/06/2023 9:56 AM AUTOMATION ARCHITECT [facility] WBC UA 51-100(A) 0 - 5 # /hpf 09/06/2023 9:56 AM AUTOMATION ARCHITECT [facility] Bacteria UA 3+(A) None Seen 09/06/2023 9:56 AM AUTOMATION ARCHITECT [facility] Squamous Epithelial Cells 6-10(A) 0 - 5 /hpf 09/06/2023 9:56 AM AUTOMATION ARCHITECT [facility] Urine URINE SPECIMEN OBTAINED BY CLEAN CATCH PROCEDURE / Unknown Collection / Unknown 09/06/2023 9:26 AM AUTOMATION ARCHITECT 09/06/2023 9:40 AM AUTOMATION ARCHITECT Narrative [facility] - 09/06/2023 9:56 AM AUTOMATION ARCHITECT Franc Kolb MD LAB - URINALYSIS ORD ERABLES Performing Organization Address [facility] Co de Phone Number [facility] [address] [place] [address] [phone] * PROTEIN CREATININE RATIO URINE RANDOM PNL (09/06/2023 9:26 AM AUTOMATION ARCHITECT) Protein Urine <6.8 <11.9 mg/dL 09/06/2023 10:07 AM [facility] Creatinine Urine 27.96 mg/dL 09/06/2023 10:07 AM [facility] Protein/Creatin ine Ratio Urine 09/06/2023 10:07 AM [facility] Comment:Unable to calculate due to limited levels of measurable protein. Urine URINE SPECIMEN OBTAINED BY CLEAN CATCH PROCEDURE / Unknown Collection / Unknown 09/06/2023 9:26 AM AUTOMATION ARCHITECT 09/06/2023 9:40 AM AUTOMATION ARCHITECT Franc Kolb MD LAB - URINE CHEMISTR Y ORDERABLES Performing Organization Address [facility] Co de Phone Number [facility] [address] [place] [address] [phone] * (ABNORMAL) URINALYSIS REFLEX MICROSCOPIC REFLEX CULTURE (09/06/2023 9:26 AM AUTOMATION ARCHITECT) Color UA Yellow Straw, Yellow 09/06/2023 9:50 AM [facility] Clarity UA Slt Cloudy(A) Clear 09/06/2023 9:50 AM [facility] Glucose UA Negative Negative 09/06/2023 9:50 AM [facility] Bilirubin UA Negative Negative 09/06/2023 9:50 AM [facility] Ketone UA Negative Negative 09/06/2023 9:50 AM [facility] Specific [place] UA 1.004(L) 1.005 - 1.030 09/06/2023 9:50 AM [facility] Blood UA Negative Negative 09/06/2023 9:50 AM [facility] pH UA 7.0 5.0 - 8.0 pH 09/06/2023 9:50 AM [facility] Protein UA Negative Negative 09/06/2023 9:50 AM [facility] Urobilinogen UA Negative Negative mg/dL 09/06/2023 9:50 AM [facility] Nitrite UA Negative Negative 09/06/2023 9:50 AM [facility] Leukocyte UA 3+(A) Negative 09/06/2023 9:50 AM [facility] Urine Microscopy Urine microscopy to follow 09/06/2023 9:50 AM [facility] Reflex Status Culture to follow 09/06/2023 9:50 AM [facility] Urine URINE SPECIMEN OBTAINED BY CLEAN CATCH PROCEDURE / Unknown Collection / Unknown 09/06/2023 9:26 AM AUTOMATION ARCHITECT 09/06/2023 9:40 AM [facility] Narrative [facility] - 09/06/2023 9:50 AM [facility] Franc Kolb MD LAB - URINALYSIS ORD ERABLES [facility] [address] [place] [address] * (ABNORMAL) COMPREHENSIVE METABOLIC PANEL (09/06/2023 9:26 AM [facility]) Glucose 74 70 - 105 mg/dL 09/06/2023 10:06 AM [facility] Sodium 138 136 - 145 mmol/L 09/06/2023 10:06 AM [facility] Potassium 4.2 3.5 - 5.1 mmol/L 09/06/2023 10:06 AM [facility] Chloride 108(H) 98 - 107 mmol/L 09/06/2023 10:06 AM [facility] CO2 22 22 - 29 mmol/L 09/06/2023 10:06 AM [facility] Calcium 9.0 8.4 - 10.4 mg/dL 09/06/2023 10:06 AM [facility] Anion Gap 8 6 - 16 mmol/L 09/06/2023 10:06 AM [facility] BUN 8 5.3 - 18.7 mg/dL 09/06/2023 10:06 AM [facility] Creatinine 0.71 0.57 - 1.11 mg/dL 09/06/2023 10:06 AM [facility] Alkaline Phosphatase 210(H) 40 - 150 U/L 09/06/2023 10:06 AM [facility] ALT 9 0 - 55 U/L 09/06/2023 10:06 AM [facility] AST 17 5 - 34 U/L 09/06/2023 10:06 AM [facility] Protein Total 6.3(L) 6.4 - 8.3 gm/dL 09/06/2023 10:06 AM [facility] Albumin 2.6(L) 3.4 - 5.0 gm/dL 09/06/2023 10:06 AM [facility] Bilirubin Total 0.2 0.2 - 1.2 mg/dL 09/06/2023 10:06 AM [facility] eGFR by CKD-EPI >90 >=90 mL/min/1.7 3 m2 09/06/2023 10:06 AM [facility] Blood BLOOD SPECIMEN / Unknown Venipuncture / Unknown 09/06/2023 9:26 AM AUTOMATION ARCHITECT 09/06/2023 9:39 AM [facility] Franc Kolb MD LAB - CHEMISTRY ORDE [facility] Organization Address City/State/[facility] Co de Phone Number [facility] [address] [place] [address] * (ABNORMAL) CBC W AUTO DIFFERENTIAL (09/06/2023 9:26 AM [facility]) WBC 12.0(H) 4.0 - 10.7 x10E9/L 09/06/2023 9:48 AM [facility] RBC Count 4.22 3.90 - 5.20 x10E12/L 09/06/2023 9:48 AM [facility] Hemoglobin 12.2 11.9 - 15.8 g/dL 09/06/2023 9:48 AM [facility] Hematocrit 37.1 34.8 - 46.1 % 09/06/2023 9:48 AM [facility] MCV 87.9 80.0 - 98.0 fL 09/06/2023 9:48 AM [facility] MCH 28.9 26.7 - 33.6 pg 09/06/2023 9:48 AM [facility] MCHC 32.9 31.7 - 36.3 g/dL 09/06/2023 9:48 AM [facility] RDW-CV 12.1 11.3 - 14.8 % 09/06/2023 9:48 AM [facility] Platelet Count 263 150 - 420 x10E9/L 09/06/2023 9:48 AM [facility] MPV 9.6 7.8 - 11.4 fL 09/06/2023 9:48 AM [facility] Neutrophil % 72.7 41.0 - 74.0 % 09/06/2023 9:48 AM [facility] Lymphocyte % 20.1 17.0 - 47.0 % 09/06/2023 9:48 AM [facility] Monocyte % 5.7 3.0 - 11.0 % 09/06/2023 9:48 AM [facility] Eosinophil % 0.6 0.0 - 7.0 % 09/06/2023 9:48 AM [facility] Basophil % 0.3 0.0 - 1.6 % 09/06/2023 9:48 AM [facility] Immature Granulocytes % 0.6 0.0 - 1.0 % 09/06/2023 9:48 AM [facility] Neutrophil Absolute 8.75(H) 1.60 - 7.50 x10E9/L 09/06/2023 9:48 AM [facility] Lymphocyte Absolute 2.42 1.00 - 4.40 x10E9/L 09/06/2023 9:48 AM [facility] Monocyte Absolute 0.68 0.15 - 1.00 x10E9/L 09/06/2023 9:48 AM [facility] Eosinophil Absolute 0.07 0.00 - 0.60 x10E9/L 09/06/2023 9:48 AM [facility] Basophil Absolute 0.04 0.00 - 0.13 x10E9/L 09/06/2023 9:48 AM [facility] Blood BLOOD SPECIMEN / Unknown Venipuncture / Unknown 09/06/2023 9:26 AM AUTOMATION ARCHITECT 09/06/2023 9:40 AM AUTOMATION ARCHITECT Franc Kolb MD [facility] Organization Address City/State/[facility] Co de Phone Number [facility] [address] [place], [place] [phone] documented in this encounter Visit Diagnoses Diagnosis Dichorionic diamniotic twin , antepartum (HCC)- Primary Reserved for inherently not codable concepts WITHOUT codable children Selective growth restriction antepartum documented in this encounter
--- OUTSIDE RECORDS SUMMARY | 2024-07-20 14:57 | XMS_ITS | Encounter Summary ---
Author Organization [facility] Address [address] [place] [address] Care Team Providers Care Lcsw Name Role Phone Unavailable Primary Care Provider Unavailabl e Reason for Visit * Auth/Cert (Routine) Specialty Diagnoses / Procedures Referred By Uriel t Referred To Contact Referral ID Status Reason Start Date Expiration Date Visits Re quested Visits Authorized [id number] 1 1 Encounter Details Date Type Department Care Team (Late st Contact Info) Description 09/06/2023 8:00 AM DRUM PLATER - 09/06/2023 9:45 AM [facility] Hospital Encounter [facility] MATERNAL/ EVALUATION UNIT [address] [place] [address] Walton, Deysi Willoughby MD [address] [facility] [address] [place] [address] Discharge Disposition: Home or Self Care Social [...] medical care, and heating? Patient declined 07/19/2023 [facility] [place] of Occupat ional Health - Occupational Stress [...] slept in a mcc (including now)? No 07/19/2023 [place] Depression Scale Answer Date Recorded [place] Depression Scale Total 1 05/10/2023 The thought [...]
--- OUTSIDE RECORDS SUMMARY | 2024-07-20 14:57 | XMS_ITS | Encounter Summary ---
Author Organization [facility] Address [address] [place] [address] Care Team Providers Care Senior Mechanical Designer Name Role Phone Unavailable Primary Care Provider Unavailabl e Reason for Visit * Reason Onset Date Comments Scheduling 09/14/2023 Encounter Details Date Type Department Care Team (Late st Contact Info) Description 09/14/2023 Telephone [facility] MATERNAL/ EVALUATION UNIT [facility] [facility] [place] [address] Dionne Rtoh Scheduling Social History Tobacco Use Types Packs/Day [...] Patient declined 07/19/2023 [facility] [place] of Occupat ional Health - Occupational Stress [...] in a snf (including now)? No 07/19/2023 [place] Depression Scale Answer Date Recorded [place] Depression Scale Total 1 05/10/2023 The thought of harming myself has occurred to me . Never 05/10/2023 Comments Yes Sex and Gender Information Value Date Recorded Sex Assigned at Not on file Gender Identity Not on file Sexual Orientation Not on file documented as of this encounter Miscellaneous Notes * Telephone Encounter - Dionne Roth - 09/14/2023 11:30 AM CST (In basket) Contacted pt to schedule 2 WKLY NST; Pt states that she will view Mychart to confirm iftime and dates work best for her. Pt aware and verbally understands. L SANDER documented in this encounter Plan of Treatment Not on file documented as of this encounter Visit Diagnoses Not on filedocumented in this encounter
--- OUTSIDE RECORDS SUMMARY | 2024-07-20 14:57 | XMS_ITS | Encounter Summary ---
Author Organization [facility] Address [address] [place] [address] Care Team Providers Care Oil Pipe Inspector Name Role Phone Unavailable Primary Care Provider Unavailabl e Encounter Details Date Type Department Care Team (Latest Contact Info) Description 08/30/2023 Travel Social History Tobacco Use Types Packs/Day Years Used Date Smoking Tobacco: Never Assessed Overall Financial Resource Strain (CARDIA) Answe r Date Recorded How hard is it for you to pa y for the very basics like food, housing, medical care, and heating? Patient declined 07/19/2023 [facility] of Occupat ional Health - Occupational [...] in a jail (including now)? No 07/19/2023 [place] Depression Scale Answer Date Recorded [place] Depression Scale Total 1 05/10/2023 The thought [...]
--- OUTSIDE RECORDS SUMMARY | 2024-07-20 14:57 | XMS_ITS | Encounter Summary ---
Author Organization [facility] Address [facility] [place] [address] Care Team Providers Care Knockout Man Name Role Phone Unavailable Primary Care Provider Unavailabl e Reason for Referral * (Routine) - Open Specialty Diagnoses / Procedures Referred By Contac t Referred To Contact Diagnoses growth restriction antepartum (HCC) Procedures BIOPHYSICAL PROFILE W NST Franc Kolb MD [address] [facility] [address] [place] [address] Referral ID Status Reason Start Date Expiration Date Visits Re quested Visits Authorized [id number] Open 08/23/2023 08/22/2024 4 4 N WINDER * (Routine) - Open Specialty Diagnoses / Procedures Referred By Contac t Referred To Contact Diagnoses growth restriction antepartum (HCC) Dichorionic diamniotic twin , antepartum (HCC) Procedures SONOGRAM - COMPLETE Franc Kolb MD [address] [address] Referral ID Status Reason Start Date Expiration Date Visits Re quested Visits Authorized [id number] Open 08/23/2023 08/22/2024 2 2 N WINDER * (Routine) - Open Specialty Diagnoses / Procedures Referred By Contac t Referred To Contact Diagnoses growth restriction antepartum (HCC) Procedures BIOPHYSICAL PROFILE W NST Franc Kolb MD [address] [facility] [address] [place] [address] Referral ID Status Reason Start Date Expiration Date Visits Re quested Visits Authorized [id number] Open 08/23/2023 08/22/2024 4 4 N WINDER Reason for Visit * Reason Comments Ultrasound * Auth/Cert (Routine) Specialty Diagnoses / Procedures Referred By Contac t Referred To Contact Referral ID Status Reason Start Date Expiration Date Visits Re quested Visits Authorized [id number] 1 1 Encounter Details Date Type Department Care Team (Late st Contact Info) Description 09/06/2023 8:00 AM RAYON WINDER - 09/06/2023 9:45 AM RAYON WINDER Hospital Encounter [facility] MATERNAL/ EVALUATION UNIT [address] [place] [address] Farzana, Deysi Willoughby MD [address] [facility] [address] [place] [address] Discharge Disposition: Home or Self Care Social [...] medical care, and heating? Patient declined 07/19/2023 [facility] - Occupational Stress [...] in a custodial (including now)? No 07/19/2023 [place] Depression Scale Answer Date Recorded [place] Depression Scale Total 1 05/10/2023 The thought [...] as of this encounter Plan of Treatment Scheduled Orders Name Type Priority Associated Diagnoses Orde r Schedule BIOPHYSICAL PROFILE W NST [facility] MED Routine Selective growth restriction antepartum 4 Occurrences starting 08/23/2023 until 08/23/2024, 3 completed [facility] Routine Selective growth restriction antepartum Dichorionic diamniotic twin , antepartum (HCC) 2 Occurrences starting 08/23/2023 until 08/23/2024, 1 completed documented as of this encounter Procedures Procedure Name Priority Date/Time Associated Diagnosis Comments URINALYSIS - POCT (IP) BEAKER INTERFACE Routine 09/06/2023 9:17 AM RAYON WINDER BIOPHYSICAL PROFILE W NST Routine 09/06/2023 8:15 AM RAYON WINDER Selective growth restriction antepartum documented in this encounter Results * BIOPHYSICAL PROFILE W NST (09/20/2023 9:00 AM CDT) Anatomical Region Laterality Modality Other 09/20/2023 9:00 AM CDT Narrative 09/20/2023 11:24 AM CDT ?[facility] [place] ?[facility] ?PHONE: ??FAX: FETUS A Pat. Name: ?ANITA PADILLA Pat. No: ?[id number] Study Date: ?? 09/20/2023 ??9:00am , Age: ? 2000, 23 Pregnancies: ?? 2, Para 1 Height: ? 65 in Weight: ? 119 lb LMP: ?Unknown GA by Base: ?? 36w1d ?? BRENDA: 10/17/2023 GA Selected: ??36w1d (From [facility]) BRENDA: ?10/17/2023 Referring MD: Natacha, , [facility] Mobile Web Application Developer: ??Lyndsay Pete RDMS CPT4: ? 96043,30121 x2,70945 x2,95022 x2 BMI: ?19.8 Hist/Ind: ? DA/DC Twins [...] B Pat. Name: ?ANITA PADILLA Pat. No: ?[id number] Study Date: ?? 09/20/2023 ??9:00am , Age: ? 2000, 23 Pregnancies: ?? 2, Para 1 Height: ? 65 in Weight: ? 119 lb LMP: ?Unknown GA by Base: ?? 36w1d ?? BRENDA: 10/17/2023 GA Selected: ??36w1d (From [facility]) BRENDA: ?10/17/2023 Referring MD: MD Natacha, [facility] Mobile Web Application Developer: ??Lyndsay Pete RDMS CPT4: ? 50803,06805 x2,37596 x2,38254 x2 Hist/Ind: ? DA/DC Twins ?SGA both twins (2/12: A 8%, B 6%) ?cfDNA low risk [...] <Electronic Signature> ??09/20/2023 11:23am Franc Kolb MD [facility] ORDERABLES * SONOGRAM - COMPLETE (09/13/2023 8:29 AM RAYON WINDER) Anatomical Region Laterality Modality Other 09/13/2023 8:29 AM RAYON WINDER Narrative 09/13/2023 11:06 AM RAYON WINDER ? [facility] [place] ?M[facility] and Care Center ?PHONE: ??FAX: FETUS A Pat. Name: ?ANITA PADILLA Pat. No: ?[id number] Study Date: ?? 09/13/2023 ??8:29am , Age: ? 2000, 23 Pregnancies: ?? 2, Para 1 Height: ? 65 in Weight: ? 119 lb LMP: ?Unknown GA by Base: ?? 35w1d ?? BRENDA: 10/17/2023 GA by US: ? 33w2d ?? BRENDA: 10/30/2023 GA Selected: ??35w1d (From [facility]) BRENDA: ?10/17/2023 Referring MD: MD Natacha, [facility] Mobile Web Application Developer: ??Lyndsay Pete RDMS CPT4: ? 73160 x2,33968 x2,60780 x2,82620 x2 BMI: ?19.8 Hist/Ind: ? DA/DC Twins ?SGA both twins (08/23: A: 8%, B: 6%) ?cf-DNA Low risk ?Twin B: single umbilical artery ?Incomplete anatomy x2 MEASUREMENTS & AGE ? GROWTH EVALUATION Measurement ??GA ? Range ? Srce %for GA Ratios ----- ---- ------- BPD ??8.2 cm 33w0d (12j8h-88c1r) Hadl BPD 5% FL/BPD 0.79 (0.71 - 0.87) HC ??31.4 cm 35w2d (09d2b-02e3z) Hadl HC ??18% FL/AC ??0.23 (0.20 - 0.24) AC ??28.0 cm 32w0d (78c9f-40k3i) Hadl AC ??1% HC/AC ??1.12 (0.93 - 1.12* FL ?? 6.5 cm 33w4d (85a3j-34l3o) Hadl FL ??9% CI ? 0.77 (0.70 - 0.86) HL ?? 5.8 cm 33w4d (63r1u-82o7e) Tomasz HL ??24% GA for sonogram 33w2d (30i3a-79x8e) ?? Weight Estimate: based on (BPD,HC,AC,FL) Hadlock [...] Signature> ??09/13/2023 11:04am FETUS B Pat. Name: ?ANITA PADILLA. No: ?[id number] Study Date: ?? 09/13/2023 ??8:29am , Age: ? 2000, 23 Pregnancies: ?? 2, Para 1 Height: ? 65 in Weight: ? 119 lb LMP: ?Unknown GA by Base: ?? 35w1d ?? BRENDA: 10/17/2023 GA by US: ? 32w2d ?? BRENDA: 11/06/2023 GA Selected: ??35w1d (From [facility]) BRENDA: ?10/17/2023 Referring MD: MD Natacha, [facility] Mobile Web Application Developer: ??Lyndsay Pete RDMS CPT4: ? 79317 x2,08724 x2,05862 x2,60434 x2 Hist/Ind: ? DA/DC Twins ?SGA both twins (08/23: A: 8%, B: 6%) ?cf-DNA Low risk ?Twin B: single umbilical artery ?Incomplete anatomy x2 MEASUREMENTS & AGE ? GROWTH EVALUATION Measurement ??GA ? Range ? Srce %for GA Ratios ----- ---- ------- BPD ??8.1 cm 32w3d (13j1m-88z1e) Hadl BPD 2% FL/BPD 0.77 (0.71 - 0.87) HC ??29.9 cm 33w1d (05q3e-85s7g) Hadl HC ??<01 FL/AC ??0.22 (0.20 - 0.24) AC ??28.8 cm 32w5d (03c2x-66v5h) Hadl AC ??5% HC/AC ??1.04 (0.93 - 1.12) FL ?? 6.2 cm 32w1d (24p5j-66n5r) Hadl FL ??1% CI ? 0.75 (0.70 - 0.86) HL ?? 5.3 cm 31w0d (20u6u-70f6z) Tomasz HL ??<05 GA for sonogram 32w2d (77h3j-96z2p) ?? Weight Estimate: based on (BPD,HC,AC,FL) Hadlock [...] <Electronic Signature> ??09/13/2023 11:04am Franc Kolb MD [facility] ORDERABLES * (ABNORMAL) URINALYSIS - POCT (IP) ROSALINDAAKER INTERFACE (09/06/2023 9:17 AM RAYON WINDER) Color UA POCT Light Yellow Straw, Yellow, Dark Yellow, Light Yellow 09/06/2023 9:[address] [facility] Clarity UA POCT Clear Clear 9:[address] [facility] Specific [place] UA POCT <=1.005 1.005 - 1.030 09/06/2023 9:[address] [facility] pH UA POCT 6.5 5.0 - 8.0 pH 09/06/2023 9:[address] [facility] Protein UA POCT Negative Negative 9:[address] [facility] Blood UA POCT Trace-intac t(A) Negative 09/06/2023 9:[address] [facility] Leukocyte UA POCT 3+(A) Negative 09/06/2023 9:[address] [facility] Nitrite UA POCT Negative Negative 9:[address] [facility] Glucose UA POCT Negative Negative 9:[address] [facility] Ketone UA POCT Negative Negative 09/06/2023 9:[address] [facility] Bilirubin UA POCT Negative Negative 09/06/2023 9:[address] [facility] Urobilinogen UA POCT 0.2 0.1 - 1.0 EU/dL 09/06/2023 9:[address] [facility] Urine URINE / Unknown 09/06/2023 9 :17 AM RAYON WINDER 09/06/2023 9:18 AM RAYON WINDER Deysi Yanes MD LAB - P OINT OF CARE ORDERABLES Performing Organization Address City/State/[facility] Co de Phone Number [facility] [address] [phone] * BIOPHYSICAL PROFILE W NST (09/06/2023 8:15 AM RAYON WINDER) Anatomical Region Laterality Modality Other 09/06/2023 8:15 AM RAYON WINDER Narrative 09/06/2023 12:09 PM RAYON WINDER ? [facility] ?[facility] Care Center ?PHONE: ??FAX: FETUS A Pat. Name: ?DIONISIO PADILLABRIANNE Recinos Pat. No: ?[id number] Study Date: ?? 09/06/2023 ??8:15am , Age: ? 2000, 23 Pregnancies: ?? 2, Para 1 Height: ? 65 in Weight: ? 119 lb LMP: ?Unknown GA by Base: ?? 34w1d ?? BRENDA: 10/17/2023 GA Selected: ??34w1d (From [facility]) BRENDA: ?10/17/2023 Referring MD: Natacha, , [facility] Mobile Web Application Developer: ??Akua Jennings [facility] CPT4: ? 70041,x 2,52202 x 2,76710 x 2,23273 x 2 BMI: ?19.8 Hist/Ind: ? DA/DC twins ?SGA both twins (A-8%, B-6% on 08/23) ?Low risk cf-DNA ?Twin B- Single umbilical artery ?Incomplete anatomy screen x 2 Heart Rate: 137 bpm Amniotic Fluid Index: 04.4cm (Deepest Pocket) Biophysical Profile: 02/16 Breathin ?? Tone: 2 ?? Movement: ??2 ?? AFV: ??2 PROCEDURE, TECHNIQUE Technique: transabdominal, PW doppler EVAL, PLACENTA Presentation: cephalic MaternalSide: cervix:left Placenta: anterior Heart Rate: 137 bpm Amniotic Fluid Volume: normal DOPPLER Umbilical - Mid Cord S/D ??2.81(1.73 - 3.67) ? PI ?? 1.05 (0.62 - 1.20) ? Middle Cerebral Artery PSV ??39.0cm/s PI ?? 1.76 (1.52 - 2.73) ? Med PSV 49.0cm/s MoM 0.79(<1.5) Anatomy!Normal!Abnormal!Suboptimal!Prev. Seen!Comments Cranium ?! ?! [...] A, and normal for twin B. ?? UA Dopplers are normal for both twins. ??The MCA PI is normal for twin A, but low for twin B. IMPRESSION: Dichorionic, diamniotic twins, live, intrauterine preganacy at 34w1d ?? Amniotic fluid volume: Normal DVPs for both twins Normal UA Doppler studies for both twins Normal MCA PI for twin A, but low for twin B, indicating cephalization of flow Reassuring 8 point BPPs for both twins, recommend correlation with tracings RECOMMEND: The patient was sent to the hospital for elevated maternal blood pressure. ??The NSTs were deferred to be done in the inpatient setting. ??Recommend ultrasound follow up as clinically appropriate, after evaluation in the hospital setting by the [facility] team. Thank you for allowing us the opportunity to care for your patient. ?? Deysi Yanes MD <Electronic Signature> ??09/06/2023 12:08pm FETUS B Pat. Name: ?ANITA PADILLA. No: ?[id number] Study Date: ?? 09/06/2023 ??8:15am , Age: ? 2000, 23 Pregnancies: ?? 2, Para 1 Height: ? 65 in Weight: ? 119 lb LMP: ?Unknown GA by Base: ?? 34w1d ?? BRENDA: 10/17/2023 GA Selected: ??34w1d (From [facility]) BRENDA: ?10/17/2023 Referring MD: MD Natacha, [facility] Mobile Web Application Developer: ??Akua Jennings CPT4: ? 18449,x 2,44133 x 2,26435 x 2,50410 x 2 Hist/Ind: ? DA/DC twins ?SGA both twins (A-8%, B-6% on 08/23) ?Low risk cf-DNA ?Twin B- Single umbilical artery ?Incomplete anatomy screen x 2 Amniotic Fluid Index: 05.5cm (Deepest Pocket) Biophysical Profile: 02/16 Breathin ?? Tone: 2 ?? Movement: ??2 ?? AFV: ??2 PROCEDURE, TECHNIQUE Technique: transabdominal, PW doppler EVAL, PLACENTA Presentation: breech MaternalSide: right Placenta: anterior:right lateral Amniotic Fluid Volume: normal DOPPLER Umbilical - Mid Cord S/D ??2.12(1.73 - 3.67) ? PI ?? 0.72 (0.62 - 1.20) ? Middle Cerebral Artery PSV ??47.4cm/s PI ?? 1.37 (1.52 - 2.73) * ?? Med PSV 49.0cm/s MoM 0.97(<1.5) Anatomy!Normal!Abnormal!Suboptimal!Prev. Seen!Comments Cranium ?! ?! ?! ?! [...] CLINICAL SUMMARY Deysi Yanes MD <Electronic Signature> ??09/06/2023 12:08pm Franc Kolb MD [facility] ORDERABLES * BIOPHYSICAL PROFILE W NST (08/30/2023 9:26 AM RAYON WINDER) Anatomical Region Laterality Modality Other 08/30/2023 9:26 AM RAYON WINDER Narrative 08/30/2023 11:17 AM RAYON WINDER ?[facility] [place] ?[facility] Care Center ?PHONE: ??FAX: FETUS A Pat. Name: ?ANITA PADILLA Pat. No: ?[id number] Study Date: ?? 08/30/2023 ??9:26am , Age: ? 2000, 23 Pregnancies: ?? 2, Para 1 Height: ? 65 in Weight: ? 119 lb LMP: ?Unknown GA by Base: ?? 33w1d ?? BRENDA: 10/17/2023 GA Selected: ??33w1d (From [facility]) BRENDA: ?10/17/2023 Referring MD: Natacha, , [facility] Mobile Web Application Developer: ??Nell Chapa RDMS CPT4: ? 94687,17249,x2,52511,x2,13775,x2 BMI: ?19.8 Hist/Ind: ? DA/DC twins ?SGA [...] Signature> ??08/30/2023 11:15am FETUS B Pat. Name: ?ANITA PADILLA. No: ?[id number] Study Date: ?? 08/30/2023 ??9:26am , Age: ? 2000, 23 Pregnancies: ?? 2, Para 1 Height: ? 65 in Weight: ? 119 lb LMP: ?Unknown GA by Base: ?? 33w1d ?? BRENDA: 10/17/2023 GA Selected: ??33w1d (From [facility]) BRENDA: ?10/17/2023 Referring MD: MD Natacha, [facility] Mobile Web Application Developer: ??Nell Chapa, RD CPT4: ? 01409,85051,x2,59815,x2,13694,x2 Hist/Ind: ? DA/DC twins ?SGA both twins [...] <Electronic Signature> ??08/30/2023 11:15am Franc Kolb MD [facility] ORDERABLES documented in this encounter Visit Diagnoses Diagnosis Selective growth restriction antepartum Selective growth restriction antepartum- Primary Dichorionic diamniotic twin , antepartum (HCC) Reserved for inherently not codable concepts WITHOUT codable children Two vessel umbilical cord, antepartum (HCC) Other umbilical cord complications during labor and delivery, antepartum GBS bacteriuria Selective growth restriction antepartum- Primary Dichorionic diamniotic twin , antepartum (HCC) Reserved for inherently not codable concepts WITHOUT codable children Selective growth restriction antepartum- Primary documented in this encounter
--- OUTSIDE RECORDS SUMMARY | 2024-07-20 14:57 | XMS_ITS | Encounter Summary ---
Author Organization [facility] Address [facility] [address] Care Team Providers Care Building Supplies Salesperson Retail Name Role Phone Unavailable Primary Care Provider Unavailabl e Reason for Referral * (Routine) - Open Specialty Diagnoses / Procedures Referred By Uriel t Referred To Contact Diagnoses growth restriction antepartum (HCC) Procedures BIOPHYSICAL PROFILE W NST Franc Kolb MD [address] [facility] [address] [place] [address] Referral ID Status Reason Start Date Expiration Date Visits Re quested Visits Authorized [id number] Open 08/23/2023 08/22/2024 4 4 Reason for Visit * Reason Comments Ultrasound Encounter Details Date Type Department Care Team (Latest Contact Info) Description 09/20/2023 8:47 AM CDT - 09/20/2023 11:59 PM CDT Hospital Encounter [facility] MATERNAL/ EVALUATION UNIT [address] [place] [address] Franc Kolb MD [address] [place] [address] Discharge Disposition: Home or Self Care Social [...] medical care, and heating? Patient declined 07/19/2023 [facility] - Occupational Stress Questionnaire Answer Date Recorded [...] a nursing home (including now)? No 07/19/2023 [place] Depression Scale Answer Date Recorded [place] Depression Scale Total 1 05/10/2023 The thought [...] Diagnosis Comments BIOPHYSICAL PROFILE W NST Routine 09/20/2023 9:00 AM CDT Selective growth restriction antepartum documented in this encounter Results * BIOPHYSICAL PROFILE W NST (09/20/2023 9:00 AM CDT) Anatomical Region Laterality Modality Other 09/20/2023 9:00 AM CDT Narrative 09/20/2023 11:24 AM CDT ?[facility] ? [facility] [place] ?M[facility] Care Center ?PHONE: ??FAX: FETUS A Pat. Name: ?SHIKHA PADILLA Pat. No: ?[id number] Study Date: ?? 09/20/2023 ??9:00am , Age: ? 2000, 23 Pregnancies: ?? 2, Para 1 Height: ? 65 in Weight: ? 119 lb LMP: ?Unknown GA by Base: ?? 36w1d ?? BRENDA: 10/17/2023 GA Selected: ??36w1d (From [facility]) BRENDA: ?10/17/2023 Referring MD: Natacha, , [facility] [employer] Architect: ??Lyndsay Pete RDMS CPT4: ? 70367,35835 x2,72625 x2,29281 x2 BMI: ?19.8 Hist/Ind: ? DA/DC Twins [...] Signature> ??09/20/2023 11:23am FETUS B Pat. Name: ?SHIKHA PADILLA. No: ?[id number] Study Date: ?? 09/20/2023 ??9:00am , Age: ? 2000, 23 Pregnancies: ?? 2, Para 1 Height: ? 65 in Weight: ? 119 lb LMP: ?Unknown GA by Base: ?? 36w1d ?? BRENDA: 10/17/2023 GA Selected: ??36w1d (From [facility]) BRENDA: ?10/17/2023 Referring MD: Natacha, , [facility] [employer] Architect: ??Lyndsay Pete RDMS CPT4: ? 95774,06976 x2,20635 x2,84502 x2 Hist/Ind: ? DA/DC Twins ?SGA both [...] <Electronic Signature> ??09/20/2023 11:23am Franc Kolb MD [facility] ORDERABLES documented in this encounter Visit Diagnoses Diagnosis Selective growth restriction antepartum- Primary documented in this encounter
--- OUTSIDE RECORDS SUMMARY | 2024-07-20 14:57 | XMS_ITS | Encounter Summary ---
Author Organization [facility] Address [address] [place] [address] Care Team Providers Care Machine Lead Burner Name Role Phone Unavailable Primary Care Provider Unavailabl e Reason for Referral * (Routine) - Closed Specialty Diagnoses / Procedures Referred By Contac t Referred To Contact Diagnoses Twin , antepartum, unspecified multiple gestation type (HCC) Procedures SONOGRAM - COMPLETE Sergo Messina MD [address] [place] [address] Dr Nicolas [address] [place] [phone] Referral ID Status Reason Start Date Expiration Date Visits Re quested Visits Authorized [id number] Closed 05/03/2023 05/02/2024 1 1 * (Routine) - Closed Specialty Diagnoses / Procedures Referred By Contac t Referred To Contact Diagnoses Twin , antepartum, unspecified multiple gestation type (HCC) Procedures SONOGRAM - COMPLETE Sergo Messina MD [address] [place] [address] Dr Nicolas [address] [place] [phone] Referral ID Status Reason Start Date Expiration Date Visits Re quested Visits Authorized [id number] Closed 05/03/2023 05/02/2024 1 1 Reason for Visit * Reason Comments Ultrasound Encounter Details Date Type Department Care Team ([facility] st Contact Info) Description 05/10/2023 8:15 AM CDT - 05/10/2023 8:29 AM CDT Hospital Encounter 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 No 05/10/2023 [place] Depression Scale Answer Date Recorded [place] Depression Scale Total 1 05/10/2023 The thought [...] URINALYSIS - POCT (IP) BEAKER INTERFACE Routine 05/10/2023 10:16 AM CDT SONOGRAM - COMPLETE Routine 05/10/2023 8 :42 AM CDT Twin , antepartum, unspecified multiple gestation type (HCC) documented in this encounter Results * (ABNORMAL) URINALYSIS - POCT (IP) BEAKER INTERFACE (05/10/2023 10:16 AM CDT) Color UA POCT Yellow Straw, Yellow, Dark Yellow, Light Yellow 05/10/2023 10:17 AM CDT [facility] Clarity UA POCT Slightly Cloudy(A) Clear 05/10/2023 10:17 AM CDT [facility] Specific [place] UA POCT 1.015 1.005 - 1.030 05/10/2023 10:17 AM CDT [facility] pH UA POCT 6.5 5.0 - 8.0 pH 05/10/2023 10:17 AM CDT [facility] Protein UA POCT Negative Negative 3 10:17 AM CDT [facility] Blood UA POCT 1+(A) Negative 05/10/2023 10:17 AM CDT [facility] Leukocyte UA POCT 2+(A) Negative 05/10/2023 10:17 AM CDT [facility] Nitrite UA POCT Negative Negative 3 10:17 AM CDT [facility] Glucose UA POCT Negative Negative 3 10:17 AM CDT [facility] Ketone UA POCT Negative Negative 05/10/2023 10:17 AM CDT [facility] Bilirubin UA POCT Negative Negative 05/10/2023 10:17 AM CDT [facility] Urobilinogen UA POCT 0.2 0.1 - 1.0 EU/dL 05/10/2023 10:17 AM CDT [facility] Urine URINE / Unknown 05/10/2023 1 0:16 AM CDT 05/10/2023 10:17 AM CDT Jonathan Friend MD LAB - POINT OF CARE ORDERABLES [facility] [address] [place] [address] * SONOGRAM - COMPLETE (05/10/2023 8:42 AM CDT) Anatomical Region Laterality Modality Other 05/10/2023 8:42 AM CDT Narrative 05/10/2023 10:20 AM CDT ? [facility] ?[facility] ?PHONE: ??FAX: FETUS A Pat. Name: ?SHIKHA PADILLA Pat. No: ?[id number] Study Date: ?? 05/10/2023 ??8:42am , Age: ? 2000, 22 Pregnancies: ?? 2, Para 1001 Height: ? 65 in Weight: ? 115 lb LMP: ?01/10/2023 GA by LMP: ?17w1d GA by US: ? 17w0d ?? BRENDA: 10/18/2023 GA Selected: ??17w1d (LMP) BRENDA: ?10/17/2023 Referring MD: Sergo Messina MD Hvac/R Instructor: ??Gretchen Siddiqui RDMS, MITCH CPT4: ? 96446,[id number] BMI: ?19.13 Hist/Ind: ? Twin ?Low Risk NIPT MEASUREMENTS & AGE ? GROWTH EVALUATION Measurement ??GA ? Range ? Srce %for GA Ratios ----- ---- ------- BPD ??3.6 cm 16w6d (91t2i-29k2b) Hadl BPD 39% FL/BPD 0.63 HC ??12.9 cm 16w4d (19o6n-44j3j) Hadl HC ??14% FL/AC ??0.19 AC ??11.8 cm 17w4d (81l3l-15q0i) Hadl AC ??64% HC/AC ??1.09 (1.08 - 1.27) FL ?? 2.3 cm 16w5d (75v8d-41z5g) Hadl FL ??30% CI ? 0.80 (0.70 - 0.86) HL ?? 2.2 cm 16w4d (73v4s-20a1f) Tomasz HL ??41% Cere 1.6 cm 16w4d (57i9w-22v2t) Hill Cere29% GA for sonogram 17w0d (14a2d-80n3k) ?? Weight Estimate: based on (BPD,HC,AC,FL) Avg ?Weight: 181 gm (154-207gm) Hadloc ? : 0lbs, 6oz ? Normal: 185 gm (139-231gm) Hadloc ? Wt% ? 44% for 17w1d Cervix: ??Length: 3.7 cm ??Approach: transvaginal ??Funneling: not present Heart Rate: 153 bpm Amniotic Fluid Index: 05.4cm (Deepest Pocket) PROCEDURE, TECHNIQUE Technique: transabdominal, transvaginal EVAL, PLACENTA Presentation: cephalic MaternalSide: left, at cervix Umbilical Cord: 3 Vessels Placenta: anterior Previa: no previa seen Heart Rate: 153 bpm Amniotic Fluid Volume: normal MATERNAL ANATOMY Ovaries LxHxW (cm) Right ??Desc: Suboptimal Left 2.1 x 1.3 x 2.1 Vol: 3.0cc Desc: Appears normal Anatomy!Normal!Abnormal!Suboptimal!Prev. Seen!Comments Calvarium- ?? ! ?? x ??! ?! ?! ?! Cerebellum- ??! ?? x ??! ?! ?! ?! Midline Falx-! ?? x ??! ?! ?! ?! Choroid Plexu! ?? x ??! ?! ?! ?! Lateral Ventr! ?! ?! ? x ?! ?! Nasal Bone- ??! ?? x ??! ?! ?! ?! Spine ?! ?? x ??! ?! ?! ?! 4 CH- ?! ?? x ??! ?! ?! ?! Stomach- ? ! ?? x ??! ?! ?! ?! 3 Vessel Cord! ?? x ??! ?! ?! ?! Kidneys- ? ! ?? x ??! ?! ?! ?! Bladder- ? ! ?? x ??! ?! ?! ?! Cord In! ?? x ??! ?! ?! ?! Upper Extremi! ?? x ??! ?! ?! ?! Lower Extremi! ?? x ??! ?! ?! ?! Placenta Cord! ?? x ??! ?! ?! ?! CLINICAL SUMMARY A dichorionic, diamniotic twin intrauterine is seen. ??The measurements today are consistent with what is expected for both twins. ??The BRENDA selected is based on LMP and a prior outside ultrasound. ??The DVP appears normal for twin A, and normal for twin B. ??The twin peak was seen. ?? IMPRESSION: Dichorionic, Diamniotic Twins, live, intrauterine at 17w1d Appropriate size for each twin based on reported BRENDA Concordant estimated weights Normal amniotic fluid volume for each twin Single umbilical artery for twin B No major malformations were seen within the limitations of ultrasound for either twin Reassuring transvaginal cervical length RECOMMEND: Ultrasound in 2 weeks for cervical length screening Ultrasound in 4 weeks for detailed anatomic surveys and cervical length screening ?? Thank you for allowing us the opportunity to care for your patient. ?? Dawood Friend MD <Electronic Signature> ??05/10/2023 10:19am FETUS B Pat. Name: ?SHIKHA PADILLA Pat. No: ?[id number] Study Date: ?? 05/10/2023 ??8:42am , Age: ? 2000, 22 Pregnancies: ?? 2, Para 1001 Height: ? 65 in Weight: ? 115 lb LMP: ?01/10/2023 GA by LMP: ?17w1d GA by US: ? 16w6d ?? BRENDA: 10/19/2023 GA Selected: ??17w1d (LMP) BRENDA: ?10/17/2023 Referring MD: Sergo Messina MD Hvac/R Instructor: ??Gretchen Siddiqui, RDMS, RDCS CPT4: ? 80809,[id number] Hist/Ind: ? Twin ?Low Risk NIPT MEASUREMENTS & AGE ? GROWTH EVALUATION Measurement ??GA ? Range ? Srce %for GA Ratios ----- ---- ------- BPD ??3.5 cm 16w5d (80k6g-01m9q) Hadl BPD 33% FL/BPD 0.63 HC ??13.1 cm 16w5d (92o3n-24b0q) Hadl HC ??19% FL/AC ??0.19 AC ??11.7 cm 17w3d (53q0c-76e0n) Hadl AC ??62% HC/AC ??1.11 (1.08 - 1.27) FL ?? 2.2 cm 16w4d (92x4g-89a4h) Hadl FL ??25% CI ? 0.76 (0.70 - 0.86) HL ?? 2.3 cm 17w0d (56e1p-93e9c) Tomasz HL ??49% Cere 1.6 cm 16w5d (77t6j-32q1u) Hill Cere36% GA for sonogram 16w6d (06f6c-97n7l) ?? Weight Estimate: based on (BPD,HC,AC,FL) Avg ?Weight: 177 gm (151-203gm) Hadloc ? : 0lbs, 6oz ? Normal: 185 gm (139-231gm) Hadloc ? Wt% ? 37% for 17w1d Cervix: ??Length: 3.7 cm ??Approach: transvaginal ??Funneling: not present Heart Rate: 148 bpm Amniotic Fluid Index: 03.4cm (Deepest Pocket) PROCEDURE, TECHNIQUE Technique: transabdominal, transvaginal EVAL, PLACENTA Presentation: breech MaternalSide: right Umbilical Cord: 2 Vessels Placenta: anterior Previa: no previa seen Heart Rate: 148 bpm Amniotic Fluid Volume: normal MATERNAL ANATOMY Ovaries LxHxW (cm) Right ??Desc: Suboptimal Left 2.1 x 1.3 x 2.1 Vol: 3.0cc Desc: Appears normal Anatomy!Normal!Abnormal!Suboptimal!Prev. Seen!Comments Calvarium- ?? ! ?? x ??! ?! ?! ?! Cerebellum- ??! ?? x ??! ?! ?! ?! Midline Falx-! ?? x ??! ?! ?! ?! Choroid Plexu! ?? x ??! ?! ?! ?! Lateral Ventr! ?! ?! ? x ?! ?! Nasal Bone- ??! ?? x ??! ?! ?! ?! Spine ?! ?! ?! ? x ?! ?! 4 CH- ?! ?? x ??! ?! ?! ?! Stomach- ? ! ?? x ??! ?! ?! ?! 3 Vessel Cord! ?! ?x ?? ! ?! ?!Single right ?umbilical artery Kidneys- ? ! ?! ?! ? x ?! ?! Bladder- ? ! ?? x ??! ?! ?! ?! Cord In! ?? x ??! ?! ?! ?! Upper Extremi! ?? x ??! ?! ?! ?! Lower Extremi! ?? x ??! ?! ?! ?! Placenta Cord! ?? x ??! ?! ?! ?! CLINICAL SUMMARY Dawood Friend MD <Electronic Signature> ??05/10/2023 10:19am Sergo Messina MD [facility] ORDERABLES documented in this encounter Visit Diagnoses Diagnosis Twin , antepartum, unspecified multiple gestation type (HCC)- Primary documented in this encounter
--- OUTSIDE RECORDS SUMMARY | 2024-07-20 14:58 | XMS_ITS | Clinical Summary ---
Author Organization [facility] Address [address] [place] [address]. [place], [place] [id number] [place] [id number] Care Team Providers Care Test Conductor Name Role Phone Lisa Huang MD Primary Care Provider Marisa ilable Allergies No known active allergies Social History Tobacco Use Types Packs/Day Years Used Date Smoking Tobacco: Never Assessed Comments Unknown Sex and Gender Information Value Date Recorded Sex Assigned at Not on file Legal Sex Female 4:48 PM CDT Gender Identity Not on file Sexual Orientation Not on file Last Filed Vital Signs Vital Sign Reading Time Taken Comments Blood Pressure 119/83 09/02/2021 11:51 PM VIDEO CONFERENCE SPECIALIST Pulse 106 09/02/2021 11:51 PM VIDEO CONFERENCE SPECIALIST Temperature 36.2 ??C (97.2 ??F) 09/02/2021 11:[address] Respiratory Rate 16 09/02/2021 11:51 PM VIDEO CONFERENCE SPECIALIST Oxygen Saturation 99% 09/03/2021 12:00 AM VIDEO CONFERENCE SPECIALIST Inhaled Oxygen Concentration - - Weight 61.2 kg (135 lb) 09/02/2021 11:51 PM VIDEO CONFERENCE SPECIALIST Height 165.1 cm (5' 5 ) 09/02/2021 11:51 PM VIDEO CONFERENCE SPECIALIST Body Mass Index 22.47 09/02/2021 11:51 PM VIDEO CONFERENCE SPECIALIST Plan of Treatment Health Maintenance Due Date Last Done Comments Cervical Cancer Screening Pa p Smear (Age 21 to 29) Every 3 Years 2001 Cervical Cancer Screening 2001 Annual Physical 2004 HPV Vaccines (1 - 3-dose series) 2016 Hepatitis C 2019 DTaP, Tdap and Td Vaccines ( 1 - Tdap) 2020 Hepatitis B Vaccines (1 of 3 - 19+ 3-dose series) 2020 COVID-19 Vaccine (2023-2 5 season) 2024 Influenza Adult (#1) 2024 Meningococcal Vaccine Aged Out No mil kathrine eligible based on patient's age to complete this topic Pneumococcal Vaccine: Pediat rics (0 to 5 Years) and At-Risk Patients (6 to 64 Years) Aged Out No longer eligible b ased on patient's age to complete this topic RSV Immunizations Under 20 Months Aged Out No longer eligible based on patient's age to complete this topic Insurance [place] [address] [place] [address] Care Teams Test Conductor Relationship Specialty Start Date End Date Lisa Huang MD PCP - General 09/03/21
--- OUTSIDE RECORDS SUMMARY | 2024-07-20 14:59 | XMS_ITS | Encounter Summary ---
Author Organization [facility] Address [address] [place] [address]. [place] [address] Care Team Providers Care Hops Farmworker Name Role Phone Unavailable Primary Care Provider Unavailabl e Encounter Details Date Type Department Care Team (Latest Contact Info) Description 09/02/2021 Travel Social History Tobacco Use Types Packs/Day Years Used Date Smoking Tobacco: Never Assessed Comments Unknown Sex and Gender Information Value Date Recorded Sex Assigned at Not on file Legal Sex Female 4:48 PM CDT Gender Identity Not on file Sexual Orientation Not on file COVID-19 Exposure Response Date Recorded In the last 10 days, have yo u been in contact with someone who was confirmed or suspected to have Coronavirus/COVID-19? No / Unsure 09/02/2021 11:51 PM YARN WEIGHER documented as of this encounter Plan of Treatment Not on file documented as of this encounter Visit Diagnoses Not on filedocumented in this encounter
--- OUTSIDE RECORDS SUMMARY | 2024-07-20 14:59 | XMS_ITS | Encounter Summary ---
Author Organization [facility] Address [address] [place] [address]. [place] [address] [place] [address] Care Team Providers Care Waiter/Waitress Cafeteria Name Role Phone Lisa Huang MD Primary Care Provider Unava ilable Reason for Visit * Reason Comments Urinary Frequency Encounter Details Date Type Department Care Team (Late st Contact Info) Description 09/02/2021 11:48 PM PLUMBING DRAFTER - 09/03/2021 1:31 AM PLUMBING DRAFTER Emergency [facility] [address] [place], [place] [id number] Sergo Jacobsen MD [address] [place] [id number] Urinary Frequency Discharge Disposition: Home or Self Care (Routine Discharge) Social History Tobacco Use Types Packs/Day Years [...] Coronavirus/COVID-19? No / Unsure 09/02/2021 11:51 PM PLUMBING DRAFTER documented as of this encounter Last Filed Vital Signs Vital Sign Reading Time Taken Comments Blood Pressure 119/83 09/02/2021 11:51 PM PLUMBING DRAFTER Pulse 106 09/02/2021 11:51 PM PLUMBING DRAFTER Temperature 36.2 ??C (97.2 ??F) 09/02/2021 11:[address] Respiratory Rate 16 09/02/2021 11:51 PM PLUMBING DRAFTER Oxygen Saturation 99% 09/03/2021 12:00 AM PLUMBING DRAFTER Inhaled Oxygen Concentration - - Weight 61.2 kg (135 lb) 09/02/2021 11:51 PM PLUMBING DRAFTER Height 165.1 cm (5' 5 ) 09/02/2021 11:51 PM PLUMBING DRAFTER Body Mass Index 22.47 09/02/2021 11:51 PM PLUMBING DRAFTER documented in this encounter Discharge Instructions * Attachments The following attachments cannot be sent through Care Everywhere. * Urinary Tract Infection, Adult ED (Tai[place]ese) documented in this encounter Medications at Time of Discharge sulfamethoxazole- trimethoprim (BACTRIM DS) 800-160 MG tablet Take 1 tablet by mouth 2 (two) times daily for 5 days. 10 tablet 09/03/2021 09/08/2021 documented as of this encounter ED Notes * Kisha Hunt RN - 09/03/2021 1:31 AM CST Pt on appropriate antibx therapy for final culture BING DRAFTER * Sergo Jacobsen MD - 09/03/2021 12:49 AM CST Chief Complaint Chief Complaint Patient presents with ??? Urinary Frequency History of Present Illness Shikha is a 21 year old female who presents with dysuria and increased frequency that started yesterday. Patient denies fever, chills, nausea, vomiting, or any other symptoms. Medical History ALLERGIES: No Known Allergies MEDICATIONS: Prior to Admission medications Medication Sig Start Date End Date Taking? Authorizing Provider sulfamethoxazole-trimethoprim (BACTRIM DS) 800-160 MG tablet Take 1 tablet by mouth 2 (two) times daily for 5 days. 09/03/21 09/08/21 Yes Sergo Jacobsen MD PAST MEDICAL HISTORY: History reviewed. No pertinent past medical history. PAST SURGICAL HISTORY: History reviewed. No pertinent surgical history. FAMILY HISTORY: No family history on file. SOCIAL HISTORY: Social History Tobacco Use ??? Smoking status: Not on file Substance Use Topics ??? Alcohol use: Not on file ??? Drug use: Not on file Review of Systems Review of Systems Constitutional: Negative for appetite change, chills, diaphoresis, fatigue and fever. HENT: Negative for congestion, dental problem, ear pain, facial swelling, hearing loss, nosebleeds,rhinorrhea, sinus pressure, sore throat and tinnitus. Eyes: Negative for photophobia, pain, discharge, redness and visual disturbance. Respiratory: Negative for apnea, cough, choking, chest tightness, shortness of breath, wheezing andstridor. Cardiovascular: Negative for chest pain, palpitations and leg swelling. Gastrointestinal: Negative for abdominal distention, abdominal pain, blood in stool, diarrhea, nausea and vomiting. Endocrine: Negative for cold intolerance, heat intolerance, polydipsia, polyphagia and polyuria. Genitourinary: Positive for difficulty urinating, dysuria and frequency. Negative for flank pain, hematuria, urgency, vaginal bleeding, vaginal discharge and vaginal pain. Musculoskeletal: Negative for arthralgias, back pain, gait problem, joint swelling, myalgias, neck pain and neck stiffness. Skin: Negative for pallor, rash and wound. Allergic/Immunologic: Negative for environmental allergies, food allergies and immunocompromised state. Neurological: Negative for dizziness, seizures, syncope, facial asymmetry, speech difficulty, weakness, light-headedness, numbness and headaches. Hematological: Negative for adenopathy. Psychiatric/Behavioral: Negative for agitation, confusion, self-injury and suicidal ideas. The patient is not nervous/anxious. Physical Exam Filed Vitals: 09/02/21 2351 09/03/21 0000 BP: 119/83 Pulse: 106 Resp: 16 Temp: 97.2 ??F (36.2 ??C) TempSrc: Temporal SpO2: 100% 99% Weight: 61.2 kg (135 lb) Height: 5' 5 (1.651 m) Physical Exam Vitals and nursing note reviewed. Constitutional: General: She is not in acute distress. Appearance: She is normal weight. She is not ill-appearing or diaphoretic. HENT: Head: Normocephalic and atraumatic. Nose: No congestion or rhinorrhea. Mouth/Throat: Mouth: Mucous membranes are moist. Pharynx: Oropharynx is clear. Eyes: Extraocular Movements: Extraocular movements intact. Conjunctiva/sclera: Conjunctivae normal. Pupils: Pupils are equal, round, and reactive to light. Neck: Vascular: No carotid bruit. Cardiovascular: Rate and Rhythm: Normal rate and regular rhythm. Heart sounds: Normal heart sounds. No murmur heard. Pulmonary: Effort: No respiratory distress. Breath sounds: No wheezing, rhonchi or rales. Chest: Chest wall: No tenderness. Abdominal: General: Abdomen is flat. Bowel sounds are normal. There is no distension. Palpations: Abdomen is soft. There is no mass. Tenderness: There is no abdominal tenderness. There is no right CVA tenderness, left CVA tenderness, guarding or rebound. Hernia: No hernia is present. Musculoskeletal: General: No swelling, tenderness, deformity or signs of injury. Cervical back: No rigidity or tenderness. Right lower leg: No edema. Left lower leg: No edema. Lymphadenopathy: Cervical: No cervical adenopathy. Skin: Coloration: Skin is not jaundiced or pale. Findings: No erythema or rash. Neurological: General: No focal deficit present. Mental Status: She is alert and oriented to person, place, and time. Mental status is at baseline. Psychiatric: Mood and Affect: Mood normal. Behavior: Behavior normal. Diagnostic Studies / Procedures ELECTROCARDIOGRAMS: No results found for this visit on 09/02/21. LABORATORY STUDIES: Results for orders placed or performed during the hospital encounter of 09/02/21 URINALYSIS WI REFLEX TO CULTURE Specimen: URINE, CLEAN CATCH Result Value Ref Range COLOR (U) YELLOW YELLOW TRANSPARENCY CLEAR CLEAR Specific [place] (U) 1.025 1.010 - 1.025 U PH 6.0 5.0 - 8.5 LEUKOCYTE ESTERASE 2+ (A) NEGATIVE NITRITES POSITIVE (A) NEGATIVE PROTEIN (U) 1+ (A) NEGATIVE URINE GLUCOSE NEGATIVE NEGATIVE U KETONES NEGATIVE NEGATIVE UROBILINOGEN 0.2 0.2 - 1.0 EU/DL BILIRUBIN (U) NEGATIVE NEGATIVE BLOOD 3+ (A) NEGATIVE WBC/HPF TOO NUMEROUS TO COUNT 0 - 5 /HPF CULTURE & SENSITIVITY INDICATED? SPECIMEN SETUP FOR CULTURE RBC/HPF TOO NUMEROUS TO COUNT 0 - 2 /HPF EPI/HPF 0-5 0 - 5 /HPF BACTERIA (URINE) 1+ (A) NEGATIVE /HPF IMAGING STUDIES No orders to display ED Course / Medical Decision Making Clinical Impression UTI (urinary tract infection) (Primary) Disposition: Discharge Sergo Jacobsen MD 09/03/21 0056 BING DRAFTER * Esthela Preciado RN - 09/02/2021 11:50 PM CST UTI, BURNING. FREQUENCY, BLOOD IN URINE. BING DRAFTER documented in this encounter Plan of Treatment Not on file documented as of this encounter Procedures Procedure Name Priority Date/Time Associated Diagnosis Comments URINALYSIS WI REFLEX TO CULTURE STAT 09/03/2021 12:05 AM PLUMBING DRAFTER URINE BACTERIA CULTURE Routine 09/03/2021 12:05 AM PLUMBING DRAFTER documented in this encounter Results * (ABNORMAL) CULTURE URINE (09/03/2021 12:05 AM PLUMBING DRAFTER) SPEC DESCRIPTION URINE CLEAN CATCH 09/03/2021 12:45 AM PLUMBING DRAFTER [facility] SPECIAL REQUESTS NO SPECIAL REQUEST 09/03/2021 12:45 AM PLUMBING DRAFTER [facility] CULTURE RESULT >100,000 COL/ML ESCHERICHIA COLI (A) 09/05/2021 10:28 AM PLUMBING DRAFTER [facility] URINE SPECIMEN OBTAINED BY CLEAN CATCH PROCEDURE / Unknown 09/03/2021 12:05 AM PLUMBING DRAFTER 09/03/2021 12:44 AM PLUMBING DRAFTER Narrative Organism Antibiotic Method Susceptibility Escherichia coli AMPICILLIN KAMALA (VITEK) >=32: Resistant Escherichia coli AMPICILLIN/SULBACTAM KAMALA (VITEK) >=32: Resistant Escherichia coli CEFTRIAXONE KAMALA (VITEK) <=1: Sensitive Escherichia coli CEFTAZIDIME KAMALA (VITEK) <=1: Sensitive Escherichia coli CEFAZOLIN KAMALA (VITEK) <=4: Sensitive Escherichia coli ESBL KAMALA (VITEK) NEG: Sensitive Escherichia coli NITROFURANTOIN KAMALA (VITEK) <=16: Sensitive Escherichia coli GENTAMICIN KAMALA (VITEK) <=1: Sensitive Escherichia coli LEVOFLOXACIN KAMALA (VITEK) <=0.12: Sensitive Escherichia coli PIPRACIL/TAZO KAMALA (VITEK) <=4: Sensitive Escherichia coli TRIMETH-SULFAMETH. KAMALA (VITEK) <=20: Sensitive Sergo Jacobsen MD MICROBIOLOGY - GENERAL ORDERABLE S Final Result [facility] [address] [place] [address], [place] [phone] [facility] [address] [place] [address] [place] [address], [place] * (ABNORMAL) URINALYSIS WI REFLEX TO CULTURE (09/03/2021 12:05 AM PLUMBING DRAFTER) COLOR (U) YELLOW YELLOW 09/03/2021 12:44 AM PLUMBING DRAFTER [facility] TRANSPARENCY CLEAR CLEAR 09/03/2021 12:44 AM [facility] SPECIFIC GRAVITY (U) 1.025 1.010 - 1.025 09/03/2021 12:44 AM [facility] U PH 6.0 5.0 - 8.5 09/03/2021 12:44 AM [facility] LEUKOCYTES (U) 2+(A) NEGATIVE 09/03/2021 12:44 AM PLUMBING DRAFTER [facility] NITRITES POSITIVE(A) NEGATIVE 09/03/2021 12:44 AM [facility] PROTEIN (U) 1+(A) NEGATIVE 09/03/2021 12:44 AM [facility] URINE GLUCOSE NEGATIVE NEGATIVE 09/03/2021 12:44 AM [facility] KETONES MG/DL (U) NEGATIVE NEGATIVE 09/03/2021 12:44 AM [facility] UROBILINOGEN 0.2 0.2 - 1.0 EU/DL 09/03/2021 12:44 AM PLUMBING DRAFTER [facility] BILIRUBIN (U) NEGATIVE NEGATIVE 09/03/2021 12:44 AM [facility] BLOOD (U) 3+(A) NEGATIVE 09/03/2021 12:44 AM [facility] WBC/HPF TOO NUMEROUS TO COUNT 0 - 5 /HPF 09/03/2021 12:44 AM [facility] CULTURE & SENSITIVITY INDICATED? SPECIMEN SETUP FOR CULTURE 09/03/2021 12:44 AM PLUMBING DRAFTER [facility] RBC/HPF TOO NUMEROUS TO COUNT 0 - 2 /HPF 09/03/2021 12:44 AM PLUMBING DRAFTER [facility] EPI/HPF 0-5 0 - 5 /HPF 09/03/2021 12:44 AM PLUMBING DRAFTER [facility] BACTERIA (U) 1+(A) NEGATIVE /HPF 09/03/2021 12:44 AM PLUMBING DRAFTER [facility] URINE SPECIMEN OBTAINED BY CLEAN CATCH PROCEDURE / Unknown 09/03/2021 12:05 AM PLUMBING DRAFTER us Sergo Jacobsen MD URINE ORDERABLES Final Result [facility] [address] [place] [address], documented in this encounter Visit Diagnoses Diagnosis UTI (urinary tract infection)- Primary Urinary tract infection, site not specified documented in this encounter Administered Medications Inactive Administered Medications - up to 3 most recent administrations Medication Order MAR Action Action Date Dose Rate Site sulfamethoxazole-trimethoprim (BACTRIM DS) 800-160 MG tablet 1 tablet 1 tablet, Oral, Once, 1 dose, On Wed09/03/21 at 0100 Given 09/03/2021 1:00 AM PLUMBING DRAFTER 1 tablet documented in this encounter Active and Recently Administered Medications Times are shown in PLUMBING DRAFTER. Scheduled Medication Order 09/01/2021 09/02/2021 09/03/2021 sulfamethoxazole-trimethoprim (BACTRIM DS) 800-160 MG tablet 1 tablet (COMPLETED) 1 tablet, Oral, Once, 1 dose, On Wed09/03/21 at 0100 0100 (Given - Provid er: Winifred Hyde RN) documented in this encounter Care Teams Waiter/Waitress Cafeteria Relationship Specialty Start Date End Date Lisa Huang MD PCP - General 09/03/21 documented as of this encounter
--- OUTSIDE RECORDS SUMMARY | 2024-07-20 14:59 | XMS_ITS | Encounter Summary ---
Author Organization [facility] Address [address] [place] [address]. [place] [address] [place] [address] Care Team Providers Care Bottom Pounder [employer]ement Shoes Name Role Phone Unavailable Primary Care Provider Unavailabl e Encounter Details Date Type Department Care Team (Late st Contact Info) Description 05/18/2021 Abstract [facility] [address] [place] [address] Bony Platt, DO [address] [place] [id number] Social History Tobacco Use Types Packs/Day Years [...] Procedure Name Priority Date/Time Associated Diagnosis Comments CORONAVIRUS (COVID-19) ANTIGEN DIRECT OPTICAL Routine 05/18/2021 6:37 PM CAPTAIN WAITER documented in this encounter Results * CORONAVIRUS (COVID-19) ANTIGEN DIRECT OPTICAL (05/18/2021 6:37 PM CAPTAIN WAITER) CORONAVIRUS ANTIGEN IA DETECTED NR: NEGATIVE [facility] Comment:IVANNA SAL RN COMMENT TIME CALLED [address] [facility] COMMENT YES [facility] COMMENT YES [facility] lot number [id number] [facility] Comment:COMMENT 05/18/2021 6:37 PM CAPTAIN WAITER 05/18/2021 6:37 PM CAPTAIN WAITER us Bony Platt DO MICROBIOLOGY - GENERAL ORDERAB LES Final Result Performing Organization Address City/State/[facility] Co de Phone Number [facility] [address] documented in this encounter Visit Diagnoses Not on filedocumented in this encounter
--- OUTSIDE RECORDS SUMMARY | 2024-07-20 15:00 | XMS_ITS | Encounter Summary ---
Author Organization [facility] Address [address] [place] [address]. [place] [address] [place] [address] Care Team Providers Care Glost Placer Name Role Phone Unavailable Primary Care Provider Unavailabl e Encounter Details Date Type Department Care Team (Late st Contact Info) Description 11/08/2020 Abstract [facility] [address] [place] [address] Sergo Jacobsen MD [address] [place] [phone] Social History Tobacco Use Types Packs/Day Years [...]
--- OUTSIDE RECORDS SUMMARY | 2024-07-20 15:04 | XMS_ITS | Data Portability ---
Author Organization [facility], [place] Address [address] [place] [address] Care Team Providers Care Forensic Pathologist Name Role Phone MICHAEL YOU Primary Care Provider [phone] Assessment Encounter Date Assessment Date Assessment LastModified by Organization Details LastModified Time 04/25/2021 04/25/2021 Patient is ___weeks . Discussed plan. Not available 04/25/2021 12:24:28 05/02/2021 05/02/2021 Patient is ___weeks . Discussed plan. Not available 05/02/2021 16:56:04 05/09/2021 05/09/2021 Patient is ___weeks . Discussed plan. Not available 05/09/2021 13:01:27 05/16/2021 05/16/2021 Patient is ___weeks . Discussed plan. Not available 05/16/2021 12:40:24 05/23/2021 05/23/2021 Patient is ___weeks . Discussed plan. [email or web address] Not available 05/21/2021 16:35:08 Plan of Treatment Reminders Order Date Submit Date Provider Last Modified By Organization Details Last Modified Time Details Appointments None recorded. Lab None recorded. Referral None recorded. Procedures None recorded. Surgeries None recorded. Imaging None recorded. Medication Orders triamcinolo ne acetonide 0.5 % topical cream 2020 021 [facility][id number], [address] [place], [address], 13:20:14 Patient TargetsNo targets recorded. Patient InstructionsNo instructions recorded. Reason for Referral None Reported. Results Created Date Observation Date Name Description Value Unit Range Abnormal Flag Note LastModifiedBy Organization Detail LastModifiedTime 04/25/20 21 04/25/2021 CULTU RE: GROUP B STREP SCREE N, REFLE X SUSCE PTIBI LITY result report SEE RESULT S BELOW Test: Cultu re: Group B Strep , Refle x Susce ptibi lity ([facility]/ [facility] ) Speci men Sourc e: Vagin a/Rec félix Speci men Type: Vagin al/Re ctal Speci men Date: 04/25 1:14 PM Resul t Date: 04/28 2:08 PM Resul t Statu s: Final resul t Abnor mal: No Resul ting Lab: [facility] [address] [facility] [address] Tel: CULTU RE ----- ----- ----- --- No Group B strep isola narayan at 2 days (germán ctive broth enhan cemen t) Not Available [facility] (Lab) [address], [place], [address], 04/28/2021 15:11:07 04/10/20 21 04/10/2021 US, obste tric, follo w-up No observ ation record ed. [email or web address] Mahaffey [address], [place], [address], 04/10/2021 15:12:14 Result Notes None recorded. Problems Name Problem SNOMED Code Status Onset Date Resolution Date Notes Provider Name and Address Organization Details Recorded Time Pregnanc y 34968311 Completed 202006/18/2021 Jina Sue [facility], [place] - [facility] 15:01:15 Carrier of cystic fibrosis gene mutation [id number] Completed Maternal and FOB+ - MFM genetic counselin g referral sent 01/07/21 - 01/20 Ines Crowe (genetici st) reached out twice, pt has not returned call to schedule. Jina Sue [facility], [facility] 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 Jina Sue [facility] janie, [facility] 15:01:12 Problem Notes None recorded. Procedures Surgical History None recorded. Imaging Results Imaging Date Name Status LastModified by Organiz ation Details LastModified Time 04/10/2021 US, obstetric, follow-up completed [email or web address] Mahaffey [address], [place], [address], 04/10/2021 15:12:14 Procedure Notes None recorded. Medical Equipment None Reported. Allergies No known drug allergies Medications Name Sig Start Date Stop Date Status Note LastModified by Organization Details LastModified Time triamcinolone acetonide 0.5 % topical cream APPLY A THIN LAYER TO THE AFFECTED AREA(S) BY TOPICAL ROUTE 2 TIMES PER DAY active Not Available Not Available No t Available active Not Available Not Avai lable Not Available Vitals Date Recorded Body height Body mass index (BMI) Body mass index (BMI) Percentile per age and sex Body weight Systolic blood pressure Diastolic blood pressure Provider Name and Address Organization Details Last Updated DateTime 1 165.1 cm 25.3 kg/m2 80 % 21832.0 4024 g 121 mm[Hg] 77 mm[Hg] [facility] 12:24:37 Date Recorded Body height Body mass index (BMI) Percentile per age and sex Body mass index (BMI) Body weight Systolic blood pressure Diastolic blood pressure Systolic blood pressure Diastolic blood pressure Provider Name and Address Organization Details Last Updated DateTime 1 165.1 cm 81 % 25.5 kg/m2 44524.6 3261 g 129 mm[Hg] 88 mm[Hg] 120 mm[Hg] 78 mm[Hg] [facility] 16:56:26 Date Recorded Body height Body mass index (BMI) Percentile per age and sex Body mass index (BMI) Body weight Systolic blood pressure Diastolic blood pressure Provider Name and Address Organization Details Last Updated DateTime 1 165.1 cm 81 % 25.5 kg/m2 08970.6 3261 g 120 mm[Hg] 81 mm[Hg] [facility] 13:01:37 Date Recorded Body height Body mass index (BMI) Percentile per age and sex Body mass index (BMI) Body weight Systolic blood pressure Diastolic blood pressure Provider Name and Address Organization Details Last Updated DateTime 1 165.1 cm 82 % 25.6 kg/m2 92916.2 2498 g 118 mm[Hg] 76 mm[Hg] [facility] 12:40:35 Social History Question Answer Notes LastModified by Organizat ion Details LastModified Time Tobacco Smoking Status Former Smoker Yeimi lima, [facility] 10/23/2020 11:44:37 Do You Have An Advance Directive? No Information n ot available 10/23/2020 What Is Your Level Of Alcohol Consumption? None [email or web address] Information not available 10/23/2020 Are You Blind Or Do You Have Difficulty Seeing? No [email or web address] Information n ot available 10/23/2020 What Is Your Level Of Caffeine Consumption? Moderate [email or web address] Information not available 10/23/2020 How Much Tobacco Do You Chew? None [email or web address] Information not available 10/23/2020 In The 14 Days Before Symptom Onset, Have You Had Close Contact With A Laboratory-confirm ed COVID-19 While That Case Was Ill? No [email or web address] Information n ot available 10/23/2020 In The 14 Days Before Symptom Onset, Have You Had Close Contact With A Person Who Is Under Investigation For COVID-19 While That Person Was Ill? No Information not available 10/23/2020 Have You Been To An Area Known To Be High Risk For COVID-19? No [email or web address] Information not available 10/23/2020 Are You Deaf Or Do You Have Serious Difficulty Hearing? No [email or web address] Information not available 10/23/2020 What Type Of Diet Are You Following? REGULAR [email or web address] Information n ot available 10/23/2020 What Is The Highest Grade Or Level Of School You Have Completed Or The Highest Degree You Have Received? 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 No Information not available 10/23/2020 Do You Use Protection During Sex? No [email or web address] Information not available 10/23/2020 Do You Use Your Seat Belt Or Car Seat Routinely? Yes [email or web address] Information not available 10/23/2020 Do You Have Smoke And Carbon Monoxide Detectors In Your Home? Yes [email or web address] Information not available 10/23/2020 How Much Tobacco Do You Smoke? No Information not available 10/23/2020 Do You Feel Stressed (tense, Restless, Nervous, Or Anxious, Or Unable To Sleep At Night)? [id number] [email or web address] Information not available 10/23/2020 Do You Use Any Illicit Or Recreational Drugs? Yes Information not available 10/23/2020 Do You Use Sunscreen Routinely? No [email or web address] Information not available 10/23/2020 Have You Used IV Drugs? No [email or web address] Information not available 10/23/2020 Sex: Unknown Functional Status Question Answer Note LastModified by Organization D etails LastModified Time Are you able to walk? YESWOREST [email or web address] Information not available 10/23/2020 What is your exercise level? Moderate [email or web address] Information not available 10/23/2020 Mental Status None recorded. Family History Relationship Description Onset Age of this Age Resolved Age Notes LastModified by Organization Details LastModified Time Maternal Grandfather Hypertensive disorder [email or web address] Not available 2020 11:44:33 Medical History Condition Response Allergies (Food, seasonal, environmental ) N Other N Breast Cancer N Drug/Latex Allergies/Reactions N Blood Transfusion N Dermatologic Disorders N Lung Disease N Defects or Inherited Disease N Breast Problem N Gestational Diabetes N Hematologic disorders N Anesthesia Complications N History of STI N Deep Vein Thrombosis N Polycystic ovary syndrome N Anxiety Disorder N Autoimmune disease N Arthritis N Infertility N Polyps N Acid Reflux (GERD) N History of abnormal pap N Cancer N Stroke N Varicosities N Neurologic/Epilepsy N Endometriosis N High Cholesterol N Headaches N Fibromyalgia N Kidney Disease N Heart Problems N Kidney or Bladder Problems N Thyroid Problems N GI Problems N Eating Disorder N Anemia N Art (IVF or FET) N Psychiatric Illness N Ovarian Cancer N Diabetes N Pulmonary (TB, Asthma) N Hepatitis/Liver Disease N No Past Medical History N Eczema N Urinary Tract Infection N Abuse/Domestic Violence N Asthma N Trauma/Violence N Depression/ depression N Heart Disease N Pre-Eclampsia N Hypertension N Osteoporosis N Thrombophilias N Gynecological History Statement/Question Response Date of LMP 08/13/2020 On BCP's at Conception? N N STIs/STDs N Was last menstrual period normal Y HPV Vaccine N Duration of Flow (days) 7 Current Control Method Sexually Active? Y Age of first menstrual cycle 14 Date of Last Pap Smear Sexual Problems? N LMP Approximate N Obstetrics History GPAL:G 1 P 1 0 0 1 Type Value Full Term 1 Living 1 Total 1 Past Encounters Encounter ID Performer Location Encounter Start Date Encounter Closed Date Diagnosis/Indication Diagnosis SNOMED-CT Code Diagnosis ICD10 Code Diagnosis Note [id number] Desi Clement Mahaffey [address] [address] 10/23/2020 11:34:02 10/23/2020 12:07:37 test positive 078813612 Z32.01 Risk factors addressed: Tobacco Cessation, Safe Sexual Practices, environmen deena, work hazards, travel restrictio ns, seat belt use. Eat a health well balanced diet, avoid alcohol, tobacco, and street drugs. Engage in daily low impact exercise, avoid temperatur e extremes, and cat, rodent, and bird feces. Avoid travel to areas where zika virus is a concern. Offered cf/sma/nip t. Wants cf/sma. Considerin g NIPT. Handouts given and discussed with patient. Childbirth classes recommende d. New OB sheet given. If previous , counseling . Pt verbalizes that she understand s the importance of above instructio ns. All questions were answered. Patient reminded to have annual well woman examinatio n and address [facility] . [id number] Shante Nicolas Mahaffey [address] [address] 10/23/2020 11:37:42 10/24/2020 08:08:18 [id number] Jojo [facility] [address],[place] [address] 11/14/2020 10:35:10 11/14/2020 11:22:12 screening 462085433 Z36.82 [id number] Marcus Downey MD [place] [address],[place] [address] 11/14/2020 10:47:20 11/14/2020 12:09:35 Routine care 819452465 Z34.90 [id number] Marcus Downey MD [place] [address],[place] [address] 12/12/2020 11:29:48 12/12/2020 16:05:15 Routine care 828589604 Z34.90 [id number] Desi Clement [place] [address],[place] [address] 01/06/2021 10:29:50 01/06/2021 15:29:17 Routine care 195422623 Z34.90 [id number] [address] [address] 01/06/2021 10:28:51 01/06/2021 11:51:22 screening for malformation 903224040 Z36.3 [id number] Caroline Spence MD [place] [address],[place] [address] 02/03/2021 11:05:19 02/03/2021 12:48:35 Routine care 588345041 Z34.02 [id number] Desi Clement [place] [address] [place] [address] 02/27/2021 11:41:26 02/27/2021 12:11:07 Routine care 556349802 Z34.90 [id number] Janet Casanova CNM [place] [address] [place] [address] 03/14/2021 10:58:45 03/14/2021 11:23:36 Routine care 525680166 Z34.93 [id number] Marcus Downey MD [place] [address],[place] [address] 03/28/2021 11:07:18 03/28/2021 12:17:34 Routine care 332425277 Z34.90 [id number] Jojo Salamanca [place] [address],[place] [address] 04/10/2021 10:22:49 04/10/2021 13:38:16 Uterine size for dates discrepancy 061369948 O26.843 Z3A.34 [id number] Marcus Downey MD [place] [address],[place] [address] 04/10/2021 10:23:27 04/10/2021 12:05:20 Routine care 686304292 Z34.90 Z3A.34 [id number] Marcus Downey MD [place] [address],[place] [address] 04/25/2021 12:00:57 04/25/2021 13:01:27 Routine care 388377281 Z34.90 Z3A.34 [id number] Marcus Downey MD [place] [address],[place] [address] 05/02/2021 16:41:33 05/02/2021 17:06:25 Routine care 853506633 Z34.90 Z3A.34 [id number] MD Stefanie Cuenca [address],[place] [address] 05/09/2021 12:45:13 05/09/2021 14:02:45 Routine care 426292700 Z34.90 Z3A.34 [id number] MD Stefanie Cuenca [address],[place] [address] 05/16/2021 12:24:21 05/16/2021 13:26:17 Pruritic urticarial papules and plaques of 25769913 O26.86 [id number] Marcus Downey MD [place] [address] [address] 05/23/2021 16:43:52 05/24/2021 10:46:20 Routine care 515128526 Z34.90 Z3A.34 Health Concerns Section Related Observation LastModified by Organization Detai ls LastModified Time None Recorded Concern Status LastModified by Organization Details LastModified Time None Recorded Advance Directives Directive N: Payers Encounter Date Sequence Insurance Name Policy Number Policy Steen Covered Member ID Steen Member ID Guarantor Name 04/25/2021 SLIDING FEE SCHEDULE - DISCOUNT Shikha Padilla 05/09/2021 2 [employer] (MEDICAID REPLACEMENT - HMO) Shikha Padilla [id number] Shikha Padilla 05/16/2021 1 [place] [facility] PUBLIC AID Shikha Padilla [id number] Shikha Padilla 05/23/2021 1 [place] [facility] Shikha Padilla [id number] Shikha Padilla OBGyn Episode Ob Episode Information Episode Created Date Number of Fetuses Patient Bloodtype Patient rh Status Prepregnancy Weight lbs Domestic Partner Domestic Partner Phone Father Name Stave Grader Status 11/15/19 21 1 O Positive 111 CLOSED Fetus Data First Name Last Name Admitted to NICU Weight (g) Sex Living Outcome Pediatric Complications Fetus ID Race Codes Race Delivery Type Bud Curtis (AJ) 2863.29 95 M true Full Term [id number] Vaginal Delivery Problems Problem Notes Problem Name Start Date End Date Resolution Snomed Code Not e Spinal muscular atrophy [id number] carrier of SMA as well. Carrier of cystic fibrosis gene mutation [id number] Maternal and FO B+ - MFM genetic counseling referral sent 01/07/21 BG - 01/20 Ines Crowe (field laboratory operator) reached out twice, pt has not returned call to schedule. Abdulaziz Calculation Initial Abdulaziz Date Initial Exam Date Initial Exam Provider Initial Ultrasound Date Last Menstrual Period Date Ultra Sound Weeks Gestation 05/20/2021 11/14/2020 10/23/2020 08/13/2020 10 Eighteen To Twenty Week Abdulaziz Update Ultra Sound Date Fundal Height At Umbil Quickening Date Ultra Sound Latest Weeks Gestation Final Abdulaziz Confirmed By Final Abdulaziz Confirmed Date Final Abdulaziz Date Ultra Sound Latest Days Gestation 0 [email or web address] 11/14/2020 05/20/20 21 0 Pre- Flowsheet Flowsheet Date 11/14/2020 Solares Score Blood Edema Fundus Height Fundus Units Glucose Ketones Leukocytes Nitrite Labor Signs Protein Cervic Dilation Cervic Effacement Cervic Station 13 Type Weight in lbs Pre/Post Dialysis Refused Weight 112.727806658441 BP Diastolic BP Location Tested BP Systolic BP Type 86 R arm 127 sitting Fetus Heart Rate Present A 160 Fetus Movement Comments this patient is a 20-year-ol d 1 who presents for initial care. She has no complaints. She recently had some diarrhea. I gave her reassurance that that was fine. She thinks it is something she ate. she will begin routine care. She is unremarkable obstetric, medical, Surgical history. Flowsheet Date 12/12/2020 Solares Score Blood Edema Fundus Height Fundus Units Glucose Ketones Leukocytes Nitrite Labor Signs Protein Cervic Dilation Cervic Effacement Cervic Station 16 Type Weight in lbs Pre/Post Dialysis Refused Weight 117.016245286719 BP Diastolic BP Location Tested BP Systolic BP Type 78 R arm 130 sitting Fetus Heart Rate Present A 155 Fetus Movement Comments Discussed all protein, discussed her results from her spinal muscular atrophy and cystic fibrosis testing. She is a carrier for both. Father baby getting his testing today. Flowsheet Date 01/06/2021 Solares Score Blood Edema Fundus Height Fundus Units Glucose Ketones Leukocytes Nitrite Labor Signs Protein Cervic Dilation Cervic Effacement Cervic Station Type Weight in lbs Pre/Post Dialysis Refused BP Diastolic BP Location Tested BP Systolic BP Type Fetus Heart Rate Present Fetus Movement Comments Flowsheet Date 01/06/2021 Solares Score Blood Edema Fundus Height Fundus Units Glucose Ketones Leukocytes Nitrite Labor Signs Protein Cervic Dilation Cervic Effacement Cervic Station none trace Type Weight in lbs Pre/Post Dialysis Refused Weight 122.691094324549 BP Diastolic BP Location Tested BP Systolic BP Type 60 110 Fetus Heart Rate Present Fetus Movement A Yes Comments Doing well. Awaiting FOB cf/ sma results. OB nurse will check on the status. Baseline anatomy today. Will await recommendations. Flowsheet Date 02/03/2021 Solares Score Blood Edema Fundus Height Fundus Units Glucose Ketones Leukocytes Nitrite Labor Signs Protein Cervic Dilation Cervic Effacement Cervic Station none 25 Type Weight in lbs Pre/Post Dialysis Refused Weight 130.972112477586 BP Diastolic BP Location Tested BP Systolic BP Type 68 110 Fetus Heart Rate Present A 145 Fetus Movement A Yes Comments Doing well. Didn't schedule genetic consult because was unclear what the purpose was, didn't want baby tested until after . After discussing that mostly they will get more information, she will schedule. GCT next, discussed. Will discuss Tdap next. Flowsheet Date 02/27/2021 Solares Score Blood Edema Fundus Height Fundus Units Glucose Ketones Leukocytes Nitrite Labor Signs Protein Cervic Dilation Cervic Effacement Cervic Station 27 trace Type Weight in lbs Pre/Post Dialysis Refused Weight 137.086693842619 BP Diastolic BP Location Tested BP Systolic BP Type 72 115 Fetus Heart Rate Present A 142 Fetus Movement A Yes Comments Doing well. 1 hour gtt today . Pt planning to schedule appt for genetic counselling d/t CF. Flowsheet Date 03/14/2021 Solares Score Blood Edema Fundus Height Fundus Units Glucose Ketones Leukocytes Nitrite Labor Signs Protein Cervic Dilation Cervic Effacement Cervic Station neg none 26 trace Type Weight in lbs Pre/Post Dialysis Refused Weight 139.487532568238 BP Diastolic BP Location Tested BP Systolic BP Type 70 112 Fetus Heart Rate Present A 150 Fetus Movement A Yes Comments patient states that having s ome BH contractions. plan growth us, reviewed precautions, no complaints Flowsheet Date 03/28/2021 Solares Score Blood Edema Fundus Height Fundus Units Glucose Ketones Leukocytes Nitrite Labor Signs Protein Cervic Dilation Cervic Effacement Cervic Station 29 Type Weight in lbs Pre/Post Dialysis Refused Weight 145.7164979123 BP Diastolic BP Location Tested BP Systolic BP Type 70 R arm 116 sitting Fetus Heart Rate Present A 145 Fetus Movement A Yes Comments size smaller than dates - US Already scheduled, no complaints Flowsheet Date 04/10/2021 Solares Score Blood Edema Fundus Height Fundus Units Glucose Ketones Leukocytes Nitrite Labor Signs Protein Cervic Dilation Cervic Effacement Cervic Station Type Weight in lbs Pre/Post Dialysis Refused BP Diastolic BP Location Tested BP Systolic BP Type Fetus Heart Rate Present Fetus Movement Comments Flowsheet Date 04/10/2021 Solares Score Blood Edema Fundus Height Fundus Units Glucose Ketones Leukocytes Nitrite Labor Signs Protein Cervic Dilation Cervic Effacement Cervic Station 34 trace Type Weight in lbs Pre/Post Dialysis Refused Weight 148.604365676098 BP Diastolic BP Location Tested BP Systolic BP Type 70 R arm 114 sitting Fetus Heart Rate Present A 144 Fetus Movement A Yes Comments Ultrasound showed appropriat e growth. Low abdominal circumference, to consider follow-up ultrasound in 4 weeks. Flowsheet Date 04/25/2021 Solares Score Blood Edema Fundus Height Fundus Units Glucose Ketones Leukocytes Nitrite Labor Signs Protein Cervic Dilation Cervic Effacement Cervic Station 36 2cm 50% -2 Type Weight in lbs Pre/Post Dialysis Refused Weight 152.405058164081 BP Diastolic BP Location Tested BP Systolic BP Type 77 R arm 121 sitting Fetus Heart Rate Present A 145 Fetus Movement A Yes Comments No complaints, very favorabl e cervix, low head. Flowsheet Date 05/02/2021 Solares Score Blood Edema Fundus Height Fundus Units Glucose Ketones Leukocytes Nitrite Labor Signs Protein Cervic Dilation Cervic Effacement Cervic Station 37 Type Weight in lbs Pre/Post Dialysis Refused Weight 153.014645960442 BP Diastolic BP Location Tested BP Systolic BP Type 88 R arm 129 sitting 78 R arm 120 sitting Fetus Heart Rate Present A 145 Fetus Movement A Yes Comments no complaints, Flowsheet Date 05/09/2021 Solares Score Blood Edema Fundus Height Fundus Units Glucose Ketones Leukocytes Nitrite Labor Signs Protein Cervic Dilation Cervic Effacement Cervic Station 3cm 50% -1 Type Weight in lbs Pre/Post Dialysis Refused Weight 153.364211840384 BP Diastolic BP Location Tested BP Systolic BP Type 81 R arm 120 sitting Fetus Heart Rate Present A 145 Fetus Movement A Yes Comments excellent cervical exam, aleksander durga test was conducted, it was negative, she leaks some fluid yesterday. Her cervix was examined with a speculum in the will gross fluid was observed. Flowsheet Date 05/16/2021 Solares Score Blood Edema Fundus Height Fundus Units Glucose Ketones Leukocytes Nitrite Labor Signs Protein Cervic Dilation Cervic Effacement Cervic Station 39 trace Type Weight in lbs Pre/Post Dialysis Refused Weight 154.350846505285 BP Diastolic BP Location Tested BP Systolic BP Type 76 R arm 118 sitting Fetus Heart Rate Present A 130 Fetus Movement A Yes Comments puppps rash - to treat with triamcinolone cream. Flowsheet Date 05/23/2021 Solares Score Blood Edema Fundus Height Fundus Units Glucose Ketones Leukocytes Nitrite Labor Signs Protein Cervic Dilation Cervic Effacement Cervic Station Type Weight in lbs Pre/Post Dialysis Refused BP Diastolic BP Location Tested BP Systolic BP Type Fetus Heart Rate Present Fetus Movement Comments Patient reports good m ovement, she reports resolution of the rash, patient is COVID positive and had some significant symptoms were time. Her symptoms are resolved. She should be noncontagious next week. She return in 4 days to the clinic. Menstrual History Last Menstrual Date Menses Monthly On Bcp Conception Prior Menses Frequency Hcg Plus Date Menarche Onset Age 0208/13/2020 Genetic Screening And Infection History Question Response Note Mental Retardation/Autism false Patient's Age Will Be 35 Years Or Older At Estim ated Date of Delivery false Thalassemia (Korean, Burundian, Mediterranean, Or Background): MCV < 80 false Neural Tube Defect (Meningomyelocele, Spina Bifi da, Or Anencephaly) false Congenital Heart Defect false Down Syndrome false Primitivo-Sachs (eg, Denominational, Cajun, Niuean-Mckean) f alse Cynthia Disease false Sickle Cell Disease Or Trait () false Hemophilia Or Other Blood Disorders false Muscular Dystrophy false Cystic Fibrosis false Hartford's Chorea false Intellectual Disability/Autism false If Yes, Was Person Tested For Fragile X? false Other Inherited Genetic Or Chromosomal Disorder false Maternal Metabolic Disorder (eg, Type 1 Diabetes , PKU) false Patient Or Baby's Father Had A Child With Defects Not Listed Above false Recurrent Loss, Or A Stillbirth false Medications (including Suppl ements, Vitamins, Herbs, OTC Drugs), Illicit/Recreational Drugs, Alcohol false If Yes, Agent(s) And Strength/Dosage false Any [...] of Hepatitis false Prior GBS-infected child false Hemoglobinopathy Or Carrier false Other Structural Defect false Recent Travel History Outside of Country false Delivery Information Delivery Date Delivery Type Labor Anesthesia Weeks Gestation Incision Type Labor Labor Length Hrs Delivered By Post Complications Tubal Sterilization Discharge Date Comments [facility] idural 40.6 false Marcus Downey MD Covid+ cystic fibrosis & spinal muscular atrophy Discharge Information Feeding Method Contraceptive Method Maternal HG B and HCT Levels
== END 2024-07-13 09:12 | disposition home or self-care (01) ==
PROVIDERS: Emergency Provider Nurse Practitioner
DX: N39.0 Urinary tract infection, site not specified (principal)
CPT/HCPCS: 81003; 87086; 99213; G0463